=== PATIENT | female | born 1975 | race African-American/Black ===

== ENCOUNTER → 2023-12-18 | Outpatient (CLI) | payer MEDICAID, MEDICARE, SELFPAY ==
--- NOTE | 2023-12-18 13:30 | BI_ITS ---
MAMMOGRAPHY - BILATERAL SCREENING REASON FOR EXAM: Female, 47 years old. Routine annual screening examination. PERTINENT HISTORY: Non-contributory. Remote right excisional breast biopsy. TECHNIQUE: Digital bilateral breast avril (3D mammographic acquisition) in the CC and MLO projections. 2-D mediolateral oblique (MLO) and craniocaudad (CC) views of both breasts were obtained. CAD: Full Field Digital Mammography with Computer Added Detection was performed. COMPARISON: Comparison is made with prior outside examination November 02, 2022. FINDINGS: Breast Composition: The breasts are almost entirely fatty. There are no dominant masses or suspicious calcifications. Stable bilateral fat-containing axillary lymph nodes. No other significant abnormalities are identified. There has been no significant change since the prior study. BI/SCRN MAMM (CAD)W/AVRIL BILAT IMPRESSION: Stable bilateral screening mammogram. Yearly follow-up mammogram recommended. (A) ASSESSMENT CATEGORY: BIRADS Category 2: Benign. A letter regarding these results will be sent to the patient by the facility within 30 days. Approximately 10% of breast cancers are not detected by mammography. A normal mammogram should not delay biopsy of a clinically suspicious abnormality. [id number] Electronically Signed: Shin Odonnell MD at 11:21 EDT ,
== END | disposition home or self-care (01) ==
LOC: OPBI 13:27
PROVIDERS: PCP Nurse Practitioner Family; Referring Provider Nurse Practitioner Family; Visit Provider Nurse Practitioner Family
DX: Z12.31 Encounter for screening mammogram for malignant neoplasm of breast (principal)
CPT/HCPCS: 77063; 77067

== ENCOUNTER → 2024-02-20 | Outpatient (CLI) | payer MEDICARE, MEDICAID, SELFPAY ==
[2024-02-20 17:20] LABS: Absolute Lymphocyte Count 2.16 X10^3/uL (0.83-4.51); Absolute Neutrophil Count 6.8 X10^3/uL (2.0-7.7); Basophil# 0.01 X10^3/uL; Basophil% 0.1 % (0-1); Eosinophil# 0.15 X10^3/uL; Eosinophils% 1.6 % (0-5); Hematocrit 42.9 % (37-47); Lymphocyte # 2.16 X10^3/ul (0.83-4.51); Lymphocyte % 22.3 % (19-41); Mean Corp Hgb Conc 32.6 g/dL (32-36); Mean Corpuscular Hgb 30.9 pg (27.0-32.0); Mean Corpuscular Volume 94.7 fL (81-99); Mean Platelet Vol. 11.2 fl (6.2-12.0); Monocyte# 0.55 X10^3/uL; Monocyte% 5.7 % (0-10); NRBC Flagged by Analyzer 0 % (0-5); Neutrophil # 6.77 X10^3/uL (2.7-7.7); Platelet Count 186 K/mm3 (150-450); RBC Distribution Width CV 14.3 % (11.6-14.6); RBC Distribution Width SD 49.9 fl (35.1-43.9); Red Blood Count 4.53 M/mm3 (4.2-5.4); White Blood Count 9.7 K/mm3 (4.4-11.0)
[2024-02-20 18:09] LABS: AST(SGOT) 13 U/L (15-37); Alanine Aminotransfer ALT/SGPT 17 U/L (13-56); Albumin, Serum 3.7 g/dL (3.2-5.0); Alkaline Phosphatase 88 U/L (45-117); Anion Gap 10 (5-15); BUN 10 mg/dL (7-18); BUN/Creat Ratio 7.8 RATIO (10-20); Calcium,Total 9.3 mg/dL (8.5-10.1); Chloride 105 mmol/L (98-107); Creatinine, Serum 1.28 mg/dL (0.55-1.02); EST Glomerular Filtration Rate 47 mL/min (>60); Est Glom Filt Rate - Afr Amer 57 mL/min (>60); Globulin 3.7 g/dL (2.2-4.2); Glucose 153 mg/dL (74-106); Potassium 4.4 mmol/L (3.5-5.1); Protein, Total 7.4 g/dL (6.4-8.2); Sodium Level 139 mmol/L (136-145); Thyroid Stim Hormone (TSH) 0.79 uIU/mL (0.358-3.74)
[2024-02-20 18:20] LABS: Microalbumin,Random Urine < 5.0 mg/L (NO RANGE EST.)
== END | disposition home or self-care (01) ==
LOC: VSLAB 14:16
PROVIDERS: PCP Nurse Practitioner Family; Visit Provider Nurse Practitioner Family
DX: E11.69 Type 2 diabetes mellitus with other specified complication (principal); I10 Essential (primary) hypertension
CPT/HCPCS: 36415; 80053; 82043; 84443; 85025

== ENCOUNTER → 2024-06-24 | Outpatient (CLI) | payer MEDICARE, MEDICAID, SELFPAY ==
--- NOTE | 2024-06-24 12:44 | BI_ITS ---
MAMMOGRAPHY - BILATERAL DIAGNOSTIC REASON FOR EXAM: Female, 48 years old. Sebaceous cyst overlying the left breast laterally. PERTINENT HISTORY: Remote right excisional breast biopsy. TECHNIQUE: Digital bilateral breast meño (3D mammographic acquisition) in the CC and MLO projections. 2-D mediolateral oblique (MLO) and craniocaudad (CC) views of both breasts were obtained. CAD: Full Field Digital Mammography with Computer Added Detection was performed. COMPARISON: Comparison is made with prior study dated December 18, 2023. FINDINGS: Breast Composition: There are scattered areas of fibroglandular density. There are no dominant masses or suspicious calcifications. Irregular density seen in the deep inferior aspect of the left breast corresponding to the skin lesion. This most likely presents a sebaceous cyst. No other significant abnormalities are identified. BI/DIAG MAMM W/CAD, BILAT IMPRESSION: Findings suggestive of a skin lesion corresponding to the sebaceous cyst in the deep central aspect of the left breast. ASSESSMENT CATEGORY: BIRADS Category 2: Benign. A letter regarding these results will be sent to the patient by the facility within 30 days. Approximately 10% of breast cancers are not detected by mammography. A normal mammogram should not delay biopsy of a clinically suspicious abnormality. Electronically Signed: Shin Odonnell MD at 13:51 EDT ,
--- NOTE | 2024-06-24 12:45 | US_ITS ---
STUDY: ULTRASOUND BREAST - LEFT REASON FOR EXAM: Female, 48 years old. Palpable lump in the right breast. TECHNIQUE: Axial and longitudinal images of the LEFT breast were performed with a high resolution ultrasound transducer. # OF IMAGES: 14 COMPARISON: Comparison is made with prior mammogram done earlier in the day. FINDINGS: LEFT Breast: The palpable lump corresponds to a 1.6 cm x 1.8 cm x 0.6 cm hypoechoic density deep to the skin surface within the subcutaneous tissues at the 5:00 position of the breast at 10 cm from the nipple. Suggestive of a sebaceous cyst. US/Breast Limited Unilateral IMPRESSION: The palpable lump corresponds to a 1.6 cm x 1.8 cm x 0 0.6 centimeters hypoechoic density at the 5:00 position of the breast at 10 cm from nipple. This is deep to the skin within the subcutaneous tissues suggestive of a sebaceous cyst. ASSESSMENT CATEGORY: BIRADS Category 2: Benign. A letter regarding these results will be sent to the patient by the facility within 30 days. Electronically Signed: Shin Odonnell MD at 14:49 EDT ,
--- OUTSIDE RECORDS SUMMARY | 2024-06-24 14:26 | XMS RPT_ITS | CCD ---
Author Organization [facility] Care Team Providers Care Mortar Maker Name Role Phone Yadira Rushing Unavailable No, Physician Unavailable Unavailable NO, PHYSICIAN Unavailable Unavailable MALORIE JUNIOR Unavailable Unavailab le NO, PHYSICIAN Unavailable Unavailable BEN, PERRY Unavailable Unavailable BEN, PERRY Unavailable Unavailable BEN, PERRY Unavailable Unavailable SAHU, SMOOTH DEEP Unavailable Unavailable SPARE, J. LULA Unavailable Unavailable ASGEDOM, GOITOM ANDOM Unavailable Unavailabl e NO, PHYSICIAN Unavailable Unavailable SPARE, J. LULA Unavailable Unavailable MARSTUART MANDEL. Unavailable Unavailable BEN, PERRY Unavailable Unavailable SAHU, SMOOTH DEEP Unavailable Unavailable DOUG HERNÁNDEZ Unavailable Unavaila ble NO, PHYSICIAN Unavailable Unavailable AMBURGEY, ODUL AKTAN Unavailable Unavailable AMBURGEY, ODUL AKTAN Unavailable Unavailable TIFFANIE YADIRA ALANNA Unavailable Unav ailable RAJKOTWALA, KHOZEMA M. Unavailable Unavailab andres Rushing Aydira Alanna Unavailable No, Physician Primary Care Provider UnavailKendra Skinner Unavailable Kiarra Arambula Unavailable Unavailable Poommipanit, Bernardino Unavailable Pete Wadsworth Unavailable Unavailable Manuel Neumann Unavailable Unavailable Kendra Foote Unavailable KENDRA FOOTE Primary Care Unavailable ASAD BRANTLEY Attending Unavailable Hudec, Taylor Unavailable Unavailable Dr. Kendra Foote Primary Care Unavaila Manuel Diehl Attending Unavailable Dr. Kendra Foote Primary Care Unavaila DO KIARRA Kumari Attending Unavailab andres Foote, Dr. Kendra Lion Primary Care Unavaila Taylor Jaquez Attending Unavailable Dary, Dr. Kendra Lion Attending Unavaila rusty Foote, Dr. Kendra Lion Primary Care Unavaila rusty Foote, Dr. Kendra Lion Primary Care Unavaila ble Manuel Neumann Attending Unavailable Unavailable Unavailable NO, PHYSICIAN Primary Care Unavailable ROBE DAMON Attending Unava ilable Generic Provider MD, No Assigned Pcp Primary Car e Provider Unavailable MANUEL NEUMANN Attending Unavailable GENERIC PROVIDER, NO ASSIGNED PCP Primary Care Unavailable DENTON VARGAS Admitting Unavailable EL AMOSDENTON Attending Unavailable GENERIC PROVIDER, NO ASSIGNED PCP Primary Care Unavailable Allergies Allergy Classification Reported Allergen(s) Allergy Type Date of Onset Reaction(s) Facility (8 sources) amoxicillin; Translations: [AMOXICILLIN] Drug Allergy 5 [facility] Work Phone: (11 sources) Angiotensin Converting Enzyme (Kameron) Inhibitors; Translations: [KAMERON INHIBITORS] Propensity to adverse reactions to drug 5 Swelling [facility] Work Phone: (8 sources) ciprofloxacin; Translations: [CIPROFLOXACIN] Drug Allergy 5 Swelling [facility] Work Phone: (10 sources) Penicillins; Translations: [PENICILLINS] Propensity to adverse reactions to drug 5 [facility] Work Phone: (3 sources) Ciprofloxacin Drug Allergy Swelling/Edema , Swelling [facility] (3 sources) Penicillin G; Translations: [PENICILLIN G] Drug Allergy 4 GI Upset [facility] (1 source) Penicillins Propensity to adverse reactions 4 Nausea/vomitin g [facility] Medications Current Medications Medication Drug Class(es) Dates Sig (Normalized) Sig (Original) acetaminophen 325 mg / traMADol hydrochloride 37.5 mg oral tablet (1 source) Opioid Agonist Start: 10-12-2022 take 1 tablet by mouth three times daily Ultracet 37.5 mg-325 mg oral tablet ; 1 tab(s) orally 3 times a day Quantity: 12 Refills: 0 Ordered: 12-Oct-2022 Taylor Ventura Start: 12-Oct-2022 Generic Substitution Allowed Comments: May cause drowsiness. Alcohol may intensify this effect. Use care when operating dangerous machinery.Obtain medical advice before taking any non-prescription drugs as some may affect the action of this medication.This product contains acetaminophen. Do not use with any other product containing acetaminophen to prevent possible liver damage. Comment on above: May cause drowsiness . Alcohol may intensify this effect. Use care when operating dangerous machinery.Obtain medical advice before taking any non-prescription drugs as some may affect the action of this medication.This product contains acetaminophen. Do not use with any other product containing acetaminophen to prevent possible liver damage. 60 actuat albuterol 0.09 mg/actuat metered dose inhaler (2 sources) beta2-Adrenergic Agonist Start: 06-12-2017 End: 07-12-2017 albuterol 90 mcg/actuation inhaler Inhale 2 (two) puffs every 6 (six) hours as needed for wheezing. 18 g 0 06/12/2017 07/12/2017 Active amLODIPine 10 mg oral tablet (14 sources) Dihydropyridine Calcium Channel Chasity Start: 04-09-2017 End: 07-12-2017 take 1 tablet by mouth once daily amLODIPine (NORVASC) 10 MG tablet Take 1 (one) tablet (10 mg total) by mouth daily. 30 tablet 0 05/02/2017 06/01/2017 Active take 1 tablet by mouth once kavita y amLODIPine Besylate 5 MG Oral Tablet TAKE 1 TABLET DAILY DIRECTED. Quantity: 90 Refills: 3 Ordered: 08-Mar-2022 DO Active aspirin 81 mg chewable tablet (8 sources) Platelet Aggregation Inhibitor, Nonsteroidal Anti-inflammatory Drug Start: 01-01-2022 End: 12-26-2022 take 1 tablet by mouth once daily aspirin 81 mg oral tablet, chewable ; 1 tab(s) orally once a day Quantity: 90 Refills: 3 Ordered: 01-Jan-2022 Emma Mclaughlin Start: 01-Jan-2022 End: 26-Dec-2022 Generic Substitution Allowed take 1 tablet by mouth once kavita y aspirin 81 mg EC tablet Take 1 tablet (81 mg) by mouth once daily. Active benzocaine 0.075 mg/mg oral gel (2 sources) Standardized Chemical Allergen Start: 05-02-2017 End: 05-12-2017 benzocaine (BABY ORAJEL) 7.5 % oral gel Apply to the mouth or throat 4 (four) times a day as needed for pain. 9.45 g 0 05/02/2017 05/12/2017 Active Start: 04-24-2017 End: 05-02-2017 benzocaine (BABY ORAJEL) 7.5 % oral gel Mouth/Throat, 4 times daily PRN, pain, Starting Sat04/24/17 at 1314, RESTRICTED to use in patients greater than or equal to 13 years old. Yes, the patient is greater than or equal to 13 years old Given 04/30/2017 21:21 EDT clopidogrel 75 mg oral tablet (8 sources) P2Y12 Platelet Inhibitor Start: 01-01-2022 End: 12-26-2022 take 1 tablet by mouth once daily clopidogrel 75 mg oral tablet ; 1 tab(s) orally once a day Quantity: 90 Refills: 3 Ordered: 01-Jan-2022 Emma Mclaughlin Start: 01-Jan-2022 End: 26-Dec-2022 Generic Substitution Allowed diclofenac sodium 0.01 mg/mg topical gel (1 source) Nonsteroidal Anti-inflammatory Drug Start: 10-12-2022 Voltaren 1% topical gel ; Apply topically to affected area 2 times a day Quantity: 50 Refills: 0 Ordered: 12-Oct-2022 Taylor Ventura Start: 12-Oct-2022 Generic Substitution Allowed Comments: Avoid prolonged or excessive exposure to direct and/or artificial sunlight while taking this medication.Do not take this drug if you are .For external use only. Comment on above: Avoid prolonged or e xcessive exposure to direct and/or artificial sunlight while taking this medication.Do not take this drug if you are .For external use only. escitalopram 1 mg/ml oral solution (1 source) Serotonin Reuptake Inhibitor take 10 mL by mouth once daily escitalopram (Lexapro) 5 mg/5 mL solution Take 10 mL (10 mg) by mouth once daily. Patient states 20mg bid Active glipiZIDE er 10 mg 24 hr extended release oral tablet (2 sources) Sulfonylurea take 1 tablet by mouth once daily glipiZIDE 10 mg oral tablet, extended release ; 1 tab(s) orally once a day Quantity: 0 Refills: 0 Ordered: 4-May-2022 Leydi Angel Status: Discontinued Generic Substitution Allowed hydrOXYzine hydrochloride 50 mg oral tablet (8 sources) Antihistamine Start: 06-12-2017 End: 07-12-2017 take 1 tablet by mouth three times daily hydrOXYzine (ATARAX) 50 MG tablet Take 1 (one) tablet (50 mg total) by mouth 3 (three) times a day. 90 tablet 0 06/12/2017 07/12/2017 Active Start: 05-27-2017 End: 06-13-2017 take 1 tablet by mouth three times daily hydrOXYzine (ATARAX) tablet 50 mg 50 mg, Oral, 3 times daily, First dose on Sat05/27/17 at 0900 Given 06/12/2017 20:03 EDT 50 mg Start: 05-02-2017 End: 06-01-2017 take 1 tablet by mouth three times daily hydrOXYzine (ATARAX) 50 MG tablet Take 1 (one) tablet (50 mg total) by mouth 3 (three) times a day. 90 tablet 0 05/02/2017 05/27/2017 Discontinued Start: 04-22-2017 End: 05-02-2017 take 1 tablet by mouth three times daily hydrOXYzine (ATARAX) tablet 50 mg 50 mg, Oral, 3 times daily, First dose on Sat04/23/17 at 1500 Given 05/01/2017 20:19 EDT 50 mg Start: 04-08-2017 End: 05-02-2017 take 1 tablet by mouth every six hours as needed for anxiety hydrOXYzine (ATARAX) tablet 50 mg 50 mg, Oral, Every 6 hours PRN, anxiety, Starting Sat04/08/17 at 2310 Given 04/21/2017 20:23 EDT 50 mg losartan potassium 100 mg oral tablet (2 sources) Angiotensin 2 Receptor Chasity take 1 tablet by mouth once daily losartan 100 mg oral tablet ; 1 tab(s) orally once a day Quantity: 0 Refills: 0 Ordered: 27-Dec-2021 Arti Becker Status: Discontinued Generic Substitution Allowed meloxicam 15 mg oral tablet (2 sources) Nonsteroidal Anti-inflammatory Drug take 1 tablet by mouth once daily in the morning meloxicam 15 mg oral tablet ; 1 tab(s) orally once a day (in the morning) Quantity: 0 Refills: 0 Ordered: 27-Dec-2021 Arti Becker Status: Discontinued Generic Substitution Allowed metFORMIN hydrochloride 500 mg oral tablet (8 sources) Biguanide Start: 06-12-20 End: 07-13-20 take 1 tablet by mouth twice daily at mealtime metFORMIN (GLUCOPHAGE) 500 MG tablet Take 1 (one) tablet (500 mg total) by mouth 2 (two) times a day with meals. 60 tablet 0 06/13/2017 07/13/2017 Active Start: 05-27-2017 End: 06-13-2017 take 800 tablets by mouth once daily at breakfast metFORMIN (GLUCOPHAGE) tablet 500 mg 500 mg, Oral, Daily with breakfast, First dose on 05/27/17 at 0800, Note: Guidelines for metformin state that drug should be held for 48 hrs after use of iodinated contrast media (IVP dye). Given 06/11/2017 08:00 EDT 500 mg Start: 05-02-2017 End: 06-12-2017 take 1 tablet by mouth once daily at breakfast metFORMIN (GLUCOPHAGE) 500 MG tablet Take 1 (one) tablet (500 mg total) by mouth daily with breakfast. 30 tablet 0 06/12/2017 06/12/2017 Discontinued multivitamin tablet (1 source) take 1 tablet by mouth once daily multivitamin tablet Take 1 tablet by mouth once daily. Active nitroglycerin 0.4 mg sublingual tablet (4 sources) Nitrate Vasodilator nitroglyceri n (Nitrostat) 0.[address] 1 tablet (0.4 mg) under the tongue every 5 minutes if needed for chest pain. Active omeprazole 40 mg delayed release oral capsule (9 sources) Proton Pump Inhibitor omeprazole (PriLOSEC) [address] capsule Take 1 capsule (40 mg) by mouth. Do not crush or chew. Active 24 hr oxybutynin chloride 10 mg extended release oral tablet (9 sources) Cholinergic Muscarinic Antagonist take 1 tablet by mouth once daily oxybutynin XL (Ditropan-XL) 10 mg 24 hr tablet Take 1 tablet (10 mg) by mouth once daily. Do not crush, chew, or split. Active QUEtiapine 100 mg oral tablet (15 sources) Atypical Antipsychotic take 1 tablet by mouth twice daily QUEtiapine (SEROquel) 100 mg tablet Take 1 tablet (100 mg) by mouth 2 times a day. Active take 1 tablet by mouth once kavita y QUEtiapine Fumarate 100 MG Oral Tablet TAKE 1 TABLET DAILY. Quantity: 0 Refills: 0 Ordered: 08-Mar-2022 DO Active take 1 tablet by mouth at bedtim e QUEtiapine Fumarate 50 MG Oral Tablet TAKE 1 TABLET AT BEDTIME. Quantity: 0 Refills: 0 Ordered: 08-Mar-2022 DO Active rosuvastatin calcium 5 mg oral tablet (9 sources) HMG-CoA Reductase Inhibitor Start: 01-01-2022 End: 12-26-2022 take 1 tablet by mouth once daily at bedtime rosuvastatin 5 mg oral tablet ; 1 tab(s) orally once a day (at bedtime) Quantity: 90 Refills: 3 Ordered: 01-Jan-2022 Emma Mclaughlin Start: 01-Jan-2022 End: 26-Dec-2022 Generic Substitution Allowed semaglutide (Ozempic) 1 mg/dose (4 mg/3 mL) pen injector (1 source) semaglutide (Ozempic) 1 mg/dose (4 mg/3 mL) pen injector Inject 1 mg under the skin every 7 days. Active Tab-A-Marilyn + Iron oral tablet (3 sources) take 1 tablet by mouth once daily Tab-A-Marilyn + Iron oral tablet ; 1 tab(s) orally once a day Quantity: 0 Refills: 0 Ordered: 27-Dec-2021 Arti Becker Generic Substitution Allowed traZODone hydrochloride 150 mg oral tablet (8 sources) Serotonin Reuptake Inhibitor Start: 06-12-2017 End: 07-12-2017 take 1 tablet by mouth once traZODone (DESYREL) 150 MG tablet Take 1 (one) tablet (150 mg total) by mouth nightly. 30 tablet 0 06/12/2017 07/12/2017 Active Start: 05-27-2017 End: 06-13-2017 traZODone (DESYREL) tablet 1 50 mg 150 mg, Oral, Nightly, First dose on Sat05/27/17 at 2100, [] May repeat once in 30 minutes if still awake. Given 06/10/2017 20:09 EDT 150 mg Start: 05-02-2017 End: 06-01-2017 take 1 tablet by mouth once traZODone (DESYREL) 150 MG tablet Take 1 (one) tablet (150 mg total) by mouth nightly. 30 tablet 0 05/02/2017 05/27/2017 Discontinued Start: 04-08-2017 End: 05-02-2017 take 1 tablet by mouth once daily traZODone (DESYREL) tablet 150 mg 150 mg, Oral, Nightly, First dose on 04/15/17 at 2100 Given 04/29/2017 20:34 EDT 150 mg vitamin b12 1 mg oral tablet (9 sources) Vitamin B12 take 1 tablet by mouth once daily cyanocobalamin (Vitamin B-12) 1,000 mcg tablet Take 1 tablet (1,000 mcg) by mouth once daily. Active Completed/Discontinued Medications Medication Drug Class(es) Dates Sig (Normalized) Sig (Original) acetaminophen 325 mg oral tablet (5 sources) Start: 04-08-2017 End: 04-13-2017 take 1 tablet by mouth every four hours as needed for pain acetaminophen (TYLENOL) tablet 650 mg 650 mg, Oral, Every 4 hours PRN, mild pain, Starting Sat04/08/17 at 2310 Given 04/10/2017 03:20 EDT 650 mg take 2 tablets by mo uth every eight hours as needed acetaminophen (Tylenol 8 HOUR) 650 mg ER tablet Take 2 tablets (1,300 mg) by mouth every 8 hours if needed for mild pain (1 - 3). Do not crush, chew, or split. Active aluminum hydroxide 40 mg/ml / magnesium hydroxide 40 mg/ml / simethicone 4 mg/ml oral suspension (2 sources) Start: 05-27-2017 End: 06-13-2017 take 30 mL by mouth every four hours as needed aluminum-magnesium hydroxide-simethicone (MAALOX PLUS) 200-200-20 mg/5 mL suspension 30 mL 30 mL, Oral, Every 4 hours PRN, indigestion, Starting Sat05/27/17 at 0549 Given 06/02/2017 00:03 EDT 30 mL Start: 04-08-2017 End: 05-02-2017 take 30 mL by mouth every four hours as needed aluminum-magnesium hydroxide-simethicone (MAALOX PLUS) 200-200-20 mg/5 mL suspension 30 mL 30 mL, Oral, Every 4 hours PRN, indigestion, Starting Sat04/08/17 at 2310 Given 04/25/2017 06:06 EDT 30 mL benztropine mesylate 0.5 mg oral tablet (2 sources) Anticholinergic, Antihistamine Start: 04-09-2017 End: 05-02-2017 take 1 tablet by mouth three times daily benztropine (COGENTIN) tablet 0.5 mg 0.5 mg, Oral, 3 times daily, First dose on Sat04/09/17 at 1500 Given 05/01/2017 20:19 EDT 0.5 mg busPIRone hydrochloride 5 mg oral tablet (7 sources) Start: 05-27-2017 End: 06-13-2017 take 1 tablet by mouth three times daily busPIRone (BUSPAR) tablet 7.5 mg 7.5 mg, Oral, 3 times daily, First dose on Sat05/27/17 at 0900 Given 06/12/2017 20:03 EDT 7.5 mg Start: 05-02-2017 End: 07-12-2017 take 1 tablet by mouth three times daily busPIRone (BUSPAR) 7.5 MG tablet Take 1 (one) tablet (7.5 mg total) by mouth 3 (three) times a day. 90 tablet 0 06/12/2017 07/12/2017 Active Start: 04-09-2017 End: 05-02-2017 take 1 tablet by mouth three times daily busPIRone (BUSPAR) tablet 7.5 mg 7.5 mg, Oral, 3 times daily, First dose on Sat04/15/17 at 1500 Given 05/01/2017 20:19 EDT 7.5 mg cephalexin 500 mg oral capsule (1 source) Cephalosporin Antibacterial Start: 04-18-2017 End: 04-21-2017 take 1 capsule by mouth every six hours cephALEXin (KEFLEX) capsule 500 mg 500 mg, Oral, Every 6 hours scheduled, First dose on Sat04/18/17 at 1945, For 3 days, Indication: UTI Given 04/20/2017 23:38 EDT 500 mg cholecalciferol 0.025 mg oral capsule (8 sources) Vitamin D Vitamin D-3 25 MCG (1000 UT) Oral Capsule TAKE DIRECTED. Quantity: 0 Refills: 0 Ordered: 08-Mar-2022 DO Active take 1 tablet by dg th once daily in the morning Vitamin D3 25 mcg (1000 intl units) oral tablet ; 1 tab(s) orally once a day (in the morning) Quantity: 0 Refills: 0 Ordered: 4-May-2022 Arti Becker Generic Substitution Allowed clindamycin 150 mg oral capsule (1 source) Lincosamide Antibacterial Start: 04-22-2017 End: 04-25-2017 take 1 capsule by mouth every eight hours clindamycin (CLEOCIN) capsule 300 mg 300 mg, Oral, Every 8 hours scheduled, First dose on 04/22/17 at 1430, For 3 days, Indication: Other: (specify) Given 04/24/2017 15:24 EDT 300 mg diphenhydrAMINE hydrochloride 25 mg oral tablet (7 sources) Histamine-1 Receptor Antagonist Start: 04-21-2017 End: 05-02-2017 take 25 mg by mouth every six hours as needed for anxiety diphenhydrAMINE (BENADRYL) oral solid 25 mg 25 mg, Oral, Every 6 hours PRN, itching, allergies, anxiety, Starting 04/21/17 at 0112 Given 04/21/2017 06:53 EDT 25 mg take 1 capsule by mo uth every four to six hours as needed Banophen 50 MG Oral Capsule 1 cap po q 4 -6 hours prn Quantity: 0 Refills: 0 Ordered: 18-Apr-2023 DO Active diphenhydrAMINE HCl - 50 MG Oral Capsule Quantity: 0 Refills: 0 Ordered: 25-Apr-2022 DO Active take 1 capsule by mouth at bedti me Banophen 25 MG Oral Capsule TAKE 1 CAPSULE AT BEDTIME. Quantity: 0 Refills: 0 Ordered: 18-Oct-2022 DO Active take 1 capsule by mo uth once daily in the evening Benadryl 50 mg oral capsule ; 1 cap(s) o rally once a day (in the evening) Quantity: 0 Refills: 0 Ordered: 27-Dec-2021 Arti Becker Generic Substitution Allowed empagliflozin 10 mg oral tablet (8 sources) Sodium-Glucose Cotransporter 2 Inhibitor Start: 01-01-2022 End: 01-30-2022 take 1 tablet by mouth once daily empagliflozin 10 mg oral tablet ; 1 tab(s) orally once a day Quantity: 30 Refills: 0 Ordered: 01-Jan-2022 Kendra Kidd Start: 01-Jan-2022 End: 30-Jan-2022 Generic Substitution Allowed take 1 tablet by dg once daily in the morning empagliflozin (Jardiance) 25 mg Take 1 tablet (25 mg) by mouth once daily in the morning. Active haloperidol 5 mg oral tablet (20 sources) Typical Antipsychotic Start: 05-27-2017 End: 06-13-2017 haloperidol (HALDOL) tablet 10 mg 10 mg, Oral, At bedtime, First dose on Sat05/27/17 at 2100, May cause QT interval prolongation. Given 06/10/2017 20:09 EDT 10 mg Start: 05-27-2017 End: 06-13-2017 haloperidol (HALDOL) tablet 5 mg 5 mg, Oral, 2 times daily, First dose on Sat05/27/17 at 0900, May cause QT interval prolongation. Given 06/12/2017 14:12 EDT 5 mg Start: 05-02-2017 End: 07-12-2017 take 1 tablet by mouth once haloperidol (HALDOL) 10 MG tablet Take 1 (one) tablet (10 mg total) by mouth nightly. 30 tablet 0 06/12/2017 07/12/2017 Active Start: 04-15-2017 End: 05-02-2017 take 1 tablet by mouth once daily haloperidol (HALDOL) tablet 10 mg 10 mg, Oral, Nightly, First dose on Sat04/15/17 at 2100, May cause QT interval prolongation. Given 04/29/2017 20:33 EDT 10 mg Start: 04-15-2017 End: 07-12-2017 take 1 tablet by mouth twice daily in the morning haloperidol (HALDOL) 5 MG tablet Take 1 (one) tablet (5 mg total) by mouth 2 (two) times a day Take in am and 1400. 60 tablet 0 05/02/2017 06/01/2017 Active Start: 04-09-2017 End: 04-15-2017 take 1 tablet by mouth three times daily haloperidol (HALDOL) tablet 5 mg 5 mg, Oral, 3 times daily, First dose on Sat04/09/17 at 1500, May cause QT interval prolongation. Given 04/14/2017 14:10 EDT 5 mg Start: 04-09-2017 End: 04-09-2017 take 1 tablet by mouth at bedtime haloperidol (HALDOL) tablet 5 mg 5 mg, Oral, At bedtime, First dose on Sat04/09/17 at 0000, May cause QT interval prolongation. Given 04/08/2017 23:32 EDT 5 mg ibuprofen 600 mg oral tablet (1 source) Nonsteroidal Anti-inflammatory Drug Start: 04-13-2017 End: 05-02-2017 ibuprofen (ADVIL,MOTRIN) tablet 600 mg 600 mg, Oral, Every 6 hours PRN, fever 100.4 F or greater, headaches, mild pain, Starting 04/13/17 at 1911, Give with Food Do Not Crush or Chew if administering orally due to bitter taste. May be crushed if given via tube. Given 05/01/2017 20:20 EDT 600 mg 3 ml insulin aspart, human 100 unt/ml pen injector (3 sources) Insulin Analog inject 5 [IU] by subcutaneous injection before mealtime NovoLOG FlexPen 100 UNIT/ML Subcutaneous Solution Pen-injector INJECT 5 UNIT Before meals Quantity: 0 Refills: 0 Ordered: 18-Oct-2022 DO Active insulin glargine 100 unt/ml injectable solution (5 sources) Insulin Analog Start: 01-01-2022 End: 01-30-2022 inject 15 [IU] by subcutaneous injection once daily in the evening insulin glargine 100 units/mL subcutaneous solution ; 15 unit(s) subcutaneous once a day (in the evening) Quantity: 10 Refills: 0 Ordered: 01-Jan-2022 Kendra Kidd Start: 01-Jan-2022 End: 30-Jan-2022 Generic Substitution Allowed Basaglar KwikPen 100 UNIT/ML Subcutaneous Solution Pen-injector INJECT 20 UNIT Bedtime Quantity: 0 Refills: 0 Ordered: 18-Oct-2022 DO Active insulin lispro 100 unt/ml injectable solution (8 sources) Insulin Analog Start: 04-18-2023 Insulin Lispro 100 UNIT/ML Injection Solution INJECT 5 UNIT 3 times daily Quantity: 0 Refills: 0 Ordered: 18-Apr-2023 DO Start : 18-Apr-2023 Active Start: 01-01-2022 End: 01-30-2022 insulin lispro 100 units/mL injectable solution ; 5 unit(s) injectable 3 times a day with meals Quantity: 10 Refills: 0 Ordered: 01-Jan-2022 Kendra Kidd Start: 01-Jan-2022 End: 30-Jan-2022 Generic Substitution Allowed Start: 05-28-2017 End: 06-13-2017 take 1-30 [IU] by mouth once daily before lunch, then take 1-30 [IU] by mouth insulin lispro (HumaLOG) injection 1-30 Units 1-30 Units, Subcutaneous, Daily before lunch, First dose on Sat05/28/17 at 1130, Dose should be given 10-15 minutes before a meal. If poor oral intake, nausea or blood glucose value Given 06/08/2017 11:54 EDT 4 Units Start: 05-27-2017 End: 06-13-2017 take 1-30 [IU] by mouth once daily at dinner, then take 1-30 [IU] by mouth insulin lispro (HumaLOG) injection 1-30 Units 1-30 Units, Subcutaneous, Daily with dinner, First dose on Sat05/27/17 at 1630, Dose should be given 10-15 minutes before a meal. If poor oral intake, nausea or blood glucose value Given 06/09/2017 17:23 EDT 6 Units Start: 04-09-2017 End: 05-02-2017 take 1-30 [IU] by mouth three times daily before mealtime, then take 1-30 [IU] by mouth insulin lispro (HumaLOG) injection 1-30 Units 1-30 Units, Subcutaneous, 3 times daily before meals, First dose on Sat04/09/17 at 1645, Dose should be given 10-15 minutes before a meal. If poor oral intake, nausea or blood glucose value Given 04/30/2017 17:49 EDT 2 Units 24 hr isosorbide mononitrate 30 mg extended release oral tablet (6 sources) Nitrate Vasodilator Start: 03-08-2022 take 1 tablet by mouth once daily Isosorbide Mononitrate ER 30 MG Oral Tablet Extended Release 24 Hour TAKE 1 TABLET BY MOUTH EVERY DAY Quantity: 90 Refills: 3 Ordered: 08-Mar-2022 Manuel Neumann MD Start : 08-Mar-2022 Active take 1 tablet by mouth once kavita y isosorbide mononitrate ER (Imdur) 120 mg 24 hr tablet Take 1 tablet (120 mg) by mouth once daily. Do not crush or chew. Active metFORMIN hydrochloride 1000 mg / SITagliptin 50 mg oral tablet (8 sources) Biguanide, Dipeptidyl Peptidase 4 Inhibitor Start: 01-04-2022 take 1 tablet by mouth twice daily at mealtime Janumet 50-1000 MG Oral Tablet TAKE 1 TABLET TWICE DAILY WITH MEALS. Quantity: 180 Refills: 3 Ordered: 18-Apr-2023 DO Start : 04-Jan-2022 Active Start: 01-04-2022 take 1 tablet by dg twice daily at mealtime Janumet 50-500 MG Oral Tablet TAKE 1 TABLET TWICE DAILY WITH MEALS. Quantity: 0 Refills: 0 Ordered: 08-Mar-2022 DO Start : 04-Jan-2022 Active Start: 01-04-2022 take 1 tablet by dg twice daily at mealtime Janumet 50 mg-500 mg oral tablet ; 1 tab(s) orally 2 times a day // AM & PM with meals. Hold for 48 hours post cardiac catheterization procedure, resume 01/04/22. Quantity: 0 Refills: 0 Ordered: 01-Jan-2022 Emma Mclaughlin Start: 04-Jan-2022 Generic Substitution Allowed take 1 tablet by dg twice daily at mealtime Janumet 50 mg-500 mg oral tablet ; 1 tab(s) orally 2 times a day // AM & PM with meals Quantity: 0 Refills: 0 Ordered: 27-Dec-2021 Arti Becker Generic Substitution Allowed metoclopramide 10 mg oral tablet (13 sources) Dopamine-2 Receptor Antagonist take 1 tablet by mouth once daily Metoclopramide HCl - 10 MG Oral Tablet Take 1 tablet daily Quantity: 0 Refills: 0 Ordered: 18-Apr-2023 DO Active take 1 tablet by dg three times daily Metoclopramide HCl - 5 MG Oral Tablet TA KE 1 TABLET 3 TIMES DAILY. Quantity: 0 Refills: 0 Ordered: 08-Mar-2022 DO Active take 1 tablet by dg four times daily at bedtime metoclopramide 5 mg oral tablet ; 1 tab( s) orally 4 times a day (before meals and at bedtime) Quantity: 0 Refills: 0 Ordered: 27-Dec-2021 Arti Becker Generic Substitution Allowed 24 hr metoprolol succinate 25 mg extended release oral tablet (8 sources) beta-Adrenergic Chasity Start: 01-01-2022 End: 01-30-2022 take 1 tablet by mouth once daily metoprolol succinate 25 mg oral tablet, extended release ; 1 tab(s) orally once a day Quantity: 30 Refills: 0 Ordered: 01-Jan-2022 Marti Kendra Start: 01-Jan-2022 End: 30-Jan-2022 Generic Substitution Allowed take 0.5 tablet by mouth once da sammy metoprolol succinate XL (Toprol-XL) 25 mg 24 hr tablet Take 0.5 tablets (12.5 mg) by mouth once daily. Do not crush or chew. Active nicotine 4 mg chewing gum (12 sources) Cholinergic Nicotinic Agonist Start: 05-27-2017 End: 06-13-2017 nicotine polacrilex (NICORETTE) gum 4 mg 4 mg, Mouth/Throat, Every 1 hour prn, smoking cessation, Starting 05/27/17 at 0628, Nicotine Gum: [] May use to supplement nicotine patch therapy. [] Instruct patient to chew 1 piece of gum at a time. [] Chew slowly until it tingles, then place between cheek and gums. [] Instruct patient to repeat process until most of tingle is gone Not to exceed 24 pieces/24 hours Given 06/11/2017 19:49 EDT 4 mg Start: 05-27-2017 End: 06-13-2017 nicotine polacrilex (COMMIT) lozenge 4 mg 4 mg, Mouth/Throat, Every 1 hour prn, smoking cessation, Starting Sat05/27/17 at 0627, Nicotine lozenge: [] May use to supplement nicotine patch therapy. [] Instruct patient to place 1 lozenge under the tongue at a time. [] Should NOT be chewed or swallowed; allow to slowly dissolve (about 20-30 minutes). [] Avoid food or drink 15 minutes before, during, or after using lozenge. DO NOT CRUSH OR CHEW. Given 06/12/2017 17:26 EDT 4 mg Start: 04-09-2017 End: 07-13-2017 apply 1 dose transdermal route once daily nicotine (NICODERM CQ) 21 mg/[address] 1 (one) patch on the skin daily. 28 patch 0 05/02/2017 06/01/2017 Active Start: 04-08-2017 End: 05-02-2017 nicotine (NICOTROL) 10 mg in haler 1 cartrige 1 cartrige, Oral Inhalation, Every 1 hour prn, smoking cessation, Starting 04/08/17 at 2310, Nicotine inhaler: [] May use to supplement nicotine patch therapy. [] Instruct patient to puff on inhaler continuously for 20 minutes. [] May use 1 inhaler every hour not to exceed 16 inhalers in a 24 hour period. Each 10 mg cartridge delivers 4 mg of Nicotine to the patient. Given 04/27/2017 10:12 EDT 1 cartrige Start: 04-08-2017 End: 05-02-2017 nicotine polacrilex (NICORET TE) gum 4 mg 4 mg, Mouth/Throat, Every 1 hour prn, smoking cessation, Starting Sat04/08/17 at 2310, Nicotine Gum: [] May use to supplement nicotine patch therapy. [] Instruct patient to chew 1 piece of gum at a time. [] Chew slowly until it tingles, then place between cheek and gums. [] Instruct patient to repeat process until most of tingle is gone Not to exceed 24 pieces/24 hours Given 05/02/2017 11:06 EDT 4 mg Start: 04-08-2017 End: 05-02-2017 take 4 mg by mouth every hour as needed nicotine polacrilex (COMMIT) lozenge 4 mg 4 mg, Mouth/Throat, Every 1 hour prn, smoking cessation, Starting Sat04/08/17 at 2310, DO NOT CRUSH OR CHEW. Given 04/30/2017 18:56 EDT 4 mg Nicotine Polacri spring 2 MG Mouth/Throat Lozenge SUCK 1 LOZENGE Every 2 hours PRN up to 10 lozenges daily Quantity: 0 Refills: 0 Ordered: 18-Oct-2022 DO Active nitrofurantoin, macrocrystals 25 mg / nitrofurantoin, monohydrate 75 mg oral capsule (1 source) Nitrofuran Antibacterial Start: 05-27-2017 End: 06-06-2017 take 1 capsule by mouth every twelve hours, then take 1 capsule by mouth nitrofurantoin (macrocrystal-monohydrate) (MACROBID) 100 MG capsule 100 mg 100 mg, Oral, Every 12 hours scheduled, First dose on Sat05/27/17 at 0900, Indication: UTI Treatment Given 06/05/2017 08:30 EDT 100 mg OLANZapine 10 mg oral tablet (3 sources) Atypical Antipsychotic Start: 05-27-2017 End: 06-13-2017 take 10 tablets by mouth every four hours OLANZapine (ZYPREXA) tablet 10 mg 10 mg, Oral, Every 4 hours PRN, agitation, racing thoughts, Starting 05/27/17 at 0728, May cause QT interval prolongation. Given 06/08/2017 15:29 EDT 10 mg Start: 05-27-2017 End: 06-13-2017 OLANZapine (ZyPREXA) injecti on 10 mg 10 mg, Intramuscular, Every 4 hours PRN, agitation, Starting 05/27/17 at 0728, May cause QT interval prolongation. Reconstitute 10mg vial with 2.1ml sterile water injection. Use within 1 hour. Given 05/27/2017 09:55 EDT 10 mg Left Deltoid Start: 04-08-2017 End: 05-02-2017 take 5 tablets by mouth every four hours OLANZapine (ZYPREXA) tablet 5 mg 5 mg, Oral, Every 4 hours PRN, psychotic agitation. may repeat in 1 hour if ineffective., Starting 04/08/17 at 2310, May cause QT interval prolongation. Given 04/09/2017 09:18 EDT 5 mg sacubitril 49 mg / valsartan 51 mg oral tablet (10 sources) Angiotensin 2 Receptor Chasity Start: 01-01-2022 End: 01-30-2022 take 1 tablet by mouth twice daily sacubitril-valsartan 49 mg-51 mg oral tablet ; 1 tab(s) orally 2 times a day Quantity: 60 Refills: 0 Ordered: 01-Jan-2022 Kendra Kidd Start: 01-Jan-2022 End: 30-Jan-2022 Generic Substitution Allowed End: 01-30-2022 Entresto 49-51 MG Oral Table t Quantity: 30 Refills: 0 Ordered: 08-Mar-2022 DO End : 30-Jan-2022 Complete spironolactone 25 mg oral tablet (8 sources) Aldosterone Antagonist Start: 01-01-2022 End: 01-30-2022 take 1 tablet by mouth once daily spironolactone 25 mg oral tablet ; 1 tab(s) orally once a day Quantity: 30 Refills: 0 Ordered: 01-Jan-2022 Kendra Kidd Start: 01-Jan-2022 End: 30-Jan-2022 Generic Substitution Allowed sucralfate 1000 mg oral tablet (8 sources) Aluminum Complex take 1 tablet by mouth four times daily Sucralfate 1 GM Oral Tablet TAKE 1 TABLET 4 TIMES DAILY. Quantity: 0 Refills: 0 Ordered: 08-Mar-2022 DO Active Tab-A-Marilyn/Minerals TABS (5 sources) Tab-A-Marilyn/Friedens als TABS TAKE 1 TABLET DAILY. Quantity: 0 Refills: 0 Ordered: 08-Mar-2022 DO Active torsemide 20 mg oral tablet (8 sources) Loop Diuretic Start: 01-01-2022 End: 03-31-2022 take 1 tablet by mouth once daily torsemide 20 mg oral tablet ; 1 tab(s) orally once a day Quantity: 30 Refills: 2 Ordered: 01-Jan-2022 Emma Mclaughlin Start: 01-Jan-2022 End: 31-Mar-2022 Generic Substitution Allowed Problems Active Problems Problem Classification Problem Date Documented Da te Episodic/Chronic Abdominal pain (5 sources) Abdominal pain; Translations: [Generalized abdominal pain] Onset: 08-01-2015 08-01-2015 Episodic Acute myocardial infarction (2 sources) Myocardial infarction; Translations: [Subendocardial infarction, initial episode of care] Onset: 03-22-2022 12-31-2021 Chronic Chronic obstructive pulmonary disease and bronchiectasis (6 sources) Acute exacerbation of chronic obstructive airways disease; Translations: [Obstructive chronic bronchitis with (acute) exacerbation] Onset: 12-27-2021 12-27-2021 Chronic Congestive heart failure; nonhypertensive (14 sources) Congestive heart failure; Translations: [Congestive heart failure, unspecified] Onset: 03-22-2022 12-28-2021 Chronic Coronary atherosclerosis and other heart disease (18 sources) Acute coronary syndrome; Translations: [Intermediate coronary syndrome] Onset: 12-27-2021 12-27-2021 Chronic Comment on above: ACUTE CORONARY SYNDR OME Diabetes mellitus with complications (3 sources) Type 2 diabetes mellitus in obese; Translations: [Diabetes mellitus type 2 in obese (HCC)] Onset: 03-23-2005 06-05-2015 Chronic Diabetes mellitus without complication (3 sources) Diabetes mellitus; Translations: [Diabetes mellitus without mention of complication, type II or unspecified type, not stated as uncontrolled] Onset: 10-13-2022 12-28-2021 Chronic Essential hypertension (10 sources) Hypertensive urgency ; Translations: [Benign hypertension] Onset: 01-20-2014 Resolved: 05-28-2015 08-01-2015 Chronic Nausea and vomiting (3 sources) Nausea and vomiting; Translations: [Nausea with vomiting, unspecified] Onset: 05-21-2024 Resolved: 05-23-2024 05-23-2024 Episodic Nonspecific chest pain (9 sources) Chest pain; Translations: [Chest pain, unspecified] Onset: 12-27-2021 12-27-2021 Episodic Osteoarthritis (1 source) Unspecified osteoarthritis, unspecified site; Translations: [Unspecified osteoarthritis, unspecified site] Onset: 10-13-2022 Chronic Other aftercare (1 source) group home (current) use of oral hypoglycemic drugs; Translations: [group home (current) use of oral hypoglycemic drugs] Onset: 10-13-2022 Episodic Other aftercare (1 source) Other lobsterman (current) drug therapy; Translations: [Other lobsterman (current) drug therapy] Onset: 10-13-2022 Episodic Other lower respiratory disease (1 source) Dyspnea at rest; Translations: [Shortness of breath] 12-27-2021 Episodic Other lower respiratory disease (2 sources) Shortness of breath 12-27-2021 Episodic Comment on above: SHORTNESS OF BREATH Other lower respiratory disease (2 sources) Hypoxia; Translations: [Hypoxemia] 12-27-2021 Episodic Other non-traumatic joint disorders (3 sources) Ankle pain; Translations: [Pain in joint, ankle and foot] 10-12-2022 Episodic Comment on above: ANKLE PAIN Other non-traumatic joint disorders (2 sources) Knee pain 10-12-2022 Episodic Comment on above: KNEE PAIN Other non-traumatic joint disorders (1 source) Pain in joint, lower leg 10-12-2022 Episodic Other non-traumatic joint disorders (1 source) Pain in right knee; Translations: [Pain in right knee] Onset: 10-13-2022 Episodic Other non-traumatic joint disorders (2 sources) Pain in left knee; Translations: [Pain in left knee] Onset: 10-13-2022 Episodic Other non-traumatic joint disorders (1 source) Pain in right ankle and joints of right foot; Translations: [Pain in right ankle] Onset: 10-13-2022 Episodic Other non-traumatic joint disorders (2 sources) Pain in left ankle and joints of left foot; Translations: [Pain in left ankle] Onset: 10-13-2022 Episodic Other non-traumatic joint disorders (2 sources) Pain in right hip; Translations: [Pain in right hip] Onset: 10-13-2022 Episodic Other non-traumatic joint disorders (1 source) Pain in left hip; Translations: [Pain in left hip] Onset: 10-13-2022 Episodic Other nutritional; endocrine; and metabolic disorders (3 sources) Obesity; Translations: [Non morbid obesity] Onset: 01-21-2015 06-05-2015 Chronic Other nutritional; endocrine; and metabolic disorders (1 source) Morbid (severe) obesity due to excess calories; Translations: [Morbid (severe) obesity due to excess calories] Onset: 12-27-2021 Chronic Other screening for suspected conditions (not mental disorders or infectious disease) (6 sources) Raised cardiac enzyme or marker; Translations: [Other abnormal blood chemistry] Onset: 11-02-2022 Resolved: 12-31-2021 12-31-2021 Episodic Rosa Maria-; endo-; and myocarditis; cardiomyopathy (except that caused by tuberculosis or sexually transmitted disease) (1 source) Cardiomyopathy; Translations: [Other primary cardiomyopathies] 12-29-2021 Chronic Residual codes; unclassified (1 source) Tobacco user; Translations: [Tobacco use] Onset: 01-21-2015 06-05-2015 Chronic Schizophrenia and other psychotic disorders (17 sources) Acute exacerbation of chronic paranoid schizophrenia; Translations: [Schizophrenia] Onset: 01-21-2015 Resolved: 05-28-2015 04-13-2017 Chronic Screening and history of mental health and substance abuse codes (2 sources) Tobacco use and exposure - finding; Translations: [Tobacco use] Onset: 01-21-2015 06-05-2015 Chronic Skin and subcutaneous tissue infections (2 sources) Cellulitis of abdominal wall; Translations: [Cellulitis of abdominal wall] Onset: 05-11-2024 Episodic Spondylosis; intervertebral disc disorders; other back problems (5 sources) Degeneration of lumbar intervertebral disc; Translations: [Other intervertebral disc degeneration, lumbar region] Onset: 07-11-2015 07-11-2015 Chronic Substance-related disorders (5 sources) Cocaine abuse; Translations: [Cocaine abuse, uncomplicated] Onset: 05-16-2017 05-16-2017 Chronic Unclassified (2 sources) Patient noncompliance - general; Translations: [Medical non-compliance] Onset: 01-21-2015 01-21-2015 Unclassified (1 source) Drug therapy finding; Translations: [Pain medication agreement] Onset: 07-11-2015 07-11-2015 Unclassified (1 source) Shortness of breath at rest 12-27-2021 Unclassified (2 sources) Body mass index [BMI] 45.0-49.9, adult 12-28-2021 Unclassified (1 source) [facility] F/U- [facility] [place] 01-01-2022 Comment on above: HOSPITAL F/U- [facility] [place] Unclassified (1 source) Other cardiomyopathy 12-29-2021 Unclassified (1 source) CAD in kake artery 12-30-2021 Unclassified (1 source) NSTEMI, initial episode of care 12-31-2021 Unclassified (1 source) SCREENING MAMMO 10-01-2022 Comment on above: SCREENING MAMMO Unclassified (1 source) 6 MONTH FUV 03-08-2022 Comment on above: 6 MONTH FUV Unclassified (1 source) Knee pain, bilateral 10-12-2022 Unclassified (1 source) Contact with and (suspected) exposure to COVID-19; Translations: [Contact with and (suspected) exposure to COVID-19] Onset: 12-27-2021 Unclassified (1 source) Cough, unspecified; Translations: [Cough, unspecified] Onset: 12-27-2021 Past or Other Problems Problem Classification Problem Date Documented Date Episodic/Chronic Allergic reactions (3 sources) Anaphylaxis; Translations: [Anaphylaxis] Onset: 06-03-2015 06-03-2015 Episodic Asthma (6 sources) Unspecified asthma, uncomplicated; Translations: [Exercise-induced asthma] Onset: 04-27-2005 Resolved: 05-28-2015 05-28-2015 Chronic Fluid and electrolyte disorders (3 sources) Hypokalemia; Translations: [Hypokalemia] Onset: 05-28-2015 08-07-2015 Episodic Mood disorders (3 sources) Bipolar disorder; Translations: [Bipolar disorder (HCC)] Onset: 01-21-2015 Resolved: 05-28-2015 05-28-2015 Chronic Other aftercare (2 sources) 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; Translations: [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] Onset: 05-16-2017 Episodic Other complications of (3 sources) High risk ; Translations: [Supervision of high risk , antepartum] Onset: 01-21-2015 Resolved: 05-28-2015 05-28-2015 Episodic Other hematologic conditions (2 sources) Other specified abnormalities of plasma proteins; Translations: [Other specified abnormalities of plasma proteins] Onset: 12-27-2021 12-31-2021 Episodic Other lower respiratory disease (2 sources) Hypoxemia; Translations: [Hypoxemia] Onset: 12-27-2021 Episodic Schizophrenia and other psychotic disorders (2 sources) Brief psychotic disorder; Translations: [Brief psychotic disorder] Onset: 03-20-2017 Episodic Unclassified (1 source) Patient's noncompliance with other medical treatment and regimen; Translations: [Medical non-compliance] Onset: 01-21-2015 01-21-2015 Episodic Unclassified (1 source) [facility] TELE BED 12-27-2021 Comment on above: [facility] TO [facility] TELE BED Unclassified (1 source) Onset: 06-11-2024 06-11-2024 Urinary tract infections (3 sources) Urinary tract infection, site not specified; Translations: [Acute urinary tract infection] Onset: 05-27-2017 Episodic Results Test Name Value Interpretation Reference Range Facility C reactive proteinon 024 CRP [Mass/Vol] 0.10 mg/dL Normal <1.00 [facility] Comment on above: Performed By: #### 3 040-3 #### MALVIN BAXTER ([id number]) [facility] ([facility]) [address] [place] [address] CBC panel Auto (Bld)on 05-23 Erythrocyte distribution width (RBC) [Ratio] 15.3 % High 11.5-14.5 [facility] Comment on above: Performed By: #### 2 4323-8 #### MALVIN BAXTER ([id number]) [facility] ([facility]) [address] [place] [address] Hematocrit (Bld) [Volume fraction] 44.1 % Normal 36.0-46.0 [facility] Comment on above: Performed By: #### 2 4323-8 #### MALVIN BAXTER ([id number]) [facility] ([facility]) [address] [place] [address] 34814 Hemoglobin (Bld) [Mass/Vol] 14.4 g/dL Normal 12.0-16.0 [facility] Comment on above: Performed By: #### 2 432-8 #### MALVIN BAXTER ([id number]) [facility] ([facility]) [address] [place] [address] [phone] MCH (RBC) [Entitic mass] 30.9 pg Normal 26.0-34.0 [facility] Comment on above: Performed By: #### 2 4322-8 #### MALVIN BAXTER ([id number]) [facility] ([facility]) [address] [place] [address] 87315 MCHC (RBC) [Mass/Vol] 32.7 g/dL Normal 32.0-36.0 [facility] Comment on above: Performed By: #### 2 4322-8 #### MALVIN BAXTER ([id number]) [facility] ([facility]) [address] [place] [address] 91592 MCV (RBC) [Entitic vol] 95 fL Normal 80-100 [facility] Comment on above: Performed By: #### 2 4322-8 #### MALVIN BAXTER ([id number]) [facility] ([facility]) [address] [place] [address] 73265 Nucleated RBC/100 WBC (Bld) [Ratio] 0.0 /100 WBCs Normal 0.0-0.0 [facility] Comment on above: Performed By: #### 2 4322-8 #### MALVIN BAXTER ([id number]) [facility] ([facility]) [address] [place] [address] 65718 Platelets (Bld) [#/Vol] 191 x10*3/uL Normal 150-450 [facility] Comment on above: Performed By: #### 2 432-8 #### MALVIN BAXTER ([id number]) [facility] ([facility]) [address] [place] [address] 60430 RBC (Bld) [#/Vol] 4.66 x10*6/uL Normal 4.00-5.20 [facility] Comment on above: Performed By: #### 2 4323-8 #### MALVIN BAXTER ([id number]) [facility] ([facility]) [address] [place] [address] WBC (Bld) [#/Vol] 12.0 x10*3/uL High 4.4-11.3 [facility] Comment on above: Performed By: #### 2 4323-8 #### MALVIN BAXTER ([id number]) [facility] ([facility]) [address] [place] [address] Comprehensive metabolic 2000 panelon 05-23-2024 Albumin BCP dye [Mass/Vol] 3.8 g/dL Normal 3.4-5.0 [facility] Comment on above: Performed By: #### 2 4323-8 #### MALVIN BAXTER ([id number]) [facility] ([facility]) [address] [place] [address] ALP [Catalytic activity/Vol] 64 U/L Normal 33-110 [facility] Comment on above: Performed By: #### 2 4323-8 #### MALVIN BAXTER ([id number]) [facility] ([facility]) [address] [place] [address] ALT With P-5'-P [Catalytic activity/Vol] 12 U/L Normal 7-45 [facility] Comment on above: Result Comment: Elisa ents treated with Sulfasalazine may generate falsely decreased results for ALT. Performed By: #### 2 4323-8 #### MALVIN BAXTER ([id number]) [facility] ([facility]) [address] [place] [address] 15066 Anion gap [Moles/Vol] 10 mmol/L Normal 10-20 [facility] Comment on above: Performed By: #### 2 4323-8 #### MALVIN BAXTER ([id number]) [facility] ([facility]) [address] [place] [address] 68193 AST With P-5'-P [Catalytic activity/Vol] 13 U/L Normal 9-39 [facility] Comment on above: Performed By: #### 2 4323-8 #### MALVIN BAXTER ([id number]) [facility] ([facility]) [address] [place] [address] Bilirubin [Mass/Vol] 0.4 mg/dL Normal 0.0-1.2 [facility] Comment on above: Performed By: #### 2 4323-8 #### MALVIN BAXTER ([id number]) [facility] ([facility]) [address] [place] [address] 16860 Calcium [Mass/Vol] 8.8 mg/dL Normal 8.6-10.3 [facility] Comment on above: Performed By: #### 2 432-8 #### MALVIN BAXTER ([id number]) [facility] ([facility]) [address] [place] [address] 15888 Chloride [Moles/Vol] 107 mmol/L Normal 98-107 [facility] Comment on above: Performed By: #### 2 432-8 #### MALVIN BAXTER ([id number]) [facility] ([facility]) [address] [place] [address] CO2 [Moles/Vol] 24 mmol/L Normal 21-32 [facility] Comment on above: Performed By: #### 2 4323-8 #### MALVIN BAXTER ([id number]) [facility] ([facility]) [address] [place] [address] 03186 Creatinine [Mass/Vol] 0.85 mg/dL Normal 0.50-1.05 [facility] Comment on above: Performed By: #### 2 4323-8 #### MALVIN BAXTER ([id number]) [facility] ([facility]) [address] [place] [address] 75804 Glomerular filtration rate/1.73 sq M.predicted 84 mL/min/1.73m*2 Normal >60 [facility] Comment on above: Result Comment: Calc ulations of estimated GFR are performed using the 2020 CKD-EPI Study Refit equation without the race variable for the IDMS-Traceable creatinine methods. https://jasn.asnjournals.org/content//ASN.4329918 988 Performed By: #### 2 4323-8 #### MALVIN BAXTER ([id number]) [facility] ([facility]) [address] [place] [address] 83380 Glucose [Mass/Vol] 97 mg/dL Normal 74-99 [facility] Comment on above: Performed By: #### 2 4323-8 #### MALVIN BAXTER ([id number]) [facility] ([facility]) [address] [place] [address] 27764 Potassium [Moles/Vol] 4.0 mmol/L Normal 3.5-5.3 [facility] Comment on above: Performed By: #### 2 4322-8 #### MALVIN BAXTER ([id number]) [facility] ([facility]) [address] [place] [address] 91727 Protein [Mass/Vol] 6.5 g/dL Normal 6.4-8.2 [facility] Comment on above: Performed By: #### 2 432-8 #### MALVIN BAXTER ([id number]) [facility] ([facility]) [address] [place] [address] 18834 Sodium [Moles/Vol] 137 mmol/L Normal 136-145 [facility] Comment on above: Performed By: #### 2 4323-8 #### MALVIN BAXTER ([id number]) [facility] ([facility]) [address] [place] [address] 23713 Urea nitrogen [Mass/Vol] 12 mg/dL Normal 6-23 [facility] Comment on above: Performed By: #### 2 4323-8 #### MALVIN BAXTER ([id number]) [facility] ([facility]) [address] [place] [address] 38189 ESR Westergren method (Bld) [Velocity]on 05-23-2024 ESR (Bld) [Velocity] 30 mm/h High 0-20 [facility] Comment on above: Performed By: #### 2 4323-8 #### MALVIN BAXTER ([id number]) [facility] ([facility]) [address] [place] [address] 56189 Glucose Test strip manual (B ld) [Mass/Vol]on 05-23-2024 Glucose [Mass/Vol] 124 mg/dL High 74-99 [facility] Comment on above: Performed By: #### 3 040-3 #### MALVIN BAXTER ([id number]) [facility] ([facility]) [address] [place] [address] 34150 Glucose [Mass/Vol] 115 mg/dL High 74-99 [facility] Comment on above: Performed By: #### 3 040-3 #### MALVIN BAXTER ([id number]) [facility] ([facility]) [address] [place] [address] 11541 Magnesiumon 05-23-2024 Magnesium [Mass/Vol] 2.17 mg/dL Normal 1.60-2.40 [facility] Comment on above: Performed By: #### 2 432-8 #### MALVIN BAXTER ([id number]) [facility] ([facility]) [address] [place] [address] 94273 Basic metabolic 2000 panelon 05-22-2024 Anion gap [Moles/Vol] 16 mmol/L Normal 10-20 [facility] Comment on above: Performed By: #### 2 4323-8 #### MALVIN BAXTER ([id number]) [facility] ([facility]) [address] [place] [address] 78592 Calcium [Mass/Vol] 9.5 mg/dL Normal 8.6-10.3 [facility] Comment on above: Performed By: #### 2 4323-8 #### MALVIN BAXTER ([id number]) [facility] ([facility]) [address] [place] [address] 99957 Chloride [Moles/Vol] 104 mmol/L Normal 98-107 [facility] Comment on above: Performed By: #### 2 4323-8 #### MALVIN BAXTER ([id number]) [facility] ([facility]) [address] [place] [address] CO2 [Moles/Vol] 20 mmol/L Low 21-32 [facility] Comment on above: Performed By: #### 2 4323-8 #### MALVIN BAXTER ([id number]) [facility] ([facility]) [address] [place] [address] 19874 Creatinine [Mass/Vol] 0.75 mg/dL Normal 0.50-1.05 [facility] Comment on above: Performed By: #### 2 4323-8 #### MALVIN BAXTER ([id number]) [facility] ([facility]) [address] [place] [address] 14706 GFR/1.73 sq M.predicted MDRD (S/P/Bld) [Vol rate/Area] mL/min/{1.73_m2} Normal >60 [facility] Comment on above: Result Comment: Calc ulations of estimated GFR are performed using the 2020 CKD-EPI Study Refit equation without the race variable for the IDMS-Traceable creatinine methods. https://jasn.asnjournals.org/content/early//ASN.0521050 988 Performed By: #### 2 4323-8 #### MALVIN BAXTER ([id number]) [facility] ([facility]) [address] [place] [address] 21341 Glucose [Mass/Vol] 98 mg/dL Normal 74-99 [facility] Comment on above: Performed By: #### 2 4323-8 #### MALVIN BAXTER ([id number]) [facility] ([facility]) [address] [place] [address] 82817 Potassium [Moles/Vol] 4.1 mmol/L Normal 3.5-5.3 [facility] Comment on above: Performed By: #### 2 4323-8 #### MALVIN BAXTER ([id number]) [facility] ([facility]) [facility] [place] [address] Sodium [Moles/Vol] 136 mmol/L Normal 136-145 [facility] Comment on above: Performed By: #### 2 4323-8 #### MALVIN BAXTER ([id number]) [facility] ([facility]) [address] [place] [address] 65100 Urea nitrogen [Mass/Vol] 8 mg/dL Normal 6-23 [facility] Comment on above: Performed By: #### 2 432-8 #### MALVIN BAXTER ([id number]) [facility] ([facility]) [address] [place] [address] 09943 CBC panel Auto (Bld)on 05-22 Erythrocyte distribution width (RBC) [Ratio] 15.0 % High 11.5-14.5 [facility] Comment on above: Performed By: #### 2 4322-8 #### MALVIN BAXTER ([id number]) [facility] ([facility]) [address] [place] [address] 22974 Hematocrit (Bld) [Volume fraction] 47.1 % High 36.0-46.0 [facility] Comment on above: Performed By: #### 2 4322-8 #### MALVIN BAXTER ([id number]) [facility] ([facility]) [address] [place] [address] 35948 Hemoglobin (Bld) [Mass/Vol] 15.3 g/dL Normal 12.0-16.0 [facility] Comment on above: Performed By: #### 2 4322-8 #### MALVIN BAXTER ([id number]) [facility] ([facility]) [address] [place] [address] 40185 MCH (RBC) [Entitic mass] 30.7 pg Normal 26.0-34.0 [facility] Comment on above: Performed By: #### 2 4322-8 #### MALVIN BAXTER ([id number]) [facility] ([facility]) [address] [place] [address] 62058 MCHC (RBC) [Mass/Vol] 32.5 g/dL Normal 32.0-36.0 [facility] Comment on above: Performed By: #### 2 3-8 #### MALVIN BAXTER ([id number]) [facility] ([facility]) [address] [place] [address] 07310 MCV (RBC) [Entitic vol] 95 fL Normal 80-100 [facility] Comment on above: Performed By: #### 2 4323-8 #### MALVIN BAXTER ([id number]) [facility] ([facility]) [address] [place] [address] 31015 Nucleated RBC/100 WBC (Bld) [Ratio] 0.0 /100 WBCs Normal 0.0-0.0 [facility] Comment on above: Performed By: #### 2 4323-8 #### MALVIN BAXTER ([id number]) [facility] ([facility]) [address] [place] [address] 10530 Platelets (Bld) [#/Vol] 222 x10*3/uL Normal 150-450 [facility] Comment on above: Performed By: #### 2 4323-8 #### MALVIN BAXTER ([id number]) [facility] ([facility]) [address] [place] [address] 24825 RBC (Bld) [#/Vol] 4.98 x10*6/uL Normal 4.00-5.20 [facility] Comment on above: Performed By: #### 2 4323-8 #### MALVIN BAXTER ([id number]) [facility] ([facility]) [address] [place] [address] 92525 WBC (Bld) [#/Vol] 13.0 x10*3/uL High 4.4-11.3 [facility] Comment on above: Performed By: #### 2 4323-8 #### MALVIN BAXTER ([id number]) [facility] ([facility]) [address] [place] [address] 39146 Glucose Test strip manual (B ld) [Mass/Vol]on 05-22-2024 Glucose [Mass/Vol] 101 mg/dL High 74-99 [facility] Comment on above: Performed By: #### 2 4323-8 #### MALVIN BAXTER ([id number]) [facility] ([facility]) [address] [place] [address] 35937 Glucose [Mass/Vol] 170 mg/dL High 74-99 [facility] Comment on above: Performed By: #### 2 4323-8 #### MALVIN BAXTER ([id number]) [facility] ([facility]) [address] [place] [address] Glucose [Mass/Vol] 98 mg/dL Normal 74-99 [facility] Comment on above: Performed By: #### 2 4323-8 #### MALVIN BAXTER ([id number]) [facility] ([facility]) [address] [place] [address] 69953 Glucose [Mass/Vol] 116 mg/dL High 74-99 [facility] Comment on above: Performed By: #### 2 4323-8 #### MALVIN BAXTER ([id number]) [facility] ([facility]) [address] [place] [address] 19001 CBC W Auto Differential pane l (Bld)on 05-21-2024 Basophils (Bld) [#/Vol] 0.02 x10*3/uL Normal 0.00-0.10 [facility] Comment on above: Performed By: #### 5 7021-8 #### MALVIN BAXTER ([id number]) [facility] ([facility]) [address] [place] [address] 75322 Basophils/100 WBC (Bld) 0.1 % Normal 0.0-2.0 [facility] Comment on above: Performed By: #### 5 7021-8 #### MALVIN BAXTER ([id number]) [facility] ([facility]) [address] [place] [address] 08790 Eosinophils (Bld) [#/Vol] 0.03 x10*3/uL Normal 0.00-0.70 [facility] Comment on above: Performed By: #### 5 7021-8 #### MALVIN BAXTER ([id number]) [facility] ([facility]) [address] [place] [address] 93658 Eosinophils/100 WBC (Bld) 0.2 % Normal 0.0-6.0 [facility] Comment on above: Performed By: #### 5 7021-8 #### MALVIN BAXTER ([id number]) [facility] ([facility]) [address] [place] [address] Erythrocyte distribution width (RBC) [Ratio] 14.9 % High 11.5-14.5 [facility] Comment on above: Performed By: #### 5 7021-8 #### MALVIN BAXTER ([id number]) [facility] ([facility]) [address] [place] [address] Hematocrit (Bld) [Volume fraction] 46.4 % High 36.0-46.0 [facility] Comment on above: Performed By: #### 5 7021-8 #### MALVIN BAXTER ([id number]) [facility] ([facility]) [address] [place] [address] Hemoglobin (Bld) [Mass/Vol] 15.5 g/dL Normal 12.0-16.0 [facility] Comment on above: Performed By: #### 5 7021-8 #### MALVIN BAXTER ([id number]) [facility] ([facility]) [address] [place] [address] Immature granulocytes (Bld) [#/Vol] 0.05 x10*3/uL Normal 0.00-0.70 [facility] Comment on above: Performed By: #### 5 7021-8 #### MALVIN BAXTER ([id number]) [facility] ([facility]) [address] [place] [address] Immature granulocytes/100 WBC (Bld) 0.3 % Normal 0.0-0.9 [facility] Comment on above: Result Comment: Amarilys ture Granulocyte Count (IG) includes promyelocytes, myelocytes and metamyelocytes but does not include bands. Percent differential counts (%) should be interpreted in the context of the absolute cell counts (cells/UL). Performed By: #### 5 7021-8 #### MALVIN BAXTER ([id number]) [facility] ([facility]) [address] [place] [address] Lymphocytes (Bld) [#/Vol] 2.85 x10*3/uL Normal 1.20-4.80 [facility] Comment on above: Performed By: #### 5 7021-8 #### MALVIN BAXTER ([id number]) [facility] ([facility]) [address] [place] [address] 81785 Lymphocytes/100 WBC (Bld) 19.2 % Normal 13.0-44.0 [facility] Comment on above: Performed By: #### 5 7021-8 #### MALVIN BAXTER ([id number]) [facility] ([facility]) [address] [place] [address] 37804 MCH (RBC) [Entitic mass] 31.3 pg Normal 26.0-34.0 [facility] Comment on above: Performed By: #### 5 7021-8 #### MALVIN BAXTER ([id number]) [facility] ([facility]) [address] [place] [address] 09284 MCHC (RBC) [Mass/Vol] 33.4 g/dL Normal 32.0-36.0 [facility] Comment on above: Performed By: #### 5 7021-8 #### MALVIN BAXTER ([id number]) [facility] ([facility]) [address] [place] [address] 87051 MCV (RBC) [Entitic vol] 94 fL Normal 80-100 [facility] Comment on above: Performed By: #### 5 7021-8 #### MALVIN BAXTER ([id number]) [facility] ([facility]) [address] [place] [address] 71032 Monocytes (Bld) [#/Vol] 0.67 x10*3/uL Normal 0.10-1.00 [facility] Comment on above: Performed By: #### 5 7021-8 #### MALVIN BAXTER ([id number]) [facility] ([facility]) [address] [place] [address] 90395 Monocytes/100 WBC (Bld) 4.5 % Normal 2.0-10.0 [facility] Comment on above: Performed By: #### 5 7021-8 #### MALVIN BAXTER ([id number]) [facility] ([facility]) [address] [place] [address] 15184 Neutrophils (Bld) [#/Vol] 11.25 x10*3/uL High 1.20-7.70 [facility] Comment on above: Result Comment: Perc ent differential counts (%) should be interpreted in the context of the absolute cell counts (cells/uL). Performed By: #### 5 7021-8 #### MALVIN BAXTER ([id number]) [facility] ([facility]) [address] [place] [address] 88210 Neutrophils/100 WBC (Bld) 75.7 % Normal 40.0-80.0 [facility] Comment on above: Performed By: #### 5 7021-8 #### MALVIN BAXTER ([id number]) [facility] ([facility]) [address] [place] [address] 05698 Nucleated RBC/100 WBC (Bld) [Ratio] 0.0 /100 WBCs Normal 0.0-0.0 [facility] Comment on above: Performed By: #### 5 7021-8 #### MALVIN BAXTER ([id number]) [facility] ([facility]) [address] [place] [address] 52442 Platelets (Bld) [#/Vol] 200 x10*3/uL Normal 150-450 [facility] Comment on above: Performed By: #### 5 7021-8 #### MALVIN BAXTER ([id number]) [facility] ([facility]) [address] [place] [address] 64380 RBC (Bld) [#/Vol] 4.95 x10*6/uL Normal 4.00-5.20 [facility] Comment on above: Performed By: #### 5 7021-8 #### MALVIN BAXTER ([id number]) [facility] ([facility]) [address] [place] [address] 43557 WBC (Bld) [#/Vol] 14.9 x10*3/uL High 4.4-11.3 [facility] Comment on above: Performed By: #### 5 7021-8 #### COOMBS ÓSCARGEENA ([id number]) [facility] ([facility]) [address] [place] [address] CT ABDOMEN PELVIS W IV CONTR Bhavana 05-21-2024 CT ABDOMEN PELVIS W IV CONTRAST Interpreted By: Alyssa Day, STUDY: 08/25/2017 CT ABDOMEN PELVIS W IV CONTRAST; 05/21/2024 7:00 pm INDICATION: Signs/Symptoms:Abdominal pain. COMPARISON: CT of the chest, abdomen and pelvis 08/25/2017. ACCESSION NUMBER(S): [id number] ORDERING CLINICIAN: RUTH ANN KIM TECHNIQUE: Axial CT images of the abdomen and pelvis with coronal and sagittal reconstructed images obtained after intravenous administration of 69 mL of Omnipaque 350. FINDINGS: LOWER CHEST: Small hiatal hernia. ABDOMEN: LIVER: Within normal limits. BILE DUCTS: Normal caliber. GALLBLADDER: No calcified gallstones. No wall thickening. PANCREAS: Within normal limits. SPLEEN: Within normal limits. ADRENALS: Nodular thickening of the adrenal glands may relate to hyperplasia or adenomatous change. KIDNEYS and URETERS: Symmetric renal enhancement. No hydronephrosis or perinephric fluid collection. Areas of cortical scarring in the upper pole of the right and lower pole of the left kidneys may relate to sequela of prior infection or infarction. Small parenchymal calcification noted in the left lower pole. VESSELS: Calcific atherosclerosis of the aortoiliac vessels. No aortic aneurysm. RETROPERITONEUM: No pathologically enlarged retroperitoneal lymph nodes. PELVIS: REPRODUCTIVE ORGANS: Uterus is present. No adnexal mass. Bilateral tubal ligation clips noted. BLADDER: Within normal limits. BOWEL: No dilated bowel. Scattered colonic diverticula without evidence for acute diverticulitis. No pneumatosis or portal venous gas. Normal appendix. PERITONEUM: No significant ascites or free air. ABDOMINAL WALL: Patulous inguinal canals containing fat.Diastasis of the rectus sheath with protrusion of fat and bowel. BONES: Multilevel degenerative changes of the spine. IMPRESSION: No acute abdominal or pelvic process. Diverticulosis without evidence for acute diverticulitis. Additional findings as described above. MACRO: None Signed by: Alyssa Day 05/21/2024 7:26 PM Dictation workstation: [id number] [facility] Comprehensive metabolic 2000 panelon 09-26-2024 Albumin BCP dye [Mass/Vol] 4.7 g/dL Normal 3.4-5.0 [facility] Comment on above: Performed By: #### 2 432-8 #### MALVIN BAXTER ([id number]) [facility] ([facility]) [facility] [place] [address] ALP [Catalytic activity/Vol] 87 U/L Normal 33-110 [facility] Comment on above: Performed By: #### 2 4322-8 #### MALVIN BAXTER ([id number]) [facility] ([facility]) [address] [place] [address] 55571 ALT With P-5'-P [Catalytic activity/Vol] 17 U/L Normal 7-45 [facility] Comment on above: Result Comment: Elisa ents treated with Sulfasalazine may generate falsely decreased results for ALT. Performed By: #### 2 432-8 #### MALVIN BAXTER ([id number]) [facility] ([facility]) [address] [place] [address] Anion gap [Moles/Vol] 15 mmol/L Normal 10-20 [facility] Comment on above: Performed By: #### 2 4322-8 #### MALVIN BAXTER ([id number]) [facility] ([facility]) [address] [place] [address] 04291 AST With P-5'-P [Catalytic activity/Vol] 18 U/L Normal 9-39 [facility] Comment on above: Performed By: #### 2 432-8 #### MALVIN BAXTER ([id number]) [facility] ([facility]) [address] [place] [address] 06929 Bilirubin [Mass/Vol] 0.5 mg/dL Normal 0.0-1.2 [facility] Comment on above: Performed By: #### 2 432-8 #### MALVIN BAXTER ([id number]) [facility] ([facility]) [address] [place] [address] 08646 Calcium [Mass/Vol] 10.0 mg/dL Normal 8.6-10.3 [facility] Comment on above: Performed By: #### 2 4323-8 #### MALVIN BAXTER ([id number]) [facility] ([facility]) [address] [place] [address] Chloride [Moles/Vol] 103 mmol/L Normal 98-107 [facility] Comment on above: Performed By: #### 2 4323-8 #### MALVIN BAXTER ([id number]) [facility] ([facility]) [facility] [place] [address] CO2 [Moles/Vol] 23 mmol/L Normal 21-32 [facility] Comment on above: Performed By: #### 2 4323-8 #### MALVIN BAXTER ([id number]) [facility] ([facility]) [address] [place] [address] 72054 Creatinine [Mass/Vol] 0.93 mg/dL Normal 0.50-1.05 [facility] Comment on above: Performed By: #### 2 4323-8 #### MALVIN BAXTER ([id number]) [facility] ([facility]) [address] [place] [address] 92250 Glomerular filtration rate/1.73 sq M.predicted 75 mL/min/1.73m*2 Normal >60 [facility] Comment on above: Result Comment: Calc ulations of estimated GFR are performed using the 2020 CKD-EPI Study Refit equation without the race variable for the IDMS-Traceable creatinine methods. https://jasn.asnjournals.org/content//ASN.3864178 988 Performed By: #### 2 4323-8 #### MALVIN BAXTER ([id number]) [facility] ([facility]) [address] [place] [address] 48092 Glucose [Mass/Vol] 109 mg/dL High 74-99 [facility] Comment on above: Performed By: #### 2 4323-8 #### MALVIN BAXTER ([id number]) [facility] ([facility]) [facility] [place] [address] Potassium [Moles/Vol] 4.0 mmol/L Normal 3.5-5.3 [facility] Comment on above: Performed By: #### 2 4323-8 #### MALVIN BAXTER ([id number]) [facility] ([facility]) [address] [place] [address] 35607 Protein [Mass/Vol] 7.5 g/dL Normal 6.4-8.2 [facility] Comment on above: Performed By: #### 2 4323-8 #### MALVIN BAXTER ([id number]) [facility] ([facility]) [address] [place] [address] 70486 Sodium [Moles/Vol] 137 mmol/L Normal 136-145 [facility] Comment on above: Performed By: #### 2 4323-8 #### MALVIN BAXTER ([id number]) [facility] ([facility]) [address] [place] [address] 61518 Urea nitrogen [Mass/Vol] 7 mg/dL Normal 6-23 [facility] Comment on above: Performed By: #### 2 4323-8 #### MALVIN BAXTER ([id number]) [facility] ([facility]) [address] [place] [address] 61319 ECG 12-LEADon 05-21-2024 ECG 12-LEAD Ventricular Rate 78 Atrial Rate 78 P-R Interval 188 QRS Duration 94 Q-T Interval 388 QTC Calculation(Bazett) 442 P Carlock 61 R Carlock -39 T Carlock 40 QRS Count 12 Q Onset 222 P Onset 128 P Offset 195 T Offset 416 QTC Fredericia 423 Diagnosis Normal sinus rhythm with sinus arrhythmia Left axis deviation Low voltage QRS Septal infarct , age undetermined Possible Lateral infarct , age undetermined Abnormal ECG When compared with ECG of 11-MAY-2024 16:00, (unconfirmed) Sinus rhythm has replaced Atrial fibrillation Left bundle branch block is no longer Present Septal infarct is now Present Borderline criteria for Lateral infarct are now Present See ED provider note for full interpretation and clinical correlation Confirmed by Selina Adam ([id number]) on 05/25/2024 10:38:09 AM Normal [facility] Lactateon 05-21-2024 Lactate [Moles/Vol] 1.8 mmol/L Normal 0.4-2.[address] [facility] Comment on above: Order Comment: Venip uncture immediately after or during the administration of Metamizole may lead to falsely low results. Testing should be performed immediately prior to Metamizole dosing. Performed By: #### 2 524-7 #### MALVIN BAXTER (19856) [facility] ([facility]) [facility] [place] [address] Natriuretic peptide B [Mass/ Vol]on 05-21-2024 Natriuretic peptide B (Bld) [Mass/Vol] 64 pg/mL Normal 0-99 [facility] Comment on above: Order Comment: <100 pg/mL - Heart failure unlikely 100-299 pg/mL - Intermediate probability of acute heart failure exacerbation. Correlate with clinical context and patient history. >=300 pg/mL - Heart Failure likely. Correlate with clinical context and patient history. BNP testing is performed using different testing methodology at [facility] than at [facility]. Direct result comparisons should only be made within the same method. Performed By: #### 3 0934-4 #### MALVIN BAXTER ([id number]) [facility] ([facility]) [address] [place] [address] 10198 SARS coronavirus 2 RNAon SARS-CoV-2 (COVID-19) RNA JASON+probe Ql (Resp) Not detected Normal Not Detected [facility] Comment on above: Order Comment: This assay has received FDA Emergency Use Authorization (EUA) and is only authorized for the duration of time that circumstances exist to justify the authorization of the emergency use of in vitro diagnostic tests for the detection of SARS-CoV-2 virus and/or diagnosis of COVID-19 infection under section 564(b)(1) of the Act, 21 U.S.C. 360bbb-3(b)(1). This assay is an in vitro diagnostic nucleic acid amplification test for the qualitative detection of SARS-CoV-2 from nasopharyngeal specimens and has been validated for use at [facility]. Negative results do not preclude COVID-19 infections and should not be used as the sole basis for diagnosis, treatment, or other management decisions. Performed By: #### 9 4500-6 #### MALVIN BAXTER ([id number]) [facility] ([facility]) [address] [place] [address] Triacylglycerol lipaseon Lipase [Catalytic activity/Vol] 31 U/L Normal 9-82 [facility] Comment on above: Order Comment: Venip uncture immediately after or during the administration of Metamizole may lead to falsely low results. Testing should be performed immediately prior to Metamizole dosing. Performed By: #### 3 040-3 #### MALVIN BAXTER ([id number]) [facility] ([facility]) [address] [place] [address] Troponin I.cardiac panelon 0 05-21-2024 Tropinin I.cardiac panel High sensitivity method 3 ng/L Normal 0-13 [facility] Comment on above: Order Comment: Less than 99th percentile of normal range cutoff- Female and children under 18 years old <14 ng/L; Male <21 ng/L: Negative Repeat testing should be performed if clinically indicated. Female and children under 18 years old 14-50 ng/L; Male 21-50 ng/L: Consistent with possible cardiac damage and possible increased clinical risk. Serial measurements may help to assess extent of myocardial damage. >50 ng/L: Consistent with cardiac damage, increased clinical risk and myocardial infarction. Serial measurements may help assess extent of myocardial damage. NOTE: Children less than 1 year old may have higher baseline troponin levels and results should be interpreted in conjunction with the overall clinical context. NOTE: Troponin I testing is performed using a different testing methodology at [facility] than at other [facility]. Direct result comparisons should only be made within the same method. Performed By: #### 8 9577-1 #### MALVIN BAXTER ([id number]) [facility] ([facility]) [address] [place] [address] Tropinin I.cardiac panel High sensitivity method <3 Normal 0-13 [facility] Comment on above: Order Comment: Less than 99th percentile of normal range cutoff- Female and children under 18 years old <14 ng/L; Male <21 ng/L: Negative Repeat testing should be performed if clinically indicated. Female and children under 18 years old 14-50 ng/L; Male 21-50 ng/L: Consistent with possible cardiac damage and possible increased clinical risk. Serial measurements may help to assess extent of myocardial damage. >50 ng/L: Consistent with cardiac damage, increased clinical risk and myocardial infarction. Serial measurements may help assess extent of myocardial damage. NOTE: Children less than 1 year old may have higher baseline troponin levels and results should be interpreted in conjunction with the overall clinical context. NOTE: Troponin I testing is performed using a different testing methodology at [facility] than at other [facility]. Direct result comparisons should only be made within the same method. Performed By: #### 8 9577-1 #### COOMBS VEE ([id number]) [facility] ([facility]) [address] [place] [address] XR CHEST 1 VIEWon 05-21-2024 XR CHEST 1 VIEW Interpreted By: Lula Hunter, STUDY: XR CHEST 1 VIEW; 05/21/2024 6:10 pm INDICATION: Signs/Symptoms:SOB. COMPARISON: 12/27/2021. ACCESSION NUMBER(S): [id number] ORDERING CLINICIAN: RUTH ANN KIM FINDINGS: AP radiograph of the chest was provided. Leads overlie the chest, partially obscuring the [id number]. CARDIOMEDIASTINAL SILHOUETTE: Cardiomediastinal silhouette is normal in size and configuration. LUNGS: No focal consolidation, pleural effusion, or pneumothorax. ABDOMEN: No remarkable upper abdominal findings. BONES: No acute osseous changes. IMPRESSION: 1. No evidence of acute cardiopulmonary process. MACRO: None Signed by: Lula Cunningham 05/21/2024 6:44 PM Dictation workstation: [id number] [facility] ED Prov Noteon 05-11-2024 ED Prov Note ED PROVIDER NOTE [facility] EMERGENCY DEPARTMENT NAME: Pablo Tabares AGE: 48 y.o. : 1975 VISIT DATE: 05/11/2024 CSN: [id number] PCP: Kendra Foote MD Chief Complaint Patient presents with Wound Check Patient is a 48-year-old female with a past medical history of bipolar disorder, diabetes, hypertension, schizoaffective disorder, asthma who presents today for concern of abscess. Patient states last 2 days she has had a left-sided abdominal wall abscess which has been draining and is concerned about infection. Patient denies any fevers, history of MRSA or additional constitutional symptoms. Past Medical History: Diagnosis Date Asthma Bipolar disorder (HCC) Cocaine abuse (HCC) Diabetes mellitus (HCC) Gestational hypertension History of depression Hypertension Obesity Obesity Schizo affective schizophrenia (HCC) Schizophrenia (HCC) Past Surgical History: Procedure Laterality Date BREAST BIOPSY 2000 EGD N/A 08/09/2015 Procedure: EGD; Surgeon: Sohn Sheehan MD; Location: [facility]; Service: Family History Problem Relation Age of Onset Hypertension Father Diabetes Other Grandfather Stomach cancer Other Grandfather Glaucoma Other Grandmother Mental illness Mother Social History Socioeconomic History Marital status: Single Tobacco Use Smoking status: Every Day Current packs/day: 0.50 Types: Cigarettes Smokeless tobacco: Never Vaping Use Vaping status: Never Used Substance and Sexual Activity Alcohol use: No Comment: pt denies Drug use: Yes Types: Cocaine Comment: denies but tests positive for cocaine Sexual activity: Yes Partners: Male Previous Medications Medication Sig metoclopramide (REGLAN) 5 MG tablet Take 1 (one) tablet (5 mg total) by mouth 4 (four) times a day with meals and nightly for 5 days . Allergies Allergen Reactions Kameron Inhibitors Swelling Amoxicillin Ciprofloxacin Swelling Penicillins Review of Systems Constitutional: Negative for chills and fever. Eyes: Negative for pain. Respiratory: Negative for cough, chest tightness and shortness of breath. Cardiovascular: Negative for chest pain and palpitations. Gastrointestinal: Negative for abdominal pain, nausea and vomiting. Genitourinary: Negative for flank pain. Musculoskeletal: Negative for arthralgias and myalgias. Skin: Positive for wound. Negative for rash. Neurological: Negative for dizziness, syncope, light-headedness and headaches. Psychiatric/Behavioral: Negative for agitation. All other systems reviewed and are negative. Patient Vitals for the past 24 hrs: BP Temp Temp src Pulse Resp SpO2 Height Weight 05/11/24 1103 108/78 97.8 degrees F (36.6 degrees C) Temporal 77 18 95 % 5' 3 102.5 kg (226 lb) Physical Exam Vitals and nursing note reviewed. Constitutional: Appearance: Normal appearance. HENT: Head: Normocephalic. Eyes: Pupils: Pupils are equal, round, and reactive to light. Cardiovascular: Rate and Rhythm: Normal rate and regular rhythm. Pulses: Normal pulses. Heart sounds: Normal heart sounds. Musculoskeletal: Cervical back: Normal range of motion. Pulmonary: Effort: Pulmonary effort is normal. Breath sounds: Normal breath sounds. Skin: General: Skin is warm. Capillary Refill: Capillary refill takes less than 2 seconds. Comments: Patient has an area of erythema tenderness and warmth consistent with appearance of superficial cellulitis approximately 2 cm x 4 cm located on the left abdominal wall. No crepitus noted. No induration or abscess formation noted. Neurological: General: No focal deficit present. Mental Status: She is alert. Psychiatric: Mood and Affect: Mood normal. Laboratory & Radiographic Imaging (if done): No results found for this visit on 05/11/24. No orders to display Procedures Medical Decision Making Patient seen and evaluated for concern of abdominal wall abscess and infection. Patient has suspected abdominal wall cellulitis with a spontaneously draining abscess at this time and was given a prescription for clindamycin. Patient given Diflucan per her request. Patient's vital signs within normal limits the patient nontoxic in appearance at this time is little clinical concern for sepsis and for additional workup was not done. Patient agrees assessment plan was discharged in stable condition. . . Clinical Impression: 1. Abdominal wall cellulitis ED Disposition ED Disposition Discharge Condition Stable Comment Pablo Tabares discharged to home/self care in stable condition. Follow-up Information 1. Kendra Foote MD. Specialty: Family Medicine Why: As needed, If symptoms worsen [address] [facility] [address] Contact information for after-discharge care Follow-up information has not been specified. New Prescriptions clindamycin (CLEOCIN) 300 MG capsul (more content not included)... Normal [facility] PAP TESTon 12-10-2023 ADEQUACY Satisfactory for interpretation. Normal [facility] Comment on above: Order Comment: Erwin garcia Type: FLUID SPECIMEN Ordering Facility: [facility] Address: [address] [place] [id number] Performed By: #### L [id number] #### [facility] CLIA [id number] [address] [place] [address] [place] CASE REPORT Normal [facility] Comment on above: Order Comment: Erwin garcia Type: FLUID SPECIMEN Ordering Facility: [facility] Address: [address] [place] [address] Result Comment: Gyne cologic Cytology Report Case: [id number] Authorizing Provider: Arti Snow NP Collected: 12/10/2023 08:50 AM Ordering Location: [facility] Received: 12/11/2023 04:14 PM [facility] First Screen: Garcia, Florentino, CT, ASCP Specimen: Pap Test, ThinPrep, Cervix Performed By: #### L [id number] #### [facility] CLIA [id number] [address] [place] [address] [place] CLINICAL HISTORY, CYTOLOGY, STAY CUTTER Routine Exam Normal [facility] Comment on above: Order Comment: Speci men Type: FLUID SPECIMEN Ordering Facility: [facility] Address: [address] [place] [address] Performed By: #### L [id number] #### [facility] CLIA [id number] [address] [place] [address] [place] CYTOLOGY PAP OTHER INT Predominance of coccobacilli consistent with shift in vaginal angela Normal [facility] Comment on above: Order Comment: Speci men Type: FLUID SPECIMEN Ordering Facility: [facility] Address: [address] [place] [address] Performed By: #### L [id number] #### [facility] CLIA [id number] [address] [place] [address] [place] FINAL PERFORMING LAB Normal [facility] Comment on above: Order Comment: Speci men Type: FLUID SPECIMEN Ordering Facility: [facility] Address: [address] [place] [address] Result Comment: Tech nical component, credentialing assistant screening performed at [facility], [address] [place] [address] CLIA# [id number] Diagnostic interpretation performed at [facility], [address] [place], [place] [id number] CLIA# [id number] Obgyn Specialist: Daniel Currie M.D. Performed By: #### L [id number] #### [facility] CLIA [id number] [address] [place] [id number] [place] HPV REFLEX HPV if Atypical Normal [facility] Comment on above: Order Comment: Speci men Type: FLUID SPECIMEN Ordering Facility: [facility] Address: [address] [place] [address], [place] [address] Performed By: #### L [id number] #### [facility] CLIA [id number] [address] [place] [id number] [place] INTERPRETATION, CYTOLOGY, STAY CUTTER Normal [facility] Comment on above: Order Comment: Speci men Type: FLUID SPECIMEN Ordering Facility: [facility] Address: [address] [place] [address] Result Comment: Nega tive for intraepithelial lesion or malignancy. Performed By: #### L [id number] #### [facility] CLIA [id number] [address] [place] [address] [place] LMP 2014 Normal [facility] Comment on above: Order Comment: Speci men Type: FLUID SPECIMEN Ordering Facility: [facility] Address: [address] [place] [address] Performed By: #### L [id number] #### [facility] CLIA [id number] [facility] [place] [id number] [place] PAP DISCLAIMER COMMENT The Pap Smear is a screening test for cervical cancer. False negative results occur with all screening tests, emphasizing the need for rescreening at recommended intervals, and clinical correlation. Normal [facility] Comment on above: Order Comment: Speci men Type: FLUID SPECIMEN Ordering Facility: [facility] Address: [address] [place] [address], [place] [address] Performed By: #### L [id number] #### [facility] CLIA [id number] [id number] [place] [address] PAP POLY PACKER AND HEAT SEALER COMMENT This specimen has be en analyzed by the ThinPrep Imaging System, an automated imaging and review system, which assists the laboratory in evaluating cells on ThinPrep Pap tests. Following automated imaging, selected plunkett from every slide are reviewed by a credentialing assistant. Normal [facility] Comment on above: Order Comment: Speci men Type: FLUID SPECIMEN Ordering Facility: [facility] Address: [address] [place] [address] Performed By: #### L [id number] #### [facility] CLIA [id number] [facility] [address] [place] CBC W Auto Differential pane l (Bld)on 08-06-2023 Basophils (Bld) [#/Vol] 0.03 10*3/uL Normal <0.11 [facility] Comment on above: Order Comment: Speci men Type: BLOOD SPECIMEN Ordering Facility: [facility] Address: [address] [place] [address] Performed By: #### 5 7021-8 #### [facility] CLIA [id number] [address] [place] [address] [place] Basophils/100 WBC (Bld) 0.3 % Normal [facility] Comment on above: Order Comment: Speci men Type: BLOOD SPECIMEN Ordering Facility: [facility] Address: [address] [place] [address] Performed By: #### 5 7021-8 #### [facility] CLIA [id number] [address] [place] [address] [place] Differential cell count method Nom (Bld) Auto Normal [facility] Comment on above: Order Comment: Speci men Type: BLOOD SPECIMEN Ordering Facility: [facility] Address: [address] [place] [address] Performed By: #### 5 7021-8 #### [facility] CLIA [id number] [address] [id number] [address] [place] Eosinophils (Bld) [#/Vol] 0.23 10*3/uL Normal <0.46 [facility] Comment on above: Order Comment: Speci men Type: BLOOD SPECIMEN Ordering Facility: [facility] Address: [address] [place] [address] Performed By: #### 5 7021-8 #### [facility] CLIA [id number] [facility] [place] [address] [place] Eosinophils/100 WBC (Bld) 2.2 % Normal [facility] Comment on above: Order Comment: Speci men Type: BLOOD SPECIMEN Ordering Facility: [facility] Address: [address] [place] [address] Performed By: #### 5 7021-8 #### [facility] CLIA [id number] [address] [place] [address] [place] Erythrocyte distribution width (RBC) [Ratio] 14.8 % Normal 11.5-15.0 [facility] Comment on above: Order Comment: Speci men Type: BLOOD SPECIMEN Ordering Facility: [facility] Address: [address] [place] [address] Performed By: #### 5 7021-8 #### [facility] CLIA [id number] [address] [place] [address] [place] Hematocrit (Bld) [Volume fraction] 44.4 % Normal 36.0-46.0 [facility] Comment on above: Order Comment: Speci men Type: BLOOD SPECIMEN Ordering Facility: [facility] Address: [address] [place] [address] Performed By: #### 5 7021-8 #### [facility] CLIA [id number] [address] [place] [address] [place] Hemoglobin (Bld) [Mass/Vol] 14.5 g/dL Normal 11.5-15.5 [facility] Comment on above: Order Comment: Speci men Type: BLOOD SPECIMEN Ordering Facility: [facility] Address: [address] [place] [address] Performed By: #### 5 7021-8 #### [facility] CLIA [id number] [address] [place] [address] [place] Immature granulocytes (Bld) [#/Vol] 0.04 10*3/uL Normal <0.10 [facility] Comment on above: Order Comment: Speci men Type: BLOOD SPECIMEN Ordering Facility: [facility] Address: [address] [place] [address] Performed By: #### 5 7021-8 #### [facility] CLIA [id number] [address] [place] [address] [place] Immature granulocytes/100 WBC (Bld) 0.4 % Normal [facility] Comment on above: Order Comment: Speci men Type: BLOOD SPECIMEN Ordering Facility: [facility] Address: [address] [place] [address] Performed By: #### 5 7021-8 #### [facility] CLIA [id number] [address] [place] [address] [place] Lymphocytes (Bld) [#/Vol] 2.21 10*3/uL Normal 1.00-4.00 [facility] Comment on above: Order Comment: Speci men Type: BLOOD SPECIMEN Ordering Facility: [facility] Address: [address] [place] [address] Performed By: #### 5 7021-8 #### [facility] CLIA [id number] [address] [place] [address] [place] Lymphocytes/100 WBC (Bld) 21.5 % Normal [facility] Comment on above: Order Comment: Speci men Type: BLOOD SPECIMEN Ordering Facility: [facility] Address: [address] [place] [address] Performed By: #### 5 7021-8 #### [facility] CLIA [id number] [address] [place] [address] [place] MCH (RBC) [Entitic mass] 31.2 pg Normal 26.0-34.0 [facility] Comment on above: Order Comment: Speci men Type: BLOOD SPECIMEN Ordering Facility: [facility] Address: [address] [place] [address] Performed By: #### 5 7021-8 #### [facility] CLIA [id number] [address] [place] [address] [place] MCHC (RBC) [Mass/Vol] 32.7 g/dL Normal 30.5-36.0 [facility] Comment on above: Order Comment: Speci men Type: BLOOD SPECIMEN Ordering Facility: [facility] Address: [address] [place] [address] Performed By: #### 5 7021-8 #### [facility] CLIA [id number] [address] [place] [address] [place] MCV (RBC) [Entitic vol] 95.5 fL Normal 80.0-100.0 [facility] Comment on above: Order Comment: Speci men Type: BLOOD SPECIMEN Ordering Facility: [facility] Address: [address] [place] [address] Performed By: #### 5 7021-8 #### [facility] CLIA [id number] [address] [place] [address] [place] Monocytes (Bld) [#/Vol] 0.70 10*3/uL Normal <0.87 [facility] Comment on above: Order Comment: Speci men Type: BLOOD SPECIMEN Ordering Facility: [facility] Address: [address] [place] [address] Performed By: #### 5 7021-8 #### [facility] CLIA [id number] [address] [place] [address] [place] Monocytes/100 WBC (Bld) 6.8 % Normal [facility] Comment on above: Order Comment: Speci men Type: BLOOD SPECIMEN Ordering Facility: [facility] Address: [address] [place] [address] Performed By: #### 5 7021-8 #### [facility] CLIA [id number] [address] [place] [address] [place] Neutrophils (Bld) [#/Vol] 7.06 10*3/uL Normal 1.45-7.50 [facility] Comment on above: Order Comment: Speci men Type: BLOOD SPECIMEN Ordering Facility: [facility] Address: [address] [place] [address] Performed By: #### 5 7021-8 #### [facility] CLIA [id number] [address] [place] [address] [place] Neutrophils/100 WBC (Bld) 68.8 % Normal [facility] Comment on above: Order Comment: Speci men Type: BLOOD SPECIMEN Ordering Facility: [facility] Address: [address] [place] [address] Performed By: #### 5 7021-8 #### [facility] CLIA [id number] [address] [place] [address] [place] Nucleated RBC (Bld) [#/Vol] 10*3/uL Normal <0.01 [facility] Comment on above: Order Comment: Speci men Type: BLOOD SPECIMEN Ordering Facility: [facility] Address: [address] [place] [address] Performed By: #### 5 7021-8 #### [facility] CLIA [id number] [address] [place] [address] [place] Nucleated RBC/100 WBC (Bld) [Ratio] 0.0 /100 WBC Normal [facility] Comment on above: Order Comment: Speci men Type: BLOOD SPECIMEN Ordering Facility: [facility] Address: [address] [place], [place] [id number] Performed By: #### 5 7021-8 #### [facility] CLIA [id number] [address] [place] [address] [place] Platelet mean volume (Bld) [Entitic vol] 11.9 fL Normal 9.0-12.7 [facility] Comment on above: Order Comment: Speci men Type: BLOOD SPECIMEN Ordering Facility: [facility] Address: [address] [place] [address] Performed By: #### 5 7021-8 #### [facility] CLIA [id number] [address] [place] [address] [place] Platelets (Bld) [#/Vol] 181 10*3/uL Normal 150-400 [facility] Comment on above: Order Comment: Speci men Type: BLOOD SPECIMEN Ordering Facility: [facility] Address: [address] [place] [address] Performed By: #### 5 7021-8 #### [facility] CLIA [id number] [address] [place] [address] [place] RBC (Bld) [#/Vol] 4.65 10*6/uL Normal 3.90-5.20 [facility] Comment on above: Order Comment: Speci men Type: BLOOD SPECIMEN Ordering Facility: [facility] Address: [address] [place], [place] [id number] Performed By: #### 5 7021-8 #### [facility] CLIA [id number] [address] [place] [address] [place] WBC (Bld) [#/Vol] 10.27 10*3/uL Normal 3.70-11.00 [facility] Comment on above: Order Comment: Speci men Type: BLOOD SPECIMEN Ordering Facility: [facility] Address: [address] [place] [address] Performed By: #### 5 7021-8 #### [facility] CLIA [id number] [address] [address] [place] Comprehensive metabolic 2000 panelon 08-06-2023 Albumin [Mass/Vol] 4.2 g/dL Normal 3.9-4.9 [facility] Comment on above: Order Comment: Speci men Type: BLOOD SPECIMEN Ordering Facility: [facility] Address: [address] [place] [address], [place] [address] Performed By: #### 2 4331-1, 40919-7, 6-3 #### [facility] CLIA [id number] [address] [place], [place] [id number] [place] ALP [Catalytic activity/Vol] 102 U/L Normal 34-123 [facility] Comment on above: Order Comment: Speci men Type: BLOOD SPECIMEN Ordering Facility: [facility] Address: [address] [place] [address], [place] [address] Performed By: #### 2 4331-1, 52354-2, 3015-3 #### [facility] CLIA [id number] [address] [place], [place] [address] [place] ALT [Catalytic activity/Vol] 13 U/L Normal 7-38 [facility] Comment on above: Order Comment: Speci men Type: BLOOD SPECIMEN Ordering Facility: [facility] Address: [address] [place] [address], [place] [address] Performed By: #### 2 4331-1, 98653-7, 3015-3 #### [facility] CLIA [id number] [address] [address] [place] Anion gap [Moles/Vol] 13 mmol/L Normal 9-18 [facility] Comment on above: Order Comment: Speci men Type: BLOOD SPECIMEN Ordering Facility: [facility] Address: [address] [place] [address], [place] [address] Performed By: #### 2 4331-1, 37412-1, 6-3 #### [facility] CLIA [id number] [address] [place] [id number] [place] AST [Catalytic activity/Vol] 17 U/L Normal 13-35 [facility] Comment on above: Order Comment: Speci men Type: BLOOD SPECIMEN Ordering Facility: [facility] Address: [address] [place] [address], [place] [address] Performed By: #### 2 4331-1, 38119-7, 3015-3 #### [facility] CLIA [id number] [address] [place] [id number] [place] Bilirubin [Mass/Vol] mg/dL Low 0.2-1.3 [facility] Comment on above: Order Comment: Speci men Type: BLOOD SPECIMEN Ordering Facility: [facility] Address: [address] [place] [address], [place] [address] Performed By: #### 2 4331-1, 18574-9, 3015-3 #### [facility] CLIA [id number] [address] [place] [address] [place] Calcium [Mass/Vol] 10.0 mg/dL Normal 8.5-10.2 [facility] Comment on above: Order Comment: Speci men Type: BLOOD SPECIMEN Ordering Facility: [facility] Address: [address] [place] [address], [place] [address] Performed By: #### 2 4331-1, 85961-3, 3015-3 #### [facility] CLIA [id number] [address] [place], [place] [address] [place] Chloride [Moles/Vol] 106 mmol/L High 97-105 [facility] Comment on above: Order Comment: Speci men Type: BLOOD SPECIMEN Ordering Facility: [facility] Address: [address] [place] [address], [place] [id number] Performed By: #### 2 4331-1, 37263-0, 3015-3 #### [facility] CLIA [id number] [address] [place] [address] [place] CO2 [Moles/Vol] 23 mmol/L Normal 22-30 [facility] Comment on above: Order Comment: Erwin garcia Type: BLOOD SPECIMEN Ordering Facility: [facility] Address: [address] [place] [address] Performed By: #### 2 4331-1, 08444-8, 3015-3 #### [facility] CLIA [id number] [address] [place] [address] [place] Creatinine [Mass/Vol] 1.11 mg/dL High 0.58-0.96 [facility] Comment on above: Order Comment: Erwin garcia Type: BLOOD SPECIMEN Ordering Facility: [facility] Address: [address] [place] [address] Performed By: #### 2 4331-1, 10393-1, 3 #### [facility] CLIA [id number] [address] [place] [address] [place] Creatinine and Glomerular filtration rate.predicted panel (S/P/Bld) 61 mL/min/1.73m??? Normal >=60 [facility] Comment on above: Order Comment: Erwin garcia Type: BLOOD SPECIMEN Ordering Facility: [facility] Address: [address] [place] [address] Result Comment: Booker mated Glomerular Filtration Rate (eGFR) is calculated using the 2020 CKD-EPI creatinine equation. This equation utilizes serum creatinine, sex, and age as parameters. The creatinine assay has traceable calibration to isotope dilution-mass spectrometry. Refer to KDIGO guidelines for clinical interpretation. In patients with unstable renal function, e.g. those with acute kidney injury, the eGFR may not accurately reflect actual GFR. Performed By: #### 2 4331-1, 04783-2, 3015-3 #### [facility] CLIA [id number] [address] [place] [id number] [place] Glucose [Mass/Vol] 144 mg/dL High 74-99 [facility] Comment on above: Order Comment: Erwin garcia Type: BLOOD SPECIMEN Ordering Facility: [facility] Address: [address] [place] [address], [place] [address] Result Comment: The [place] Diabetes Association (ADA) provides guidance for cutoff values for fasting glucose and random glucose. The ADA defines fasting as no caloric intake for at least 8 hours. Fasting plasma glucose results between 100 to 125 mg/dL indicate increased risk for diabetes (prediabetes). Fasting plasma glucose results greater than or equal to 126 mg/dL meet the criteria for diagnosis of diabetes. In the absence of unequivocal hyperglycemia, results should be confirmed by repeat testing. In a patient with classic symptoms of hyperglycemia or hyperglycemic crisis, random plasma glucose results greater than or equal to 200 mg/dL meet the criteria for diagnosis of diabetes. Reference: Standards of Medical Care in Diabetes 2016, [place] Diabetes Association. Diabetes Care. 2016.39(Suppl 1). Performed By: #### 2 4331-1, 75524-4, 3016-3 #### [facility] CLIA [id number] [facility] [place] [id number] [place] Potassium [Moles/Vol] 4.5 mmol/L Normal 3.7-5.1 [facility] Comment on above: Order Comment: Erwin garcia Type: BLOOD SPECIMEN Ordering Facility: [facility] Address: [address] [place], [place] [id number] Performed By: #### 2 4331-1, 79946-8, 3016-3 #### [facility] CLIA [id number] [address] [address] [place] Protein [Mass/Vol] 7.5 g/dL Normal 6.3-8.0 [facility] Comment on above: Order Comment: Erwin garcia Type: BLOOD SPECIMEN Ordering Facility: [facility] Address: [address] [place], [place] [id number] Performed By: #### 2 4331-1, 99972-2, 3016-3 #### [facility] CLIA [id number] [address] [address] [place] Sodium [Moles/Vol] 142 mmol/L Normal 136-144 [facility] Comment on above: Order Comment: Erwin garcia Type: BLOOD SPECIMEN Ordering Facility: [facility] Address: [address] [place] [address] Performed By: #### 2 4331-1, 22236-1, 3016-3 #### [facility] CLIA [id number] [facility] [place] [address] [place] Urea nitrogen [Mass/Vol] 10 mg/dL Normal 7-21 [facility] Comment on above: Order Comment: Erwin garcia Type: BLOOD SPECIMEN Ordering Facility: [facility] Address: [address] [place] [address] Performed By: #### 2 4331-1, 31400-2, 3016-3 #### [facility] CLIA [id number] [address] [place] [address] [place] HbA1c (Bld)on 08-06-2023 Average glucose Estimated from glycated hemoglobin (Bld) [Mass/Vol] 154 mg/dL Normal [facility] Comment on above: Order Comment: Erwin garcia Type: BLOOD SPECIMEN Ordering Facility: [facility] Address: [address] [place] [address] Result Comment: eAG: (Estimated average glucose) is a calculated value from HgbA1c and is surgical sales representative of the average blood glucose level in the last 2-3 month period. Performed By: #### 5 5454-3 #### [facility] CLIA [id number] [address] [place] [id number] [place] HbA1c (Bld) [Mass fraction] 7.0 % High 4.3-5.6 [facility] Comment on above: Order Comment: Erwin garcia Type: BLOOD SPECIMEN Ordering Facility: [facility] Address: [address] [place] [address] Result Comment: [place] Diabetes Association guidelines indicate that patients with HgbA1c in the range 5.7-6.4% are at increased risk for development of diabetes, and intervention by lifestyle modification may be beneficial. HgbA1c greater or equal to 6.5% is considered diagnostic of diabetes. Performed By: #### 5 5454-3 #### [facility] CLIA [id number] [address] [place] [id number] [place] Lipid 1996 panelon 3 Cholesterol [Mass/Vol] 101 mg/dL Normal <200 [facility] Comment on above: Order Comment: Erwin men Type: BLOOD SPECIMEN Ordering Facility: [facility] Address: [address] [place] [address], [place] [address] Result Comment: <200 mg/dL, Desirable 200-239 mg/dL, Borderline high >239 mg/dL, High Performed By: #### 2 4331-1, 10438-2, 3016-3 #### [facility] CLIA [id number] [address] [place] [address] [place] Cholesterol in HDL [Mass/Vol] 37 mg/dL Low >39 [facility] Comment on above: Order Comment: Erwin garcia Type: BLOOD SPECIMEN Ordering Facility: [facility] Address: [address] [place] [address], [place] [address] Result Comment: 40-5 9 mg/dL, Acceptable >59 mg/dL, High: Negative risk factor for coronary heart disease <40 mg/dL, Low: Positive risk factor for coronary heart disease Performed By: #### 2 4331-1, 50921-3, 3016-3 #### [facility] CLIA [id number] [address] [place] [address] [place] Cholesterol in LDL [Mass/Vol] 30 mg/dL Normal <100 [facility] Comment on above: Order Comment: Erwin garcia Type: BLOOD SPECIMEN Ordering Facility: [facility] Address: [address] [place] [address], [place] [address] Result Comment: <100 mg/dL, Optimal 100-129 mg/dL, Near optimal/above optimal 130-159 mg/dL, Borderline high 160-189 mg/dL, High >189 mg/dL, Very high Secondary prevention optimal LDL Cholesterol levels are recommended to be < 70 mg/dL Performed By: #### 2 4331-1, 65101-7, 6-3 #### [facility] CLIA [id number] [address] [place] [address] [place] Cholesterol in LDL/Cholesterol in HDL [Mass ratio] 0.81 {ratio} Normal <2.54 [facility] Comment on above: Order Comment: Speci men Type: BLOOD SPECIMEN Ordering Facility: [facility] Address: [address] [place] [address], [place] [address] Result Comment: Refe jhon: 1. National Cholesterol Education Program ATP III Guideline At-A-Glance Quick Desk Reference: National Heart, Lung, and Blood Hazel. National Institutes of Health. 2001: NIH Publication No. 01-3305. 2. An International Atherosclerosis Society position paper: global recommendations for the management of dyslipidemia: executive summary, Atherosclerosis. 2014: 232(2):410-413. Performed By: #### 2 4331-1, 08125-5, 3015-3 #### [facility] CLIA [id number] [address] [place] [address] [place] Cholesterol in VLDL [Mass/Vol] 34 mg/dL High <30 [facility] Comment on above: Order Comment: Erwin garcia Type: BLOOD SPECIMEN Ordering Facility: [facility] Address: [address] [place] [address], [place] [address] Performed By: #### 2 4331-1, 77923-3, 3015-3 #### [facility] CLIA [id number] [address] [address] [place] Cholesterol non HDL [Mass/Vol] 64 mg/dL Normal <130 [facility] Comment on above: Order Comment: Hiroi men Type: BLOOD SPECIMEN Ordering Facility: [facility] Address: [address] [place] [address], [place] [address] Result Comment: <130 mg/dL, Optimal 130-159 mg/dL, Near optimal/above optimal 160-189 mg/dL, Borderline high 190-219 mg/dL, High >219 mg/dL, Very high Secondary prevention optimal non HDL Cholesterol levels are recommended to be <100 mg/dL Performed By: #### 2 4331-1, 05691-2, 3 #### [facility] CLIA [id number] [address] [place] [address] [place] Cholesterol.total/Ch olesterol in HDL [Mass ratio] 2.73 {ratio} Normal <5.10 [facility] Comment on above: Order Comment: Speci men Type: BLOOD SPECIMEN Ordering Facility: [facility] Address: [address] [place] [address], [place] [address] Performed By: #### 2 4331-1, , 3015-10 #### [facility] CLIA [id number] [address] [place] [address] [place] FASTING TIME unknown Normal [facility] Comment on above: Order Comment: Speci men Type: BLOOD SPECIMEN Ordering Facility: [facility] Address: [address] [place] [address], [place] [address] Performed By: #### 2 4331-1, , 3015-10 #### [facility] CLIA [id number] [address] [place] [address] [place] Triglyceride [Mass/Vol] 171 mg/dL High <150 [facility] Comment on above: Order Comment: Speci men Type: BLOOD SPECIMEN Ordering Facility: [facility] Address: [address] [place] [address], [place] [address] Result Comment: <150 mg/dL, Normal 150-199 mg/dL, Borderline high 200-499 mg/dL, High >499 mg/dL, Very high Performed By: #### 2 4331-1, 62603-2, 3015-10 #### [facility] CLIA [id number] [facility] [place] [id number] [place] TSH SerPl-aCncon 08-06-2023 TSH Qn 1.540 m[IU]/L Normal 0.270-4.200 [facility] Comment on above: Order Comment: Speci men Type: BLOOD SPECIMEN Ordering Facility: Elida Goncalves [facility] Address: [address] [facility], [place] [address] Result Comment: If t he patient is , TSH reference range varies by gestational period: First Trimester (weeks 9-12): 0.180-2.990 mIU/L Second Trimester: 0.110-3.980 mIU/L Third Trimester: 0.480-4.710 mIU/L Mode Ellsworth et al. A Practical Approach for the Verifications and Determination of Site- and Trimester-Specific Reference Intervals for Thyroid Function tests in . Thyroid, 2019:29:3:412-420. Galindo Dennis, et al. 2017 Guidelines of the [place] Thyroid Association for the Diagnosis and Management of Thyroid Disease during and the . Thyroid, 2017:27:3:315-389. Performed By: #### 2 4331-1, 73698-8, 3016-3 #### [facility] CLIA [id number] [address] [place] [address] [place] Office Visit (Cardiology)on 04-18-2023 Follow-up visit Diagnoses/Problems Assessed CAD (coronary artery disease) (414.00) (I25.10) HFrEF (heart failure with reduced ejection fraction) (428.20) (I50.20) Chief Complaint Heart failure with reduced ejection fraction History of Present Emntzkk04-igxh-evo female with a history of multiple psychiatric diagnoses, type 2 diabetes mellitus, COPD who was initially admitted to [facility] 01/01/2022 in the setting of CHF exacerbation and COPD. Was treated with IV steroids/diuretics/oxygen. Noted to have a an NSTEMI and underwent a cardiac authorization 01/01/2022 with SAMEER to LAD. Here for follow-up. Problem #1 ACC/AHA stage C HFrEF; heart failure with improved ejection fraction With revascularization and GDMT echocardiogram subsequently improved March 14 to 55%. -Current GDMT includes Entresto 49-51 mg twice daily, Toprol 25 mg daily, Aldactone 25 mg daily, Jardiance 10 mg daily Problem #2 coronary artery disease as described above Currently on aspirin 81 mg, Plavix 75 mg, rosuvastatin 5 mg. LDL at goal Denies any exertional chest pain or shortness of breath. Denies any orthopnea/PND. Does not appear to have any lower extremity edema Active Problems Problems CAD (coronary artery disease) (414.00) (I25.10) HFrEF (heart failure with reduced ejection fraction) (428.20) (I50.20) Surgical History Problems History of Coronary artery stent placement History of Lumpectomy Current Meds Medication NameInstruction amLODIPine Besylate 5 MG Oral TabletTAKE 1 TABLET DAILY DIRECTED. Aspirin 81 MG Oral Tablet ChewableCHEW AND SWALLOW 1 TABLET BY MOUTH EVERY DAY Banophen 50 MG Oral Capsule1 cap po q 4-6 hours prn Basaglar KwikPen 100 UNIT/ML Subcutaneous Solution Pen-injectorINJECT 20 UNIT Bedtime Clopidogrel Bisulfate 75 MG Oral Tablettake 1 tablet by mouth once daily Entresto 49-51 MG Oral TabletTAKE 1 TABLET BY MOUTH TWICE A DAY Haloperidol 10 MG Oral TabletTAKE 1 TABLET AT BEDTIME. Haloperidol 5 MG Oral TabletTAKE 1 TABLET TWICE DAILY. Insulin Lispro 100 UNIT/ML Injection SolutionINJECT 5 UNIT 3 times daily Isosorbide Mononitrate ER 30 MG Oral Tablet Extended Release 24 HourTAKE 1 TABLET BY MOUTH EVERY DAY Janumet 50-1000 MG Oral TabletTAKE 1 TABLET TWICE DAILY WITH MEALS. Jardiance 10 MG Oral TabletTAKE 1 TABLET BY MOUTH ONCE DAILY Metoclopramide HCl - 10 MG Oral TabletTake 1 tablet daily Metoclopramide HCl - 5 MG Oral TabletTAKE 1 TABLET 3 TIMES DAILY. Metoprolol Succinate ER 25 MG Oral Tablet Extended Release 24 HourTAKE 1 TABLET DAILY. Nitroglycerin 0.4 MG Sublingual Tablet SublingualPLACE 1 TABLET UNDER THE TONGUE EVERY 5 MINUTES FOR UP TO 3 DOSES NEEDED FOR CHEST PAIN.CALL 911 IF PAIN PERSISTS. NovoLOG FlexPen 100 UNIT/ML Subcutaneous Solution Pen-injectorINJECT 5 UNIT Before meals Omeprazole 40 MG Oral Capsule Delayed ReleaseTAKE 1 CAPSULE Daily Oxybutynin Chloride ER 10 MG Oral Tablet Extended Release 24 HourTake 1 tablet daily QUEtiapine Fumarate 100 MG Oral TabletTAKE 1 TABLET TWICE DAILY. Rosuvastatin Calcium 5 MG Oral Tablettake 1 tablet by mouth once daily Spironolactone 25 MG Oral TabletTAKE 1 TABLET DAILY. Sucralfate 1 GM Oral TabletTAKE 1 TABLET 4 TIMES DAILY. Tab-A-Marilyn/Minerals TABSTAKE 1 TABLET DAILY. Torsemide 20 MG Oral TabletTake 1 tablet daily Tylenol 8 Hour Arthritis Pain 650 MG Oral Tablet Extended ReleaseTAKE 2 TABLET Every 8 hours PRN Vitamin B-12 1000 MCG Oral TabletTAKE 1 TABLET DAILY DIRECTED. Vitamin D-3 25 MCG (1000 UT) Oral CapsuleTAKE DIRECTED. Allergies Medication No Known Drug Allergies Recorded By: Mati Huerta; 03/08/2022 9:57:22 AM Social History Problems Daily caffeine consumption Does not have living will No alcohol use No illicit drug use Smokes cigarettes (305.1) (F17.210) Review of Systems Constitutional: Denies any fever or chills Eyes: Denies any eye pain or blurry vision ENT: Denies any ear pain or hearing loss Cardiovascular: The heart rate is not slow, the heart rate is not fast Respiratory: Denies any asthma/wheezing Gastrointestinal: Denies any era colored stools or fatty food intolerance Genitourinary: Denies any blood in the urine or pelvic pain Musculoskeletal: Denies any swelling in the joints or difficulty walking Skin: Denies any skin lumps or skin lesions Neurological: Denies any dizziness/tingling Vitals Vital Signs Recorded: [id number] 11:25AM Heart Rate75 Ychvjnpg387 Gxdvcybbj79 Height5 ft 3 in Rvbvdm991 lb BMI Diaqllpvvd27.64 kg/m2 BSA Calculated2.13 Tobacco Usea) Yes Patient encouraged to stop using tobacco productsYes Falls Screening (Age 18+)a) No falls within the last year Physical Exam General: AANDOx3 HEENT: NC/AT; EOMI; PERRLA, external ear is normal Neck: supple; no JVD Chest: CTAB; no wheezing CVS: S1S2 normal, no murmurs Abdomen: Soft, NT/ND, no organomegaly Extremities: no clubbing/cyanosis/edema Neuro: Grossly intact Results/Data Comprehensive Me (more content not included)... Normal TimePad Tobacco Screening.on 023 Fall risk assessment a) No falls within the last year [facility] [place] [employer] Work Phone: Tobacco use status [facility] a) Yes [facility] [employer] Work Phone: Tobacco Screening. Yes [facility] Work Phone: DIGITAL MAMM SCREENING W/ TO Cardenas 11-02-2022 DIGITAL MAMM SCREENING W/ AVRIL Patient Name: PABLO TABARES STUDY: Digital mammography screening with avril; 11/02/2022 1:45 pm ACCESSION NUMBER(S): [id number] ORDERING CLINICIAN: KENDRA FOOTE INDICATION: Screening. COMPARISON: Comparison is made to prior digital mammograms dated 10/23/2021 FINDINGS: CC and MLO 2D digital mammograms and digital breast tomosynthesis images were obtained of the bilateral breasts. 3-D volume images were reconstructed in 4 views at an independent workstation as 1 mm slices through the breasts in both the CC and MLO projections. The breast tissue is almost entirely fatty. Mild architectural distortion is seen in the anterior subareolar aspect of the right breast, similar to prior studies. No new or enlarging mass or focal asymmetry is identified. No suspicious microcalcifications or new foci of architectural distortion are seen. There has been no significant change. This study was interpreted with CAD. IMPRESSION: No mammographic evidence of malignancy. BI-RADS CATEGORY: Category: 2 - Benign. Recommendation: 1 Year Screening. Electronically signed by: RAFAEL ARREGUIN MD [facility] Office Visit (Cardiology)on 10-18-2022 Follow-up visit Diagnoses/Problems Assessed CAD (coronary artery disease) (414.00) (I25.10) HFrEF (heart failure with reduced ejection fraction) (428.20) (I50.20) Orders SocHx: Smokes cigarettes Tobacco Use Screening; Status:Complete; Done: [id number] Chief Complaint Heart failure with improved ejection fraction History of Present Zajpdnq70-spha-vlo female with a history of multiple psychiatric diagnoses, type 2 diabetes mellitus, COPD who was initially admitted to [facility] 01/01/2022 in the setting of CHF exacerbation and COPD. Was treated with IV steroids/diuretics/oxygen. Noted to have a an NSTEMI and underwent a cardiac authorization 01/01/2022 with SAMEER to LAD. Here for follow-up. Problem #1 ACC/AHA stage C HFrEF; heart failure with improved ejection fraction With revascularization and GDMT echocardiogram subsequently improved March 14 to 55%. -Current GDMT includes Entresto 49-51 mg twice daily, Toprol 25 mg daily, Aldactone 25 mg daily, Jardiance 10 mg daily Problem #2 coronary artery disease as described above Currently on aspirin 81 mg, Plavix 75 mg, rosuvastatin 5 mg. LDL at goal Continues to notice random episodes of chest discomfort; that change with respiration. These are not related to exertion. She denies any exertional angina or shortness of breath. Denies any orthopnea/PND. Has minimal lower extremity edema. Active Problems Problems CAD (coronary artery disease) (414.00) (I25.10) HFrEF (heart failure with reduced ejection fraction) (428.20) (I50.20) Surgical History Problems History of Coronary artery stent placement History of Lumpectomy Current Meds Medication NameInstruction amLODIPine Besylate 5 MG Oral TabletTAKE 1 TABLET DAILY DIRECTED. Aspirin 81 MG Oral Tablet ChewableCHEW AND SWALLOW 1 TABLET BY MOUTH EVERY DAY Banophen 25 MG Oral Capsule Clopidogrel Bisulfate 75 MG Oral Tablettake 1 tablet by mouth once daily diphenhydrAMINE HCl - 50 MG Oral Capsule Entresto 49-51 MG Oral TabletTAKE 1 TABLET BY MOUTH TWICE A DAY Haloperidol 10 MG Oral TabletTAKE 1 TABLET AT BEDTIME. Haloperidol 5 MG Oral TabletTAKE 1 TABLET TWICE DAILY. Isosorbide Mononitrate ER 30 MG Oral Tablet Extended Release 24 HourTAKE 1 TABLET BY MOUTH EVERY DAY Janumet 50-500 MG Oral TabletTAKE 1 TABLET TWICE DAILY WITH MEALS. Jardiance 10 MG Oral TabletTAKE 1 TABLET BY MOUTH ONCE DAILY Metoclopramide HCl - 10 MG Oral TabletTAKE 1 TABLET AT BEDTIME. Metoclopramide HCl - 5 MG Oral TabletTAKE 1 TABLET 3 TIMES DAILY. Metoprolol Succinate ER 25 MG Oral Tablet Extended Release 24 HourTAKE 1 TABLET DAILY. Omeprazole 40 MG Oral Capsule Delayed ReleaseTAKE 1 CAPSULE Daily Oxybutynin Chloride ER 10 MG Oral Tablet Extended Release 24 HourTake 1 tablet daily QUEtiapine Fumarate 100 MG Oral TabletTAKE 1 TABLET DAILY. QUEtiapine Fumarate 50 MG Oral TabletTAKE 1 TABLET AT BEDTIME. Rosuvastatin Calcium 5 MG Oral Tablettake 1 tablet by mouth once daily Spironolactone 25 MG Oral TabletTAKE 1 TABLET DAILY. Sucralfate 1 GM Oral TabletTAKE 1 TABLET 4 TIMES DAILY. Tab-A-Marilyn/Minerals TABSTAKE 1 TABLET DAILY. Torsemide 20 MG Oral TabletTake 1 tablet daily Vitamin B-12 1000 MCG Oral TabletTAKE 1 TABLET DAILY DIRECTED. Vitamin D-3 25 MCG (1000 UT) Oral CapsuleTAKE DIRECTED. Allergies Medication No Known Drug Allergies Recorded By: Mati Huerta; 03/08/2022 9:57:22 AM Social History Problems Daily caffeine consumption Does not have living will No alcohol use No illicit drug use Smokes cigarettes (305.1) (F17.210) Review of Systems Constitutional: Denies any fever or chills Eyes: Denies any eye pain or blurry vision ENT: Denies any ear pain or hearing loss Cardiovascular: The heart rate is not slow, the heart rate is not fast Respiratory: Denies any asthma/wheezing Gastrointestinal: Denies any era colored stools or fatty food intolerance Genitourinary: Denies any blood in the urine or pelvic pain Musculoskeletal: Denies any swelling in the joints or difficulty walking Skin: Denies any skin lumps or skin lesions Neurological: Denies any dizziness/tingling Vitals Vital Signs Recorded: [id number] 03:15PM Heart Rate72 Bjxgsjvn866 Yyaxuvdrd20 Height5 ft 3 in Dlsxwj543 lb 6 oz BMI Qybfekklbi10.42 kg/m2 BSA Calculated2.15 Tobacco Usea) Yes Patient encouraged to stop using tobacco productsYes Falls Screening (Age 18+)b) One or more falls in the last year O2 Yagbbvoxce68 Physical Exam General: AANDOx3 HEENT: NC/AT; EOMI; PERRLA, external ear is normal Neck: supple; no JVD Chest: CTAB; no wheezing CVS: S1S2 normal, no murmurs Abdomen: Soft, NT/ND, no organomegaly Extremities: no clubbing/cyanosis/edema Neuro: Grossly intact Results/Data Comprehensive Metabolic [id number] 08:31AMNon Ambulatory, Provider Ordering Provider: KENDRA FOOTE [id number] Test NameResultFlagReference Glucose, Yjnjt862 mg/dLH74 - 99 Sodium, Pluvf155 mmol/L136 - 145 POTASSIUM4. (more content not included)... Normal [employer]Pad Tobacco Screening.on 023 Fall risk assessment b) One or more fall s in the last year [facility] [employer] Work Phone: Tobacco use status [facility] a) Yes [facility] [address] [place] Work Phone: Tobacco Screening. Yes [facility] [address] [employer] Work Phone: BILATERAL ANKLE, COMPLETE, M IN 3 VIEWSon 10-12-2022 BILATERAL ANKLE, COMPLETE, MIN 3 VIEWS Patient Name: PABLO TABARES STUDY: BILATERAL KNEE; COMPLT, 4 OR MORE VIEWS; BILATERAL ANKLE, COMPLETE, MIN 3 VIEWS; HIPS, BIALT, MIN 2 VIEWS EACH, AP PELVIS; 10/12/2022 8:30 pm; 10/12/2022 8:42 pm two views left hip. Two views right hip. AP view of the pelvis. Three views left ankle. Three views right ankle. Four views right knee. Four views left knee. INDICATION: pain s/p fall . COMPARISON: None. ACCESSION NUMBER(S): [id number]; [id number]; [id number] ORDERING CLINICIAN: TAYLOR VENTURA FINDINGS: Hips/pelvis: Surgical clips overlie the pelvis. No acute displaced fracture or dislocation of the hip/pelvis. Mild femoroacetabular joint space narrowing bilaterally. No widening of the pubic symphysis. No asymmetric widening of the SI joints. Moderate amount of stool throughout the colon. Knees: Age-indeterminate fracture involving an enthesophyte along the inferior pole of the right patella. No additional evidence for fracture throughout the knees bilaterally. Mild tricompartmental osteophytic spurring bilaterally. There are vascular calcifications. No sizable suprapatellar joint effusions. Ankles: No acute displaced fracture or dislocation. Small bilateral retrocalcaneal enthesophytes. Mild bone demineralization. Joint spaces are preserved. IMPRESSION: No acute osseous abnormality of the hips/pelvis. Age-indeterminate fracture involving an enthesophyte along the inferior pole of the right patella. Correlate with point tenderness. No additional evidence for fracture throughout the bilateral knees. Mild tricompartmental osteoarthrosis bilaterally. No acute osseous abnormality of the ankles bilaterally. Electronically signed by: MICHAEL BRIDGES MD [facility] BILATERAL KNEE COMPLT, 4 OR MORE VIEWSon 10-12-2022 BILATERAL KNEE COMPLT, 4 OR MORE VIEWS Patient Name: PABLO TABARES STUDY: BILATERAL KNEE; COMPLT, 4 OR MORE VIEWS; BILATERAL ANKLE, COMPLETE, MIN 3 VIEWS; HIPS, BIALT, MIN 2 VIEWS EACH, AP PELVIS; 10/12/2022 8:30 pm; 10/12/2022 8:42 pm two views left hip. Two views right hip. AP view of the pelvis. Three views left ankle. Three views right ankle. Four views right knee. Four views left knee. INDICATION: pain s/p fall . COMPARISON: None. ACCESSION NUMBER(S): [id number]; [id number]; [id number] ORDERING CLINICIAN: TAYLOR VENTURA FINDINGS: Hips/pelvis: Surgical clips overlie the pelvis. No acute displaced fracture or dislocation of the hip/pelvis. Mild femoroacetabular joint space narrowing bilaterally. No widening of the pubic symphysis. No asymmetric widening of the SI joints. Moderate amount of stool throughout the colon. Knees: Age-indeterminate fracture involving an enthesophyte along the inferior pole of the right patella. No additional evidence for fracture throughout the knees bilaterally. Mild tricompartmental osteophytic spurring bilaterally. There are vascular calcifications. No sizable suprapatellar joint effusions. Ankles: No acute displaced fracture or dislocation. Small bilateral retrocalcaneal enthesophytes. Mild bone demineralization. Joint spaces are preserved. IMPRESSION: No acute osseous abnormality of the hips/pelvis. Age-indeterminate fracture involving an enthesophyte along the inferior pole of the right patella. Correlate with point tenderness. No additional evidence for fracture throughout the bilateral knees. Mild tricompartmental osteoarthrosis bilaterally. No acute osseous abnormality of the ankles bilaterally. Electronically signed by: MICHAEL BRIDGES MD [facility] HIPS, BILAT, MIN 2 VIEWS EAC H, AP PELVISon 10-12-2022 HIPS, BILAT, MIN 2 VIEWS EACH, AP PELVIS Patient Name: PABLO TABARES STUDY: BILATERAL KNEE; COMPLT, 4 OR MORE VIEWS; BILATERAL ANKLE, COMPLETE, MIN 3 VIEWS; HIPS, BIALT, MIN 2 VIEWS EACH, AP PELVIS; 10/12/2022 8:30 pm; 10/12/2022 8:42 pm two views left hip. Two views right hip. AP view of the pelvis. Three views left ankle. Three views right ankle. Four views right knee. Four views left knee. INDICATION: pain s/p fall . COMPARISON: None. ACCESSION NUMBER(S): [id number]; [id number]; [id number] ORDERING CLINICIAN: TAYLOR VENTURA FINDINGS: Hips/pelvis: Surgical clips overlie the pelvis. No acute displaced fracture or dislocation of the hip/pelvis. Mild femoroacetabular joint space narrowing bilaterally. No widening of the pubic symphysis. No asymmetric widening of the SI joints. Moderate amount of stool throughout the colon. Knees: Age-indeterminate fracture involving an enthesophyte along the inferior pole of the right patella. No additional evidence for fracture throughout the knees bilaterally. Mild tricompartmental osteophytic spurring bilaterally. There are vascular calcifications. No sizable suprapatellar joint effusions. Ankles: No acute displaced fracture or dislocation. Small bilateral retrocalcaneal enthesophytes. Mild bone demineralization. Joint spaces are preserved. IMPRESSION: No acute osseous abnormality of the hips/pelvis. Age-indeterminate fracture involving an enthesophyte along the inferior pole of the right patella. Correlate with point tenderness. No additional evidence for fracture throughout the bilateral knees. Mild tricompartmental osteoarthrosis bilaterally. No acute osseous abnormality of the ankles bilaterally. Electronically signed by: MICHAEL BRIDGES MD [facility] Provider Note - ED v3on 09-26 Provider Note - ED v3 Provider Note: Chart Review: ED NOTES ED NOTES: HPI: Patient is a 46-year-old female presenting to the emergency department with bilateral knee pain, bilateral ankle pain, bilateral hip pain. She states that she has had pain in her lower extremities, mostly in the left, for the past few days. She states today the pain was so bad that when she tried to stand she fell to her knees. She denies hitting her head or loss of conscious. Patient states that she does have history of arthritis. She states she does not follow with an orthopedic surgeon, but she has been referred to 1 by her primary care doctor. Patient is not on a blood thinner. Patient denies any other complaints at this time. Limitations to history: none identified Independent Historians: patient External Records Reviewed: EMR -- ------ ROS: a ten point review of systems was performed and was negative except as per HPI. -- ------ PMH / PSH: as per HPI, otherwise reviewed in EMR and significant for: COPD, DM, HTN MEDS: as per HPI, otherwise reviewed in EMR and significant for: quetiapine, haldol, amlodipine, B12 ALLERGIES: as per HPI, otherwise reviewed in EMR and significant for: Cipro, kameron inhibitor SocH: as per HPI, otherwise reviewed in EMR and significant for: lives in snf, denies EtOH or drug use FH: as per HPI, otherwise reviewed in EMR and significant for: non contributory -- ------ Physical Exam: VS: As documented in the triage note and EMR flowsheet from this visit was reviewed General: Well appearing. No acute distress. Eyes: Extraocular movements grossly intact. No scleral icterus. HEENT: Atraumatic. Normocephalic. Neck: No meningismus. No gross masses CV: Regular rhythm. No murmurs, rubs, gallops appreciated. Resp: Clear to auscultation bilaterally. No respiratory distress. GI: Soft, no masses. MSK: Symmetric muscle bulk. No gross step offs or deformities. No calf asymmetry or erythema, no deformity. Pedal pulses 2+ B/L. No pain with palpation of the pelvis Skin: Warm, dry, intact. Neuro: Speech fluent. Alert. Psych: Appropriate mood and affect for situation -- ------ HISTORY OF PRESENTING ILLNESS PABLO is a 46 year old Female and was seen by me at 12-Oct-2022 19:27 for a chief complaint of knee pain (pt was walking down steps felt pain in L hip fell to knees. Since had worsening L ankle and L knee pain. Pt ambulatory after initial fall. Pain 06/04.)(1). Triage Information: Most recent Vital Sign Value Date Temp (F): 98.6 10-12-2022 19:21 Temp (C): 37 10-12-2022 19:21 Heart Rate (beats/min): 78 10-12-2022 19:21 Respirations (breaths/min): 16 10-12-2022 19:21 SpO2 (%): 98 10-12-2022 19:21 BP Systolic (mm Hg): 150 10-12-2022 19:21 BP Diastolic (mm Hg): 82 10-12-2022 19:21 PAST MEDICAL HISTORY ALLERGIES/INTOLERANCES: Allergy Allergen: Cipro Type: Drug Reaction: Swelling/Edema Allergen: KAMERON inhibitors Type: Drug Category Reaction: Swelling/Edema HEALTH HISTORY: No documented data. OUTPATIENT MEDICATIONS: Home Medications Review Status for Reconciliation: Not Done Med Status: Patient Currently Takes Medications Drug Name: Vitamin D3 25 mcg (1000 intl units) oral tablet Instructions: 1 tab(s) orally once a day (in the morning) Drug Name: amLODIPine 5 mg oral tablet Instructions: 1 tab(s) orally once a day Drug Name: Vitamin B12 1000 mcg oral tablet Instructions: 1 tab(s) orally once a day Drug Name: Tab-A-Marilyn + Iron oral tablet Instructions: 1 tab(s) orally once a day Drug Name: sucralfate 1 g oral tablet Instructions: 1 tab(s) orally 4 times a day (before meals and at bedtime) Drug Name: metoclopramide 5 mg oral tablet Instructions: 1 tab(s) orally 4 times a day (before meals and at bedtime) Drug Name: haloperidol 10 mg oral tablet Instructions: 1 tab(s) orally once a day (at bedtime) Drug Name: omeprazole 40 mg oral delayed release capsule Instructions: 1 cap(s) orally once a day Drug Name: QUEtiapine 50 mg oral tablet Instructions: 1 tab(s) orally 2 times a day Drug Name: haloperidol 5 mg oral tablet Instructions: 1 tab(s) orally 2 times a day // AM & PM Drug Name: oxybutynin 10 mg/24 hr oral tablet, extended release Instructions: 1 tab(s) orally once a day (in the morning) Drug Name: QUEtiapine 100 mg oral tablet Instructions: 1 tab(s) orally 2 times a day // AM & PM (more content not included)... Normal [facility] Radiologyon 10-12-2022 XR Ankle 3 Views Normal [facility] [address] [employer] Work Phone: XR Knee 4 Views Normal [facility]-Cardio log y[facility] [address] [employer] Work Phone: XR Pelvis AP and Hip - bilateral GE 2 Views Normal [facility]iolog [facility] [address] [employer] Work Phone: Risk Screen - Adult Emergenc yon 10-12-2022 Risk Screen - Adult Emergency Preferred Language: Preferred Language: Preferred Language for Discussing Health Care (patient/designee)Surinamese Patient Preferred Pharmacy: Patient Preferred Pharmacy Statement: I have reviewed and updated the patient's preferred pharmacy selection for today's visit. Advanced Directives: Advance Directive/DNRno Advance Directive Information Givenpatient/family declined Family Violence Adult: Abuse Screen: Are you or have you been threatened or abused physically, emotionally, or sexually by anyoneno Learning Assessment (Patient): Learning Assessment (Patient): Patient is Able to be Assessed for Learningyes Factors Influencing Readiness to Learnacuteness of illness Factors that Impact Ability to Learnnone Devices/Methods Used to Communicatenone Learning Preferenceswritten material; verbal instruction Cultural Considerationsnone Developmental Considerationsnone Rastafari Considerationsnone Learning Assessment (Other Learner): Learning Assessment (Other Learner): Other learner availableno Pressure Injury/TB/Substance: Pressure Injury: Pressure Injury Present on Admissionno Do you have a coughno Smoking Statuslight user (uses <10 cig/day, OR <0.5 ppd, OR 1 can/pouch loose leaf tobacco per week, OR <0.5 vape pods per day) Tobacco Cessation Education (provide if tobacco use within the last 12 mos) patient declined pt states trying to quit Alcohol Usedenies Drug Usedenies Drug 2 Usedenies Admission Risk Screen: Significant IndicatorsComplete CAGE: CAGE: Is this an injured patient at a Trauma Center ([facility]/Laura/Ramon/Kong/Jessica Lion/Michelle): no Electronic Signatures: Rosa M Curtis (LEROY) (Signed 12-Oct-2022 19:36) Authored: Preferred Language, Patient Preferred Pharmacy, Advanced Directives, Family Violence Adult, Learning Assessment (Patient), Learning Assessment (Other Learner), Pressure Injury/TB/Substance, Pressure Injury, CAGE Last Updated: 12-Oct-2022 19:36 by Rosa M Curtis (LEROY) [facility] Triage - EDon 10-12-2022 Triage - ED Quick Triage: Are You no Have You Given In The Last 6 Weeksno Are You Currently Breastfeedingno Chart Review: ARRIVAL INFORMATION Mode of Arrival: ambulance Agency: City Agency Name: [place] CHIEF COMPLAINT PABLO TABARES is a Female patient with a chief complaint of knee pain (pt was walking down steps felt pain in L hip fell to knees. Since had worsening L ankle and L knee pain. Pt ambulatory after initial fall. Pain /.). Triage Date/Time: 12-Oct-2022 19:21 BEBA: 4 Pain Rating (0-10): 10 = Severe Vital Signs: Temperature: 98.6F ( 37.0C) taken temporal Blood Pressure: 150/82 Mean: 100 Heart Rate: 78 Respiratory Rate: 16 Pulse Oximetry: 98% on room air, no respiratory support. Height: 5 feet 3.00 inches. 160.0 CM Weight: 254.4 pounds. Calculated 115.4 kg. 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 Patient has homicidal thoughts: no Risk Screens Suicide Risk Screen In the Past Month: Have you wished you were or wished you could go to sleep and not wake up no In the Past Month: Have you had any actual thoughts of killing yourself no In Your Lifetime: Have you ever done anything, started to do anything, or prepared to do anything to end your life no Interventions: Nath Fall Interventions: HIGH INTERVENTIONS *Low and Moderate Interventions Plus: * supervised toileting at all timesoptional: hip protectors (with history of osteoporosis)optional: floor mats and strongly recommended: gait belts with ambulation TRAVEL HISTORY Travel History Coronavirus Screening: no exposure or symptoms Travel Exposure History: NO travel to International locations in the past 30 days PAIN Pain Scale Used: AMBER Pain Rating (0-10): 10 = Severe Past Medical History: Past Medical History Reviewedyes Electronic Signatures: Rosa M Curtis (LEROY) (Signed 12-Oct-2022 19:35) Authored: Quick Triage, Risk Screens, Pain, Travel History, Chart Review, Scores, Past Medical History Last Updated: 12-Oct-2022 19:35 by Rosa M Curtis (LEROY) [facility] Hemoglobin A1Con 09-21-2022 Glucose [Mass/Vol] 154 mg/dL -Car diolog [address] Work Phone: HbA1c (Bld) [Mass fraction] 7.0 % Abnormal -Cardiolog [address] Work Phone: Comment on above: Diagnosis of Diabete s-Adults Non-Diabetic: < or = 5.6% Increased risk for developing diabetes: 5.7-6.4% Diagnostic of diabetes: > or = 6.5%. Monitoring of Diabetes Age (y) Therapeutic Goal (%) Adults: >18 <7.0 Pediatrics: 13-18 <7.5 7-12 <8.0 0- 6 7.5-8.5 [place]. Diabetes Care 33(S1), Aug 2009. Laboratory - Chemistry and C hemistry - challengeon 09-21-2022 Albumin BCP dye [Mass/Vol] 3.8 g/dL 3.4 - 5.0 -Cardiolog [address] Work Phone: [phone] ALP [Catalytic activity/Vol] 85 U/L 33 - 110 -Cardiolog [address] Work Phone: ALT With P-5'-P [Catalytic activity/Vol] 9 U/L 7 - 45 [facility] [address] Work Phone: Comment on above: Patients treated wit h Sulfasalazine may generate falsely decreased results for ALT. Anion gap [Moles/Vol] 7 mmol/L below low threshold 10 - 20 -[facility] [address] Work Phone: AST With P-5'-P [Catalytic activity/Vol] 12 U/L 9 - 39 -Cardiolog [address] Work Phone: [phone] Bilirubin [Mass/Vol] 0.3 mg/dL 0.0 - 1.2 MP-C ardiolog [place] [address] [employer] Work Phone: [phone] Calcium [Mass/Vol] 9.2 mg/dL 8.6 - 10.3 MP-Car diolog [place] [address] [employer] Work Phone: Chloride [Moles/Vol] 107 mmol/L 98 - 107 [place] [address] [employer] Work Phone: CO2 [Moles/Vol] 31 mmol/L 21 - 32 MP-Cardio log [place] [address] [place] Work Phone: Creatinine [Mass/Vol] 0.95 mg/dL See Below [facility] [address] Work Phone: Comment on above: Reference Range: 0.5 0 - 1.05 Glucose [Mass/Vol] 107 mg/dL above high threshold 74 - 99 [facility] [place] [address] [place] Work Phone: Potassium [Moles/Vol] 4.2 mmol/L 3.5 - 5.3 [facility] [place] [address] [place] Work Phone: Protein [Mass/Vol] 7.1 g/dL 6.4 - 8.2 MP-Car diolog [place] [address] [employer] Work Phone: Sodium [Moles/Vol] 141 mmol/L 136 - 145 MP-Car diolog [place] [address] [place] Work Phone: Urea nitrogen [Mass/Vol] 8 mg/dL 6 - 23 [facility] [place] [address] [place] Work Phone: Lipid Panelon 09-21-2022 Cholesterol [Mass/Vol] 97 mg/dL 0 - 199 [facility] [address] Work Phone: Comment on above: . AGE DESIRABLE BORD FERNANDO HIGH HIGH 0-19 Y 0 - 169 170 - 199 >/= 200 20-24 Y 0 - 189 190 - 224 >/= 225 >24 Y 0 - 199 200 - 239 >/= 240 All ranges are based on fasting samples. Specific therapeutic targets will vary based on patient-specific cardiac risk.. Pediatric guidelines reference:Pediatrics 2011, 128(S5). Adult guidelines reference: NCEP ATPIII Guidelines, ADRI 2001, 258:2486-97. Venipuncture immediately after or during the administration of Metamizole may lead to falsely low results. Testing should be performed immediately prior to Metamizole dosing. Cholesterol in HDL [Mass/Vol] 35.0 mg/dL Abnormal [facility] [employer] Work Phone: Comment on above: . AGE VERY LOW LOW N ORMAL HIGH 0-19 Y < 35 < 40 40-45 ---- 20- 24 Y ---- < 40 >45 ---- >24 Y ---- < 40 40-60 >60. Cholesterol in LDL [Mass/Vol] 42 mg/dL 0 - 99 [facility] [employer] Work Phone: Comment on above: . NEAR BORD AGE ISABELLE RABLE OPTIMAL HIGH HIGH VERY HIGH 0-19 Y 0 - 109 --- 110-129 >/= 130 ---- 20-24 Y 0 - 119 --- 120-159 >/= 160 ---- >24 Y 0 - 99 100-129 130-159 160-189 >/=190. Cholesterol.total/Ch olesterol in HDL [Mass ratio] 2.8 {ratio} [facility] [employer] Work Phone: Comment on above: REF VALUESDESIRABLE < 3.4HIGH RISK > 5.0 Triglyceride [Mass/Vol] 102 mg/dL 0 - 149 [place] [address] [employer] Work Phone: Comment on above: . AGE DESIRABLE BORD FERNANDO HIGH HIGH VERY HIGH 0 D-90 D 19 - 174 ---- ---- ----91 D- 9 Y 0 - 74 75 - 99 >/= 100 ---- 10-19 Y 0 - 89 90 - 129 >/= 130 ---- 20-24 Y 0 - 114 115 - 149 >/= 150 ---- >24 Y 0 - 149 150 - 199 200- 499 >/= 500. Venipuncture immediately after or during the administration of Metamizole may lead to falsely low results. Testing should be performed immediately prior to Metamizole dosing. Lipid Panel 20 mg/dL 0 - 40 [facility] [address] Work Phone: Magnesium, Serumon 3 Magnesium [Mass/Vol] 2.05 mg/dL See Below MP-C ardiolog [address] Work Phone: Comment on above: Reference Range: 1.6 0 - 2.40 No Panel Informationon 09-21 74 {mL/min/1.73m2} >90 -Car diolog [place] [address] [place] Work Phone: Comment on above: CALCULATIONS OF BOOKER MATED GFR ARE PERFORMED USING THE 2020 CKD-EPI STUDY REFIT EQUATION WITHOUT THE RACE VARIABLE FOR THE IDMS-TRACEABLE CREATININE METHODS.https://jasn.asnjournals.org/content/early//ASN .4001341885 TSH - Thyroid Stimulating Ho rmone, Serumon 09-21-2022 TSH Qn 1.34 m[IU]/L See Below -Cardiolog [address] Work Phone: Comment on above: Reference Range: 0.4 4 - 3.98 TSH testing is performed using different testing methodology at [facility] than at other [facility]. Direct result comparisons should only be made within the same method. Vitamin B12, Serumon 023 Cobalamin (Vitamin B12) [Mass/Vol] 2208 pg/mL above high threshold 211 - 911 [facility] [place] [address] [place] Work Phone: Vitamin D 25-Hydroxyon 09-21 25-hydroxyvitamin D3 [Mass/Vol] 35 ng/mL [facility] [address] Work Phone: Comment on above: .DEFICIENCY: < 20 NG /MLINSUFFICIENCY: 20-29 NG/MLSUFFICIENCY: 30-100 NG/MLTHIS ASSAY ACCURATELY QUANTIFIES THE SUM OFVITAMIN D3, 25-HYDROXY AND VIT D2,25-HYDROXY. XR CHEST PA/APon 05-03-2022 XR CHEST PA/AP EXAMINATION: XR CHEST PA/AP CLINICAL STATEMENT: ORDERING SYSTEM PROVIDED HISTORY: pain, TECHNOLOGIST PROVIDED HISTORY: Illness/Other Reason for exam: chest pain and intermittent sob, hx of stents, hx of copd Cancer History: Surgery, RadiationHistory: Encounter Type: Initial Additional signs and symptoms: ORDERING SYSTEM PROVIDED DIAGNOSIS CODES: COMPARISON: 08/03/2015 TECHNIQUE: A frontal view of the chest is submitted. FINDINGS: The cardiomediastinal silhouette is not enlarged. There is no pulmonary vascular congestion. No acute infiltrates are present.There is no costophrenic angle blunting. IMPRESSION: Unremarkable plain film examination of the chest. Workstation ID: [id number] Dictated by: LILLIAN WOODRUFF on SatMay 03, 2022 1:34:25 AM EDT Transcribed by: LILLIAN WOODRUFF on SatMay 03, 2022 1:34:25 AM EDT Finalized by: LILLIAN WOODRUFF on SatMay 03, 2022 1:34:25 AM EDT [facility] Comment on above: Order Comment: Injur y/Trauma or Illness?:Illness/Other How long have you had these symptoms (acute/chronic)?:Acute Reason for exam?:chest pain and intermittent sob, hx of stents, hx of copd History of cancer?: Surgeries, chemotherapy, or radiation?: Type of Exam?:Initial Additional signs and symptoms?: BASIC METABOLIC PANELon 07-2 Anion gap [Moles/Vol] 10 mmol/L Normal 10 - 20 [facility] Comment on above: Performed By: #### B MP #### [address] [address] Calcium [Mass/Vol] 9.6 mg/dL Normal 8.6 - 10.3 [facility] Comment on above: Performed By: #### B MP #### [address] [address] Chloride [Moles/Vol] 105 mmol/L Normal 98 - 107 [facility] Comment on above: Performed By: #### B MP #### [address] [address] Creatinine [Mass/Vol] 1.01 mg/dL Normal 0.50 - 1.05 [facility] Comment on above: Performed By: #### B MP #### [address] [address] GFR/1.73 sq M.predicted among non-blacks MDRD (S/P/Bld) [Vol rate/Area] 69 mL/min/{1.73_m2} Normal >90 [facility] Comment on above: Result Comment: CALC ULATIONS OF ESTIMATED GFR ARE PERFORMED USING THE 2020 CKD-EPI STUDY REFIT EQUATION WITHOUT THE RACE VARIABLE FOR THE IDMS-TRACEABLE CREATININE METHODS. https://jasn.asnjournals.org/content/early/ASN.6984610 988 Performed By: #### B MP #### [address] [address] Glucose [Mass/Vol] 82 mg/dL Normal 74 - 99 [facility] Comment on above: Performed By: #### B MP #### [address] [address] HCO3 (Bld) [Moles/Vol] 29 mmol/L Normal 21 - 32 [facility] Comment on above: Performed By: #### B MP #### [address] [address] Potassium [Moles/Vol] 4.3 mmol/L Normal 3.5 - 5.3 [facility] Comment on above: Performed By: #### B MP #### [address] [address] Sodium [Moles/Vol] 140 mmol/L Normal 136 - 145 [facility] Comment on above: Performed By: #### B MP #### [address] [address] Urea nitrogen [Mass/Vol] 10 mg/dL Normal 6 - 23 [facility] Comment on above: Performed By: #### B MP #### [address] [address] BNPon 03-22-2022 Natriuretic peptide B (Bld) [Mass/Vol] 43 pg/mL Normal 0 - 99 [facility] Comment on above: Result Comment: . <1 00 pg/mL - Heart failure unlikely 100-299 pg/mL - Intermediate probability of acute heart . failure exacerbation. Correlate with clinical . context and patient history. >=300 pg/mL - Heart Failure likely. Correlate with clinical . context and patient history. BNP testing is performed using different testing methodology at [facility] than at other [facility]. Direct result comparisons should only be made within the same method. Performed By: #### B NP2 #### [place] [address] Echocardiogramon 03-22-2022 Echocardiography [facility] nter [address] [place] [address] [phone], TRANSTHORACIC ECHOCARDIOGRAM REPORT Patient Name: PABLO TABARES Reading Physician: [id number] Neumann MD Study Date: 03/22/2022 Referring Physician: Isabelle Neumann MD MRN/PID: [id number] PCP: Accession/Order#: [id number] Department Location: [facility] Echo Lab Date of : 1975 Fellow: Gender: F Nurse: Admit Date: Manager Of Drilling: XIOMY Ramirez RVT Admission Status: Outpatient Additional Staff: Height: 160.02 cm CC Report to: Weight: 119.75 kg Study Type: Echocardiogram BSA: 2.18 m2 Blood Pressure: 134 /88 mmHg Diagnosis/ICD: I50.20-Unspecified systolic (congestive) heart failure (CHF) Indication: CHF,CAD Procedure/CPT: Echo Complete w Full [id number] Patient History: Pertinent History: CAD and CHF. Previous echo. Study Detail: The following Echo studies were performed: 2D, M-Mode, Doppler and color flow. Technically challenging study due to poor acoustic windows and body habitus. Definity used as a contrast agent for endocardial border definition. Total contrast used for this procedure was 1 mL via IV push. A bubble study was not performed. The patient was awake. PHYSICIAN INTERPRETATION: Left Ventricle: The left ventricular systolic function is normal, with an estimated ejection fraction of 55%. There are no regional wall motion abnormalities. The left ventricular cavity size is normal. Spectral Doppler shows a pseudonormal pattern of left ventricular diastolic filling. Left Atrium: The left atrium is normal in size. Right Ventricle: The right ventricle was not well visualized. Unable to determine right ventricular systolic function. Right Atrium: The right atrium was not well visualized. Aortic Valve: The aortic valve was not well visualized. There is no evidence of aortic valve regurgitation. The peak instantaneous gradient of the aortic valve is 8.2 mmHg. The mean gradient of the aortic valve is 3.0 mmHg. Mitral Valve: The mitral valve is normal in structure. There is no evidence of mitral valve regurgitation. Tricuspid Valve: The tricuspid valve is structurally normal. No evidence of tricuspid regurgitation. Pulmonic Valve: The pulmonic valve is not well visualized. The pulmonic valve regurgitation was not well visualized. Pericardium: There is no pericardial effusion noted. Aorta: The aortic root is normal. CONCLUSIONS: 1. The left ventricular systolic function is normal with a 55% estimated ejection fraction. 2. Spectral Doppler shows a pseudonormal pattern of left ventricular diastolic filling. 3. Poorly visualized anatomical structures due to suboptimal image quality. QUANTITATIVE DATA SUMMARY: 2D MEASUREMENTS: Normal Ranges: Ao Root d: 2.50 cm (2.0-3.7cm) LAs: 3.10 cm (2.7-4.0cm) IVSd: 1.47 cm (0.6-1.1cm) LVPWd: 1.44 cm (0.6-1.1cm) LVIDd: 3.46 cm (3.9-5.9cm) LVIDs: 2.57 cm LV Mass Index: 83.7 g/m2 LV % FS 25.7 % LA VOLUME: Normal Ranges: LA Vol A4C: 26.8 ml (22+/-6mL/m2) LA Vol A2C: 25.6 ml LA Vol BP: 26.8 ml LA Vol Index A4C: 12.3ml/m2 LA Vol Index A2C: 11.7 ml/m2 LA Vol Index BP: 12.3 ml/m2 LA Area A4C: 12.1 cm2 LA Area A2C: 12.1 cm2 LA Major Carlock A4C: 4.6 cm LA Major Carlock A2C: 4.9 cm LA Volume Index: 11.4 ml/m2 LA Vol A4C: 26.0 ml LA Vol A2C: 24.8 ml M-MODE MEASUREMENTS: Normal Ranges: AoV Exc: 2.20 cm (1.5-2.5cm) AORTA MEASUREMENTS: Normal Ranges: AoV Exc: 2.20 cm (1.5-2.5cm) LV SYSTOLIC FUNCTION BY 2D PLANIMETRY (MOD): Normal Ranges: EF-A4C View: 47.1 % (>55%) EF-A2C View: 46.8 % EF-Biplane: 45.3 % LV DIASTOLIC FUNCTION: Normal Ranges: MV Peak E: 0.72 m/s (0.7-1.2 m/s) MV Peak A: 0.71 m/s (0.42-0.7 m/s) E/A Ratio: 1.01 (1.0-2.2) MV e' 0.07 m/s (>8.0) MV lateral e' 0.12 m/s MV medial e' 0.08 m/s E/e' Ratio: 10.33 (<8.0) MITRAL VALVE: Normal Ranges: MV DT: 289 msec (150-240msec) AORTIC VALVE: Normal Ranges: AoV Vmax: 1.43 m/s (<1.7m/s) AoV Peak P.2 mmHg (<20mmHg) AoV Mean P.0 mmHg (1.7-11.5mmHg) LVOT Max Mani: 1.00 m/s (<1.1m/s) AoV VTI: 26.00 cm (18-25cm) LVOT VTI: 16.40 cm LVOT Diameter: 2.30 cm (1.8-2.4cm) AoV Area, VTI: 2.62 cm2 (2.5-5.5cm2) AoV Area,Vmax: 2.91 cm2 (2.5-4.5cm2) AoV Dimensionless Index: 0.63 RIGHT VENTRICLE: RV 1 3.43 cm RV 2 2.60 cm RV 3 7.90 cm TAPSE: 20.7 mm TRICUSPID VALVE/RVSP: Normal Ranges: Peak TR Velocity: 2.62 m/s RV Syst Pressure: 29 mmHg (< 30mmHg) PULMONIC VALVE: Normal Ranges: PV Accel Time: 85 msec (>120ms) PV Max Mani: 1.0 m/s (0.6-0.9m/s) PV Max P.8 mmHg PIEDV: 1.38 m/s PADP: 10.6 mmHg [id number] Manuel Neumann MD Electronically signed on 03/22/2022 at 1:28:04 PM Final Normal [facility] Narrative Note - Outpatient- CPS for definityon 03-22-2022 Narrative Note - Outpatient-CPS for definity Narrative Note: Discipline/ClinicCPS for definity Description Was called to CPS department to give definity. Started a 22g IV in the LAC with US. Flushed the IV with normal saline. Then the network control technician instructed to give 1ml of definity. Exam completed and IV flushed with normal saline and d/c. Band aide applied to IV location. Patient tolerated all without complaint. Electronic Signatures: Jennifer Petit (RN) (Signed 22-Mar-2022 12:26) Authored: Narrative Note - OP Last Updated: 22-Mar-2022 12:26 by Jennifer Petit (LEROY) [facility] Narrative Note - Outpatient- Heart Failureon 03-22-2022 Narrative Note - Outpatient-Heart Failure Narrative Note: Discipline/ClinicHeart Failure Description Pablo Cid arrived ambulatory to the Heart Failure Clinic for her first Heart Failure Clinic visit from the [facility]. States she is feeling pretty good . Denies increased shortness of breath, PND, or Orthopnea. Medications reviewed, and the EMR updated. At her appointmetn with Dr Neumann Isosorbide 30mg daily was added for angina. Jose Roberto reports that the chest pain is improving, she only had one 7 min episode in the past 4 days. A BMP and BNP was drawn and results called to Dr. Neumann. Jose Roberto had an Echo today which showed an improved EF of 55%. Dr Neumann makes no changes at this time. Eating and sleeping without distress. Reviewed signs and symptoms of increased heart failure and when to call for help. A call to [facility] was made to schedule Bisi followup appointment in 6 weeks. New patient teaching preformed includingram daily sodium restriction, 64 oz daily fluid restriction, encouragement to increase activity, daily weights, and the importance of adherence to all medication prescriptions. Also discussed was the [facility] hours of operation and the Green, Yellow, Red Heart failure Zones. Vitals: In Flowsheets Weight: 260.5 lbs Lung Sounds: Clear Edema: Clear JVD: Absent Labs:BMP and BNP Medications Administered: none Medication Titration: none Next Appointment Date: Note in EMR for Treating Physician: Dr. Neumann In-House Supervising Physician: Dr. Kasper Electronic Signatures: Yadira Irene (RN) (Signed 22-Mar-2022 13:52) Authored: Narrative Note - OP Last Updated: 22-Mar-2022 13:52 by Yadira Irene (RN) Normal [facility] Tobacco Screening.on 022 Fall risk assessment a) No falls within the last year [facility] [address] Work Phone: Tobacco use status CP b) No [facility] [address] Work Phone: BASIC METABOLIC PANELon 12-24 ANION GAP Canceled Normal [facility] Comment on above: Order Comment: TEST BASIC METABOLIC PANEL WAS CANCELLED, 01/02/2022 08:13 patient discharged. Performed By: #### G JEAN PAUL #### [facility] [address] [place] [address] BICARBONATE Canceled Normal [facility] Comment on above: Order Comment: TEST BASIC METABOLIC PANEL WAS CANCELLED, 01/02/2022 08:13 patient discharged. Performed By: #### G JEAN PAUL #### [facility] [address] [place] [address] CALCIUM Canceled Normal [facility] Comment on above: Order Comment: TEST BASIC METABOLIC PANEL WAS CANCELLED, 01/02/2022 08:13 patient discharged. Performed By: #### G JEAN PAUL #### [facility] [address] [place] [address] CHLORIDE Canceled Normal [facility] Comment on above: Order Comment: TEST BASIC METABOLIC PANEL WAS CANCELLED, 01/02/2022 08:13 patient discharged. Performed By: #### G JEAN PAUL #### [facility] [address] [place] [address] CREATININE Canceled Normal [facility] Comment on above: Order Comment: TEST BASIC METABOLIC PANEL WAS CANCELLED, 01/02/2022 08:13 patient discharged. Performed By: #### G JEAN PAUL #### [facility] [address] [place] [address] eGFR FEMALE Canceled Normal [facility] Comment on above: Order Comment: TEST BASIC METABOLIC PANEL WAS CANCELLED, 01/02/2022 08:13 patient discharged. Result Comment: CALC ULATIONS OF ESTIMATED GFR ARE PERFORMED USING THE 2020 CKD-EPI STUDY REFIT EQUATION WITHOUT THE RACE VARIABLE FOR THE IDMS-TRACEABLE CREATININE METHODS. https://jasn.asnjournals.org/content/early/ASN.6479948 988 Performed By: #### G JEAN PAUL #### [facility] [address] [place] [address] eGFR MALE Canceled Normal [facility] Comment on above: Order Comment: TEST BASIC METABOLIC PANEL WAS CANCELLED, 01/02/2022 08:13 patient discharged. Result Comment: CALC ULATIONS OF ESTIMATED GFR ARE PERFORMED USING THE 2020 CKD-EPI STUDY REFIT EQUATION WITHOUT THE RACE VARIABLE FOR THE IDMS-TRACEABLE CREATININE METHODS. https://jasn.asnjournals.org/content/earlyASN.1037493 988 Performed By: #### G JEAN PAUL #### [facility] [address] [place] [address] GLUCOSE Canceled Normal [facility] Comment on above: Order Comment: TEST BASIC METABOLIC PANEL WAS CANCELLED, 01/02/2022 08:13 patient discharged. Performed By: #### G JEAN PAUL #### [facility] [address] [place] [address] POTASSIUM Canceled Normal [facility] Comment on above: Order Comment: TEST BASIC METABOLIC PANEL WAS CANCELLED, 01/02/2022 08:13 patient discharged. Performed By: #### G JEAN PAUL #### [facility] [address] [place] [address] SODIUM Canceled Normal [facility] Comment on above: Order Comment: TEST BASIC METABOLIC PANEL WAS CANCELLED, 01/02/2022 08:13 patient discharged. Performed By: #### G JEAN PAUL #### [facility] [address] [place] [address] UREA NITROGEN Canceled Normal [facility] Comment on above: Order Comment: TEST BASIC METABOLIC PANEL WAS CANCELLED, 01/02/2022 08:13 patient discharged. Performed By: #### G JEAN PAUL #### [facility] [address] [place] [address] CBCon 01-02-2022 HCT Canceled Normal [facility] Comment on above: Order Comment: TEST CBC WAS CANCELLED, 01/02/2022 08:13 patient discharged. Performed By: #### G JEAN PAUL #### [facility] [address] [place] [address] HGB Canceled Normal [facility] Comment on above: Order Comment: TEST CBC WAS CANCELLED, 01/02/2022 08:13 patient discharged. Performed By: #### G JEAN PAUL #### [facility] [address] [place] [address] MCHC Canceled Normal [facility] Comment on above: Order Comment: TEST CBC WAS CANCELLED, 01/02/2022 08:13 patient discharged. Performed By: #### G JEAN PAUL #### [facility] [address] [place] [address] MCV Canceled Normal [facility] Comment on above: Order Comment: TEST CBC WAS CANCELLED, 01/02/2022 08:13 patient discharged. Performed By: #### G JEAN PAUL #### [facility] [address] [place] [address] NUCLEATED RBC Canceled Normal [facility] Comment on above: Order Comment: TEST CBC WAS CANCELLED, 01/02/2022 08:13 patient discharged. Performed By: #### G JEAN PAUL #### [facility] [address] [place] [address] PLT Canceled Normal [facility] Comment on above: Order Comment: TEST CBC WAS CANCELLED, 01/02/2022 08:13 patient discharged. Performed By: #### G JEAN PAUL #### [facility] [address] [place] [address] RBC Canceled Normal [facility] Comment on above: Order Comment: TEST CBC WAS CANCELLED, 01/02/2022 08:13 patient discharged. Performed By: #### G JEAN PAUL #### [facility] [address] [place] [address] RDW-CV Canceled Normal [facility] Comment on above: Order Comment: TEST CBC WAS CANCELLED, 01/02/2022 08:13 patient discharged. Performed By: #### G JEAN PAUL #### [address] [address] WBC Canceled Normal [facility] Comment on above: Order Comment: TEST CBC WAS CANCELLED, 01/02/2022 08:13 patient discharged. Performed By: #### G JEAN PAUL #### [address] [address] BASIC METABOLIC PANELon 05-0 Anion gap [Moles/Vol] 17 mmol/L Normal 10 - [address] [facility] Comment on above: Performed By: #### G JEAN PAUL #### [address] [address] Calcium [Mass/Vol] 9.6 mg/dL Normal 8.6 - 10.3 [facility] Comment on above: Performed By: #### G JEAN PAUL #### [address] [address] Chloride [Moles/Vol] 100 mmol/L Normal 98 - 107 [facility] Comment on above: Performed By: #### G JEAN PAUL #### [address] [address] Creatinine [Mass/Vol] 0.93 mg/dL Normal 0.50 - 1.[address] [facility] Comment on above: Performed By: #### G JEAN PAUL #### [address] [address] GFR/1.73 sq M.predicted among non-blacks MDRD (S/P/Bld) [Vol rate/Area] 76 mL/min/{1.73_m2} Normal >[address] [facility] Comment on above: Result Comment: CALC ULATIONS OF ESTIMATED GFR ARE PERFORMED USING THE 2020 CKD-EPI STUDY REFIT EQUATION WITHOUT THE RACE VARIABLE FOR THE IDMS-TRACEABLE CREATININE METHODS. https://jasn.asnjournals.org/content/early/ASN.1202575 988 Performed By: #### G JEAN PAUL #### [address] [address] Glucose [Mass/Vol] 148 mg/dL High 74 - 99 [facility] Comment on above: Performed By: #### G JEAN PAUL #### [facility] [address] [place] [address] HCO3 (Bld) [Moles/Vol] 27 mmol/L Normal 21 - [address] [facility] Comment on above: Performed By: #### G JEAN PAUL #### [facility] [address] [place], [place] [address] [address] Potassium [Moles/Vol] 3.9 mmol/L Normal 3.5 - 5.[address] [facility] Comment on above: Performed By: #### G JEAN PAUL #### [address] [place] [address] Sodium [Moles/Vol] 140 mmol/L Normal 136 - 145 [facility] Comment on above: Performed By: #### G JEAN PAUL #### [address] [place] [address] Urea nitrogen [Mass/Vol] 19 mg/dL Normal 6 - [address] [facility] Comment on above: Performed By: #### G JEAN PAUL #### [address] [place] [address] CBCon 01-01-2022 Erythrocyte distribution width (RBC) [Ratio] 16.3 % High 11.5 - 14.[address] [facility] Comment on above: Performed By: #### G JEAN PAUL #### [address] [place] [address] Hematocrit (Bld) [Volume fraction] 49.5 % High 36.0 - 46.[address] [facility] Comment on above: Performed By: #### G JEAN PAUL #### [address] [place] [address] Hemoglobin (Bld) [Mass/Vol] 15.8 g/dL Normal 12.0 - 16.[address] [facility] Comment on above: Performed By: #### G JEAN PAUL #### [address] [place] [address] MCHC (RBC) [Mass/Vol] 31.9 g/dL Low 32.0 - 36.[address] [facility] Comment on above: Performed By: #### G JEAN PAUL #### [facility] [address] [place] [address] MCV (RBC) [Entitic vol] 90 fL Normal 80 - [address] [facility] Comment on above: Performed By: #### Kiara JEAN PAUL #### [facility] [address] [place] [address] NUCLEATED RBC 0.0 /100 WBC Normal 0.0 - 0.[address] [facility] Comment on above: Performed By: #### Kiara ARREAGAO #### [facility] [address] [place] [address] Platelets (Bld) [#/Vol] 246 10*3/uL Normal 150 - [address] [facility] Comment on above: Performed By: #### Kiara ARREAGAO #### [address] [place] [address] RBC 5.51 x10E12/L High 4.00 - 5.[address] [facility] Comment on above: Performed By: #### Kiara REAVES #### [facility] [address] [place] [address] WBC (Bld) [#/Vol] 15.8 10*3/uL High 4.4 - 11.3 [facility] Comment on above: Performed By: ###Eloy ARREAGAO #### [address] [address] Daily Progress Note-Cardiolo concepcion 01-01-2022 Daily Progress Note-Cardiology Service: Cardiology Subjective Data: PABLO TABARES is a 46 year old Female who is Hospital Day # 6. Additional Information: Patient denies any chest discomfort or shortness of breath Objective Data: Objective Information: T PRBPMAPSpO2 [id number]% Date/Time01/01 4: 4: 4: 4: 19: 4:00 Range(35.9C - 37C ) (64 - 89 ) (17 - 20 ) (113 - 176 )/ (65 - 92 ) (86 - 107 ) (90% - 95% ) Highest temp of 37 C was recorded at 01/01 4:00 Pain reported at 12/31 22:17: 0 = None Physical Exam by System: Constitutional: Well developed, awake/alert/oriented x3, no acute distress Eyes: EOMI, clear sclera ENMT: mucous membranes moist, no apparent injury, no lesions seen Head/Neck: Neck supple, no bruits Respiratory/Thorax: CTAB, normal breath sounds with good chest expansion, thorax symmetric Cardiovascular: Regular, rate and rhythm, no murmurs, 2+ equal pulses of the extremities, normal S 1and S 2 Gastrointestinal: Nondistended, soft, + BS Musculoskeletal: ROM intact, no joint swelling, normal strength Extremities: normal extremities, no cyanosis, trace edema Neurological: alert and oriented x3, intact senses Psychological: Appropriate mood and behavior Skin: Warm and dry, no lesions, no rashes Medication: Medications: Continuous Medications ------ 1. Sodium Chloride 0.9% Infusion: 1000 mL IntraVenous Scheduled Medications ------ 1. amLODIPine (NORVASC): 5 mg Oral Daily 2. Aspirin Chewable: 81 mg Oral Daily 3. Atorvastatin: 10 mg Oral Daily 4. Clopidogrel: 75 mg Oral Daily 5. Empagliflozin: 10 mg Oral Daily 6. Enoxaparin SubCutaneous: 40 mg SubCutaneous Every 12 Hours 7. Haloperidol Lactate: 5 mg Oral Every 24 Hours 8. Haloperidol Lactate: 15 mg Oral At Bedtime 9. Insulin Glargine (Lantus) Injectable: 15 unit(s) SubCutaneous Schedule> 10. Insulin Lispro (HumaLOG) Injectable: 8 unit(s) SubCutaneous 4 Times a Day 11. Insulin Lispro Moderate Corrective Scale: unit(s) SubCutaneous 4 Times a Day Insulin Timing 12. Metoclopramide: 5 mg Oral 4 Times a Day Before Meals 13. Metoprolol Succinate Extended Release: 25 mg Oral Daily 14. Oxybutynin: 5 mg Oral 2 Times a Day 15. Pantoprazole: 40 mg Oral Daily 16. QUEtiapine: 100 mg Oral 2 Times a Day 17. Sacubitril 49 mg - Valsartan 51 m tablet(s) Oral 2 Times a Day 18. Spironolactone: 25 mg Oral Daily 19. Torsemide: 20 mg Oral Daily PRN Medications ------ 1. Albuterol 2.5 mg - Ipratropium 0.5 mg/ 3 mL Neb Soln: 3 mL Inhalation Every 2 Hours 2. Dextrose 50% in Water Injectable: 25 gram(s) IntraVenous Push Every 15 Minutes 3. Glucagon Injectable: 1 mg IntraMuscular Every 15 Minutes 4. Nitroglycerin SubLingual: 0.4 mg SubLingual Every 5 Minutes 5. Sodium Chloride 0.9% Injectable Flush: 10 mL IntraVenous Flush Every 8 Hours and as Needed 6. Sore Throat Lozenge: 1 lozenge(s) Oral Every 2 Hours Recent Lab Results: Results: CBC: 01/01/2022 06:51 \ Hgb / \ 15.8 / WBC Plt 15.8 H 246 / Hct \ / 49.5 H \ RBC: 5.51 H MCV: 90 BMP: 01/01/2022 06:51 NA+ Cl- BUN / 140 100 19 / ------ Glucose - 148 H K+ HCO3- Creat \ 3.9 27 0.93 \ Calcium : 9.6 Anion Gap : 17 Coagulation: 01/01/2022 06:51 PT / 12.2 / -------< INR < 1.1 PTT\ \ Radiology Results: Results: Conclusion: CONCLUSIONS: 1. Severe 1-vessel coronary artery disease involving proximal LAD. 2. Mild LCx and RCA disease. 3. Preserved CO/CI by assumed Hilario. 4. Elevated filling/pulmonary pressures. __ ____ CPT Codes: Right & Left Heart Cath w/ventriculography/Coronar y angio (RHC)([facility])-[address]; Moderate Sedation Services initial 15 minutes patient >5 years-[address]; Moderate Sedation Services 1st additional 15 minutes patient >5 years-[address] ICD 10 Codes: I50.21-Acute systolic (congestive) heart failure; I20.0-Unstable angina [address] Bernardino Gaitan MD Performing Physician cc Report to: [id number] BERNARD[address] GAITAN cc Report to: Pete Wadsworth cc Report to: x Final Cardiac Catheterization Lab Procedures [Dec 29 2021 4:57PM] Conclusion: CONCLUSIONS: 1. The left ventricular systolic function is mildly to moderately decreased with a 35-40% estimated ejection fraction. 2. Entire anterior septum, apical inferior segment, and apex are abnormal. 3. Spectral Doppler shows a pseudonormal pattern of left ventricular diastolic filling. 4. There is an elevated mean left atrial pressure. 5. Mild to moderate mitral valve regurgitation. 6. Moderately elevated right ventricular systolic pressu (more content not included)... Normal [facility] Discharge [id number] Discharge Profile2 Discharge Orders: Anticipated Discharge Date: Anticipated Discharge [id number] DNAR: Code Status at Discharge: Full Code [facility] Interventional: Patient Instructions, Next 24 hours: DO NOT drive a car, operate machinery or power tools. It is recommended that a responsible adult be with you for the first 24 hours. DO NOT drink any alcoholic drinks or take any non-prescriptive medications that contain alcohol for the first 24 hours. DO NOT make any important decisions for the first 24 hours. Activity: You are advised to go directly home from the hospital. No excessive exercise or treadmill use for one week. You may walk and do stairs, slowly. No sexual activities for 24 hours after you arrive home. Wound Care: You may experience some tenderness, bruising or minimal inflammation. If you have any concerns, you may contact the [facility] or if any of these symptoms become excessive, contact your arabic teacher or go to the emergency room. No tub baths, soaking, or swimming for one week. May shower the next day after your procedure. Radial Site Care: DO NOT lift anything with your affected arm for the next 24 hours, then no lifting greater than 5 pounds with your affected arm for 5 more days. No bending or flexing the affected wrist. Avoid immersion in water of the affected site for the next 3 days. Apply manual pressure and call physician immediately if bleeding or hematoma occurs at the site. Remove dressing the next day and keep site clean, dry, and covered with a new band aid daily until healed. Report any symptoms other than slight tenderness at the site or tingling of the fingers and hand for up to 3 days. Other Instructions: If you develop diffficulty breathing, rash, hives, severe nausea, vomiting, light-headedness or any signs of infection, immediately contact your doctor and go to the nearest emergency room. If you have any questions about the effects of the sedative drugs or groin care, call the physician who performed your procedure. If your doctor has prescribed aspirin and/or clopidogrel (Plavix) or prasugrel (Effient) or ticagrelor (Brilinta) and you have a stent in your heart arteries, DO NOT STOP THESE MEDICATIONS for any reason without talking first to your arabic teacher. You must take your aspirin, clopidogrel (Plavix), prasugrel (Effient), or ticagrelor (Brilinta) every day without missing a single dose. If you are getting low on these medications, contact your physician immediately for a refill. Follow Up Appointment 1: Physician/ Dept/ ServiceDr. Neumann (cardiology) Call to Schedule in2 weeks Scheduled Date/[id number] 02:30 [facility] 2nd Floor Cardio, [address] [place] [address], [address] Phone [phone] Instructions/CommentsPleas e follow up with Dr. Neumann 01/18/22 at 2:30PM as scheduled. Hospital Course (Home Care/Gold Form): Hospital Course: Hospital Course: include significant abnormal lab values PABLO TABARES is a 46 year old Female with history of multiple psychiatric diagnosis, DM II, COPD admitted to [facility] for CHF exacerbation and COPD. She was treated with IV steroids, diuretics, and supplementation oxygen. She was found to have an NSTEMI with rising troponin levels and symptoms consistent with ACS, and was seen by cardiology. Echocardiogram revealed EF 35-40% with focal wall motion abnormalities. Patient was started on Entresto and SGLT2 inhibitor in setting of uncontrolled diabetes. After undergoing diuresis for decompensated heart failure, the patient had SAMEER to the LED with Dr. Gaitan on 01/01/2022. The patient is stable and ready for discharge home with follow-up with PCP, cardiology, and endocrinology. All imaging and results were discussed. All questions and concerns were addressed. Provider FINAL REVIEW of Orders: Final Review: Final Review of Medication Reconciliation and Orders Completedby Physician Reviewing ProviderKendra Kidd DO (Resident) at 01-Jan-2022 11:41:01 Appointments: Follow-Up Appointment 01: Physician/Dept/ServiceDr. Foote Reason for Referralhospital follow-up & diabetic medication follow up Call to Schedule in1 week Phone [phone] Follow-Up Appointment 02: Physician/Dept/Brayan iology (Dr. Neumann) Reason for Referralfollow-up for CHF, NSTEMI/PCI Call to Schedule in3 weeks Follow-Up Appointment 03: Physician/Dept/Leila crinology (Dr. River) Reason for ReferralType 2 diabetes Call to Schedule in4 [address] [address] Other Clinician Instructions: Other Instructions: Other Clinician InstructionsThank you for choosing [facility] - it has been a pleasure taking part in your medical care. Please follow up with your Primary Medical Physician within 1 week of disch (more content not included)... Normal [facility] GLUCOSE-POCTon 01-01-2022 Glucose [Mass/Vol] 224 mg/dL High 74 - 99 [facility] Comment on above: Performed By: #### G JEAN PAUL #### [facility] [address] [place] [id number] Glucose [Mass/Vol] 166 mg/dL High 74 - 99 [facility] Comment on above: Performed By: #### G JEAN PAUL #### [facility] [address] [place] [address] Glucose [Mass/Vol] 252 mg/dL High 74 - 99 [facility] Comment on above: Performed By: #### G JEAN PAUL #### [facility] [address] [place] [address] Glucose [Mass/Vol] 154 mg/dL High 74 - 99 [facility] Comment on above: Performed By: #### G JEAN PAUL #### [facility] [address] [place] [address] MAGNESIUMon 01-01-2022 Magnesium [Mass/Vol] 2.07 mg/dL Normal 1.60 - 2.[address] [facility] Comment on above: Performed By: #### G JEAN PAUL #### [facility] [address] [place] [address] Order Reconciliationon 01-01 Order Reconciliation Page 1 Discharge Reconciliation Document Reconciliation Type: Discharge requested on behalf of Kendra Kidd (Resident) done by Kendra Kidd (DO (Resident)) Discharge - Partial Reconciliation: 01-Jan-2022 09:03 by: Emma Mclaughlin (MANAGER PHOTOGRAPHY-[facility]) Discharge - Partial Reconciliation: 01-Jan-2022 09:06 by: Emma Mclaughlin (MANAGER PHOTOGRAPHY-[facility]) Discharge - Reconciliation: 01-Jan-2022 11:49 by: Kendra Kidd (DO (Resident)) Home Medications EnteredHOME MEDICATIONS AT DISCHARGE DateReconciliation Comment/ Additional Information amLODIPine 5 mg oral tablet 1 tab(s) orally once a day 27-Dec-2021 11:31 amLODIPine 5 mg oral tablet 1 tab(s) orally once a day 27-Dec-2021 11:31 amLODIPine 5 mg oral tablet is continued as amLODIPine 5 mg oral tablet Benadryl 50 mg oral capsule 1 cap(s) orally once a day (in the evening) 27-Dec-2021 11:06 Benadryl 50 mg oral capsule 1 cap(s) orally once a day (in the evening) 27-Dec-2021 11:06 Benadryl 50 mg oral capsule is continued as Benadryl 50 mg oral capsule glipiZIDE 10 mg oral tablet, extended release 1 tab(s) orally once a day 27-Dec-2021 13:05 Discontinued; Discontinue from ORM glipiZIDE 10 mg oral tablet, extended release is not required haloperidol 10 mg oral tablet 1 tab(s) orally once a day (at bedtime) 27-Dec-2021 11:35 haloperidol 10 mg oral tablet 1 tab(s) orally once a day (at bedtime) 27-Dec-2021 11:35 haloperidol 10 mg oral tablet is continued as haloperidol 10 mg oral tablet haloperidol 5 mg oral tablet 1 tab(s) orally 2 times a day // AM & PM 27-Dec-2021 11:37 haloperidol 5 mg oral tablet 1 tab(s) orally 2 times a day // AM & PM 27-Dec-2021 11:37 haloperidol 5 mg oral tablet is continued as haloperidol 5 mg oral tablet Janumet 50 mg-500 mg oral tablet 1 tab(s) orally 2 times a day // AM & PM with meals 27-Dec-2021 11:08 Janumet 50 mg-500 mg oral tablet 1 tab(s) orally 2 times a day // AM & PM with meals. Hold for 48 hours post cardiac catheterization procedure, resume 01/04/22. 04-Jan-2022 09:03 Discontinued; Copy/Discontinue Janumet 50 mg-500 mg oral tablet is continued and modified losartan 100 mg oral tablet 1 tab(s) orally once a day 27-Dec-2021 11:30 Discontinued; Discontinue from ORM losartan 100 mg oral tablet is not required meloxicam 15 mg oral tablet 1 tab(s) orally once a day (in the morning) 27-Dec-2021 11:35 Discontinued; Discontinue from ORM meloxicam 15 mg oral tablet is not required metoclopramide 5 mg oral tablet 1 tab(s) orally 4 times a day (before meals and at bedtime) 27-Dec-2021 11:34 metoclopramide 5 mg oral tablet 1 tab(s) orally 4 times a day (before meals and at bedtime) 27-Dec-2021 11:34 metoclopramide 5 mg oral tablet is continued as metoclopramide 5 mg oral tablet omeprazole 40 mg oral delayed release capsule 1 cap(s) orally once a day 27-Dec-2021 11:36 omeprazole 40 mg oral delayed release capsule 1 cap(s) orally once a day 27-Dec-2021 11:36 omeprazole 40 mg oral delayed release capsule is continued as omeprazole 40 mg oral delayed release capsule oxybutynin 10 mg/24 hr oral tablet, extended release 1 tab(s) orally once a day (in the morning) 27-Dec-2021 11:37 oxybutynin 10 mg/24 hr oral tablet, extended release 1 tab(s) orally once a day (in the morning) 27-Dec-2021 11:37 oxybutynin 10 mg/24 hr oral tablet, extended release is continued as oxybutynin 10 mg/24 hr oral tablet, extended release QUEtiapine 100 mg oral tablet 1 tab(s) orally 2 times a day // AM & PM 27-Dec-2021 11:38 QUEtiapine 100 mg oral tablet 1 tab(s) orally 2 times a day // AM & PM 27-Dec-2021 11:38 QUEtiapine 100 mg oral tablet is continued as QUEtiapine 100 mg oral tablet QUEtiapine 50 mg oral tablet 1 tab(s) orally 2 times a day 27-Dec-2021 11:36 QUEtiapine 50 mg oral tablet 1 tab(s) orally 2 times a day 27-Dec-2021 11:36 QUEtiapine 50 mg oral tablet is continued as QUEtiapine 50 mg oral tablet rosuvastatin 5 mg oral tablet 1 tab(s) orally once a day (at bedtime) 27-Dec-2021 11:32 rosuvastatin 5 mg oral tablet 1 tab(s) orally once a day (at bedtime) 01-Jan-2022 09:00 Discontinued; Copy/Discontinue Prescription is created for rosuvastatin 5 mg oral tablet sucralfate 1 g oral tablet 1 tab(s) orally 4 times a day (before meals and at bedtime) 27-Dec-2021 11:33 sucralfate 1 g oral tablet 1 tab(s) orally 4 times a day (before meals and at bedtime) 27-Dec-2021 11:33 sucralfate 1 g oral tablet is continued as sucralfate 1 g oral tablet Tab-A-Marilyn + Iron oral tablet 1 tab(s) orally once a day 27-Dec-2021 11:32 Tab-A-Marilyn + Iron oral tablet 1 tab(s) orally once a day 27-Dec-2021 11:32 Tab-A-Marilyn + Iron oral tablet is continued as Tab-A-Marilyn + Iron oral tablet Vitamin B12 1000 mcg oral tablet 1 tab(s) orally once a day 27-Dec-2021 11:31 Vitamin B12 1000 mcg oral tablet 1 tab(s) orally once a day 27-Dec-2021 11:31 Vitamin B12 1000 mcg oral tablet is continued as Vitamin B12 1000 mcg oral tablet Vitamin D3 25 mcg (more content not included)... Normal [facility] PCI (Percutaneous Cardiac In tervention)on 01-01-2022 PCI (Percutaneous Cardiac Intervention) [facility], Edger Liner, [address] [place], [place] [id number] Cardiovascular Catheterization Report Patient Name: PABLO Performing Physician: [id number] Bernardino TABAERS MD Study Date: 01/01/2022 Verifying Physician: Kortney Gaitan MD MRN/PID: [id number] Luncheonette Manager/Co-scrub: Accession/Order#: [id number] Fellow: [id number] Katie Nguyen MD Date of : 1975 Fellow: [id number] Dwayne Chin MD Gender: F Referring Physician: BERNARDINO GAITAN Admit Date: Referring Physician: [id number] Gaitan MD Surgeon: Referring Physician: xxx Study: PCI (Percutaneous Cardiac Intervention) Additional Study: PCI - Percutaneous Coronary Intervention Additional Study: IVUS - Intravascular Ultrasound Indications: PABLO TABARES is a 46 year old female who presents with dyslipidemia, hypertension and obesity. Cardiomyopathy, NSTE-ACS and other PCI indication, with a chest pain assessment of atypical angina. Study performed as an urgent cath procedure. Appropriate Use Criteria: Non ST elevation myocardial infarction with intermediate risk score; AUC score = 8. Known or suspected cardiomyopathy with or without heart failure; AUC score = 7. Medical History: Stress test performed: No. CTA performed: No. Agatston accessed: No. LVEF Assessed: Yes. LVEF = 35%. Procedure Description: After infiltration with 2% Lidocaine, the right radial artery was cannulated with a modified Seldinger technique. Subsequently a 6 Urdu sheath was placed retrograde in the right radial artery. Selective coronary catheterization was performed using a 6 Fr catheter(s) exchanged over a guide wire to cannulate the coronary arteries. A 3.5 tip catheter was used for left coronary injections. Additional catheter(s) used to visualize the coronary arteries were: EBU 3.5. Multiple injections of contrast were made into the left coronary arteries with angiograms recorded in multiple projections. After completion of the procedure, the arterial sheath was pulled and a TR Band Radial Compression Device was utilized to obtain patent hemostasis. Coronary Angiography: The coronary circulation is right dominant. Left Main Coronary Artery: The left main coronary artery is a normal caliber vessel. The left main arises normally from the left coronary sinus of Valsalva and bifurcates into the LAD and circumflex coronary arteries. The left main coronary artery showed no significant disease or stenosis greater than 30%. Left Anterior Descending Coronary Artery Distribution: The left anterior descending coronary artery is a normal caliber vessel. The LAD arises normally from the left main coronary artery. The proximal left anterior descending coronary artery showed 80% stenosis. This lesion was tubular. An additional lesion, located at the mid left anterior descending coronary artery, revealed 60% stenosis. The 1st diagonal branch is a medium-sized caliber vessel. The ostial and proximal 1st diagonal branch revealed 50% stenosis. Circumflex Coronary Artery Distribution: The circumflex coronary artery is a normal caliber vessel. The circumflex arises normally from the left main coronary artery and terminates in the AV groove. The circumflex revealed no significant disease or stenosis greater than 30%. Coronary Interventions: Angiography reveals a 80% stenosis of the proximal to mid left anterior descending. Pre-intervention TAMI flow was 3. Intravascular Ultrasound (IVUS) was performed within the proximal to mid left anterior descending. . eccentric 180 degree calcium. Eccentric 180 degree calcium. Percutaneous coronary intervention was performed within the proximal to mid left anterior descending. The vessel was pre-dilated using a compliant balloon 3.0 mm x 20 mm at 14 MIGUEL ANGEL. Synergy 4.0 mm x 48 mm was advanced to the lesion and implanted at 12 MIGUEL ANGEL. The stent was post dilated using a non-compliant balloon 4.0 mm x 20 mm at 22 MIGUEL ANGEL. Additional dilatation was performed using a non-compliant balloon 4.5 mm x 15 mm at 16 MIGUEL ANGEL. The stenosis was successfully reduced from 80% to 0%. Post intervention Intravascular Ultrasound (IVUS) was performed within the proximal to mid left anterior descending . The stent demonstrated good apposition. No edge dissection is visualized. eccentric 180 degree calcium. Post-intervention TAMI flow was 3. Coronary Lesion Summary: Vessel Stenosis Vessel Segment LAD 80% stenosis proximal LAD 60% stenosis mid 1st Diagonal 50% stenosis ostial and proximal Hemo Personnel: + +---- ---------+ Name Duty + +---- ---------+ Bernardino Gaitan MD PROC 1 + +---- ---------+ Bernardino Teague RN PROC SCRUB 1 + +---- ---------+ Bibiana Cowan RN PROC CIRC 1 + +---- ---------+ Nerissa Muniz RN PROC RECORD 1 + +---- ---------+ Equipment Used: + +----- -+ (more content not included)... Normal [facility] PT/INRon 01-01-2021 PT Coag (PPP) [Time] 12.2 s Normal 9.8 - 13.4 [facility] Comment on above: Performed By: #### G JEAN PAUL #### [facility] [address] [place] [address] PT, INR 1.1 Normal 0.9 - 1.[address] [facility] Comment on above: Performed By: #### G JEAN PAUL #### [facility] [address] [place] [address] BASIC METABOLIC PANELon 05-0 Anion gap [Moles/Vol] 15 mmol/L Normal 10 - [address] [facility] Comment on above: Performed By: #### G JEAN PAUL #### [facility] [address] [place] [address] Calcium [Mass/Vol] 10.1 mg/dL Normal 8.6 - 10.3 [facility] Comment on above: Performed By: #### G JEAN PAUL #### [facility] [address] [facility] [place] [address] Chloride [Moles/Vol] 103 mmol/L Normal 98 - 107 [facility] Comment on above: Performed By: #### G JEAN PAUL #### [facility] [address] [place] [address] Creatinine [Mass/Vol] 0.84 mg/dL Normal 0.50 - 1.[address] [facility] Comment on above: Performed By: #### G JEAN PAUL #### [facility] [address] [place] [address] GFR/1.73 sq M.predicted among non-blacks MDRD (S/P/Bld) [Vol rate/Area] 86 mL/min/{1.73_m2} Normal >[address] [facility] Comment on above: Result Comment: CALC ULATIONS OF ESTIMATED GFR ARE PERFORMED USING THE 2020 CKD-EPI STUDY REFIT EQUATION WITHOUT THE RACE VARIABLE FOR THE IDMS-TRACEABLE CREATININE METHODS. https://jasn.asnjournals.org/content/early/ASN.3606293 988 Performed By: #### G JEAN PAUL #### [facility] [address] [facility] [place] [address] Glucose [Mass/Vol] 104 mg/dL High 74 - 99 [facility] Comment on above: Performed By: #### G JEAN PAUL #### [facility] [address] [facility] [place] [address] HCO3 (Bld) [Moles/Vol] 28 mmol/L Normal 21 - [address] [facility] Comment on above: Performed By: #### G JEAN PAUL #### [facility] [address] [facility] [place] [address] Potassium [Moles/Vol] 3.8 mmol/L Normal 3.5 - 5.[address] [facility] Comment on above: Performed By: #### G JEAN PAUL #### [facility] [address] [address], [place] [address] Sodium [Moles/Vol] 142 mmol/L Normal 136 - 145 [facility] Comment on above: Performed By: #### G JEAN PAUL #### [facility] [address] [place], [place] [address] [place] [address] Urea nitrogen [Mass/Vol] 19 mg/dL Normal 6 - [address] [facility] Comment on above: Performed By: #### Kiara ARREAGAO #### [address] [place] [address] CBCon 12-31-2021 Erythrocyte distribution width (RBC) [Ratio] 16.1 % High 11.5 - 14.[address] [facility] Comment on above: Performed By: #### Kiara ARREAGAO #### [address] [place] [address] Hematocrit (Bld) [Volume fraction] 45.0 % Normal 36.0 - 46.[address] [facility] Comment on above: Performed By: #### Kiara JEAN PAUL #### [address] [place] [address] Hemoglobin (Bld) [Mass/Vol] 14.4 g/dL Normal 12.0 - 16.[address] [facility] Comment on above: Performed By: #### Kiara ARREAGAO #### [address] [place] [address] MCHC (RBC) [Mass/Vol] 32.0 g/dL Normal 32.0 - 36.[address] [facility] Comment on above: Performed By: #### Kiara JEAN PAUL #### [address] [place] [address] MCV (RBC) [Entitic vol] 89 fL Normal 80 - [address] [facility] Comment on above: Performed By: #### G JEAN PAUL #### [facility] [address] [place], [place] [address] [place] [address] NUCLEATED RBC 0.0 /100 WBC Normal 0.0 - 0.[address] [facility] Comment on above: Performed By: #### Kiara ARREAGAO #### [address] [place] [address] Platelets (Bld) [#/Vol] 215 10*3/uL Normal 150 - [address] [facility] Comment on above: Performed By: #### G JEAN PAUL #### [facility] [address] [place] [address] RBC 5.06 x10E12/L Normal 4.00 - 5.[address] [facility] Comment on above: Performed By: #### G JEAN PAUL #### [facility] [address] [place] [address] WBC (Bld) [#/Vol] 15.6 10*3/uL High 4.4 - 11.3 [facility] Comment on above: Performed By: #### G JEAN APUL #### [facility] [address] [place] [address] Daily Progress Note-Cardiolo gyon 12-31-2021 Daily Progress Note-Cardiology Service: Cardiology Subjective Data: PABLO TABARES is a 46 year old Female who is Hospital Day # 5. Additional Information: Patient denies any chest discomfort or shortness of breath. No other events overnight. Objective Data: Objective Information: T PRBPMAPSpO2 [id number]/[id number]% Date/Time12/31 11: 11: 7:3058 11:285 11:2858 11:28 Range(35.8C - 36.6C ) (64 - 93 ) (16 - 20 ) (128 - 176 )/ (68 - 98 ) (97 - 123 ) (90% - 95% ) Pain reported at 12/31 8:15: 0 = None Physical Exam by System: Constitutional: Well developed, awake/alert/oriented x3, no acute distress Eyes: EOMI, clear sclera ENMT: mucous membranes moist, no apparent injury, no lesions seen Head/Neck: Neck supple, no bruits Respiratory/Thorax: CTAB, normal breath sounds with good chest expansion, thorax symmetric Cardiovascular: Regular, rate and rhythm, no murmurs, 2+ equal pulses of the extremities, normal S 1and S 2 Gastrointestinal: Nondistended, soft, + BS Musculoskeletal: ROM intact, no joint swelling, normal strength Extremities: normal extremities, no cyanosis, trace edema Neurological: alert and oriented x3, intact senses Psychological: Appropriate mood and behavior Skin: Warm and dry, no lesions, no rashes Medication: Medications: Continuous Medications ------ No continuous medications are active Scheduled Medications ------ 1. amLODIPine (NORVASC): 5 mg Oral Daily 2. Aspirin Chewable: 81 mg Oral Daily 3. Atorvastatin: 10 mg Oral Daily 4. Clopidogrel: 75 mg Oral Daily 5. Empagliflozin: 10 mg Oral Daily 6. Enoxaparin SubCutaneous: 40 mg SubCutaneous Every 12 Hours 7. Furosemide Injectable: 40 mg IntraVenous Push 2 Times a Day 8. Haloperidol Lactate: 5 mg Oral Every 24 Hours 9. Haloperidol Lactate: 15 mg Oral At Bedtime 10. Insulin Glargine (Lantus) Injectable: 15 unit(s) SubCutaneous Schedule> 11. Insulin Lispro (HumaLOG) Injectable: 8 unit(s) SubCutaneous 4 Times a Day 12. Insulin Lispro Moderate Corrective Scale: unit(s) SubCutaneous 4 Times a Day Insulin Timing 13. Metoclopramide: 5 mg Oral 4 Times a Day Before Meals 14. Metoprolol Succinate Extended Release: 25 mg Oral Daily 15. Oxybutynin: 5 mg Oral 2 Times a Day 16. Pantoprazole: 40 mg Oral Daily 17. QUEtiapine: 100 mg Oral 2 Times a Day 18. Sacubitril 24 mg - Valsartan 26 m tablet(s) Oral 2 Times a Day 19. Spironolactone: 25 mg Oral Daily PRN Medications ------ 1. Albuterol 2.5 mg - Ipratropium 0.5 mg/ 3 mL Neb Soln: 3 mL Inhalation Every 2 Hours 2. Dextrose 50% in Water Injectable: 25 gram(s) IntraVenous Push Every 15 Minutes 3. Glucagon Injectable: 1 mg IntraMuscular Every 15 Minutes 4. Nitroglycerin SubLingual: 0.4 mg SubLingual Every 5 Minutes 5. Sodium Chloride 0.9% Injectable Flush: 10 mL IntraVenous Flush Every 8 Hours and as Needed 6. Sore Throat Lozenge: 1 lozenge(s) Oral Every 2 Hours Recent Lab Results: Results: CBC: 12/31/2021 05:49 \ Hgb / \ 14.4 / WBC Plt 15.6 H 215 / Hct \ / 45.0 \ RBC: 5.06 MCV: 89 BMP: 12/31/2021 05:49 NA+ Cl- BUN / 142 103 19 / ------ Glucose - 104 H K+ HCO3- Creat \ 3.8 28 0.84 \ Calcium : 10.1 Anion Gap : 15 I have reviewed these laboratory results: Complete Blood Count 31-Dec-2021 05:49:00 ResultValue White Blood Cell Count 15.6 H Nucleated Erythrocyte Count 0.0 Red Blood Cell Count 5.06 HGB 14.4 HCT 45.0 MCV 89 MCHC 32.0 PLT 215 RDW-CV 16.1 H Basic Metabolic Panel 31-Dec-2021 05:49:00 ResultValue Glucose, Serum 104 H NA 142 K 3.8 CL 103 Bicarbonate, Serum 28 Anion Gap, Serum 15 BUN 19 CREAT 0.84 GFR Female 86 Calcium, Serum 10.1 Magnesium, Serum 31-Dec-2021 05:49:00 ResultValue Magnesium, Serum 2.05 Radiology Results: Results: Conclusion: CONCLUSIONS: 1. Severe 1-vessel coronary artery disease involving proximal LAD. 2. Mild LCx and RCA disease. 3. Preserved CO/CI by assumed Hilario. 4. Elevated filling/pulmonary pressures. __ ____ CPT Codes: Right & Left Heart Cath w/ventriculography/Coronar y angio (RHC)([facility])-[address]; Moderate Sedation Services initial 15 minutes patient >5 years-[id number]; Moderate Sedation Services 1st additional 15 minutes patient >5 years-77908 ICD 10 Codes: I50.21-Acute systolic (congestive) heart failure; I20.0-Unstable angina 81980 Bernardino Gaitan MD Performing Physician cc Report to: [id number] BERNARDINO GAITAN cc Report to: Pete Wadsworth cc Report to: x Final Cardiac Catheterization Lab Procedures [Dec 29 2021 4:57PM] (more content not included)... Normal [facility] Daily Progress Note-Medicine on 12-31-2021 Daily Progress Note-Medicine Service: Medicine Subjective Data: PABLO TABARES is a 46 year old Female who is Hospital Day # 5. Additional Information: Resting in bed this am. Objective Data: Objective Information: T PRBPMAPSpO2 [id number]/881068% Date/Time12/31 11: 11: 11: 11:285 11:2858 11:28 Range(35.8C - 36.6C ) (64 - 93 ) (16 - 20 ) (128 - 176 )/ (68 - 98 ) (97 - 123 ) (90% - 95% ) Pain reported at 12/31 8:15: 0 = None Physical Exam Narrative: Physical Exam: Constitutional: well developed, awake, alert, no acute distress ENMT: mucous membranes moist, EOMI, conjunctivae clear Head/Neck: normocephalic, atraumatic; supple, trachea midline Respiratory/Thorax: diminished lung sounds; no wheezes, rales, or rhonchi Cardiovascular: RRR, no murmur Gastrointestinal: soft, nondistended, non-tender, bowel sounds appreciated Extremities: peripheral pulses full and symmetric, 1+ edema of bilateral extremities, no cyanosis Neurological: A&O x 3, no gross FND appreciated Psychological: appropriate mood and behavior Skin: warm and dry Recent Lab Results: Results: CBC: 12/31/2021 05:49 \ Hgb / \ 14.4 / WBC Plt 15.6 H 215 / Hct \ / 45.0 \ RBC: 5.06 MCV: 89 BMP: 12/31/2021 05:49 NA+ Cl- BUN / 142 103 19 / ------ Glucose - 104 H K+ HCO3- Creat \ 3.8 28 0.84 \ Calcium : 10.1 Anion Gap : 15 Radiology Results: Results: Conclusion: CONCLUSIONS: 1. The left ventricular systolic function is mildly to moderately decreased with a 35-40% estimated ejection fraction. 2. Entire anterior septum, apical inferior segment, and apex are abnormal. 3. Spectral Doppler shows a pseudonormal pattern of left ventricular diastolic filling. 4. There is an elevated mean left atrial pressure. 5. Mild to moderate mitral valve regurgitation. 6. Moderately elevated right ventricular systolic pressure. QUANTITATIVE DATA SUMMARY: 2D MEASUREMENTS: Normal Ranges: IVSd: 1.23 cm (0.6-1.1cm) LVPWd: 0.98 cm (0.6-1.1cm) LVIDd: 5.49 cm (3.9-5.9cm) LVIDs: 4.62 cm LV Mass Index: 108.7 g/m2 LV % FS 15.9 % LA VOLUME: Normal Ranges: LA Vol A2C: 59.8 ml LA Vol Index A2C: 26.8 ml/m2 LA Vol A2C: 57.1 ml RA VOLUME BY A/L METHOD: Normal Ranges: RA Area A4C: 16.0 cm2 M-MODE MEASUREMENTS: Normal Ranges: LAs: 4.53 cm (2.7-4.0cm) LV SYSTOLIC FUNCTION BY 2D PLANIMETRY (MOD): Normal Ranges: EF-A4C View: 52.6 % (>55%) EF-A2C View: 51.7 % EF-Biplane: 42.7 % LV DIASTOLIC FUNCTION: Normal Ranges: MV Peak E: 0.99 m/s (0.7-1.2 m/s) MV Peak A: 0.66 m/s (0.42-0.7 m/s) E/A Ratio: 1.51 (1.0-2.2) MV e' 0.06 m/s (>8.0) MV lateral e' 0.08 m/s MV medial e' 0.05 m/s E/e' Ratio: 15.29 (<8.0) MITRAL VALVE: Normal Ranges: MV DT: 141 msec (150-240msec) AORTIC VALVE: Normal Ranges: AoV Vmax: 1.26 m/s (<1.7m/s) AoV Peak P.4 mmHg (<20mmHg) LVOT Max Mani: 0.92 m/s (<1.1m/s) LVOT VTI: 13.72 cm LVOT Diameter: 2.26 cm (1.8-2.4cm) AoV Area,Vmax: 2.92 cm2 (2.5-4.5cm2) RIGHT VENTRICLE: TAPSE: 19.0 mm RV s' 0.13 m/s TRICUSPID VALVE/RVSP: Normal Ranges: Peak TR Velocity: 3.72 m/s RV Syst Pressure: 58.3 mmHg (< 30mmHg) PULMONIC VALVE: Normal Ranges: PV Max Mani: 0.9 m/s (0.6-0.9m/s) PV Max P.9 mmHg [id number] Jorge Cochran MD Electronically signed on 12/28/2021 at 2:58:55 PM Wall Scoring Final Echocardiogram [Dec 28 2021 2:59PM] Conclusion: Please see physician note for formal interpretation confirmed by Scribe Confirmed by EFREM RICO () on 12/28/2021 4:24:06 AM Electrocardiogram 12 Lead [Dec 28 2021 4:24AM] Impression: 1. No pulmonary emboli. 2. Ground-glass densities throughout may be seen with diffuse atelectatic change or possible edema. Mild bibasilar atelectasis. Cardiomegaly. 3. Prominent lymph nodes seen within the bilateral yousif and likely subcarinal region. These are nonspecific and may be reactive. TH CT Angio Chest for PE [Dec 27 2021 11:44AM] Impression: NO ACUTE DISEASE IN THE CHEST Xray Chest 1 View [Dec 27 2021 8:03AM] Assessment and Plan: Comorbidities: Comorbidityobesity Obesitymorbid obesity (BMI 40+) Code Status: Code StatusFull Code Assessment: PABLO TABARES is a 46 year old Female with history of multiple psychiatric diagnosis, DM II, COPD admitted to [facility] for CHF exacerbation and COPD. Assessment: 1. Decompensated HFrEF, suspect related to ischemic cardiomyopathy 2. Elevated troponin; suspect type II SD vs possible NSTEMI 3. COPD, acute exacerbation 4. T2DM, uncontrolled 5. Multiple psychiatric conditions 6. Obesity 7. Tobacco use disorder 8. DVT PPX Plan: Multivessel CAD noted on cath. Continue diuresis and then PCI likely Saturday per cardiology. Fluid restrict/ I/Os, trend otto (more content not included)... Normal [facility] GLUCOSE-POCTon 12-31-2021 Glucose [Mass/Vol] 163 mg/dL High 74 - 99 [facility] Comment on above: Performed By: #### G JEAN PAUL #### [address] [address] Glucose [Mass/Vol] 175 mg/dL High 74 - 99 [facility] Comment on above: Performed By: #### G JEAN PAUL #### [address] [address] Glucose [Mass/Vol] 173 mg/dL High - 99 [facility] Comment on above: Performed By: #### G JEAN PAUL #### [address] [address] Glucose [Mass/Vol] 134 mg/dL High 74 - 99 [facility] Comment on above: Performed By: #### G JEAN PAUL #### [address] [address] MAGNESIUMon 12-31-2021 Magnesium [Mass/Vol] 2.05 mg/dL Normal 1.60 - 2.[address] [facility] Comment on above: Performed By: #### G JEAN PAUL #### [address] [address] BASIC METABOLIC PANELon 05-0 Anion gap [Moles/Vol] 16 mmol/L Normal 10 - [address] [facility] Comment on above: Performed By: #### G JEAN PAUL #### [address] [place] [address] Calcium [Mass/Vol] 8.8 mg/dL Normal 8.6 - 10.3 [facility] Comment on above: Performed By: #### Kiara JEAN PAUL #### [facility] [address] [place] [address] [place] [address] Chloride [Moles/Vol] 103 mmol/L Normal 98 - 107 [facility] Comment on above: Performed By: #### G JEAN PAUL #### [address] [place] [address] Creatinine [Mass/Vol] 0.72 mg/dL Normal 0.50 - 1.[address] [facility] Comment on above: Performed By: #### G JEAN PAUL #### [address] [address] eGFR FEMALE >90 Normal >[address] [facility] Comment on above: Result Comment: CALC ULATIONS OF ESTIMATED GFR ARE PERFORMED USING THE 2020 CKD-EPI STUDY REFIT EQUATION WITHOUT THE RACE VARIABLE FOR THE IDMS-TRACEABLE CREATININE METHODS. https://jasn.asnjournals.org/content/early//ASN.9882360 988 Performed By: #### Kiara JEAN PAUL #### [address] [address] Glucose [Mass/Vol] 131 mg/dL High 74 - 99 [facility] Comment on above: Performed By: #### Kiara JEAN PAUL #### [address] [address] HCO3 (Bld) [Moles/Vol] 25 mmol/L Normal 21 - [address] [facility] Comment on above: Performed By: #### Kiara JENA PAUL #### [address] [place] [address] Potassium [Moles/Vol] 3.7 mmol/L Normal 3.5 - 5.[address] [facility] Comment on above: Performed By: #### G JEAN PAUL #### [address] [place] [address] Sodium [Moles/Vol] 140 mmol/L Normal 136 - 145 [facility] Comment on above: Performed By: #### Kiara JEAN PAUL #### [address] [address] Urea nitrogen [Mass/Vol] 11 mg/dL Normal 6 - [address] [facility] Comment on above: Performed By: #### G JEAN PAUL #### [address] [address] CBCon 12-30-2021 Erythrocyte distribution width (RBC) [Ratio] 16.2 % High 11.5 - 14.[address] [facility] Comment on above: Performed By: #### G JEAN PAUL #### [address] [address] Hematocrit (Bld) [Volume fraction] 41.0 % Normal 36.0 - 46.[address] [facility] Comment on above: Performed By: #### G JEAN PAUL #### [address] [address] Hemoglobin (Bld) [Mass/Vol] 13.1 g/dL Normal 12.0 - 16.[address] [facility] Comment on above: Performed By: #### Kiara ARREAGAO #### [address] [address] MCHC (RBC) [Mass/Vol] 32.0 g/dL Normal 32.0 - 36.[address] [facility] Comment on above: Performed By: #### Kiara ARREAGAO #### [address] [address] MCV (RBC) [Entitic vol] 90 fL Normal 80 - [address] [facility] Comment on above: Performed By: #### Kiara ARREAGAO #### [address] [address] NUCLEATED RBC 0.0 /100 WBC Normal 0.0 - 0.[address] [facility] Comment on above: Performed By: #### G JEAN PAUL #### [address] [address] Platelets (Bld) [#/Vol] 214 10*3/uL Normal 150 - [address] [facility] Comment on above: Performed By: #### G JEAN PAUL #### [address] [address] RBC 4.57 x10E12/L Normal 4.00 - 5.[address] [facility] Comment on above: Performed By: #### G JEAN PAUL #### [facility] [address] [place] [address] WBC (Bld) [#/Vol] 16.0 10*3/uL High 4.4 - 11.3 [facility] Comment on above: Performed By: #### G JEAN PAUL #### [facility] [address] [place] [address] Daily Progress Note-Cardiolo gyon 12-30-2021 Daily Progress Note-Cardiology Service: Cardiology Subjective Data: PABLO TABARES is a 46 year old Female who is Hospital Day # 4. Additional Information: Patient denies any chest discomfort or shortness of breath. Remains hypertensive overnight. Objective Data: Objective Information: T PRBPMAPSpO2 [id number]% Date/Time12/30 11:4157 14:1357 4:0857 14:135 14:1357 14:13 Range(35.8C - 36.5C ) (71 - 105 ) (16 - 18 ) (134 - 173 )/ (78 - 99 ) (101 - 129 ) (89% - 95% ) Pain reported at 12/30 8:15: 0 = None Physical Exam by System: Constitutional: Well developed, awake/alert/oriented x3, no acute distress Eyes: EOMI, clear sclera ENMT: mucous membranes moist, no apparent injury, no lesions seen Head/Neck: Neck supple, no bruits Respiratory/Thorax: CTAB, normal breath sounds with good chest expansion, thorax symmetric Cardiovascular: Regular, rate and rhythm, no murmurs, 2+ equal pulses of the extremities, normal S 1and S 2 Gastrointestinal: Nondistended, soft, + BS Musculoskeletal: ROM intact, no joint swelling, normal strength Extremities: normal extremities, no cyanosis, trace edema Neurological: alert and oriented x3, intact senses Psychological: Appropriate mood and behavior Skin: Warm and dry, no lesions, no rashes Medication: Medications: Continuous Medications ------ No continuous medications are active Scheduled Medications ------ 1. amLODIPine (NORVASC): 5 mg Oral Daily 2. Aspirin Chewable: 81 mg Oral Daily 3. Clopidogrel: 75 mg Oral Daily 4. Empagliflozin: 10 mg Oral Daily 5. Enoxaparin SubCutaneous: 40 mg SubCutaneous Every 12 Hours 6. Furosemide Injectable: 40 mg IntraVenous Push 2 Times a Day 7. Haloperidol Lactate: 5 mg Oral Every 24 Hours 8. Haloperidol Lactate: 15 mg Oral At Bedtime 9. Insulin Glargine (Lantus) Injectable: 15 unit(s) SubCutaneous Schedule> 10. Insulin Lispro (HumaLOG) Injectable: 5 unit(s) SubCutaneous 4 Times a Day 11. Insulin Lispro Moderate Corrective Scale: unit(s) SubCutaneous 4 Times a Day Insulin Timing 12. Metoclopramide: 5 mg Oral 4 Times a Day Before Meals 13. Metoprolol Succinate Extended Release: 25 mg Oral Daily 14. Oxybutynin: 5 mg Oral 2 Times a Day 15. Pantoprazole: 40 mg Oral Daily 16. QUEtiapine: 100 mg Oral 2 Times a Day 17. Sacubitril 24 mg - Valsartan 26 m tablet(s) Oral 2 Times a Day 18. Spironolactone: 25 mg Oral Daily PRN Medications ------ 1. Albuterol 2.5 mg - Ipratropium 0.5 mg/ 3 mL Neb Soln: 3 mL Inhalation Every 2 Hours 2. Dextrose 50% in Water Injectable: 25 gram(s) IntraVenous Push Every 15 Minutes 3. Glucagon Injectable: 1 mg IntraMuscular Every 15 Minutes 4. Nitroglycerin SubLingual: 0.4 mg SubLingual Every 5 Minutes 5. Sodium Chloride 0.9% Injectable Flush: 10 mL IntraVenous Flush Every 8 Hours and as Needed 6. Sore Throat Lozenge: 1 lozenge(s) Oral Every 2 Hours Recent Lab Results: Results: CBC: 12/30/2021 06:36 \ Hgb / \ 13.1 / WBC Plt 16.0 H 214 / Hct \ / 41.0 \ RBC: 4.57 MCV: 90 BMP: 12/30/2021 06:36 NA+ Cl- BUN / 140 103 11 / ------ Glucose - 131 H K+ HCO3- Creat \ 3.7 25 0.72 \ Calcium : 8.8 Anion Gap : 16 Recent Arterial Blood Gas Results 12/29/2021 16:13 pO292 pH7.40 [id number] SO298 Base Excess2.0null Radiology Results: Results: Conclusion: CONCLUSIONS: 1. Severe 1-vessel coronary artery disease involving proximal LAD. 2. Mild LCx and RCA disease. 3. Preserved CO/CI by assumed Hilario. 4. Elevated filling/pulmonary pressures. __ ____ CPT Codes: Right & Left Heart Cath w/ventriculography/Coronar y angio (RHC)([facility])-[address]; Moderate Sedation Services initial 15 minutes patient >5 years-[address]; Moderate Sedation Services 1st additional 15 minutes patient >5 years-[address] ICD 10 Codes: I50.21-Acute systolic (congestive) heart failure; I20.0-Unstable angina [id number] Bernardino Gaitan MD Performing Physician cc Report to: [id number] BERNARDINO GAITAN cc Report to: Pete Wadsworth cc Report to: x Final Cardiac Catheterization Lab Procedures [Dec 29 2021 4:57PM] Conclusion: CONCLUSIONS: 1. The left ventricular systolic function is mildly to moderately decreased with a 35-40% estimated ejection fraction. 2. Entire anterior septum, apical inferior segment, and apex are abnormal. 3. Spectral Doppler shows a pseudonormal pattern of left ventricular diastolic filling. 4. There is an elevated mean left atrial pressure. 5. Mild to moderate mitral valve regurgitation. 6. Moderately elevated right ventricular s (more content not included)... Normal [facility] Daily Progress Note-Medicine on 12-30-2021 Daily Progress Note-Medicine Service: Medicine Subjective Data: PABLO TABARES is a 46 year old Female who is Hospital Day # 4. Additional Information: Lying in bed comfortably this am. Objective Data: Objective Information: T PRBPMAPSpO2 [id number]% Date/Time12/30 7: 8: 4: 7: 7: 8:09 Range(35.8C - 36.5C ) (71 - 105 ) (16 - 18 ) (134 - 173 )/ (78 - 99 ) (101 - 129 ) (89% - 95% ) Pain reported at 12/30 4:08: 0 = None Physical Exam Narrative: Physical Exam: Constitutional: well developed, awake, alert, no acute distress ENMT: mucous membranes moist, EOMI, conjunctivae clear Head/Neck: normocephalic, atraumatic; supple, trachea midline Respiratory/Thorax: diminished lung sounds; no wheezes, rales, or rhonchi Cardiovascular: RRR, no murmur Gastrointestinal: soft, nondistended, non-tender, bowel sounds appreciated Extremities: peripheral pulses full and symmetric, 1+ edema of bilateral extremities, no cyanosis Neurological: A&O x 3, no gross FND appreciated Psychological: appropriate mood and behavior Skin: warm and dry Recent Lab Results: Results: CBC: 12/30/2021 06:36 \ Hgb / \ 13.1 / WBC Plt 16.0 H 214 / Hct \ / 41.0 \ RBC: 4.57 MCV: 90 BMP: 12/30/2021 06:36 NA+ Cl- BUN / 140 103 11 / ------ Glucose - 131 H K+ HCO3- Creat \ 3.7 25 0.72 \ Calcium : 8.8 Anion Gap : 16 Recent Arterial Blood Gas Results 12/29/2021 16:13 pO292 pH7.40 [id number] SO298 Base Excess2.0null Radiology Results: Results: Conclusion: CONCLUSIONS: 1. The left ventricular systolic function is mildly to moderately decreased with a 35-40% estimated ejection fraction. 2. Entire anterior septum, apical inferior segment, and apex are abnormal. 3. Spectral Doppler shows a pseudonormal pattern of left ventricular diastolic filling. 4. There is an elevated mean left atrial pressure. 5. Mild to moderate mitral valve regurgitation. 6. Moderately elevated right ventricular systolic pressure. QUANTITATIVE DATA SUMMARY: 2D MEASUREMENTS: Normal Ranges: IVSd: 1.23 cm (0.6-1.1cm) LVPWd: 0.98 cm (0.6-1.1cm) LVIDd: 5.49 cm (3.9-5.9cm) LVIDs: 4.62 cm LV Mass Index: 108.7 g/m2 LV % FS 15.9 % LA VOLUME: Normal Ranges: LA Vol A2C: 59.8 ml LA Vol Index A2C: 26.8 ml/m2 LA Vol A2C: 57.1 ml RA VOLUME BY A/L METHOD: Normal Ranges: RA Area A4C: 16.0 cm2 M-MODE MEASUREMENTS: Normal Ranges: LAs: 4.53 cm (2.7-4.0cm) LV SYSTOLIC FUNCTION BY 2D PLANIMETRY (MOD): Normal Ranges: EF-A4C View: 52.6 % (>55%) EF-A2C View: 51.7 % EF-Biplane: 42.7 % LV DIASTOLIC FUNCTION: Normal Ranges: MV Peak E: 0.99 m/s (0.7-1.2 m/s) MV Peak A: 0.66 m/s (0.42-0.7 m/s) E/A Ratio: 1.51 (1.0-2.2) MV e' 0.06 m/s (>8.0) MV lateral e' 0.08 m/s MV medial e' 0.05 m/s E/e' Ratio: 15.29 (<8.0) MITRAL VALVE: Normal Ranges: MV DT: 141 msec (150-240msec) AORTIC VALVE: Normal Ranges: AoV Vmax: 1.26 m/s (<1.7m/s) AoV Peak P.4 mmHg (<20mmHg) LVOT Max Mani: 0.92 m/s (<1.1m/s) LVOT VTI: 13.72 cm LVOT Diameter: 2.26 cm (1.8-2.4cm) AoV Area,Vmax: 2.92 cm2 (2.5-4.5cm2) RIGHT VENTRICLE: TAPSE: 19.0 mm RV s' 0.13 m/s TRICUSPID VALVE/RVSP: Normal Ranges: Peak TR Velocity: 3.72 m/s RV Syst Pressure: 58.3 mmHg (< 30mmHg) PULMONIC VALVE: Normal Ranges: PV Max Mani: 0.9 m/s (0.6-0.9m/s) PV Max P.9 mmHg [id number] Jorge Cochran MD Electronically signed on 12/28/2021 at 2:58:55 PM Wall Scoring Final Echocardiogram [Dec 28 2021 2:59PM] Conclusion: Please see physician note for formal interpretation confirmed by Scribe Confirmed by EFREM RICO () on 12/28/2021 4:24:06 AM Electrocardiogram 12 Lead [Dec 28 2021 4:24AM] Impression: 1. No pulmonary emboli. 2. Ground-glass densities throughout may be seen with diffuse atelectatic change or possible edema. Mild bibasilar atelectasis. Cardiomegaly. 3. Prominent lymph nodes seen within the bilateral yousif and likely subcarinal region. These are nonspecific and may be reactive. TH CT Angio Chest for PE [Dec 27 2021 11:44AM] Impression: NO ACUTE DISEASE IN THE CHEST Xray Chest 1 View [Dec 27 2021 8:03AM] Assessment and Plan: Comorbidities: Comorbidityobesity Obesitymorbid obesity (BMI 40+) Code Status: Code StatusFull Code Assessment: PABLO TABARES is a 46 year old Female with history of multiple psychiatric diagnosis, DM II, COPD admitted to [facility] for CHF exacerbation and COPD. Assessment: 1. Decompensated HFrEF, suspect related to ischemic cardiomyopathy 2. Elevated troponin; suspect type II SD vs possible NSTEMI 3. COPD, acute exacerbation 4. T2DM, uncontrolled 5. Multiple psychiatric conditions 6. Obesity 7. Tobacco use disorder 8. DVT PPX (more content not included)... Normal [facility] GLUCOSE-POCTon 12-30-2021 Glucose [Mass/Vol] 409 mg/dL High 74 - 99 [facility] Comment on above: Result Comment: RN/M D NOTIFIED Performed By: #### G JEAN PAUL #### [address] [place] [address] Glucose [Mass/Vol] 367 mg/dL [address] Comment on above: Performed By: #### G JEAN PAUL #### [address] [place] [address] Glucose [Mass/Vol] 316 mg/dL [address] Comment on above: Performed By: #### G JEAN PAUL #### [address] [place] [address] Glucose [Mass/Vol] 142 mg/dL [address] Comment on above: Performed By: #### G JEAN PAUL #### [address] [place] [address] MAGNESIUMon 12-30-2021 Magnesium [Mass/Vol] 1.79 mg/dL Normal 1.60 - 2.[address] [facility] Comment on above: Performed By: #### G JEAN PAUL #### [address] [place] [address] ARTERIAL BLOOD GASon 022 APPARATUS Cannula Normal [facility] Comment on above: Performed By: #### G JEAN PAUL #### [facility] [address] [address], [place] [address] BASE EXCESS-BLOOD 2.0 mmol/L Normal -2.0 - 3.0 [facility] Comment on above: Performed By: #### G JEAN PAUL #### [address] [place] [address] BICARB, CALCULATED 27.3 mmol/L High 22.0 - 26.0 [facility] Comment on above: Performed By: #### G JEAN PAUL #### [facility] [address] [place] [address] FIO2 28 % Normal 21 - [address] [facility] Comment on above: Performed By: #### G JEAN PAUL #### [facility] [address] [place] [address] OXY HGB 95.5 % Normal 94.0 - 98.[address] [facility] Comment on above: Performed By: #### G JEAN PAUL #### [facility] [address] [address], [place] [address] Oxygen (Bld) [Partial pressure] 92 mm[Hg] Normal 85 - [address] [facility] Comment on above: Performed By: #### G JEAN PAUL #### [facility] [address] [address], [place] [address] PATIENT TEMPERATURE 37.0 degrees C Normal [facility] Comment on above: Result Comment: NOTE : PATIENT RESULTS ARE NOT CORRECTED FOR TEMPERATURE. Performed By: #### G JEAN PAUL #### [facility] [address] [address], [place] [address] PCO2 44 mmHg High 38 - [address] [facility] Comment on above: Performed By: #### G JEAN PAUL #### [facility] [address] [address], [place] [address] pH (Bld) 7.40 [pH] Normal 7.38 - 7.[address] [facility] Comment on above: Performed By: #### Kiara JEAN PAUL #### [facility] [address] [address], [place] [address] SITE OF ARTERIAL PUNCTURE Art A-Line Normal [facility] Comment on above: Performed By: #### G JEAN PAUL #### [facility] [address] [address], [place] [address] SO2 98 % Normal 94 - [address] [facility] Comment on above: Performed By: #### G JEAN PAUL #### [facility] [address] [place], [place] [address] [address] BASIC METABOLIC PANELon 05-0 Anion gap [Moles/Vol] 13 mmol/L Normal 10 - [address] [facility] Comment on above: Performed By: #### B MP #### [facility] [address] [place] [address] Calcium [Mass/Vol] 9.1 mg/dL Normal 8.6 - 10.3 [facility] Comment on above: Performed By: #### B MP #### [facility] [address] [address], [place] [address] Chloride [Moles/Vol] 104 mmol/L Normal 98 - 107 [facility] Comment on above: Performed By: #### B MP #### [address] [address] Creatinine [Mass/Vol] 0.75 mg/dL Normal 0.50 - 1.[address] [facility] Comment on above: Performed By: #### B MP #### [address] [place] [address] eGFR FEMALE >90 Normal >[address] [facility] Comment on above: Result Comment: CALC ULATIONS OF ESTIMATED GFR ARE PERFORMED USING THE 2020 CKD-EPI STUDY REFIT EQUATION WITHOUT THE RACE VARIABLE FOR THE IDMS-TRACEABLE CREATININE METHODS. https://jasn.asnjournals.org/content/early/ASN.8110128 988 Performed By: #### B MP #### [address] [place] [address] Glucose [Mass/Vol] 199 mg/dL High 74 - 99 [facility] Comment on above: Performed By: #### B MP #### [address] [place] [address] HCO3 (Bld) [Moles/Vol] 25 mmol/L Normal 21 - [address] [facility] Comment on above: Performed By: #### B MP #### [address] [place] [address] Potassium [Moles/Vol] 3.6 mmol/L Normal 3.5 - 5.[address] [facility] Comment on above: Performed By: #### B MP #### [address] [place] [address] Sodium [Moles/Vol] 138 mmol/L Normal 136 - 145 [facility] Comment on above: Performed By: #### B MP #### [facility] [address] [address], [place] [address] Urea nitrogen [Mass/Vol] 11 mg/dL Normal 6 - [address] [facility] Comment on above: Performed By: #### B MP #### [address] [place] [address] CBCon 12-29-2021 Erythrocyte distribution width (RBC) [Ratio] 16.4 % High 11.5 - 14.[address] [facility] Comment on above: Performed By: #### G JEAN PAUL #### [address] [place] [address] Hematocrit (Bld) [Volume fraction] 39.6 % Normal 36.0 - 46.[address] [facility] Comment on above: Performed By: #### G JEAN PAUL #### [address] [place] [address] Hemoglobin (Bld) [Mass/Vol] 12.6 g/dL Normal 12.0 - 16.[address] [facility] Comment on above: Performed By: #### G JEAN PAUL #### [address] [place] [address] MCHC (RBC) [Mass/Vol] 31.8 g/dL Low 32.0 - 36.[address] [facility] Comment on above: Performed By: #### Kiara ARREAGAO #### [address] [address] MCV (RBC) [Entitic vol] 92 fL Normal 80 - [address] [facility] Comment on above: Performed By: #### Kiara ARREAGAO #### [address] [place] [address] NUCLEATED RBC 0.0 /100 WBC Normal 0.0 - 0.[address] [facility] Comment on above: Performed By: #### G JEAN PAUL #### [address] [place] [address] Platelets (Bld) [#/Vol] 202 10*3/uL Normal 150 - [address] [facility] Comment on above: Performed By: #### Kiara ARREAGAO #### [address] [place] [address] RBC 4.30 x10E12/L Normal 4.00 - 5.[address] [facility] Comment on above: Performed By: #### G JEAN PAUL #### [facility] [address] [place] [address] WBC (Bld) [#/Vol] 14.6 10*3/uL High 4.4 - 11.3 [facility] Comment on above: Performed By: #### G JEAN PAUL #### [facility] [address] [place] [address] Consult-Cardiologyon 022 Consult-Cardiology Service: Service: Cardiology Consult Consult requested by (Attending Name): Nasim Arellano Reason: chest pain History of Present Illness: HPI: PABLO TABARES is a 46 year old Female Patient is a 38-year-old female with history of diabetes, COPD who presents with chest discomfort and shortness of breath. She had shortness of breath about 3 days prior to arrival. She had a tightness in her chest as well. She states this happened a year ago and resolved on its own. She had mild troponin elevation in addition to shortness of breath. She was hypoxic with wheezes per report. She was transferred to [facility] for further evaluation. She is medically managed. She denies any chest discomfort or shortness of breath today. She denies any palpitations, lightheadedness, syncope, orthopnea, PND. She does admit to lower extremity edema. Twelve-lead ECG demonstrates sinus rhythm, left axis deviation, poor R wave progression. High-sensitivity troponin 182. BNP 482. Echocardiogram with an ejection fraction of 35% with wall motion abnormalities. Review Family/Social History and ROS: Review Family/Social History and ROS: I have reviewed the family and social history and review of systems from the History and Physical. Social History Smoking Status: heavy user (uses >30 cig/day, OR >1.5 ppd, OR >3 cans/pouches loose leaf tobacco per week, OR >1.5 vape pods per day) (1) Alcohol Use: denies(1) Drug Use: occasionally (1) All Other Systems: All other systems reviewed and are negative Allergies: Cipro: Swelling/Edema KAMERON inhibitors: Swelling/Edema Objective: Objective Information: T PRBPMAPSpO2 [id number]% Date/Time5/6 12: 12: 23:135/6 12: 12: 12:02 Range(36C - 36.5C ) (84 - 105 ) (18 - 20 ) (144 - 178 )/ (82 - 100 ) (108 - 131 ) (88% - 94% ) Physical Exam by System Constitutional: Well developed, awake/alert/oriented x3, no acute distress Eyes: EOMI, clear sclera ENMT: mucous membranes moist, no apparent injury, no lesions seen Head/Neck: Neck supple, no bruits Respiratory/Thorax: CTAB, normal breath sounds with good chest expansion, thorax symmetric Cardiovascular: Regular, rate and rhythm, no murmurs, 2+ equal pulses of the extremities, normal S 1and S 2 Gastrointestinal: Nondistended, soft, + BS Musculoskeletal: ROM intact, no joint swelling, normal strength Extremities: normal extremities, no cyanosis, trace edema Neurological: alert and oriented x3, intact senses Psychological: Appropriate mood and behavior Skin: Warm and dry, no lesions, no rashes Medications Medications: Continuous Medications ------ No continuous medications are active Scheduled Medications ------ 1. amLODIPine (NORVASC): 5 mg Oral Daily 2. Aspirin Chewable: 81 mg Oral Daily 3. Enoxaparin SubCutaneous: 40 mg SubCutaneous Every 12 Hours 4. Furosemide: 20 mg Oral Daily 5. Haloperidol Lactate: 5 mg Oral Every 24 Hours 6. Haloperidol Lactate: 15 mg Oral At Bedtime 7. Insulin Glargine (Lantus) Injectable: 15 unit(s) SubCutaneous Schedule> 8. Insulin Lispro (HumaLOG) Injectable: 5 unit(s) SubCutaneous 4 Times a Day 9. Insulin Lispro Moderate Corrective Scale: unit(s) SubCutaneous 4 Times a Day Insulin Timing 10. Losartan: 100 mg Oral Daily 11. Metoclopramide: 5 mg Oral 4 Times a Day Before Meals 12. Oxybutynin: 5 mg Oral 2 Times a Day 13. Pantoprazole: 40 mg Oral Daily 14. predniSONE: 40 mg Oral Every 24 Hours 15. QUEtiapine: 100 mg Oral 2 Times a Day PRN Medications ------ 1. Albuterol 2.5 mg - Ipratropium 0.5 mg/ 3 mL Neb Soln: 3 mL Inhalation Every 2 Hours 2. Dextrose 50% in Water Injectable: 25 gram(s) IntraVenous Push Every 15 Minutes 3. Glucagon Injectable: 1 mg IntraMuscular Every 15 Minutes 4. Sodium Chloride 0.9% Injectable Flush: 10 mL IntraVenous Flush Every 8 Hours and as Needed 5. Sore Throat Lozenge: 1 lozenge(s) Oral Every 2 Hours Recent Lab Results Results: I have reviewed these laboratory results: Complete Blood Count 29-Dec-2021 05:51:00 ResultValue White Blood Cell Count 14.6 H Nucleated Erythrocyte Count 0.0 Red Blood Cell Count 4.30 HGB 12.6 HCT 39.6 MCV 92 MCHC 31.8 L PLT 202 RDW-CV 16.4 H Basic Metabolic Panel 29-Dec-2021 05:51:00 ResultValue Glucose, Serum 199 H NA 138 K 3.6 CL 104 Bicarbonate, Serum 25 Anion Gap, Serum 13 BUN 11 CREAT 0.75 GFR Female >90 Calcium, Serum 9.1 Lipid Panel 28-Dec-2021 06:09:00 ResultValue Cholesterol, Serum 91 . AGE DESIRABLE BORDERLINE HIGH HIGH 0-19 Y 0 - 169 170 - 199 >/= 200 20-24 Y 0 - 189 190 - 224 >/= 225 >24 Y 0 - 199 200 - 239 >/= 240 All ranges are based on fasting sampl HDL Cholesterol, Serum 33.8 . AGE VERY LOW LOW NORMAL HIGH 0-19 Y < 35 < 40 40-45 ---- 20-24 Y (more content not included)... Normal [facility] Daily Progress Note-General Internal Medicineon 12-29-2021 Daily Progress Note-General Internal Medicine Service: General Internal Medicine Subjective Data: PABLO TABARES is a 46 year old Female who is Hospital Day # 3. Additional Information: Patient seen and examined at bedside. Weaned to room air. Intermittently mildly bradycardic. Feels improved with no further chest pain, minimal dyspnea. No new complaints. Objective Data: Objective Information: T PRBPMAPSpO2 [id number]% Date/Time12/29 12: 12: 23:135/6 12: 12: 12:02 Range(36C - 36.5C ) (84 - 105 ) (18 - 20 ) (144 - 178 )/ (82 - 100 ) (108 - 131 ) (88% - 94% ) Pain reported at 12/29 4:05: 0 = None Physical Exam Narrative: Physical Exam: Constitutional: well developed, awake, alert, no acute distress ENMT: mucous membranes moist, EOMI, conjunctivae clear Head/Neck: normocephalic, atraumatic; supple, trachea midline Respiratory/Thorax: diminished lung sounds; no wheezes, rales, or rhonchi Cardiovascular: RRR, no murmur Gastrointestinal: soft, nondistended, non-tender, bowel sounds appreciated Extremities: peripheral pulses full and symmetric, 1+ edema of bilateral extremities, no cyanosis Neurological: A&O x 3, no gross FND appreciated Psychological: appropriate mood and behavior Skin: warm and dry Medication: Medications: Continuous Medications ------ No continuous medications are active Scheduled Medications ------ 1. amLODIPine (NORVASC): 5 mg Oral Daily 2. Aspirin Chewable: 81 mg Oral Daily 3. Enoxaparin SubCutaneous: 40 mg SubCutaneous Every 12 Hours 4. Furosemide: 20 mg Oral Daily 5. Haloperidol Lactate: 5 mg Oral Every 24 Hours 6. Haloperidol Lactate: 15 mg Oral At Bedtime 7. Insulin Glargine (Lantus) Injectable: 15 unit(s) SubCutaneous Schedule> 8. Insulin Lispro (HumaLOG) Injectable: 5 unit(s) SubCutaneous 4 Times a Day 9. Insulin Lispro Moderate Corrective Scale: unit(s) SubCutaneous 4 Times a Day Insulin Timing 10. Losartan: 100 mg Oral Daily 11. Metoclopramide: 5 mg Oral 4 Times a Day Before Meals 12. Metoprolol Tartrate: 25 mg Oral 2 Times a Day 13. Oxybutynin: 5 mg Oral 2 Times a Day 14. Pantoprazole: 40 mg Oral Daily 15. predniSONE: 40 mg Oral Every 24 Hours 16. QUEtiapine: 100 mg Oral 2 Times a Day PRN Medications ------ 1. Albuterol 2.5 mg - Ipratropium 0.5 mg/ 3 mL Neb Soln: 3 mL Inhalation Every 2 Hours 2. Dextrose 50% in Water Injectable: 25 gram(s) IntraVenous Push Every 15 Minutes 3. Glucagon Injectable: 1 mg IntraMuscular Every 15 Minutes 4. Sodium Chloride 0.9% Injectable Flush: 10 mL IntraVenous Flush Every 8 Hours and as Needed 5. Sore Throat Lozenge: 1 lozenge(s) Oral Every 2 Hours Recent Lab Results: Results: I have reviewed these laboratory results: Glucose_POCT Trending View [id number] 11:59:00 29-Dec-2021 06:28:00 [id number] H 218 H Complete Blood Count 29-Dec-2021 05:51:00 ResultValue White Blood Cell Count 14.6 H Nucleated Erythrocyte Count 0.0 Red Blood Cell Count 4.30 HGB 12.6 HCT 39.6 MCV 92 MCHC 31.8 L PLT 202 RDW-CV 16.4 H Basic Metabolic Panel 29-Dec-2021 05:51:00 ResultValue Glucose, Serum 199 H NA 138 K 3.6 CL 104 Bicarbonate, Serum 25 Anion Gap, Serum 13 BUN 11 CREAT 0.75 GFR Female >90 Calcium, Serum 9.1 Radiology Results: Results: Conclusion: CONCLUSIONS: 1. The left ventricular systolic function is mildly to moderately decreased with a 35-40% estimated ejection fraction. 2. Entire anterior septum, apical inferior segment, and apex are abnormal. 3. Spectral Doppler shows a pseudonormal pattern of left ventricular diastolic filling. 4. There is an elevated mean left atrial pressure. 5. Mild to moderate mitral valve regurgitation. 6. Moderately elevated right ventricular systolic pressure. QUANTITATIVE DATA SUMMARY: 2D MEASUREMENTS: Normal Ranges: IVSd: 1.23 cm (0.6-1.1cm) LVPWd: 0.98 cm (0.6-1.1cm) LVIDd: 5.49 cm (3.9-5.9cm) LVIDs: 4.62 cm LV Mass Index: 108.7 g/m2 LV % FS 15.9 % LA VOLUME: Normal Ranges: LA Vol A2C: 59.8 ml LA Vol Index A2C: 26.8 ml/m2 LA Vol A2C: 57.1 ml RA VOLUME BY A/L METHOD: Normal Ranges: RA Area A4C: 16.0 cm2 M-MODE MEASUREMENTS: Normal Ranges: LAs: 4.53 cm (2.7-4.0cm) LV SYSTOLIC FUNCTION BY 2D PLANIMETRY (MOD): Normal Ranges: EF-A4C View: 52.6 % (>55%) EF-A2C View: 51.7 % EF-Biplane: 42.7 % LV DIASTOLIC FUNCTION: Normal Ranges: MV Peak E: 0.99 m/s (0.7-1.2 m/s) MV Peak A: 0.66 m/s (0.42-0.7 m/s) E/A Ratio: 1.51 (1.0-2.2) MV e' 0.06 m/s (>8.0) MV lateral e' 0.08 m/s MV medial e' 0.05 m/s E/e' Ratio: 15.29 (<8.0) MITRAL VALVE: Normal Ranges: MV DT: 141 msec (150-240msec) AORTIC VALVE: Normal Ranges: AoV Vmax: 1.26 m/s (<1.7m/s) AoV Peak P.4 mmHg (<20mmHg) LVOT Max Mani: 0.92 m/s (<1.1m/s) LVOT VTI: (more content not included)... Normal [facility] GLUCOSE-POCTon 12-29-2021 Glucose [Mass/Vol] 366 mg/dL High 74 - 99 [facility] Comment on above: Performed By: #### G JEAN PAUL #### [facility] [address] [place] [address] Glucose [Mass/Vol] 355 mg/dL High 74 - 99 [facility] Comment on above: Performed By: #### G JEAN PAUL #### [facility] [address] [place] [address] Glucose [Mass/Vol] 205 mg/dL High 74 - 99 [facility] Comment on above: Performed By: #### G JEAN PAUL #### [facility] [address] [place] [address] Glucose [Mass/Vol] 218 mg/dL High 74 - 99 [facility] Comment on above: Performed By: #### G JEAN PAUL #### [facility] [address] [place] [address] Left and Right Heart Cathete rizationon 12-29-2021 Left and Right Heart Catheterization [facility], Edger Liner, [address] [place] [id number] Cardiovascular Catheterization Report Patient Name: PABLO Performing Physician: [id number] Bernardino TABARES MD Study Date: 12/29/2021 Verifying Physician: [id number] Gaitan MD MRN/PID: [id number] Luncheonette Manager/Co-scrub: Accession/Order#: [id number] Fellow: Jeremy Pa MD Date of : 1975 Fellow: Gender: F Referring Physician: BERNARDINO GAITAN Admit Date: Referring Physician: Pete Wadsworth Surgeon: Referring Physician: tab Study: Left and Right Heart Catheterization Additional Study: Coronary Arteriogram Indications: PABLO TABARES is a 46 year old female who presents with hypertension, obesity, chronic pulmonary disease, diabetes and dyslipidemia. Acute coronary syndrome > 24 hrs, cardiomyopathy, left ventricular dysfunction and NSTE-ACS, with a chest pain assessment of atypical angina. Study performed as an urgent cath procedure. Heart failure. Appropriate Use Criteria: Non ST elevation myocardial infarction with intermediate risk score; AUC score = 8. Known or suspected cardiomyopathy with or without heart failure; AUC score = 7. Medical History: Stress test performed: No. CTA performed: No. Agatston accessed: No. LVEF Assessed: Yes. LVEF = 35%. Procedure Description: After infiltration with 2% Lidocaine, the right radial artery was cannulated with a modified Seldinger technique. Subsequently a 6 Urdu sheath was placed retrograde in the right radial artery. After infiltration of local anesthetic, the right antecubital vein was cannulated with a micropuncture technique. A 5 Urdu sheath was placed in the vein. Selective coronary catheterization was performed using a 5 Fr catheter(s) exchanged over a guide wire to cannulate the coronary arteries. A JR 4 tip catheter was used for right coronary injections. Additional catheter(s) used to visualize the coronary arteries were: 5F Kewadin 4.0 diagnostic catheter. Multiple injections of contrast were made into the left and right coronary arteries with angiograms recorded in multiple projections. A balloon tipped catheter was advanced through the right heart to record pressures. Cardiac output was calculated via the Hliario method. After completion of the procedure, the arterial sheath was pulled and a TR Band Radial Compression Device was utilized to obtain patent hemostasis. Post-procedure, the venous sheath was pulled and pressure was applied to the site. Coronary Angiography: The coronary circulation is right dominant. Left Main Coronary Artery: The left main coronary artery is a large caliber vessel. The left main arises normally from the left coronary sinus of Valsalva and bifurcates into the LAD and circumflex coronary arteries. The left main coronary artery showed no significant disease or stenosis greater than 30%. Left Anterior Descending Coronary Artery Distribution: The left anterior descending coronary artery is a large caliber vessel. The LAD arises normally from the left main coronary artery, wraps around the apex of the LV and gives rise to the 1st diagonal branch. The proximal left anterior descending coronary artery showed 80% stenosis. This lesion was concentric, calcified and tubular. An additional lesion, located at the proximal to mid left anterior descending coronary artery, revealed 60% stenosis. This second lesion was tubular, eccentric and involved a bifurcation. The 1st diagonal branch is a medium-sized caliber vessel. The 1st diagonal branch showed no significant disease or stenosis greater than 30%. Circumflex Coronary Artery Distribution: The circumflex coronary artery is a large caliber vessel. The circumflex arises normally from the left main coronary artery, terminates in the AV groove, giving rise to the first obtuse marginal, second obtuse marginal and third obtuse marginal. The circumflex revealed no significant disease or stenosis greater than 30%. The 1st obtuse marginal branch is a normal caliber vessel. The 1st obtuse marginal branch showed no significant disease or stenosis greater than 30%. The 2nd obtuse marginal branch is a normal caliber vessel. The 2nd obtuse marginal branch demonstrated no significant disease or stenosis greater than 30%. The 3rd obtuse marginal branch is a small caliber vessel. The 3rd obtuse marginal branch revealed no significant disease or stenosis greater than 30%. Right Heart Catheterization: A balloon tipped catheter was advanced through the right heart to record pressures. Cardiac output was calculated via the Hilario method. Elevated left sided filling pressures with normal cardiac output. Elevated ventricular filling pressure. Cardiac output is normal. Preserved cardiac output at rest. No pulmonary vascular resistance. Pulmonary venous hypertension. RA 20, RV 59/22, PA 59/26, PCW 35, EDP 30, cardiac output 5.8, cardiac index 2.7. Right Coronary Artery Distribution: The right coronary artery is a normal caliber vessel. The RCA arises normally (more content not included)... Normal [facility] MV BLOOD GASon 12-29-2021 APPARATUS Cannula Normal [facility] Comment on above: Performed By: #### G JEAN PAUL #### [facility] [address] [place] [address] BASE EXCESS-BLOOD 4.2 mmol/L Normal [facility] Comment on above: Performed By: #### G JEAN PAUL #### [facility] [address] [place] [address] BICARB, CALCULATED 30.3 mmol/L Normal [facility] Comment on above: Performed By: #### G JEAN PAUL #### [facility] [address] [place] [address] FIO2 28 % Normal [facility] Comment on above: Performed By: #### G JEAN PAUL #### [facility] [address] [place] [address] OXY HGB 68.0 % Normal 45.0 - 75.[address] [facility] Comment on above: Performed By: #### G JEAN PAUL #### [facility] [address] [place] [address] Oxygen (Bld) [Partial pressure] 44 mm[Hg] Normal [facility] Comment on above: Performed By: #### G JEAN PAUL #### [facility] [address] [place] [address] PATIENT TEMPERATURE 37.0 degrees Normal [facility] Comment on above: Result Comment: NOTE : PATIENT RESULTS ARE NOT CORRECTED FOR TEMPERATURE. Performed By: #### G JEAN PAUL #### [facility] [address] [place] [address] PCO2 50 mmHg Normal [facility] Comment on above: Performed By: #### G JEAN PAUL #### [facility] [address] [place] [address] pH (Bld) 7.39 [pH] Normal [facility] Comment on above: Performed By: #### G JEAN PAUL #### [facility] [address] [place] [address] SO2 70 % Normal [facility] Comment on above: Performed By: #### G JEAN PAUL #### [facility] [address] [place] [address] Admission Risk Screen - Adul ton 12-28-2021 Admission Risk Screen - Adult Allergies: Allergies: Cipro: Swelling/Edema KAMERON inhibitors: Swelling/Edema Patient Verification: New W ID Band Applied in my Departmentyes Patient Identity Verified Bypatient ID Band FULL Name, include Middle, spelling matches patient's ID used for verificationyes ID Band Matches Patient ID used for Verficationyes ID Band MRN Matches EMR MRNyes Visitor Restriction: Coronavirus Visitor Restriction: Reasonable restrictions to in-person visitors will be observed due to current coronavirus pandemic. Travel History: COVID-19 Screening Completedno exposure or symptoms Travel or Exposure Past 30 DaysNO travel to International locations in the past 30 days Ebola AlertFor Ebola-like Symptoms: Isolate Patient and Notify Provider/User Support Specialist For Contact: Notify Provider/User Support Specialist Advance Directive: Advance Directive/DNRno Advance Directive Information Givenpatient/family declined Nath Fall Screen: History of falling (immediate or previous)no (0) Secondary Diagnosisno (0) Intravenous Therapy/ Heparin/Saline Lockyes (20) Gait/Transferringnormal/be drest/wheelchair (0) Ambulatory Aidsnone/bedrest/nurse assist (0) Mental Statusoriented to own ability (0) Score: Low risk (<25). Moderate risk (25-44). High risk (>44).20 Nath InterventionsLOW INTERVENTIONS: *patient oriented to surroundings and call system, * patient/family falls education completed and documented, *patients fall status communicated during bedside handoff, *whiteboard updated, *mode of toileting discussed with patient, *bed in low position with brakes locked, *call light in reach, * non-skid footwear Family Violence Screen: Are you or have you been threatened or abused physically, emotionally, or sexually by anyoneno Do you feel UNSAFE going back to the place where you are livingno Clinical assessment: Are there any apparent signs of injuries/behaviors that could be related to abuse/neglectno Social Service Consult for abuse/neglect needed this visitno Functional Screen: Functional Screen: In the recent/past 2-4 weeks, patient or family have noticedno issues that require a speech/language consult at this time AM-PAC- Basic Mobility/Daily Activity: Patient baseline bedboundno Turning from your back to your side while in a flat bed without using bedrailsnone Moving from lying on your back to sitting on the side of a flat bed without using bedrailsnone Moving to and from bed to chair (including a wheelchair)none Standing up from a chair using your arms (e.g. wheelchair or bedside chair) none To walk in hospital rooma little Climbing 3-5 steps with railinga freya Basic Mobility - Total Score22 Bathing (including washing, rinsing, drying)none Putting on and taking off regular upper body clothingnone Toileting, which includes using toilet, bedpan or urinalnone Taking care of personal grooming such as brushing teethnone Eating Mealsnone Learning Assessment (Patient): Patient is Able to be Assessed for Learningyes Factors Influencing Readiness to Learnacuteness of illness Factors that Impact Ability to Learnacuteness of illness Devices/Methods Used to Communicatenone Learning Preferencesverbal instruction Cultural Considerationsnone Developmental Considerationsnone Rastafari Considerationsnone Learning Assessment (Other Learner): Other learner availableno Depression Screen: During the past month, have you often been bothered by feeling down, depressed or hopelessno During the past month, have you often had little interest or pleasure in doing thingsno Have you had any thoughts of harming anyone elseno Ryde Suicide: Risk Screen Not Applicable/Able to Answerable to be screened In the Past Month: Have you wished you were or could go to sleep and not wake upno In the Past Month: Have you had any actual thoughts of killing yourselfno Lifetime: Have you ever done, started to do, or prepared to do anything to end your lifeno Ryde Suicide Risknegative Adult Nutrition Screen: Have you recently lost weight without tryingyes; 2-13 lb Have you been eating poorly because of a decreased appetiteno Malnutrition Screening Tool Score1 Malnutrition Screening Tool RiskMST = 0 or 1 Not at risk. Eating well with little or no weight loss Nutrition Consult needed this visitno Can Patient Participate in Room Serviceyes Patient requires Paper Dishes/Plastic Utensilsno Pain Screen: Pain Scalenumerical 0-10 Pain Scale Educationteaching provided Current Pain Level5 = Moderate Acceptable Pain Level0 = None Expression of Pain (nonverbal)verbalization, spasms Chronic Painno Spiritual Screen: Are there any cultural, spiritual, gnosticism practices/values/needs that are important for us to knowno CAGE: Is this an injured patient at a Trauma Center ([facility]/[place]/Jessica Lion/Michelle): no (more content not included)... Normal [facility] Daily Progress Note-General Internal Medicineon 12-28-2021 Daily Progress Note-General Internal Medicine Service: General Internal Medicine Subjective Data: PABLO TABARES is a 46 year old Female who is Hospital Day # 2. Additional Information: Patient seen and examined at bedside; reports improvement of her dyspnea and resolution of her chest pain. States she takes her antihyperglycemic medications consistently at home. No new complaints at this time. Objective Data: Objective Information: T PRBPMAPSpO2 [id number]% Date/Time12/28 7:475/5 11:325/5 3:115/5 11:325/5 11:325/5 11:32 Range(36.1C - 36.5C ) (84 - 98 ) (20 - 22 ) (141 - 164 )/ (82 - 100 ) (108 - 125 ) (90% - 97% ) As of 27-Dec-2021 22:09:00, patient is on 2 L/min of oxygen via nasal cannula. Pain reported at 12/27 22:50: 5 = Moderate Weights 12/27 22:58: Weight in kg (Weight (kg)) 127 12/27 22:58: Weight in lbs ((lbs)) 279.9 12/27 22:58: BMI (kg/m2) (BMI (kg/m2)) 49.671 Physical Exam Narrative: Physical Exam: Constitutional: well developed, awake, alert, no acute distress ENMT: mucous membranes moist, EOMI, conjunctivae clear Head/Neck: normocephalic, atraumatic; supple, trachea midline Respiratory/Thorax: diminished lung sounds; no wheezes, rales, or rhonchi Cardiovascular: RRR, no murmur Gastrointestinal: soft, nondistended, non-tender, bowel sounds appreciated Extremities: peripheral pulses full and symmetric, 1+ edema of bilateral extremities, no cyanosis Neurological: A&O x 3, no gross FND appreciated Psychological: appropriate mood and behavior Skin: warm and dry Medication: Medications: Continuous Medications ------ No continuous medications are active Scheduled Medications ------ 1. amLODIPine (NORVASC): 5 mg Oral Daily 2. Aspirin Chewable: 81 mg Oral Daily 3. Enoxaparin SubCutaneous: 40 mg SubCutaneous Every 12 Hours 4. Insulin Glargine (Lantus) Injectable: 10 unit(s) SubCutaneous Schedule> 5. Insulin Regular Mild Corrective Scale: unit(s) SubCutaneous 3 Times a Day Before Meals 6. Losartan: 100 mg Oral Daily 7. Metoclopramide: 5 mg Oral 4 Times a Day Before Meals 8. Oxybutynin: 5 mg Oral 2 Times a Day 9. Pantoprazole: 40 mg Oral Daily 10. predniSONE: 40 mg Oral Every 24 Hours 11. QUEtiapine: 50 mg Oral 2 Times a Day PRN Medications ------ 1. Albuterol 2.5 mg - Ipratropium 0.5 mg/ 3 mL Neb Soln: 3 mL Inhalation Every 2 Hours 2. Dextrose 50% in Water Injectable: 25 gram(s) IntraVenous Push Every 15 Minutes 3. Glucagon Injectable: 1 mg IntraMuscular Every 15 Minutes 4. Sodium Chloride 0.9% Injectable Flush: 10 mL IntraVenous Flush Every 8 Hours and as Needed Conditional Medication Orders ------ 1. Perflutren Lipid Microsphere (Activated) 1.3 mL / NaCL 0.9% T.V. 10 mL Injectable: 0.5 mL IntraVenous Push Once Recent Lab Results: Results: I have reviewed these laboratory results: Glucose_POCT Trending View [id number] 11:30:00 28-Dec-2021 06:15:00 [id number] H 228 H Lipid Panel 28-Dec-2021 06:09:00 ResultValue Cholesterol, Serum 91 . AGE DESIRABLE BORDERLINE HIGH HIGH 0-19 Y 0 - 169 170 - 199 >/= 200 20-24 Y 0 - 189 190 - 224 >/= 225 >24 Y 0 - 199 200 - 239 >/= 240 All ranges are based on fasting sampl HDL Cholesterol, Serum 33.8 . AGE VERY LOW LOW NORMAL HIGH 0-19 Y < 35 < 40 40-45 ---- 20-24 Y ---- < 40 >45 ---- >24 Y ---- < 40 40-60 >60. A Cholesterol/HDL Ratio 2.7 REF VALUESDESIRABLE < 3.4HIGH RISK > 5.0 LDL, Level 30 . NEAR BORD AGE DESIRABLE OPTIMAL HIGH HIGH VERY HIGH 0-19 Y 0 - 109 --- 110-129 >/= 130 ---- 20-24 Y 0 - 119 --- 120-159 >/= 160 ---- >24 Y 0 - VLDL, Serum 27 Triglycerides, Serum 135 . AGE DESIRABLE BORDERLINE HIGH HIGH VERY HIGH 0 D-90 D 19 - 174 ---- ---- ----91 D- 9 Y 0 - 74 75 - 99 >/= 100 ---- 10-19 Y 0 - 89 90 - 129 >/= 130 ---- Troponin I, High Sensitivity Trending View [id number] 06:09:00 27-Dec-2021 11:35:00 27-Dec-2021 08:55:00 27-Dec-2021 08:16:00 Lab Comment:[facility] [place], 12/28/2021 07:41 NAUN Siegel, 12/27/2021 09:36 Troponin I, High [id number] HH 182 H 171 H 181 HH Hemoglobin A1C, Level 28-Dec-2021 06:09:00 ResultValue Estimated Average Glucose 263 Hemoglobin A1C, Level 10.8 Diagnosis of Diabetes-Adults Non-Diabetic: < or = 5.6% Increased risk for developing diabetes: 5.7-6.4% Diagnostic of diabetes: > or = 6.5%. Monitoring of Diabetes Age (y) Therapeutic Goal (%) Adults: > A Coronavirus 2019, Screen Asymptomatic 27-Dec-2021 11:12:00 ResultValue Fluid Source Nasal, Nasopharyngeal Coronavirus 2019,PCR NOT DETECTED Reference Range: Not Detected .This test has received FDA Emergency Use Authorization (EUA) and has been verified by [facility]. This test is only authorized for the duration of time that circum Comprehensive Metab (more content not included)... Normal [facility] Echocardiogramon 12-28-2021 Echocardiography [facility] , [address] [facility] [address]Kgv [phone] and TRANSTHORACIC ECHOCARDIOGRAM REPORT Patient Name: PABLO Mclean Physician: [id number] Jorge Cochran MD Study Date: 12/28/2021 Referring NASIM ARELLANO Physician: MRN/PID: [id number] PCP: Accession/Order#: [id number] Department [facility] Location: Date of : 1975 Fellow: Gender: F Nurse: America Okeefe RN Admit Date: 12/27/2021 Manager Of Drilling: Elias Bond [facility] Admission Status: Inpatient - Additional Staff: Routine Height: 160.02 cm CC Report to: Weight: 127.01 kg Study Type: Echocardiogram BSA: 2.23 m2 Blood Pressure: 164 /89 mmHg Diagnosis/ICD: R07.9-Chest pain, unspecified Indication: Procedure/CPT: Echo Complete w Full [id number] Patient History: Smoker: Current. Diabetes: Yes BMI: Obese >30 Pertinent History: COPD, Dyspnea and Chest Pain. Study Detail: The following Echo studies were performed: 2D, M-Mode, Doppler and color flow. Technically challenging study due to body habitus and patient lying in supine position. Definity used as a contrast agent for endocardial border definition. Total contrast used for this procedure was 3 mL via IV push. PHYSICIAN INTERPRETATION: Left Ventricle: The left ventricular systolic function is mildly to moderately decreased, with an estimated ejection fraction of 35-40%. Wall motion is abnormal. The left ventricular cavity size is normal. Spectral Doppler shows a pseudonormal pattern of left ventricular diastolic filling. There is an elevated mean left atrial pressure. The left ventricle appears hypertrabeculated. LV Wall Scoring: The entire anterior septum, apical inferior segment, and apex are hypokinetic. Left Atrium: The left atrium is normal in size. Right Ventricle: The right ventricle is normal in size. There is normal right ventricular global systolic function. Right Atrium: The right atrium is normal in size. Aortic Valve: The aortic valve is trileaflet. There is no evidence of aortic valve regurgitation. The peak instantaneous gradient of the aortic valve is 6.4 mmHg. Mitral Valve: The mitral valve is normal in structure. There is mild to moderate mitral valve regurgitation. Tricuspid Valve: The tricuspid valve is structurally normal. There is mild tricuspid regurgitation. The Doppler estimated RVSP is moderately elevated at 58.3 mmHg. Pulmonic Valve: The pulmonic valve is structurally normal. There is no indication of pulmonic valve regurgitation. Pericardium: There is a small pericardial effusion. Aorta: The aortic root is normal. CONCLUSIONS: 1. The left ventricular systolic function is mildly to moderately decreased with a 35-40% estimated ejection fraction. 2. Entire anterior septum, apical inferior segment, and apex are abnormal. 3. Spectral Doppler shows a pseudonormal pattern of left ventricular diastolic filling. 4. There is an elevated mean left atrial pressure. 5. Mild to moderate mitral valve regurgitation. 6. Moderately elevated right ventricular systolic pressure. QUANTITATIVE DATA SUMMARY: 2D MEASUREMENTS: Normal Ranges: IVSd: 1.23 cm (0.6-1.1cm) LVPWd: 0.98 cm (0.6-1.1cm) LVIDd: 5.49 cm (3.9-5.9cm) LVIDs: 4.62 cm LV Mass Index: 108.7 g/m2 LV % FS 15.9 % LA VOLUME: Normal Ranges: LA Vol A2C: 59.8 ml LA Vol Index A2C: 26.8 ml/m2 LA Vol A2C: 57.1 ml RA VOLUME BY A/L METHOD: Normal Ranges: RA Area A4C: 16.0 cm2 M-MODE MEASUREMENTS: Normal Ranges: LAs: 4.53 cm (2.7-4.0cm) LV SYSTOLIC FUNCTION BY 2D PLANIMETRY (MOD): Normal Ranges: EF-A4C View: 52.6 % (>55%) EF-A2C View: 51.7 % EF-Biplane: 42.7 % LV DIASTOLIC FUNCTION: Normal Ranges: MV Peak E: 0.99 m/s (0.7-1.2 m/s) MV Peak A: 0.66 m/s (0.42-0.7 m/s) E/A Ratio: 1.51 (1.0-2.2) MV e' 0.06 m/s (>8.0) MV lateral e' 0.08 m/s MV medial e' 0.05 m/s E/e' Ratio: 15.29 (<8.0) MITRAL VALVE: Normal Ranges: MV DT: 141 msec (150-240msec) AORTIC VALVE: Normal Ranges: AoV Vmax: 1.26 m/s (<1.7m/s) AoV Peak P.4 mmHg (<20mmHg) LVOT Max Mani: 0.92 m/s (<1.1m/s) LVOT VTI: 13.72 cm LVOT Diameter: 2.26 cm (1.8-2.4cm) AoV Area,Vmax: 2.92 cm2 (2.5-4.5cm2) RIGHT VENTRICLE: TAPSE: 19.0 mm RV s' 0.13 m/s TRICUSPID VALVE/RVSP: Normal Ranges: Peak TR Velocity: 3.72 m/s RV Syst Pressure: 58.3 mmHg (< 30mmHg) PULMONIC VALVE: Normal Ranges: PV Max Mani: 0.9 m/s (0.6-0.9m/s) PV Max P.9 mmHg [id number] Jorge Cochran MD Electronically signed on 12/28/2021 at 2:58:55 PM Wall Scoring Final Normal [facility] GLUCOSE-POCTon 12-28-2021 Glucose [Mass/Vol] 325 mg/dL High 74 - 99 [facility] Comment on above: Performed By: #### G JEAN PAUL #### [facility] [address] [place] [address] Glucose [Mass/Vol] 371 mg/dL High 74 - 99 [facility] Comment on above: Performed By: #### G JEAN PAUL #### [facility] [address] [place] [address] Glucose [Mass/Vol] 231 mg/dL High 74 - 99 [facility] Comment on above: Performed By: #### G JEAN PAUL #### [facility] [address] [place] [address] Glucose [Mass/Vol] 228 mg/dL High 74 - 99 [facility] Comment on above: Performed By: #### G JEAN PAUL #### [facility] [address] [place] [address] HEMOGLOBIN A1Con 12-28-2021 Glucose [Mass/Vol] 263 mg/dL Normal [facility] Comment on above: Performed By: #### G JEAN PAUL #### [facility] [address] [place] [address] HbA1c (Bld) [Mass fraction] 10.8 % Abnormal [facility] Comment on above: Result Comment: Diag nosis of Diabetes-Adults Non-Diabetic: < or = 5.6% Increased risk for developing diabetes: 5.7-6.4% Diagnostic of diabetes: > or = 6.5% . Monitoring of Diabetes Age (y) Therapeutic Goal (%) Adults: >18 <7.0 Pediatrics: 13-18 <7.5 7-12 <8.0 0- 6 7.5-8.5 [employer]. Diabetes Care 33(S1), Aug 2009. Performed By: #### G JEAN PAUL #### [facility] [address] [place] [id number] LIPID PANEL (CORONARY RISK 2 )on 12-28-2021 Cholesterol [Mass/Vol] 91 mg/dL Normal 0 - [address] [facility] Comment on above: Result Comment: . AGE DESIRABLE BORDERLINE HIGH HIGH 0-19 Y 0 - 169 170 - 199 >/= 200 20-24 Y 0 - 189 190 - 224 >/= 225 >24 Y 0 - 199 200 - 239 >/= 240 All ranges are based on fasting samples. Specific therapeutic targets will vary based on patient-specific cardiac risk. . Pediatric guidelines reference:Pediatrics 2011, 128(S5). Adult guidelines reference: NCEP ATPIII Guidelines, ADRI 2001, 258:2486-97 . Venipuncture immediately after or during the administration of Metamizole may lead to falsely low results. Testing should be performed immediately prior to Metamizole dosing. Performed By: #### L IPID #### [facility] [address] [address] Cholesterol in HDL [Mass/Vol] 33.8 mg/dL Abnormal [facility] Comment on above: Result Comment: . AGE VERY LOW LOW NORMAL HIGH 0-19 Y < 35 < 40 40-45 ---- 20-24 Y ---- < 40 >45 ---- >24 Y ---- < 40 40-60 >60 . Performed By: #### L IPID #### [address] [address] Cholesterol in LDL [Mass/Vol] 30 mg/dL Normal 0 - [address] [facility] Comment on above: Result Comment: . NEAR BORD AGE DESIRABLE OPTIMAL HIGH HIGH VERY HIGH 0-19 Y 0 - 109 --- 110-129 >/= 130 ---- 20-24 Y 0 - 119 --- 120-159 >/= 160 ---- >24 Y 0 - 99 100-129 130-159 160-189 >/=190 . Performed By: #### L IPID #### [address] [address] Cholesterol in VLDL [Mass/Vol] 27 mg/dL Normal 0 - [address] [facility] Comment on above: Performed By: #### L IPID #### [address] [address] Cholesterol.total/Ch olesterol in HDL [Mass ratio] 2.7 {ratio} Normal [facility] Comment on above: Result Comment: REF VALUES DESIRABLE < 3.4 HIGH RISK > 5.0 Performed By: #### L IPID #### [address] [address] Triglyceride [Mass/Vol] 135 mg/dL Normal 0 - [address] [facility] Comment on above: Result Comment: . AGE DESIRABLE BORDERLINE HIGH HIGH VERY HIGH 0 D-90 D 19 - 174 ---- ---- ---- 91 D- 9 Y 0 - 74 75 - 99 >/= 100 ---- 10-19 Y 0 - 89 90 - 129 >/= 130 ---- 20-24 Y 0 - 114 115 - 149 >/= 150 ---- >24 Y 0 - 149 150 - 199 200- 499 >/= 500 . Venipuncture immediately after or during the administration of Metamizole may lead to falsely low results. Testing should be performed immediately prior to Metamizole dosing. Performed By: #### L IPID #### [facility] [address] [place] [address] Order Reconciliationon 12-28 Order Reconciliation Page 1 Admission Reconciliation Document Reconciliation Type: Admission from ED requested on behalf of Kendra Kidd (Resident) done by Kendra Kidd (DO (Resident)) Admission from ED - Partial Reconciliation: 28-Dec-2021 03:05 by: Nasim Arellano (DO) Admission from ED - Partial Reconciliation: 28-Dec-2021 17:33 by: Pete Wadsworth) Admission from ED - Reconciliation: 01-Jan-2022 11:41 by: Kendra Kidd (DO (Resident)) Home MedicationsEnteredLast Dose TakenReconciled with current Order Reconciliation Comment/ Additional Information amLODIPine 5 mg oral tablet 1 tab(s) orally once a [id number] amLODIPine (NORVASC) TabletDOSE = 5 mg Oral DailyamLODIPine 5 mg oral tablet continued as the inpatient order amLODIPine (NORVASC) aspirin 81 mg oral tablet, chewable 1 tab(s) orally once a [id number] Reviewed and Held Benadryl 50 mg oral capsule 1 cap(s) orally once a day (in the evening) 01-Jan-2022 Reviewed and Held clopidogrel 75 mg oral tablet 1 tab(s) orally once a [id number] Reviewed and Held glipiZIDE 10 mg oral tablet, extended release 1 tab(s) orally once a day 01-Jan-2022 Reviewed and Held haloperidol 10 mg oral tablet 1 tab(s) orally once a day (at bedtime) 01-Jan-2022 Reviewed and Held haloperidol 5 mg oral tablet 1 tab(s) orally 2 times a day // AM & PM 01-Jan-2022 Reviewed and Held Janumet 50 mg-500 mg oral tablet 1 tab(s) orally 2 times a day // AM & PM with meals 01-Jan-2022 Discontinued; Copy/Discontinue Reviewed and Held Janumet 50 mg-500 mg oral tablet 1 tab(s) orally 2 times a day // AM & PM with meals. Hold for 48 hours post cardiac catheterization procedure, resume 01/04/22.01-Jan-2022 Reviewed and Held losartan 100 mg oral tablet 1 tab(s) orally once a [id number] Losartan Tablet (COZAAR)DOSE = 100 mg Oral Daily losartan 100 mg oral tablet continued as the inpatient order Losartan meloxicam 15 mg oral tablet 1 tab(s) orally once a day (in the morning) 01-Jan-2022 Reviewed and Held metoclopramide 5 mg oral tablet 1 tab(s) orally 4 times a day (before meals and at bedtime)28-Dec-2021 Metoclopramide Tablet (REGLAN)DOSE = 5 mg Oral 4 Times a Day Before Mealsmetoclopramide 5 mg oral tablet continued as the inpatient order Metoclopramide omeprazole 40 mg oral delayed release capsule 1 cap(s) orally once a day 28-Dec-2021 Pantoprazole Enteric Coated Tablet (PROTONIX)DOSE = 40 mg Oral Dailyomeprazole 40 mg oral delayed release capsule continued as the inpatient order Pantoprazole oxybutynin 10 mg/24 hr oral tablet, extended release 1 tab(s) orally once a day (in the morning)28-Dec-2021 Oxybutynin Tablet (DITROPAN)DOSE = 5 mg Oral 2 Times a DayNotes from Pharmacy: Substitution for Oxybutynin ER (Ditropan XL) 10 mg Oral Dailyoxybutynin 10 mg/24 hr oral tablet, extended release continued as the inpatient order Oxybutynin QUEtiapine 100 mg oral tablet 1 tab(s) orally 2 times a day // AM & PM 01-Jan-2022 Reviewed and Held QUEtiapine 50 mg oral tablet 1 tab(s) orally 2 times a [id number] QUEtiapine Tablet (SEROQUEL)DOSE = 50 mg Oral 2 Times a Day QUEtiapine 50 mg oral tablet continued as the inpatient order QUEtiapine rosuvastatin 5 mg oral tablet 1 tab(s) orally once a day (at bedtime) 01-Jan-2022 Discontinued; Copy/Discontinue Reviewed and Held rosuvastatin 5 mg oral tablet 1 tab(s) orally once a day (at bedtime) 01-Jan-2022 Reviewed and Held sucralfate 1 g oral tablet 1 tab(s) orally 4 times a day (before meals and at bedtime)01-Jan-2022 Reviewed and Held Tab-A-Marilyn + Iron oral tablet 1 tab(s) orally once a [id number] Reviewed and Held torsemide 20 mg oral tablet 1 tab(s) orally once a [id number] Reviewed and Held Vitamin B12 1000 mcg oral tablet 1 tab(s) orally once a [id number] Reviewed and Held Vitamin D3 25 mcg (1000 intl units) oral tablet 1 tab(s) orally once a day (in the morning)01-Jan-2022 Reviewed and Held Documentation of outpatient medication history is incomplete. Additional Current Orders Albuterol 2.5 mg - Ipratropium 0.5 mg/ 3 mL Neb Soln (DUONEB)DOSE = 3 mL Inhalation Every 2 Hours via Nebulizer, PRN Wheezing Aspirin Chewable Tablet, ChewableDOSE = 81 mg Oral Daily Atorvastatin Tablet (LIPITOR)DOSE = 10 mg Oral Daily Clopidogrel Tablet (PLAVIX)DOSE = 75 mg Oral Daily Dextrose 50% in Water Injectable DOSE = 25 gram(s) IntraVenous Push Every 15 Minutes, PRN Blood Glucose 70 mg/dL or LESS & HAS IV access;Clinician Notes: IF patient HAS a secure IV access & is Unconscious, Conscious, NPO or Unable to Eat or Drink. Repeat until BG reaches 100 mg/dL or greater. Push 2-3 mL/minute. Discontinue Once BG reaches 100 mg/dL or greater. Empagliflozin Tablet (JARDIANCE)DOSE = 10 mg Oral Daily Enoxaparin SubCutaneous (LOVENOX)DOSE = 40 mg SubCutaneous Every 12 Hours Furosemide Injectable (LASIX)DOSE = 20 mg IntraVenous Push OnceCa mg/DOSE x 1 = 20 mg/Dose (Daily Total is 20 mg) (more content not included)... Normal [facility] Patient Profile - Adult v2on 12-28-2021 Patient Profile - Adult v2 Profile: Initial Info: How to be AddressedAngel Spoken Language PreferredEnglish Source of Informationpatient Stated Reason for AdmissionShortness of Breath Primary Contact Name and Numberrujulio estrada Wants Family/Rep Notified of Admissionyes, primary contact Notify PCPnotify PCP Informed of Patient Visiting Rightsyes Arrived Fromresidential/[facility] Medications Brought to Hospitalno General Health: Weight in kg127 kilogram(s)(1) Weight in oaw359.9 pound(s) Weight Methodactual (measured) Scale Typestanding Height in cm159.9 centimeter(s) Height in feet5 feet Height in inches2.99 inch(es) Height Methodstated BMI (kg/m2)49.671 square meter RSP Based Care: How would you like to participate in your careDiscussion with doctors What is the number one concern for you during this hospitalizationTo feel better What is the most important thing we can do to support you during this hospitalizationTo be included in the plan of care Is there anything we need to know to best care for Kim/A Substance: Smoking Statusheavy user (uses >30 cig/day, OR >1.5 ppd, OR >3 cans/pouches loose leaf tobacco per week, OR >1.5 vape pods per day) (2) Tobacco Cessation Education (provide if tobacco use within the last 12 mos) patient declined Alcohol Usedenies(2) Drug Useoccasionally (2) Substance CommentMarijuana(2) Health Mgmt: Symptoms/Conditions Managed at Homerespiratory; endocrine Are You no Are You Currently Breastfeedingno Endocrine Symptoms/Conditionsdiabete s Endocrine Managementmanaged Respiratory Symptoms/ConditionsCOPD Respiratory Managementnot managed Relationship/Environ: Resource/Environmental Concernsnone Primary Source of Support/Comfortgrandparent Lives Withalone; snf Living Arrangementsresidential facility/snf Services Anticipated at Transitionmedical specialist; respiratory services [facility]; snf Significant IndicatorsComplete Information Review: Allergies, Home Meds and Significant Events have been Reviewed and Verified with Patient/Familyyes ALLERGY, INTOLERANCE, ADVERSE EVENT: Allergies: Cipro: Drug, Swelling/Edema, Active KAMERON inhibitors: Drug Category, Swelling/Edema, Active Electronic Signatures: Clarisa Vazquez (LEROY) (Signed 27-Dec-2021 23:10) Authored: Initial Info, General Health, RSP Based Care, Substance, Health Mgmt, Relationship/Environ, Additional Information Last Updated: 27-Dec-2021 23:10 by Clarisa Vazquez (LEROY) References: 1. Data Referenced From 1. Vital Signs 27-Dec-2021 22:09 2. Data Referenced From Risk Screen - Adult Emergency 27-Dec-2021 09:[address] [facility] TROPONIN I, HIGH SENSITIVITY on 12-28-2021 TROPONIN I, HIGH SENSITIVITY 171 ng/L Critically high 0 - [address] [facility] Comment on above: Order Comment: Maury zelayaJose Anderosnlon, 12/28/2021 07:41 Result Comment: . Less than 99th percentile of normal range cutoff- Female and children under 18 years old <14 ng/L; Male <21 ng/L: Negative Repeat testing should be performed if clinically indicated. . Female and children under 18 years old 14-50 ng/L; Male 21-50 ng/L: Consistent with possible cardiac damage and possible increased clinical risk. Serial measurements may help to assess extent of myocardial damage. . >50 ng/L: Consistent with cardiac damage, increased clinical risk and myocardial infarction. Serial measurements may help assess extent of myocardial damage. . NOTE: Children less than 1 year old may have higher baseline troponin levels and results should be interpreted in conjunction with the overall clinical context. . NOTE: Troponin I testing is performed using a different testing methodology at [facility] than at other [facility]. Direct result comparisons should only be made within the same method. Homero zelaya Jose Yosvany, 12/28/2021 07:41 Performed By: #### G JEAN PAUL #### [facility] [address] [place] [address] BNPon 12-27-2021 Natriuretic peptide B (Bld) [Mass/Vol] 482 pg/mL High 0 - 99 [facility] Comment on above: Result Comment: . <1 00 pg/mL - Heart failure unlikely 100-299 pg/mL - Intermediate probability of acute heart . failure exacerbation. Correlate with clinical . context and patient history. >=300 pg/mL - Heart Failure likely. Correlate with clinical . context and patient history. BNP testing is performed using different testing methodology at [facility] than at other [facility]. Direct result comparisons should only be made within the same method. Performed By: #### B NP2 #### [id number] [place] [address] CBC AND DIFFERENTIALon 12-27 Basophils (Bld) [#/Vol] 0.00 10*3/uL Normal 0.00 - 0.10 [facility] Comment on above: Performed By: #### C BCDF #### [address] [address] Basophils/100 WBC (Bld) 0.3 % Normal 0.0 - 2.0 [facility] Comment on above: Performed By: #### C BCDF #### [address] [address] Eosinophils (Bld) [#/Vol] 0.00 10*3/uL Normal 0.00 - 0.70 [facility] Comment on above: Performed By: #### C BCDF #### [address] [address] Eosinophils/100 WBC (Bld) 0.2 % Normal 0.0 - 6.0 [facility] Comment on above: Performed By: #### C BCDF #### [address] [address] Erythrocyte distribution width (RBC) [Ratio] 17.1 % High 11.5 - 14.5 [facility] Comment on above: Performed By: #### C BCDF #### [address] [address] Hematocrit (Bld) [Volume fraction] 41.3 % Normal 36.0 - 46.0 [facility] Comment on above: Performed By: #### C BCDF #### [address] [address] Hemoglobin (Bld) [Mass/Vol] 13.4 g/dL Normal 12.0 - 16.0 [facility] Comment on above: Performed By: #### C BCDF #### [address] [address] Lymphocytes (Bld) [#/Vol] 2.10 10*3/uL Normal 1.20 - 4.80 [facility] Comment on above: Performed By: #### C BCDF #### [address] [address] Lymphocytes/100 WBC (Bld) 15.0 % Normal 13.0 - 44.0 [facility] Comment on above: Performed By: #### C BCDF #### [address] [address] MCHC (RBC) [Mass/Vol] 32.4 g/dL Normal 32.0 - 36.0 [facility] Comment on above: Performed By: #### C BCDF #### [address] [address] MCV (RBC) [Entitic vol] 90 fL Normal 80 - 100 [facility] Comment on above: Performed By: #### C BCDF #### [address] [address] Monocytes (Bld) [#/Vol] 0.60 10*3/uL Normal 0.10 - 1.00 [facility] Comment on above: Performed By: #### C BCDF #### [address] [address] Monocytes/100 WBC (Bld) 4.2 % Normal 2.0 - 10.0 [facility] Comment on above: Performed By: #### C BCDF #### [address] [address] Neutrophils (Bld) [#/Vol] 11.50 10*3/uL High 1.20 - 7.70 [facility] Comment on above: Result Comment: Perc ent differential counts (%) should be interpreted in the context of the absolute cell counts (cells/L). Performed By: #### C BCDF #### [address] [address] Neutrophils/100 WBC (Bld) 80.3 % Normal 40.0 - 80.0 [facility] Comment on above: Performed By: #### C BCDF #### [address] [address] NUCLEATED RBC 0.1 /100 WBC Normal [facility] Comment on above: Performed By: #### C BCDF #### [address] [address] Platelets (Bld) [#/Vol] 181 10*3/uL Normal 150 - 450 [facility] Comment on above: Performed By: #### C BCDF #### [address] [address] RBC 4.59 x10E12/L Normal 4.00 - 5.20 [facility] Comment on above: Performed By: #### C BCDF #### [address] [address] WBC (Bld) [#/Vol] 14.3 10*3/uL High 4.4 - 11.3 [facility] Comment on above: Performed By: #### C BCDF #### [address] [address] CHEST 1 VIEWon 12-27-2021 CHEST 1 VIEW Patient Name: PABLO TABARES STUDY: CHEST 1 VIEW; 12/27/2021 7:56 am INDICATION: Dyspnea . COMPARISON: Two views of the chest, 11 September 2017 ACCESSION NUMBER(S): [id number] ORDERING CLINICIAN: KIARRA ARAMBULA TECHNIQUE: Single frontal view of the chest; Portable technique FINDINGS: Exam limited by portable technique and morbid obesity the cardiac silhouette is enlarged but unchanged No consolidative opacity, large effusion or pneumothorax IMPRESSION: NO ACUTE DISEASE IN THE CHEST Electronically signed by: JERI COLEY MD Normal [facility] COMPREHENSIVE PANELon 2021 Albumin [Mass/Vol] 3.9 g/dL Normal 3.4 - 5.0 [facility] Comment on above: Performed By: #### C MP #### [address] [address] ALP [Catalytic activity/Vol] 111 U/L High 33 - 110 [facility] Comment on above: Performed By: #### C MP #### [address] [address] ALT [Catalytic activity/Vol] 91 U/L High 7 - 45 [facility] Comment on above: Result Comment: Elisa ents treated with Sulfasalazine may generate falsely decreased results for ALT. Performed By: #### C MP #### [place] [id number] Anion gap [Moles/Vol] 9 mmol/L Low 10 - 20 [facility] Comment on above: Performed By: #### C MP #### [address] [address] AST [Catalytic activity/Vol] 35 U/L Normal 9 - 39 [facility] Comment on above: Performed By: #### C MP #### [address] [address] Bilirubin [Mass/Vol] 0.4 mg/dL Normal 0.0 - 1.2 [facility] Comment on above: Performed By: #### C MP #### [address] [address] Calcium [Mass/Vol] 8.6 mg/dL Normal 8.6 - 10.3 [facility] Comment on above: Performed By: #### C MP #### [address] [address] Chloride [Moles/Vol] 105 mmol/L Normal 98 - 107 [facility] Comment on above: Performed By: #### C MP #### [address] [address] Creatinine [Mass/Vol] 0.62 mg/dL Normal 0.50 - 1.05 [facility] Comment on above: Performed By: #### C MP #### [address] [address] eGFR FEMALE >90 Normal >90 [facility] Comment on above: Result Comment: CALC ULATIONS OF ESTIMATED GFR ARE PERFORMED USING THE 2020 CKD-EPI STUDY REFIT EQUATION WITHOUT THE RACE VARIABLE FOR THE IDMS-TRACEABLE CREATININE METHODS. https://jasn.asnjournals.org/content//ASN.7795450 988 Performed By: #### C MP #### [address] [address] Glucose [Mass/Vol] 226 mg/dL High 74 - 99 [facility] Comment on above: Performed By: #### C MP #### [address] [address] HCO3 (Bld) [Moles/Vol] 29 mmol/L Normal 21 - 32 [facility] Comment on above: Performed By: #### C MP #### [place] [id number] Potassium [Moles/Vol] 4.1 mmol/L Normal 3.5 - 5.3 [facility] Comment on above: Performed By: #### C MP #### [place] [id number] Protein [Mass/Vol] 6.8 g/dL Normal 6.4 - 8.2 [facility] Comment on above: Performed By: #### C MP #### [place] [address] Sodium [Moles/Vol] 139 mmol/L Normal 136 - 145 [facility] Comment on above: Performed By: #### C MP #### [place] [address] Urea nitrogen [Mass/Vol] 9 mg/dL Normal 6 - 23 [facility] Comment on above: Performed By: #### C MP #### [place] [id number] CORONAVIRUS 2019, SCREEN ASY MPTOMATICon 12-27-2021 SARS-CoV-2 (COVID-19) RNA JASON+probe Ql (Unsp spec) Not detected Normal Not Detected [facility] Comment on above: Result Comment: . This test has received FDA Emergency Use Authorization (EUA) and has been verified by [facility]. This test is only authorized for the duration of time that circumstances exist to justify the authorization of the emergency use of in vitro diagnostic tests for the detection of SARS-CoV-2 virus and/or diagnosis of COVID-19 infection under section 564(b)(1) of the Act, 21 U.S.C. 360bbb-3(b)(1), unless the authorization is terminated or revoked sooner. [facility] is certified under CLIA-88 as qualified to perform high complexity testing. Testing is performed in the [facility] laboratory located at [address] [place] [address]. SARS-CoV-2/Flu/RSV Multiplex Test: Fact sheet for providers: https://www.fda.gov/media/171756/download Fact sheet for patients: https://www.fda.gov/media/988345/download Performed By: #### C OVSC #### [address] [address] Lab Specimen Source Nasal, Nasopharyngeal Normal [facility] Comment on above: Performed By: #### C OVSC #### [address] [address] [address] ANGIO CHEST FOR PEon 05-0 CT ANGIO CHEST FOR PE Patient Name: PABLO TABARES STUDY: CT ANGIO CHEST FOR PE; 12/27/2021 11:30 am INDICATION: Dyspnea . COMPARISON: None. ACCESSION NUMBER(S): [id number] ORDERING CLINICIAN: KIARRA ARAMBULA TECHNIQUE: Helical data acquisition of the chest was obtained with 90 mL Omnipaque 350. Images were reformatted in coronal and sagittal planes. Axial and coronal MIP images were created and reviewed. FINDINGS: POTENTIAL LIMITATIONS OF THE STUDY: Patient's obesity results in loss of fine detail. HEART AND VESSELS: No discrete filling defects within the main pulmonary artery or its branches. Main pulmonary artery and its branches are normal in caliber. The thoracic aorta is of normal course and caliber without vascular calcifications. No coronary artery calcifications are seen.The study is not optimized for evaluation of coronary arteries. The heart is enlarged. No evidence of pericardial effusion. MEDIASTINUM AND YOUSIF, LOWER NECK AND AXILLA: The visualized thyroid gland is within normal limits. Mild prominence of the bilateral hilar lymph nodes. Additionally, there is soft tissue prominence in the subcarinal region which again may be related to lymph nodes. Esophagus appears within normal limits as seen. LUNGS AND AIRWAYS: The trachea and central airways are patent. No endobronchial lesion. No confluent airspace disease. Bibasilar atelectatic changes. Scattered ground-glass densities throughout both lungs. UPPER ABDOMEN: The visualized subdiaphragmatic structures demonstrate no remarkable findings. CHEST WALL AND OSSEOUS STRUCTURES: There are no suspicious osseous lesions. Multilevel degenerative changes are present IMPRESSION: 1. No pulmonary emboli. 2. Ground-glass densities throughout may be seen with diffuse atelectatic change or possible edema. Mild bibasilar atelectasis. Cardiomegaly. 3. Prominent lymph nodes seen within the bilateral yousif and likely subcarinal region. These are nonspecific and may be reactive. Electronically signed by: HAN GÓMEZ MD [facility] Covid 19 Resultson 2 SARS-CoV-2 (COVID-19) RNA JASON+probe Ql (Unsp spec) NEGATIVE COVID-19 Test Coronaviruses are common world-wide and are the cause of many common colds. SARS-COV2 is a new coronavirus that began circulating worldwide in 2019 so we are calling it COVID-19. It has been estimated that four out of five patients with COVID-19 will recover at home without the need for medical attention. Symptoms of COVID-19 may include cough, fever, shortness of breath, loss of taste or smell and other flu-like symptoms including chills, sore muscles, sore throat, and headache. Severe illness is more common in older people and people with other health problems such as high blood pressure, obesity, and immune system problems. If the test is positive, you have COVID-19. You will be contacted by the ordering physicians office and instructed to remain on home isolation, in accordance with CDC guidelines. You may also be contacted by the [facility] to see if any of your close contacts may have been exposed to the virus and need to quarantine. If the test is negative, you likely do not have COVID-19 at this time, but you still may have a different illness that can spread to other people (like Influenza, or the Flu) and could still be at risk for getting COVID-19. We recommend that you stay away from other people to limit the spread of illness until your symptoms are improving and you are fever-free for 24 hours without the use of fever lowering medications such as acetaminophen or ibuprofen. No test is 100% accurate so if you are still concerned you may have COVID-19, talk to your doctor about the need to continue to stay away from others. Medicines Unless your provider told you not to use the following: Acetaminophen (Tylenol and others) is generally safe. Anti-inflammatory medications, such as Ibuprofen (Advil or Motrin) or Naproxen (Aleve) can also be used. Dbin-fjr-xdcethc cough and cold medicines can be used according to the instructions on the package. Some mwin-duu-msokclv medicines also contain acetaminophen. Make sure you are not taking more than your recommended dose. For those not hospitalized, there is no specific treatment available for this illness. Antibiotics do not treat Coronaviruses. Follow-Up Follow up with your doctor by scheduling a virtual visit or consider follow-up at one of our urgent care fever clinics. If you are having difficulty breathing, or are very weak and having difficulty standing, this is a medical emergency. Call 911 or have someone take you to the nearest emergency room immediately. If possible, wear a facemask. Additional guidance from the CDC for patients who tested POSITIVE for COVID-19 How to isolate: Isolate yourself in a specific room at home and limit your contact with others. Use a separate bathroom from other members of the household, when possible. Leave home only to get essential medical care. Do not go to work, school or public areas. Avoid using public transportation, ride-sharing, or taxis. Restrict contact with pets and other animals. If you must care for your pet or be around animals while you are sick, wash your hands before and after your interaction and wear a facemask. Make sure that shared spaces in the home have good airflow, such as by an air conditioner or an opened window, weather permitting. Personal Hygiene Procedures: Wear a face mask when in the same room as other people or pets. If a face mask interferes with your breathing, others should wear a mask when sharing space with you. Frequent hand-washing: wash your hands with soap and water for at least 20 seconds. If soap and water are not available, use alcohol-based hand clinical laboratory director. Avoid touching your eyes, nose, and mouth with unwashed hands. Household Hygiene Procedures: Avoid sharing personal household items such as dishes, glassware, cups, eating utensils, towels or bedding with other people or pets in your home. After use, these items should be washed with soap and hot water. Disinfect all high-touch surfaces every day with antibacterial cleaning solutions such as Lysol wipes, bleach, cleansers, etc. High-touch surfaces include tabletops, doorknobs, bathroom fixtures, toilets, phones, keyboards, tablets and bedside tables. Immediately clean any surfaces that may have blood, poop or body fluids on them, using antibacterial cleaning solutions such as Lysol wipes, bleach, cleansers, etc. If clothing or bedding come into contact with blood, poop or body fluids, they should be washed immediately. Follow the directions on the laundry detergent and clothing labels but hot water is recommended when possible. Stopping home isolation precautions: If possible, consult your doctor before stopping home isolation precautions. According to the CDC, you can discontinue home isolation precautions when you have met both of these criteria: Your fever and respiratory symptoms have been gone for 24 chioma (more content not included)... Normal [facility] D-DIMER, VTE EXCLUSIONon D-DIMER, VTE EXCLUSION 1702 ng/mL FEU Abnormal < or = 500 [facility] Comment on above: Result Comment: The VTE Exclusion D-Dimer assay is reported in ng/mL Fibrinogen Equivalent Units (FEU). Per manufacturers instructions for use, a value of less than 500 ng/mL (FEU) may help to exclude DVT or PE in outpatients when the assay is used with a clinical pretest probability assessment. (AEMR must utilize and document eCalc Wells Score Deep Vein Thrombosis Risk for DVT exclusion only; Emergency Department should utilize Guidelines for Emergency Department Use of the VTE Exclusion D-Dimer and Clinical Pretest probability assessment model for DVT or PE exclusion.) Performed By: #### D IMEX #### [place] [id number] Provider Note - ED v3on 05-0 Provider Note - ED v3 Provider Note: Chart Review: ED NOTES ED NOTES: Source of Information: Patient. EMR was reviewed for previous records. The EMS transfer sheet was not available during my initial assessment of the patient. -- --------- HPI: Shortness of breath, wheezing, cough, chest pain. This 36-year-old black female presents to the ED via EMS from home secondary to shortness of breath that began approximately 3 days ago she states that she has had increasing shortness of breath and wheezing with cough that occasionally produces clear sputum she denies any fevers chills or night sweats. She states that she feels as though she has had some epigastric or chest spasms for the past 3 days. She states that activity makes her symptoms worse rest helps to some extent. Today she attempted to treat her self with cigarettes without improvement and called 911. EMS noted the pulse ox on room air was 84%. Patient denies any use of oxygen. -- --------- PMH: Morbid obesity, type 2 diabetes, COPD, tobacco abuse PSH: Right breast lumpectomy that was benign Social Hx: The patient admits to daily use of cigarettes up to 1 pack/day she states that she is cutting down to 1/2 pack/day. Denies any alcohol use. Does admit to use occasional marijuana. Fam: MEDS: Metformin, glimepiride ALLERGIES: NKDA -- --------- PHYSICAL EXAM: General: Patient alert, awake, oriented X3, appears be mild respiratory distress, nontoxic, cooperative, morbidly obese Skin: Warm. Dry. Intact. No rash. Eyes: PEARTLA, EOMIs intact, sclera white, conjunctiva clear HEENT: Atraumatic. Normo-cephalic. Oral nasal mucosa pink and moist. Neck: Supple without meningismus, no lymphadenopathy. CV: Regular rate and rhythm without murmurs, heaves, lifts or thrills. Respiratory: Patient has mild tachypnea with prolonged expiratory phase with diffuse expiratory wheezing all lung plunkett. GI: Soft, nontender, without gross distention, bowel sounds present in all 4 quadrants. There is no pulsatile masses. There is no CVA tenderness. No rebound, rigidity or guarding. MUSC: There is no joint swelling or bony tenderness on exam. Neuro: Cranial nerves II - XII grossly intact. Speech is fluent. No focal neurologic deficits are noted on exam. Lower extremities: There is less 2/4 nonpitting peripheral edema bilaterally, negative Homans sign. No palpable cords. Distal pulses are present in both lower extremities. Psych: Maintains eye contact. Cooperative. -- --------- ED course: EKG was interpreted by myself at 7:40 AM reveals sinus tachycardia with flipped T waves in the lateral precordial leads. Flattening of the T waves in leads I and aVL. The heart rate is 108 bpm. The AL interval is 148 ms. QRS duration is 90 ms. QTc 485 ms axis -27 degrees. Patient states troponin and repeat troponin are both elevated. Patient did have some chest pain complaints and I discussed the case with Dr. Gaitan At 11:20 AM he recommended that he treat the patient with Lovenox for coverage of ACS and possible PE and have the patient transferred to [facility] he recommended contacted transfer center for this. Patient was taken to CT to have a CTA of the chest performed for possible PE. CTA of the chest was negative for PE. Patient currently is awaiting a room at [facility]. I had my trade union secretary contact the call center at [phone] to see if there are any other available beds in the system and currently there are none. They told her that we should be patient and hopefully there will be a bed at [facility] in the near future. This chart was dictated with the use of Vuzix software within the framework of the current electronic medical records software. Attempts were made to edit in real time, given time constraints there is the potential for inaccuracies in my dictation. Kiarra Arambula, DO HISTORY OF PRESENTING ILLNESS PABLO is a 46 year old Female and was seen by me at 27-Dec-2021 07:42. Triage Information: Most recent Vital Sign Value Date Temp (F): 97.7 12-27-2021 07:47 Temp (C): 36.5 12-27-2021 07:47 Heart Rate (beats/min): 107 12-27-2021 07:47 Respirations (breaths/min): 22 12-27-2021 07:47 SpO2 (%): 89 12-27-2021 07:47 BP Systolic (mm Hg): 154 12-27-2021 07:47 BP Diastolic (mm Hg): 114 12-27-2021 07:47 PAST MEDICAL HISTORY CURRENT OR FORMER SUBSTANCE USE: Tobacco/Nicotine Use: moderate user (uses 11-30 cig/day, (more content not included)... Normal [facility] RED CELL MORPHOLOGYon 2021 GIANT PLATELETS FEW Normal [facility] Comment on above: Performed By: #### M ORP2 #### [facility] [address] [place] [address] RBC morphology finding Nom (Bld) SEE BELOW [facility] Comment on above: Performed By: #### M ORP2 #### [place] [id number] [place] [address] Risk Screen - Adult Emergenc yon 12-27-2021 Risk Screen - Adult Emergency Preferred Language: Preferred Language: Preferred Language for Discussing Health Care (patient/designee)Surinamese Advanced Directives: Advance Directive/DNRno Family Violence Adult: Abuse Screen: Are you or have you been threatened or abused physically, emotionally, or sexually by anyoneno Learning Assessment (Patient): Learning Assessment (Patient): Patient is Able to be Assessed for Learningyes Factors Influencing Readiness to Learnacuteness of illness Factors that Impact Ability to Learnnone Devices/Methods Used to Communicatenone Learning Preferencesverbal instruction; written material Cultural Considerationsnone Developmental Considerationsnone Rastafari Considerationsnone Learning Assessment (Other Learner): Learning Assessment (Other Learner): Other learner availableno Pressure Injury/TB/Substance: Pressure Injury: Pressure Injury Present on Admissionno Do you have a coughno Smoking Statusheavy user (uses >30 cig/day, OR >1.5 ppd, OR >3 cans/pouches loose leaf tobacco per week, OR >1.5 vape pods per day) Tobacco Cessation Education (provide if tobacco use within the last 12 mos) patient declined Alcohol Usedenies(1) Drug Useoccasionally (1) Substance CommentMarijuana(1) Admission Risk Screen: Significant IndicatorsComplete CAGE: CAGE: Is this an injured patient at a Trauma Center ([facility]/Laura/Ramon/Kong/Jessica Lion/Michelle): no Electronic Signatures: Marcella Torres (LEROY) (Signed 27-Dec-2021 09:33) Authored: Preferred Language, Advanced Directives, Family Violence Adult, Learning Assessment (Patient), Learning Assessment (Other Learner), Pressure Injury/TB/Substance, Pressure Injury, CAGE Last Updated: 27-Dec-2021 09:33 by Marcella Torres (LEROY) References: 1. Data Referenced From Provider Note - ED v3 27-Dec-2021 07:45 Normal [facility] TROPONIN I, HIGH SENSITIVITY on 12-27-2021 TROPONIN I, HIGH SENSITIVITY 182 ng/L High 0 - 13 [facility] Comment on above: Result Comment: . Less than 99th percentile of normal range cutoff- Female and children under 18 years old <14 ng/L; Male <21 ng/L: Negative Repeat testing should be performed if clinically indicated. . Female and children under 18 years old 14-50 ng/L; Male 21-50 ng/L: Consistent with possible cardiac damage and possible increased clinical risk. Serial measurements may help to assess extent of myocardial damage. . >50 ng/L: Consistent with cardiac damage, increased clinical risk and myocardial infarction. Serial measurements may help assess extent of myocardial damage. . NOTE: Children less than 1 year old may have higher baseline troponin levels and results should be interpreted in conjunction with the overall clinical context. . NOTE: Troponin I testing is performed using a different testing methodology at [facility] than at other [facility]. Direct result comparisons should only be made within the same method. This is a critical result. Per Laboratory policy, critical results for this test only qualify to the call list once per 24 hours. Performed By: #### [facility] #### [place] [id number] TROPONIN I, HIGH SENSITIVITY 171 ng/L High 0 - 13 [facility] Comment on above: Result Comment: . Less than 99th percentile of normal range cutoff- Female and children under 18 years old <14 ng/L; Male <21 ng/L: Negative Repeat testing should be performed if clinically indicated. . Female and children under 18 years old 14-50 ng/L; Male 21-50 ng/L: Consistent with possible cardiac damage and possible increased clinical risk. Serial measurements may help to assess extent of myocardial damage. . >50 ng/L: Consistent with cardiac damage, increased clinical risk and myocardial infarction. Serial measurements may help assess extent of myocardial damage. . NOTE: Children less than 1 year old may have higher baseline troponin levels and results should be interpreted in conjunction with the overall clinical context. . NOTE: Troponin I testing is performed using a different testing methodology at [facility] than at other [facility]. Direct result comparisons should only be made within the same method. This is a critical result. Per Laboratory policy, critical results for this test only qualify to the call list once per 24 hours. Performed By: #### [facility] #### [address] [address] TROPONIN I, HIGH SENSITIVITY 181 ng/L Critically high 0 13 [facility] Comment on above: Order Comment: Maury Serrano, NAUN, 12/27/2021 09:36 Result Comment: . Less than 99th percentile of normal range cutoff- Female and children under 18 years old <14 ng/L; Male <21 ng/L: Negative Repeat testing should be performed if clinically indicated. . Female and children under 18 years old 14-50 ng/L; Male 21-50 ng/L: Consistent with possible cardiac damage and possible increased clinical risk. Serial measurements may help to assess extent of myocardial damage. . >50 ng/L: Consistent with cardiac damage, increased clinical risk and myocardial infarction. Serial measurements may help assess extent of myocardial damage. . NOTE: Children less than 1 year old may have higher baseline troponin levels and results should be interpreted in conjunction with the overall clinical context. . NOTE: Troponin I testing is performed using a different testing methodology at [facility] than at other [facility]. Direct result comparisons should only be made within the same method. Calin- DAMION Serrano, NAUN, 12/27/2021 09:36 Performed By: #### [facility] #### [place] [address] Triage - EDon 12-27-2021 Triage - ED Quick Triage: Are You no Have You Given In The Last 6 Weeksno Are You Currently Breastfeedingno The patient and/or guardian verbally acknowledges placement for services into the following (when Urgent Care Service hours are operating):emergency department Chart Review: ARRIVAL INFORMATION Mode of Arrival: ambulance Agency: City Agency Name: [facility] CHIEF COMPLAINT PABLO TABARES is a Female patient with a chief complaint of shortness of breath (To ED per D squad with c/o SOB x 3 days with prod cough of clear phlegm at times. She also reports that she has had some tightness and pressure in her chest. Pt is a heavy smoker, was smoking upon EMS arrival. RA SpO2 is 88-89% on arrival. Placed her on 3L/NC and SpO2 increases to 94%. CPS obtained EKG at and was given orders for breathing treatments.). Triage Date/Time: 27-Dec-2021 07:40 BEBA: 2 Pain Rating (0-10): 0 = None Pain location: denies Vital Signs: Temperature: 97.7F ( 36.5C) taken temporal Blood Pressure: 154/114 Mean: Heart Rate: 107 Respiratory Rate: 22 Pulse Oximetry: 89% on room air, no respiratory support. Weight: 279.9 pounds. Calculated 127.0 kg. Diann Coma Scale: Best Eye Response: (E4) spontaneous Best Motor Response: (M6) obeys commands Best Verbal Response: (V5) oriented [place] Score: 15 Cough lasting greater than 3 weeks: no Allergies: no Mask applied: yes Last menstrual period: unknown Patient has homicidal thoughts: no Symptoms Are POSITIVE For: cough and dyspnea. Symptoms Are Negative For: body aches, chest pain, chills, congestion, diaphoresis, fever, headache and malaise. Risk Screens Suicide Risk Screen In the Past Month: Have you wished you were or wished you could go to sleep and not wake up no In the Past Month: Have you had any actual thoughts of killing yourself no In Your Lifetime: Have you ever done anything, started to do anything, or prepared to do anything to end your life no Nath Fall Scale Screening Has the patient fallen before (or is the patient in the ED as a result of a fall) has not had a fall Does the patient have an impaired gait does not have impaired gait Is the patient cognitively impaired not cognitively impaired Interventions: Nath Fall Interventions: LOW INTERVENTIONS: *patient oriented to surroundings and call system, * patient/family falls education completed and documented, *patients fall status communicated during bedside handoff, *whiteboard updated, *mode of toileting discussed with patient, *bed in low position with brakes locked, *call light in reach, * non-skid footwear TRAVEL HISTORY Travel History Coronavirus Screening: no exposure or symptoms Travel Exposure History: NO travel to International locations in the past 30 days PAIN Pain Scale Used: AMBER Pain Rating (0-10): 0 = None Past Medical History: Past Medical History Reviewedyes HTN: Past Medical History, Active Diabetes: Past Medical History, Active COPD: Past Medical History, Active Electronic Signatures: Marcella Torres (LEROY) (Signed 27-Dec-2021 07:51) Entered: Risk Screens, Pain, Travel History, Chart Review, Scores, Past Medical History Authored: Quick Triage, Risk Screens, Pain, Travel History, Chart Review, Scores, Past Medical History Last Updated: 27-Dec-2021 07:51 by Marcella Torres (RN) Normal [facility] VENOUS BLOOD GASon 2 BASE EXCESS-BLOOD 2.4 mmol/L Normal -2.0 - 3.0 [facility] Comment on above: Performed By: #### B NP2 #### [place] [address] BICARB, CALCULATED 26.4 mmol/L High 22.0 - 26.0 [facility] Comment on above: Performed By: #### B NP2 #### [place] [address] FIO2 28 % Normal [facility] Comment on above: Performed By: #### B NP2 #### [place] [address] OXY HGB 75.6 % High 45.0 - 75.0 [facility] Comment on above: Performed By: #### B NP2 #### [place] [address] Oxygen (Bld) [Partial pressure] 49 mm[Hg] High 35 - 45 [facility] Comment on above: Performed By: #### B NP2 #### [place] [address] PATIENT TEMPERATURE 37.0 degrees C Normal [facility] Comment on above: Result Comment: NOTE : PATIENT RESULTS ARE NOT CORRECTED FOR TEMPERATURE. Performed By: #### B NP2 #### [place] [address] PCO2 38 mmHg Low 41 - 51 [facility] Comment on above: Performed By: #### B NP2 #### [place] [address] pH (Bld) 7.45 [pH] High 7.33 - 7.43 [facility] Comment on above: Performed By: #### B NP2 #### [place] [address] SO2 84 % High 45 - 75 [facility] Comment on above: Performed By: #### B NP2 #### [place] [address] CT Spine Lumbar w/o Contrast on 01-21-2019 CT Spine Lumbar w/o Contrast Exam Date/Time: 01/21/2019 01:15 EDT Reason for Exam: Sprain/Strain Report STUDY: CT Spine Lumbar w/o Contrast; 01/21/2019 1:15 am INDICATION: Sprain/Strain. COMPARISON: None. ACCESSION NUMBER(S): [id number] ORDERING CLINICIAN: Jeri Licea TECHNIQUE: Contiguous axial images of the lumbar spine were obtained without intravenous contrast. Coronal and sagittal reformatted images were obtained from the axial images. FINDINGS: The examination is limited secondary to body habitus. No evidence of acute fracture or malalignment of the lumbar spine. The vertebral body heights are preserved. There is degenerative change of the lumbar and imaged lower thoracic spine with mild multilevel anterior osseous spurring. There is limited evaluation of the soft tissues of the spinal canal. At L1-L2, there is no evidence of significant spinal canal stenosis. At L2-L3, there is no evidence of significant spinal canal stenosis. At L3-L4, there is mild disc bulge without evidence of significant spinal canal stenosis. At L4-L5, there is mild disc bulge and degenerative facet arthropathy without evidence of significant spinal canal stenosis. At L5-S1, there is mild disc bulge without evidence of significant spinal canal stenosis. IMPRESSION: No evidence of acute fracture or malalignment of the lumbar spine. FINAL REPORT Dictated: 01/21/2019 1:19 am Anton Sauer MD Signed (Electronic Signature): 01/21/2019 1:19 am Signed by: Anton Sauer MD Technologist: [facility] [place] Mamm Screen w/CAD if perf ormed bilaton 09-08-2018 [place] Mamm Screen w/CAD if performed bilat Exam Date/Time: 09/08/2018 11:41 EST Reason for Exam: SCREENING Report STUDY: [place] Mamm Screen w/CAD if performed bilat; 09/08/2018 11:41 am ACCESSION NUMBER(S): [id number] ORDERING CLINICIAN: Kendra Foote INDICATION: Screening. COMPARISON: None. FINDINGS: There are areas of scattered fibroglandular tissue. No suspicious masses or calcifications are identified. IMPRESSION: No mammographic evidence of malignancy. BI-RADS CATEGORY: Category: 2 - Benign Finding. Recommendation: Normal Interval Follow-up, Over Age 40. Recall Interval: 12 Months. Breast Density: Scattered Fibroglandular Density. For any future breast imaging appointments, please call [phone]). FINAL REPORT Dictated: 09/08/2018 3:47 pm Miki Lopez MD Signed (Electronic Signature): 09/08/2018 3:47 pm Signed by: Miki Lopez MD Technologist: [facility] Assessment: BI-RADS Category 2-Benign finding Recommendation: Normal interval follow-up Normal [facility] POC Glucoseon 06-13-2017 Glucose mass conc 131 mg/dL High 65 - 99 mg/dL [facility] Interpretation and review of laboratory results Abnormal Invalid Interpretation Code [facility] Glucose mass conc 136 mg/dL High 65 - 99 mg/dL [facility] Interpretation and review of laboratory results Abnormal Invalid Interpretation Code [facility] POC Glucoseon 06-12-2017 Glucose mass conc 198 mg/dL High 65 - 99 mg/dL [facility] Interpretation and review of laboratory results Abnormal Invalid Interpretation Code [facility] Glucose mass conc 148 mg/dL High 65 - 99 mg/dL [facility] Interpretation and review of laboratory results Abnormal Invalid Interpretation Code [facility] Glucose mass conc 136 mg/dL High 65 - 99 mg/dL [facility] Interpretation and review of laboratory results Abnormal Invalid Interpretation Code [facility] Glucose mass conc 138 mg/dL High 65 - 99 mg/dL [facility] Interpretation and review of laboratory results Abnormal Invalid Interpretation Code [facility] POC Glucoseon 06-11-2017 Glucose mass conc 232 mg/dL High 65 - 99 mg/dL [facility] Interpretation and review of laboratory results Abnormal Invalid Interpretation Code [facility] Glucose mass conc 185 mg/dL High 65 - 99 mg/dL [facility] Interpretation and review of laboratory results Abnormal Invalid Interpretation Code [facility] Glucose mass conc 148 mg/dL High 65 - 99 mg/dL [facility] Interpretation and review of laboratory results Abnormal Invalid Interpretation Code [facility] Glucose mass conc 131 mg/dL High 65 - 99 mg/dL [facility] Interpretation and review of laboratory results Abnormal Invalid Interpretation Code [facility] POC Glucoseon 06-10-2017 Glucose mass conc 196 mg/dL High 65 - 99 mg/dL [facility] Interpretation and review of laboratory results Abnormal Invalid Interpretation Code [facility] Glucose mass conc 105 mg/dL High 65 - 99 mg/dL [facility] Interpretation and review of laboratory results Abnormal Invalid Interpretation Code [facility] Glucose mass conc 153 mg/dL High 65 - 99 mg/dL [facility] Interpretation and review of laboratory results Abnormal Invalid Interpretation Code [facility] Glucose mass conc 142 mg/dL High 65 - 99 mg/dL [facility] Interpretation and review of laboratory results Abnormal Invalid Interpretation Code [facility] POC Glucoseon 06-09-2017 Glucose mass conc 171 mg/dL High 65 - 99 mg/dL [facility] Interpretation and review of laboratory results Abnormal Invalid Interpretation Code [facility] Glucose mass conc 181 mg/dL High 65 - 99 mg/dL [facility] Interpretation and review of laboratory results Abnormal Invalid Interpretation Code [facility] Glucose mass conc 187 mg/dL High 65 - 99 mg/dL [facility] Interpretation and review of laboratory results Abnormal Invalid Interpretation Code [facility] Glucose mass conc 154 mg/dL High 65 - 99 mg/dL [facility] Interpretation and review of laboratory results Abnormal Invalid Interpretation Code [facility] POC Glucoseon 06-08-2017 Glucose mass conc 169 mg/dL High 65 - 99 mg/dL [facility] Interpretation and review of laboratory results Abnormal Invalid Interpretation Code [facility] Glucose mass conc 190 mg/dL High 65 - 99 mg/dL [facility] Interpretation and review of laboratory results Abnormal Invalid Interpretation Code [facility] Glucose mass conc 143 mg/dL High 65 - 99 mg/dL [facility] Interpretation and review of laboratory results Abnormal Invalid Interpretation Code [facility] Glucose mass conc 133 mg/dL High 65 - 99 mg/dL [facility] Interpretation and review of laboratory results Abnormal Invalid Interpretation Code [facility] POC Glucoseon 06-07-2017 Glucose mass conc 187 mg/dL High 65 - 99 mg/dL [facility] Interpretation and review of laboratory results Abnormal Invalid Interpretation Code [facility] Glucose mass conc 181 mg/dL High 65 - 99 mg/dL [facility] Interpretation and review of laboratory results Abnormal Invalid Interpretation Code [facility] Glucose mass conc 119 mg/dL High 65 - 99 mg/dL [facility] Interpretation and review of laboratory results Abnormal Invalid Interpretation Code [facility] Glucose mass conc 146 mg/dL High 65 - 99 mg/dL [facility] Interpretation and review of laboratory results Abnormal Invalid Interpretation Code [facility] POC Glucoseon 06-06-2017 Glucose mass conc 164 mg/dL High 65 - 99 mg/dL [facility] Interpretation and review of laboratory results Abnormal Invalid Interpretation Code [facility] Glucose mass conc 116 mg/dL High 65 - 99 mg/dL [facility] Interpretation and review of laboratory results Abnormal Invalid Interpretation Code [facility] Glucose mass conc 127 mg/dL High 65 - 99 mg/dL [facility] Interpretation and review of laboratory results Abnormal Invalid Interpretation Code [facility] Glucose mass conc 149 mg/dL High 65 - 99 mg/dL [facility] Interpretation and review of laboratory results Abnormal Invalid Interpretation Code [facility] POC Glucoseon 06-05-2017 Glucose mass conc 153 mg/dL High 65 - 99 mg/dL [facility] Interpretation and review of laboratory results Abnormal Invalid Interpretation Code [facility] Glucose mass conc 161 mg/dL High 65 - 99 mg/dL [facility] Interpretation and review of laboratory results Abnormal Invalid Interpretation Code [facility] Glucose mass conc 120 mg/dL High 65 - 99 mg/dL [facility] Interpretation and review of laboratory results Abnormal Invalid Interpretation Code [facility] Glucose mass conc 134 mg/dL High 65 - 99 mg/dL [facility] Interpretation and review of laboratory results Abnormal Invalid Interpretation Code [facility] POC Glucoseon 06-04-2017 Glucose mass conc 189 mg/dL High 65 - 99 mg/dL [facility] Interpretation and review of laboratory results Abnormal Invalid Interpretation Code [facility] Glucose mass conc 155 mg/dL High 65 - 99 mg/dL [facility] Interpretation and review of laboratory results Abnormal Invalid Interpretation Code [facility] Glucose mass conc 130 mg/dL High 65 - 99 mg/dL [facility] Interpretation and review of laboratory results Abnormal Invalid Interpretation Code [facility] Glucose mass conc 124 mg/dL High 65 - 99 mg/dL [facility] Interpretation and review of laboratory results Abnormal Invalid Interpretation Code [facility] POC Glucoseon 06-03-2017 Glucose mass conc 182 mg/dL High 65 - 99 mg/dL [facility] Interpretation and review of laboratory results Abnormal Invalid Interpretation Code [facility] Glucose mass conc 127 mg/dL High 65 - 99 mg/dL [facility] Interpretation and review of laboratory results Abnormal Invalid Interpretation Code [facility] Glucose mass conc 124 mg/dL High 65 - 99 mg/dL [facility] Interpretation and review of laboratory results Abnormal Invalid Interpretation Code [facility] Glucose mass conc 161 mg/dL High 65 - 99 mg/dL [facility] Interpretation and review of laboratory results Abnormal Invalid Interpretation Code [facility] POC Glucoseon 06-02-2017 Glucose mass conc 185 mg/dL High 65 - 99 mg/dL [facility] Interpretation and review of laboratory results Abnormal Invalid Interpretation Code [facility] Glucose mass conc 148 mg/dL High 65 - 99 mg/dL [facility] Interpretation and review of laboratory results Abnormal Invalid Interpretation Code [facility] Glucose mass conc 138 mg/dL High 65 - 99 mg/dL [facility] Interpretation and review of laboratory results Abnormal Invalid Interpretation Code [facility] Glucose mass conc 124 mg/dL High 65 - 99 mg/dL [facility] Interpretation and review of laboratory results Abnormal Invalid Interpretation Code [facility] POC Glucoseon 06-01-2017 Glucose mass conc 152 mg/dL High 65 - 99 mg/dL [facility] Interpretation and review of laboratory results Abnormal Invalid Interpretation Code [facility] Glucose mass conc 154 mg/dL High 65 - 99 mg/dL [facility] Interpretation and review of laboratory results Abnormal Invalid Interpretation Code [facility] Glucose mass conc 148 mg/dL High 65 - 99 mg/dL [facility] Interpretation and review of laboratory results Abnormal Invalid Interpretation Code [facility] Glucose mass conc 139 mg/dL High 65 - 99 mg/dL [facility] Interpretation and review of laboratory results Abnormal Invalid Interpretation Code [facility] POC Glucoseon 05-31-2017 Glucose mass conc 162 mg/dL High 65 - 99 mg/dL [facility] Interpretation and review of laboratory results Abnormal Invalid Interpretation Code [facility] Glucose mass conc 213 mg/dL High 65 - 99 mg/dL [facility] Interpretation and review of laboratory results Abnormal Invalid Interpretation Code [facility] Glucose mass conc 146 mg/dL High 65 - 99 mg/dL [facility] Interpretation and review of laboratory results Abnormal Invalid Interpretation Code [facility] Glucose mass conc 145 mg/dL High 65 - 99 mg/dL [facility] Interpretation and review of laboratory results Abnormal Invalid Interpretation Code [facility] POC Glucoseon 05-30-2017 Glucose mass conc 121 mg/dL High 65 - 99 mg/dL [facility] Interpretation and review of laboratory results Abnormal Invalid Interpretation Code [facility] Glucose mass conc 192 mg/dL High 65 - 99 mg/dL [facility] Interpretation and review of laboratory results Abnormal Invalid Interpretation Code [facility] Glucose mass conc 107 mg/dL High 65 - 99 mg/dL [facility] Interpretation and review of laboratory results Abnormal Invalid Interpretation Code [facility] Glucose mass conc 141 mg/dL High 65 - 99 mg/dL [facility] Interpretation and review of laboratory results Abnormal Invalid Interpretation Code [facility] POC Glucoseon 05-29-2017 Glucose mass conc 205 mg/dL High 65 - 99 mg/dL [facility] Interpretation and review of laboratory results Abnormal Invalid Interpretation Code [facility] Glucose mass conc 149 mg/dL High 65 - 99 mg/dL [facility] Interpretation and review of laboratory results Abnormal Invalid Interpretation Code [facility] Glucose mass conc 127 mg/dL High 65 - 99 mg/dL [facility] Interpretation and review of laboratory results Abnormal Invalid Interpretation Code [facility] Glucose mass conc 131 mg/dL High 65 - 99 mg/dL [facility] Interpretation and review of laboratory results Abnormal Invalid Interpretation Code [facility] POC Glucoseon 05-28-2017 Glucose mass conc 144 mg/dL High 65 - 99 mg/dL [facility] Interpretation and review of laboratory results Abnormal Invalid Interpretation Code [facility] Glucose mass conc 163 mg/dL High 65 - 99 mg/dL [facility] Interpretation and review of laboratory results Abnormal Invalid Interpretation Code [facility] Glucose mass conc 111 mg/dL High 65 - 99 mg/dL [facility] Interpretation and review of laboratory results Abnormal Invalid Interpretation Code [facility] Vitamin B12on 05-28-2017 Cobalamin (Vitamin B12) mass conc 404 pg/mL Invalid Interpretation Code 243 - 894 pg/mL [facility] Vitamin D 1,25 Dihydroxyon 1 1,25-Dihydroxyvitami n D mass conc 58.5 pg/mL Invalid Interpretation Code 19.9 - 79.3 pg/mL [facility] Interpretation and review of laboratory results Normal Invalid Interpretation Code [facility] Vitamin D 1,25 Dihydroxy Assay performed using [employer] CLIA methodology. Invalid Interpretation Code [facility] Alcohol, Medicalon 7 Ethanol mass conc mg/dL Invalid Interpretation Code <3.00 mg/dL [facility] Comment on above: Alcohol cutoff: <3.0 0 mg/dL = None Detected CBC Auto Differentialon Basophils Auto #/vol (Bld) 0.02 K/mcL Invalid Interpretation Code 0.00 - 0.30 [facility] Basophils/100 WBC Auto (Bld) 0.2 % Invalid Interpretation Code [facility] Eosinophils Auto #/vol (Bld) 0.14 K/mcL Invalid Interpretation Code 0.00 - 0.50 [facility] Eosinophils/100 WBC Auto (Bld) 1.2 % Invalid Interpretation Code [facility] Erythrocyte distribution width Auto Entitic volume (RBC) 15.6 % High 11.6 - 14.8 % [facility] Hematocrit Auto Volume Fraction (Bld) 39.7 % Invalid Interpretation Code 36 - 46 % [facility] Hemoglobin mass conc (Bld) 13.1 g/dL Invalid Interpretation Code 12 - 16 g/dL [facility] Immature granulocytes #/vol (Bld) 0.04 K/mcL Invalid Interpretation Code 0.00 - 0.30 [facility] Immature granulocytes/100 WBC (Bld) 0.30 % Invalid Interpretation Code [facility] Comment on above: The IG parameter is the percentage of metamyelocytes, myelocytes, and promyelocytes. Interpretation and review of laboratory results Abnormal Invalid Interpretation Code [facility] Lymphocytes Auto #/vol (Bld) 2.96 K/mcL Invalid Interpretation Code 0.90 - 4.00 [facility] Lymphocytes/100 WBC Auto (Bld) 25.7 % Invalid Interpretation Code [facility] MCH Auto Entitic mass (RBC) 29.0 pg Invalid Interpretation Code 26 - 34 pg [facility] MCHC Auto mass conc (RBC) 33.0 g/dL Invalid Interpretation Code 31 - 37 g/dL [facility] MCV Auto Entitic volume (RBC) 87.8 fL Invalid Interpretation Code 80 - 100 fL [facility] Monocytes Auto #/vol (Bld) 0.60 K/mcL Invalid Interpretation Code 0.30 - 0.90 [facility] Monocytes/100 WBC Auto (Bld) 5.2 % Invalid Interpretation Code [facility] Neutrophils Auto #/vol (Bld) 7.77 K/mcL High 1.70 - 7.00 [facility] Neutrophils/100 WBC Auto (Bld) 67.4 % Invalid Interpretation Code [facility] Nucleated RBC #/vol (Bld) 0.00 K/mcL Invalid Interpretation Code 0.00 - 0.00 [facility] Nucleated RBC/100 WBC Ratio (Bld) 0.0 % Invalid Interpretation Code [facility] Platelet mean volume Auto Entitic volume (Bld) 11.0 fL Invalid Interpretation Code 9 - 15.5 fL [facility] Platelets Auto #/vol (Bld) 189 K/mcL Invalid Interpretation Code 150 - 400 [facility] RBC Auto #/vol (Bld) 4.52 M/mcL Invalid Interpretation Code 4.00 - 5.20 [facility] WBC Auto #/vol (Bld) 11.53 K/mcL High 4.50 - 11.00 [facility] CBC w/ Diffon 05-27-2017 CBC w/ Diff The following orders were created for panel order CBC w/ Diff. Procedure Abnormality Status --------- ------ CBC Auto Differential[[id number]] Abnormal Final result Please view results for these tests on the individual orders. Invalid Interpretation Code [facility] [facility] Work Phone: CMPon 05-27-2017 Albumin mass conc 3.7 g/dL Invalid Interpretation Code 3.2 - 5.2 g/dL [facility] ALP enzyme act/vol 97 U/L Invalid Interpretation Code 40 - 150 U/L [facility] ALT enzyme act/vol 21 U/L Invalid Interpretation Code 14 - 65 U/L [facility] Anion gap 3 molar conc 11 mmol/L Invalid Interpretation Code 10 - 20 mmol/L [facility] AST enzyme act/vol 14 U/L Invalid Interpretation Code 0 - 45 U/L [facility] Bilirubin mass conc 0.2 mg/dL Invalid Interpretation Code 0 - 1.3 mg/dL [facility] Calcium mass conc 8.9 mg/dL Invalid Interpretation Code 8.4 - 10.2 mg/dL [facility] Chloride molar conc 106 mmol/L Invalid Interpretation Code 98 - 108 mmol/L [facility] Creatinine mass conc 0.90 mg/dL Invalid Interpretation Code 0.4 - 1.1 mg/dL [facility] GFR/1.73 sq M predicted among non-blacks MDRD vol rate/area (S/P/Bld) The eGFR should be used for monitoring renal function only and not for medication dosing. Invalid Interpretation Code [facility] GFR/1.73 sq M.predicted CKD-EPI vol rate/area (S/P/Bld) 91 mL/min/1.73 m2 Invalid Interpretation Code >=60 [facility] Glucose mass conc 137 mg/dL High 65 - 99 mg/dL [facility] HCO3 molar conc 27 mmol/L Invalid Interpretation Code 21 - 32 mmol/L [facility] Potassium molar conc 3.2 mmol/L Low 3.5 - 5 .1 mmol/L [facility] Protein mass conc 8.1 g/dL High 6 - 8 g/dL [facility] Sodium molar conc 141 mmol/L Invalid Interpretation Code 135 - 145 mmol/L [facility] Urea nitrogen mass conc 10 mg/dL Invalid Interpretation Code 8 - 25 mg/dL [facility] Urea nitrogen/Creatinine mass ratio 11.1 mg/mg Invalid Interpretation Code 10.0 - 20.0 [facility] Comprehensive metabolic pane renato 05-27-2017 Albumin mass conc 3.8 g/dL Invalid Interpretation Code 3.2 - 5.2 g/dL [facility] ALP enzyme act/vol 102 U/L Invalid Interpretation Code 40 - 150 U/L [facility] ALT enzyme act/vol 21 U/L Invalid Interpretation Code 14 - 65 U/L [facility] Anion gap 3 molar conc 10 mmol/L Invalid Interpretation Code 10 - 20 mmol/L [facility] AST enzyme act/vol 13 U/L Invalid Interpretation Code 0 - 45 U/L [facility] Bilirubin mass conc 0.4 mg/dL Invalid Interpretation Code 0 - 1.3 mg/dL [facility] Calcium mass conc 9.0 mg/dL Invalid Interpretation Code 8.4 - 10.2 mg/dL [facility] Chloride molar conc 106 mmol/L Invalid Interpretation Code 98 - 108 mmol/L [facility] Creatinine mass conc 0.76 mg/dL Invalid Interpretation Code 0.4 - 1.1 mg/dL [facility] GFR/1.73 sq M predicted among non-blacks MDRD vol rate/area (S/P/Bld) The eGFR should be used for monitoring renal function only and not for medication dosing. Invalid Interpretation Code [facility] GFR/1.73 sq M.predicted CKD-EPI vol rate/area (S/P/Bld) 111 mL/min/1.73 m2 Invalid Interpretation Code >=60 [facility] Glucose mass conc 127 mg/dL High 65 - 99 mg/dL [facility] HCO3 molar conc 28 mmol/L Invalid Interpretation Code 21 - 32 mmol/L [facility] Interpretation and review of laboratory results Abnormal Invalid Interpretation Code [facility] Potassium molar conc 3.5 mmol/L Invalid Interpretation Code 3.5 - 5.1 mmol/L [facility] Protein mass conc 8.3 g/dL High 6 - 8 g/dL [facility] Sodium molar conc 140 mmol/L Invalid Interpretation Code 135 - 145 mmol/L [facility] Urea nitrogen mass conc 9 mg/dL Invalid Interpretation Code 8 - 25 mg/dL [facility] Urea nitrogen/Creatinine mass ratio 11.8 mg/mg Invalid Interpretation Code 10.0 - 20.0 [facility] Drugs of Abuse Screen, Urine on 05-27-2017 Amphetamine Screen Ql (U) None Detected Invalid Interpretation Code None Detected [facility] Comment on above: Urine Amphetamine Cu toff: < 1000 ng/mL = None Detected Barbiturates Screen Ql (U) None Detected Invalid Interpretation Code None Detected [facility] Comment on above: Urine Barbiturates C utoff: < 200 ng/mL = None Detected Benzodiazepines Screen Ql (U) None Detected Invalid Interpretation Code None Detected [facility] Comment on above: Urine Benzodiazepine Cutoff: < 200 ng/mL = None Detected Cannabinoids Screen Ql (U) None Detected Invalid Interpretation Code None Detected [facility] Comment on above: Urine Cannabinoids C utoff: < 50 ng/mL = None Detected Cocaine Screen Ql (U) None Detected Invalid Interpretation Code None Detected [facility] Comment on above: Urine Cocaine Cutoff : < 300 ng/mL = None Detected Interpretation and review of laboratory results Normal Invalid Interpretation Code [facility] Methadone Screen Ql (U) None Detected Invalid Interpretation Code None Detected [facility] Comment on above: Urine Methadone Cuto ff: < 300 ng/mL = None Detected Opiates Screen Ql (U) None Detected Invalid Interpretation Code None Detected [facility] Comment on above: Urine Opiates Cutoff : < 300 ng/mL = None Detected Oxycodone Screen Ql (U) None Detected Invalid Interpretation Code None Detected [facility] Comment on above: Urine Oxycodone Cuto ff: < 100 ng/mL = None Detected Drugs of Abuse Screen, Urine Screen results should be used for treatment purposes only. Invalid Interpretation Code [facility] Hemoglobin A1con 05-27-2017 Average glucose Estimated from glycated hemoglobin mass conc (Bld) 154 mg/dL High 68 - 126 mg/dL [facility] Hemoglobin A1c/Hemoglobin.total mass fraction (Bld) 7.0 % High 4 - 6 % [facility] Lipid Panelon 05-27-2017 Cholesterol in HDL mass conc 54 mg/dL Invalid Interpretation Code 40 - 59 mg/dL [facility] Comment on above: National Cholesterol Education Program Guidelines: HDL Cholesterol Low: <40 mg/dL Near Optimal: 40-59 mg/dL High: greater than or equal to 60 mg/dL Cholesterol in LDL mass conc 57 mg/dL Invalid Interpretation Code 10 - 150 mg/dL [facility] Comment on above: National Cholesterol Education Program Guidelines: LDL Cholesterol Optimal: <100 mg/dL Near Optimal/above Optimal: 100-129 mg/dL Borderline High: 130-159 mg/dL High: 160-189 mg/dL Very High: greater than or equal to 190 mg/dL Cholesterol mass conc 127 mg/dL Invalid Interpretation Code 100 - 199 mg/dL [facility] Comment on above: National Cholesterol Education Program Guidelines: Cholesterol Desirable: <200 mg/dL Borderline High: 200-239 mg/dL High: greater than or equal to 240 mg/dL Cholesterol non HDL mass conc 73 mg/dL Invalid Interpretation Code [facility] Comment on above: National Cholesterol Education Program Guidelines: NON HDL Cholesterol Desirable: <130 mg/dL Borderline High: 130-159 mg/dL High: 160-189 mg/dL Very High: > or = 190 mg/dL Cholesterol.total/Ch olesterol in HDL mass ratio 2.4 {ratio} Invalid Interpretation Code [facility] Comment on above: Female Cholesterol/H DL Ratio: Average risk: 4.4 1/2 average risk: 3.3 2 x average risk: 7.1 Triglyceride mass conc 79 mg/dL Invalid Interpretation Code 30 - 150 mg/dL [facility] Comment on above: National Cholesterol Education Program Guidelines: Triglyceride Normal: <150 mg/dL Borderline High: 150-199 mg/dL High: 200-499 mg/dL Very High: greater than or equal to 500 mg/dL Magnesiumon 05-27-2017 Interpretation and review of laboratory results Normal Invalid Interpretation Code [facility] Magnesium mass conc 2.4 mg/dL Invalid Interpretation Code 1.6 - 2.4 mg/dL [facility] POC Glucoseon 05-27-2017 Glucose mass conc 157 mg/dL High 65 - 99 mg/dL [facility] Interpretation and review of laboratory results Abnormal Invalid Interpretation Code [facility] Glucose mass conc 99 mg/dL Invalid Interpretation Code 65 - 99 mg/dL [facility] Interpretation and review of laboratory results Normal Invalid Interpretation Code [facility] TSH with Reflex Free T4on Interpretation and review of laboratory results Normal Invalid Interpretation Code [facility] Thyrotropin Qn 1.13 mcIU/mL Invalid Interpretation Code 0.32 - 5.00 [facility] Thyrotropin Qn 0.87 mcIU/mL Invalid Interpretation Code 0.32 - 5.00 [facility] Urinalysison 05-27-2017 Bacteria Auto Ql (U) None Seen Invalid Interpretation Code None Seen /hpf [facility] Bilirubin Ql (U) Negative Invalid Interpretation Code Negative [facility] Clarity Refractometry automated Nom (U) Hazy Abnormal Clear [facility] Color Auto Nom (U) Yellow Invalid Interpretation Code Colorless, Yellow [facility] Epithelial cells.squamous Auto #/area (Urine sed) 2 /hpf Invalid Interpretation Code 0 - 4 [facility] Glucose Automated test strip mass conc (U) Negative Invalid Interpretation Code Negative mg/dL [facility] Hemoglobin Automated test strip Ql (U) Small Abnormal Negative [facility] Interpretation and review of laboratory results Abnormal Invalid Interpretation Code [facility] Ketones mass conc (U) Negative Invalid Interpretation Code Negative mg/dL [facility] Leukocyte esterase Automated test strip Ql (U) Moderate Abnormal Negative [facility] Nitrite Automated test strip Ql (U) Negative Invalid Interpretation Code Negative [facility] pH Test strip (U) 6.0 [pH] Invalid Interpretation Code 5.0 - 7.0 [facility] Protein mass conc (U) Negative Invalid Interpretation Code Negative mg/dL [facility] RBC Auto #/area (Urine sed) 5 /hpf High 0 - 3 [facility] Specific gravity Automated test strip Relative Density (U) 1.025 1 Invalid Interpretation Code 1.005 - 1.025 [facility] Urobilinogen Test strip Qn (U) <2.0 Invalid Interpretation Code <2.0 mg/dL [facility] WBC Auto #/area (Urine sed) 20 /hpf High 0 - 5 [facility] Urinalysis 00 00 Invalid Interpretation Code [facility] Urine Pregnancyon 05-27-2017 HCG ( test) Ql (U) Negative Invalid Interpretation Code Negative [facility] Interpretation and review of laboratory results Normal Invalid Interpretation Code [facility] POC Glucoseon 05-02-2017 Glucose mass conc 143 mg/dL High 65 - 99 mg/dL [facility] Interpretation and review of laboratory results Abnormal [facility] Glucose mass conc 115 mg/dL High 65 - 99 mg/dL [facility] Interpretation and review of laboratory results Abnormal [facility] Glucose mass conc 133 mg/dL High 65 - 99 mg/dL [facility] Interpretation and review of laboratory results Abnormal [facility] POC Glucoseon 05-01-2017 Glucose mass conc 160 mg/dL High 65 - 99 mg/dL [facility] Interpretation and review of laboratory results Abnormal [facility] Glucose mass conc 163 mg/dL High 65 - 99 mg/dL [facility] Interpretation and review of laboratory results Abnormal [facility] Glucose mass conc 132 mg/dL High 65 - 99 mg/dL [facility] Interpretation and review of laboratory results Abnormal [facility] Glucose mass conc 156 mg/dL High 65 - 99 mg/dL [facility] Interpretation and review of laboratory results Abnormal [facility] POC Glucoseon 04-30-2017 Glucose mass conc 194 mg/dL High 65 - 99 mg/dL [facility] Interpretation and review of laboratory results Abnormal [facility] Glucose mass conc 149 mg/dL High 65 - 99 mg/dL [facility] Interpretation and review of laboratory results Abnormal [facility] Glucose mass conc 125 mg/dL High 65 - 99 mg/dL [facility] Interpretation and review of laboratory results Abnormal [facility] Glucose mass conc 134 mg/dL High 65 - 99 mg/dL [facility] Interpretation and review of laboratory results Abnormal [facility] POC Glucoseon 04-29-2017 Glucose mass conc 191 mg/dL High 65 - 99 mg/dL [facility] Interpretation and review of laboratory results Abnormal [facility] Glucose mass conc 152 mg/dL High 65 - 99 mg/dL [facility] Interpretation and review of laboratory results Abnormal [facility] Glucose mass conc 117 mg/dL High 65 - 99 mg/dL [facility] Interpretation and review of laboratory results Abnormal [facility] Glucose mass conc 132 mg/dL High 65 - 99 mg/dL [facility] Interpretation and review of laboratory results Abnormal [facility] POC Glucoseon 04-28-2017 Glucose mass conc 192 mg/dL High 65 - 99 mg/dL [facility] Interpretation and review of laboratory results Abnormal [facility] Glucose mass conc 152 mg/dL High 65 - 99 mg/dL [facility] Interpretation and review of laboratory results Abnormal [facility] Glucose mass conc 121 mg/dL High 65 - 99 mg/dL [facility] Interpretation and review of laboratory results Abnormal [facility] Glucose mass conc 149 mg/dL High 65 - 99 mg/dL [facility] Interpretation and review of laboratory results Abnormal [facility] POC Glucoseon 04-27-2017 Glucose mass conc 233 mg/dL High 65 - 99 mg/dL [facility] Interpretation and review of laboratory results Abnormal [facility] Glucose mass conc 141 mg/dL High 65 - 99 mg/dL [facility] Interpretation and review of laboratory results Abnormal [facility] Glucose mass conc 175 mg/dL High 65 - 99 mg/dL [facility] Interpretation and review of laboratory results Abnormal [facility] Glucose mass conc 147 mg/dL High 65 - 99 mg/dL [facility] Interpretation and review of laboratory results Abnormal [facility] POC Glucoseon 04-26-2017 Glucose mass conc 170 mg/dL High 65 - 99 mg/dL [facility] Interpretation and review of laboratory results Abnormal [facility] Glucose mass conc 126 mg/dL High 65 - 99 mg/dL [facility] Interpretation and review of laboratory results Abnormal [facility] Glucose mass conc 148 mg/dL High 65 - 99 mg/dL [facility] Interpretation and review of laboratory results Abnormal [facility] Glucose mass conc 150 mg/dL High 65 - 99 mg/dL [facility] Interpretation and review of laboratory results Abnormal [facility] POC Glucoseon 04-25-2017 Glucose mass conc 177 mg/dL High 65 - 99 mg/dL [facility] Interpretation and review of laboratory results Abnormal [facility] Glucose mass conc 167 mg/dL High 65 - 99 mg/dL [facility] Interpretation and review of laboratory results Abnormal [facility] Glucose mass conc 172 mg/dL High 65 - 99 mg/dL [facility] Interpretation and review of laboratory results Abnormal [facility] Glucose mass conc 138 mg/dL High 65 - 99 mg/dL [facility] Interpretation and review of laboratory results Abnormal [facility] POC Glucoseon 04-24-2017 Glucose mass conc 200 mg/dL High 65 - 99 mg/dL [facility] Interpretation and review of laboratory results Abnormal [facility] Glucose mass conc 161 mg/dL High 65 - 99 mg/dL [facility] Interpretation and review of laboratory results Abnormal [facility] Glucose mass conc 105 mg/dL High 65 - 99 mg/dL [facility] Interpretation and review of laboratory results Abnormal [facility] Glucose mass conc 134 mg/dL High 65 - 99 mg/dL [facility] Interpretation and review of laboratory results Abnormal [facility] POC Glucoseon 04-23-2017 Glucose mass conc 234 mg/dL High 65 - 99 mg/dL [facility] Interpretation and review of laboratory results Abnormal [facility] Glucose mass conc 120 mg/dL High 65 - 99 mg/dL [facility] Interpretation and review of laboratory results Abnormal [facility] Glucose mass conc 124 mg/dL High 65 - 99 mg/dL [facility] Interpretation and review of laboratory results Abnormal [facility] Glucose mass conc 137 mg/dL High 65 - 99 mg/dL [facility] Interpretation and review of laboratory results Abnormal [facility] POC Glucoseon 04-22-2017 Glucose mass conc 171 mg/dL High 65 - 99 mg/dL [facility] Interpretation and review of laboratory results Abnormal [facility] Glucose mass conc 158 mg/dL High 65 - 99 mg/dL [facility] Interpretation and review of laboratory results Abnormal [facility] Glucose mass conc 114 mg/dL High 65 - 99 mg/dL [facility] Interpretation and review of laboratory results Abnormal [facility] Glucose mass conc 114 mg/dL High 65 - 99 mg/dL [facility] Interpretation and review of laboratory results Abnormal [facility] POC Glucoseon 04-21-2017 Glucose mass conc 195 mg/dL High 65 - 99 mg/dL [facility] Interpretation and review of laboratory results Abnormal [facility] Glucose mass conc 193 mg/dL High 65 - 99 mg/dL [facility] Interpretation and review of laboratory results Abnormal [facility] Glucose mass conc 146 mg/dL High 65 - 99 mg/dL [facility] Interpretation and review of laboratory results Abnormal [facility] Glucose mass conc 112 mg/dL High 65 - 99 mg/dL [facility] Interpretation and review of laboratory results Abnormal [facility] POC Glucoseon 04-20-2017 Glucose mass conc 133 mg/dL High 65 - 99 mg/dL [facility] Interpretation and review of laboratory results Abnormal [facility] Glucose mass conc 120 mg/dL High 65 - 99 mg/dL [facility] Interpretation and review of laboratory results Abnormal [facility] Glucose mass conc 178 mg/dL High 65 - 99 mg/dL [facility] Interpretation and review of laboratory results Abnormal [facility] Glucose mass conc 131 mg/dL High 65 - 99 mg/dL [facility] Interpretation and review of laboratory results Abnormal [facility] POC Glucoseon 04-19-2017 Glucose mass conc 161 mg/dL High 65 - 99 mg/dL [facility] Interpretation and review of laboratory results Abnormal [facility] Glucose mass conc 148 mg/dL High 65 - 99 mg/dL [facility] Interpretation and review of laboratory results Abnormal [facility] Glucose mass conc 134 mg/dL High 65 - 99 mg/dL [facility] Interpretation and review of laboratory results Abnormal [facility] Glucose mass conc 122 mg/dL High 65 - 99 mg/dL [facility] Interpretation and review of laboratory results Abnormal [facility] CBC Auto Differentialon 03-27 Basophils #/vol (Bld) 0.00 K/mcL 0.00 - 0.30 [facility] Basophils/100 WBC (Bld) 0.0 % [facility] Eosinophils #/vol (Bld) 0.07 K/mcL 0.00 - 0.50 [facility] Eosinophils/100 WBC (Bld) 0.7 % [facility] Erythrocyte distribution width Entitic volume (RBC) 14.6 % 11.6 - 14.8 % [facility] Hematocrit Volume Fraction (Bld) 33.3 % Low 36 - 46 % [facility] Hemoglobin mass conc (Bld) 11.2 g/dL Low 12 - 16 g/dL [facility] Immature granulocytes #/vol (Bld) 0.05 K/mcL 0.00 - 0.30 [facility] Immature granulocytes/100 WBC (Bld) 0.50 % [facility] Comment on above: The IG parameter is the percentage of metamyelocytes, myelocytes, and promyelocytes. Lymphocytes #/vol (Bld) 2.39 K/mcL 0.90 - 4.00 [facility] Lymphocytes/100 WBC (Bld) 24.4 % [facility] MCH Entitic mass (RBC) 29.1 pg 26 - 34 pg [facility] MCHC mass conc (RBC) 33.6 g/dL 31 - 37 g/dL [facility] MCV Entitic volume (RBC) 86.5 fL 80 - 100 fL [facility] Monocytes #/vol (Bld) 0.53 K/mcL 0.30 - 0.90 [facility] Monocytes/100 WBC (Bld) 5.4 % [facility] Neutrophils #/vol (Bld) 6.77 K/mcL 1.70 - 7.00 [facility] Neutrophils/100 WBC (Bld) 69.0 % [facility] Nucleated RBC #/vol (Bld) 0.00 K/mcL 0.00 - 0.00 [facility] Nucleated RBC/100 WBC Ratio (Bld) 0.0 % [facility] Platelet mean volume Entitic volume (Bld) 11.2 fL 9 - 15.5 fL [facility] Platelets #/vol (Bld) 182 K/mcL 150 - 400 [facility] RBC #/vol (Bld) 3.85 M/mcL Low 4.00 - 5.20 [facility] WBC #/vol (Bld) 9.81 K/mcL 4.50 - 11.00 [facility] CBC and Differentialon 04-18 CBC and Differential The following order s were created for panel order CBC and Differential. Procedure Abnormality Status --------- ------ CBC Auto Differential[[id number]] Abnormal Final result Please view results for these tests on the individual orders. [employer] [employer] [facility] Work Phone: Comprehensive Metabolic Pane renato 04-18-2017 Albumin mass conc 3.3 g/dL 3.2 - 5.2 g/dL [facility] ALP enzyme act/vol 85 U/L 40 - 150 U/L [facility] ALT enzyme act/vol 20 U/L 14 - 65 U/L [facility] AB Anion gap molar conc 10 mmol/L 10 - 20 mmol/L [facility] AST enzyme act/vol 11 U/L 0 - 45 U/L [facility] B Bilirubin mass conc 0.2 mg/dL 0 - 1.3 mg/dL [facility] Calcium mass conc 8.8 mg/dL 8.4 - 10.2 mg/dL [facility] Chloride molar conc 105 mmol/L 98 - 108 mmol/L [facility] Creatinine mass conc 0.77 mg/dL 0.4 - 1 .1 mg/dL [facility] GFR/1.73 sq M predicted among non-blacks MDRD vol rate/area (S/P/Bld) The eGFR should be used for monitoring renal function only and not for medication dosing. [facility] GFR/1.73 sq M.predicted CKD-EPI vol rate/area (S/P/Bld) 109 mL/min/1.73 m2 >=60 [facility] Glucose mass conc 150 mg/dL High 65 - 99 mg/dL [facility] HCO3 molar conc 25 mmol/L 21 - 32 mmol/L [facility] Potassium molar conc 4.1 mmol/L 3.5 - 5 .1 mmol/L [facility] Protein mass conc 7.0 g/dL 6 - 8 g/dL [facility] Sodium molar conc 136 mmol/L 135 - 145 mmol/L [facility] Urea nitrogen mass conc 13 mg/dL 8 - 25 mg/dL [facility] Urea nitrogen/Creatinine mass ratio 16.9 mg/mg 10.0 - 20.0 [facility] POC Glucoseon 04-18-2017 Glucose mass conc 171 mg/dL High 65 - 99 mg/dL [facility] Interpretation and review of laboratory results Abnormal [facility] Glucose mass conc 117 mg/dL High 65 - 99 mg/dL [facility] Glucose mass conc 149 mg/dL High 65 - 99 mg/dL [facility] Glucose mass conc 133 mg/dL High 65 - 99 mg/dL [facility] Urinalysison 04-18-2017 Bacteria Auto Ql (U) Many Abnormal None Se en /hpf [facility] Bilirubin Ql (U) Negative Negative [facility] Clarity Refractometry automated Nom (U) Hazy Abnormal Clear [facility] Color Nom (U) Yellow Colorless, Yellow [facility] Epithelial cells.squamous Auto #/area (Urine sed) 14 /hpf High 0 - 4 [facility] Glucose Automated test strip mass conc (U) Negative Negative mg/dL [facility] Hemoglobin Automated test strip Ql (U) Negative Negative [facility] Ketones mass conc (U) Negative Negative mg/dL [facility] Leukocyte clumps Auto #/area (Urine sed) Rare Abnormal None Seen /hpf [facility] Leukocyte esterase Automated test strip Ql (U) Large Abnormal Negative [facility] Mucus Auto #/area (Urine sed) Few Abnormal None Seen, Rare /lpf [facility] Nitrite Automated test strip Ql (U) Negative Negative [facility] pH (U) 7.5 [pH] High 5.0 - 7.0 [facility] Protein mass conc (U) Negative Negative mg/dL [facility] RBC Auto #/area (Urine sed) 5 /hpf High 0 - 3 [facility] Specific gravity Relative Density (U) 1.010 1 1.005 - 1.025 [facility] Urobilinogen mass conc (U) <2.0 <2.0 mg/dL [facility] WBC Auto #/area (Urine sed) >50 High 0 - 5 /hpf [facility] Urinalysis 00 00 [facility] Urine Aerobic Cultureon 03-27 Bacteria identified Aer cx Nom (Unsp spec) >100,000 CFU/mL Escherichia coli Abnormal [facility] POC Glucoseon 04-17-2017 Glucose mass conc 150 mg/dL High 65 - 99 mg/dL [facility] Interpretation and review of laboratory results Abnormal [facility] Glucose mass conc 115 mg/dL High 65 - 99 mg/dL [facility] Interpretation and review of laboratory results Abnormal [facility] Glucose mass conc 114 mg/dL High 65 - 99 mg/dL [facility] Interpretation and review of laboratory results Abnormal [facility] Glucose mass conc 116 mg/dL High 65 - 99 mg/dL [facility] Interpretation and review of laboratory results Abnormal [facility] POC Glucoseon 04-16-2017 Glucose mass conc 138 mg/dL High 65 - 99 mg/dL [facility] Interpretation and review of laboratory results Abnormal [facility] Glucose mass conc 113 mg/dL High 65 - 99 mg/dL [facility] Interpretation and review of laboratory results Abnormal [facility] Glucose mass conc 104 mg/dL High 65 - 99 mg/dL [facility] Interpretation and review of laboratory results Abnormal [facility] Glucose mass conc 126 mg/dL High 65 - 99 mg/dL [facility] Interpretation and review of laboratory results Abnormal [facility] POC Glucoseon 04-15-2017 Glucose mass conc 133 mg/dL High 65 - 99 mg/dL [facility] Interpretation and review of laboratory results Abnormal [facility] Glucose mass conc 167 mg/dL High 65 - 99 mg/dL [facility] Interpretation and review of laboratory results Abnormal [facility] Glucose mass conc 113 mg/dL High 65 - 99 mg/dL [facility] Interpretation and review of laboratory results Abnormal [facility] Glucose mass conc 122 mg/dL High 65 - 99 mg/dL [facility] Interpretation and review of laboratory results Abnormal [facility] POC Glucoseon 04-14-2017 Glucose mass conc 112 mg/dL High 65 - 99 mg/dL [facility] Interpretation and review of laboratory results Abnormal [facility] Glucose mass conc 107 mg/dL High 65 - 99 mg/dL [facility] Interpretation and review of laboratory results Abnormal [facility] Glucose mass conc 124 mg/dL High 65 - 99 mg/dL [facility] Interpretation and review of laboratory results Abnormal [facility] POC Glucoseon 04-13-2017 Glucose mass conc 154 mg/dL High 65 - 99 mg/dL [facility] Interpretation and review of laboratory results Abnormal [facility] Glucose mass conc 101 mg/dL High 65 - 99 mg/dL [facility] Interpretation and review of laboratory results Abnormal [facility] Glucose mass conc 128 mg/dL High 65 - 99 mg/dL [facility] Interpretation and review of laboratory results Abnormal [facility] Glucose mass conc 137 mg/dL High 65 - 99 mg/dL [facility] Interpretation and review of laboratory results Abnormal [facility] POC Glucoseon 04-12-2017 Glucose mass conc 135 mg/dL High 65 - 99 mg/dL [facility] Interpretation and review of laboratory results Abnormal [facility] Glucose mass conc 124 mg/dL High 65 - 99 mg/dL [facility] Interpretation and review of laboratory results Abnormal [facility] Glucose mass conc 118 mg/dL High 65 - 99 mg/dL [facility] Interpretation and review of laboratory results Abnormal [facility] POC Glucoseon 04-11-2017 Glucose mass conc 171 mg/dL High 65 - 99 mg/dL [facility] Interpretation and review of laboratory results Abnormal [facility] Glucose mass conc 112 mg/dL High 65 - 99 mg/dL [facility] Interpretation and review of laboratory results Abnormal [facility] Glucose mass conc 120 mg/dL High 65 - 99 mg/dL [facility] Interpretation and review of laboratory results Abnormal [facility] Glucose mass conc 117 mg/dL High 65 - 99 mg/dL [facility] Interpretation and review of laboratory results Abnormal [facility] POC Glucoseon 04-10-2017 Glucose mass conc 158 mg/dL High 65 - 99 mg/dL [facility] Interpretation and review of laboratory results Abnormal [facility] Glucose mass conc 127 mg/dL High 65 - 99 mg/dL [facility] Interpretation and review of laboratory results Abnormal [facility] Glucose mass conc 121 mg/dL High 65 - 99 mg/dL [facility] Interpretation and review of laboratory results Abnormal [facility] Glucose mass conc 133 mg/dL High 65 - 99 mg/dL [facility] Interpretation and review of laboratory results Abnormal [facility] CBC Auto Differentialon 03-26 Basophils #/vol (Bld) 0.01 K/mcL 0.00 - 0.30 [facility] Basophils/100 WBC (Bld) 0.1 % [facility] Eosinophils #/vol (Bld) 0.04 K/mcL 0.00 - 0.50 [facility] Eosinophils/100 WBC (Bld) 0.4 % [facility] Erythrocyte distribution width Entitic volume (RBC) 14.3 % 11.6 - 14.8 % [facility] Hematocrit Volume Fraction (Bld) 36.0 % 36 - 46 % [facility] Hemoglobin mass conc (Bld) 12.1 g/dL 12 - 16 g/dL [facility] Immature granulocytes #/vol (Bld) 0.05 K/mcL 0.00 - 0.30 [facility] Immature granulocytes/100 WBC (Bld) 0.50 % [facility] Comment on above: The IG parameter is the percentage of metamyelocytes, myelocytes, and promyelocytes. Lymphocytes #/vol (Bld) 2.77 K/mcL 0.90 - 4.00 [facility] Lymphocytes/100 WBC (Bld) 28.3 % [facility] [facility] Entitic mass (RBC) 29.5 pg 26 - 34 pg [facility] MCHC mass conc (RBC) 33.6 g/dL 31 - 37 g/dL [facility] MCV Entitic volume (RBC) 87.8 fL 80 - 100 fL [facility] Monocytes #/vol (Bld) 0.71 K/mcL 0.30 - 0.90 [facility] Monocytes/100 WBC (Bld) 7.3 % [facility] Neutrophils #/vol (Bld) 6.21 K/mcL 1.70 - 7.00 [facility] Neutrophils/100 WBC (Bld) 63.4 % [facility] Nucleated RBC #/vol (Bld) 0.00 K/mcL 0.00 - 0.00 [facility] Nucleated RBC/100 WBC Ratio (Bld) 0.0 % [facility] Platelet mean volume Entitic volume (Bld) 10.7 fL 9 - 15.5 fL [facility] Platelets #/vol (Bld) 238 K/mcL 150 - 400 [facility] RBC #/vol (Bld) 4.10 M/mcL 4.00 - 5.20 [facility] WBC #/vol (Bld) 9.79 K/mcL 4.50 - 11.00 [facility] CBC and Differentialon 04-09 CBC and Differential The following order s were created for panel order CBC and Differential. Procedure Abnormality Status --------- ------ CBC Auto Differential[[id number]] Final result Please view results for these tests on the individual orders. [facility] Work Phone: Hemoglobin A1con 04-09-2017 Average glucose Estimated from glycated hemoglobin mass conc (Bld) 151 mg/dL High 68 - 126 mg/dL [facility] Hemoglobin A1c/Hemoglobin.total mass fraction (Bld) 6.9 % High 4 - 6 % [facility] Interpretation and review of laboratory results Abnormal [facility] POC Glucoseon 04-09-2017 Glucose mass conc 128 mg/dL High 65 - 99 mg/dL [facility] Interpretation and review of laboratory results Abnormal [facility] Glucose mass conc 112 mg/dL High 65 - 99 mg/dL [facility] Interpretation and review of laboratory results Abnormal [facility] Glucose mass conc 187 mg/dL High 65 - 99 mg/dL [facility] Interpretation and review of laboratory results Abnormal [facility] Glucose mass conc 142 mg/dL High 65 - 99 mg/dL [facility] Interpretation and review of laboratory results Abnormal [facility] Glucose mass conc 162 mg/dL High 65 - 99 mg/dL [facility] Interpretation and review of laboratory results Abnormal [facility] RPRon 04-09-2017 Reagin Ab RPR Ql (S) Non-Reactive Non-Sheyla ctiv e [facility] Vitamin D 1,25 Dihydroxyon 0 04-09-2017 1,25-Dihydroxyvitami n D mass conc 76.2 pg/mL 19.9 - 79.3 pg/mL [facility] Interpretation and review of laboratory results Normal [facility] Vitamin D 1,25 Dihydroxy Assay performed using [employer] CLIA methodology. [facility] Alcohol, Medicalon 7 Ethanol mass conc mg/dL <3.00 mg/dL [facility] Comment on above: Alcohol cutoff: <3.00 mg/dL = None Detected B12/Folateon 04-08-2017 Cobalamin (Vitamin B12) mass conc 677 pg/mL 243 - 894 pg/mL [facility] Folate mass conc ng/mL High 3.1 - 17.5 ng/mL [facility] Comment on above: Borderline 2.2 - 3.0 Deficient <2.2 Excessive >17.5 Interpretation and review of laboratory results Abnormal [facility] Comprehensive Metabolic Pane renato 04-08-2017 Albumin mass conc 3.9 g/dL 3.2 - 5.2 g/dL [facility] ALP enzyme act/vol 88 U/L 40 - 150 U/L [facility] ALT enzyme act/vol 20 U/L 14 - 65 U/L [facility] AB Anion gap molar conc 15 mmol/L 10 - 20 mmol/L [facility] AST enzyme act/vol 16 U/L 0 - 45 U/L [facility] Bilirubin mass conc 0.5 mg/dL 0 - 1.3 mg/dL [facility] Calcium mass conc 9.2 mg/dL 8.4 - 10.2 mg/dL [facility] Chloride molar conc 107 mmol/L 98 - 108 mmol/L [facility] Creatinine mass conc 0.90 mg/dL 0.4 - 1 .1 mg/dL [facility] GFR/1.73 sq M predicted among non-blacks MDRD vol rate/area (S/P/Bld) The eGFR should be used for monitoring renal function only and not for medication dosing. [facility] GFR/1.73 sq M.predicted CKD-EPI vol rate/area (S/P/Bld) 91 mL/min/1.73 m2 >=60 [facility] Glucose mass conc 78 mg/dL 65 - 99 mg/dL [facility] HCO3 molar conc 21 mmol/L 21 - 32 mmol/L [facility] Potassium molar conc 3.7 mmol/L 3.5 - 5 .1 mmol/L [facility] Protein mass conc 8.8 g/dL High 6 - 8 g/dL [facility] Sodium molar conc 139 mmol/L 135 - 145 mmol/L [facility] Urea nitrogen mass conc 14 mg/dL 8 - 25 mg/dL [facility] Urea nitrogen/Creatinine mass ratio 15.6 mg/mg 10.0 - 20.0 [facility] Drugs of Abuse Screen, Urine on 04-08-2017 Amphetamines Ql (U) None Detected None Detected [facility] Comment on above: Urine Amphetamine Cutoff: < 1000 ng/mL = None Detected Barbiturates Screen Ql (U) None Detected None Detected [facility] Comment on above: Urine Barbiturates Cutoff: < 200 ng/mL = None Detected Benzodiazepines Ql (U) None Detected None Detected [facility] Comment on above: Urine Benzodiazepine Cutoff: < 200 ng/mL = None Detected Cannabinoids Screen Ql (U) None Detected None Detected [facility] Comment on above: Urine Cannabinoids Cutoff: < 50 ng/mL = None Detected Cocaine Ql (U) Positive Abnormal None Detected [facility] Comment on above: Urine Cocaine Cutoff: < 300 ng/mL = None Detected Interpretation and review of laboratory results Abnormal [facility] Methadone Screen Ql (U) None Detected None Detected [facility] Comment on above: Urine Methadone Cutoff: < 300 ng/mL = None Detected Opiates Screen Ql (U) None Detected None Detected [facility] Comment on above: Urine Opiates Cutoff: < 300 ng/mL = None Detected Oxycodone Ql (U) None Detected None Detected [facility] Comment on above: Urine Oxycodone Cutoff: < 100 ng/mL = None Detected Drugs of Abuse Screen, Urine Screen results should be used for treatment purposes only. Specimen will be kept for 2 weeks, if the sample is adequate. Confirmation testing can be initiated by calling the lab within 2 weeks. [facility] TSH with Reflex Free T4on Interpretation and review of laboratory results Normal [facility] Thyrotropin Qn 0.53 mcIU/mL 0.32 - 5.00 [facility] Urinalysison 04-08-2017 Bacteria Auto Ql (U) Many Abnormal None Se en /hpf [facility] Bilirubin Ql (U) Positive Abnormal Negative [facility] Comment on above: False positive urine bilirubins can occur in the setting of a large amount of hemoglobin and secondary to medications including anti-inflammatory agents, rifampin, and pyridium. Clarity Refractometry automated Nom (U) Clear Clear [facility] Color Nom (U) Yellow Colorless, Yellow [facility] Epithelial cells.squamous Auto #/area (Urine sed) 3 /hpf 0 - 4 [facility] Glucose Automated test strip mass conc (U) Negative Negative mg/dL [facility] Hemoglobin Automated test strip Ql (U) Small Abnormal Negative [facility] Ketones mass conc (U) Trace Abnormal Negative mg/dL [facility] Leukocyte esterase Automated test strip Ql (U) Small Abnormal Negative [facility] Nitrite Automated test strip Ql (U) Positive Abnormal Negative [facility] pH (U) 6.0 [pH] 5.0 - 7.0 [facility] Protein mass conc (U) 30 Abnormal Negative mg/dL [facility] Comment on above: False positive resul ts may occur in urines with large amounts of hemoglobin, pH greater than 8.0, contrast medium, or disinfectants including ammonium compounds. RBC Auto #/area (Urine sed) 10 /hpf High 0 - 3 [facility] Specific gravity Relative Density (U) >=1.030 High 1.005 - 1.025 [facility] Urobilinogen mass conc (U) <2.0 <2.0 mg/dL [facility] WBC Auto #/area (Urine sed) 40 /hpf High 0 - 5 [facility] Urinalysis 00 00 [facility] hCG, Serum, Qualitativeon HCG.beta subunit ( test) Ql Negative Negative [facility] hCG, Serum, Qualitative Negative: The result is less than or equal to 5 mIU/mL of HCG. [facility] Vital Signs Date Time Vital Sign Value Performing Clinician Facility 06-11-2024 10:10-0400 Body height 160 cm Manuel Neumann MD Work Phone: [facility] 06-11-2024 10:10-0400 Body mass index (BMI) [Ratio] 38.83 kg/m2 Manuel Neumann MD Work Phone: [facility] 06-11-2024 10:10-0400 Body weight 99.43 kg Manuel Neumann MD Work Phone: [facility] 06-11-2024 10:10-0400 Diastolic blood pressure 72 mm[Hg] Manuel Neumann MD Work Phone: [facility] 06-11-2024 10:10-0400 Heart rate 86 /min Manuel Neumann MD Work Phone: [facility] 06-11-2024 10:10-0400 SaO2% (BldA) [Mass fraction] 96 % Manuel Neumann MD Work Phone: [facility] 06-11-2024 10:10-0400 Systolic blood pressure 110 mm[Hg] Manuel Neumann MD Work Phone: [facility] 04-18-2023 11:25-0400 Body height 160.02 cm Kendra Foote Work Phone: IL-Uyezyqpaln-Kshgk [address] [place] Work Phone: 04-18-2023 11:25-0400 Body mass index (BMI) [Ratio] 44.64 kg/m2 Kendra Foote Work Phone: IU-Nlcyxyxpvd-Nhcyg [address] [place] Work Phone: 04-18-2023 11:25-0400 Body surface area Derived from formula 2.13 m2 Kendra Foote Work Phone: LA-Yymymvvzil-Lecif [address] [place] Work Phone: 04-18-2023 11:25-0400 Body weight 114.31 kg Kendra Foote Work Phone: LM-Orkfmfboae-Vjtsn nd [address] [place] Work Phone: 04-18-2023 11:25-0400 Diastolic blood pressure 74 mm[Hg] Kendra Foote Work Phone: TK-Nznespuxih-Qsqzv nd [address] [place] Work Phone: 04-18-2023 11:25-0400 Heart rate 75 /min Kendra Jackson Yassinelisandro Work Phone: KV-Pvbadugizm-Ozfrg nd [address] [place] Work Phone: 04-18-2023 11:25-0400 Systolic blood pressure 110 mm[Hg] Kendra Jackson Yassinelisandro Work Phone: CF-Dtwuoztspx-Cvqgj [address] [place] Work Phone: 10-18-2022 15:15-0500 Body height 160.02 cm Kendra Jackson Yassinelisandro Work Phone: SG-Pxlwwoagcd-Kzziw [address] [place] Work Phone: 10-18-2022 15:15-0500 Body mass index (BMI) [Ratio] 45.42 kg/m2 Kendra Foote Work Phone: QK-Rqhohirhdn-Iqtst [address] [place] Work Phone: 10-18-2022 15:15-0500 Body surface area Derived from formula 2.15 m2 Kendra Foote Work Phone: UA-Rrujllyobf-Ilipr nd [address] [place] Work Phone: 10-18-2022 15:15-0500 Body weight 116.29 kg Kendra Foote Work Phone: YK-Hazcutylqs-Luaup nd [address] [place] Work Phone: 10-18-2022 15:15-0500 Diastolic blood pressure 84 mm[Hg] CjManuel Foote Work Phone: PX-Vfibyxqkea-Pljcs nd [address] [place] Work Phone: 10-18-2022 15:15-0500 Heart rate 72 /min CjManuel Petersenmichael Work Phone: FB-Rfdhtiasqs-Eccti nd [address] [place] Work Phone: 10-18-2022 15:15-0500 SaO2% (BldA) [Mass fraction] 96 % CjManuel Foote Work Phone: PD-Eupewodihf-Vszhx nd [address] [place] Work Phone: 10-18-2022 15:15-0500 Systolic blood pressure 120 mm[Hg] Kendra Jackson Yassinelisandro Work Phone: ZQ-Rehajhexwt-Adjce nd [address] [place] Work Phone: 03-08-2022 10:03-0400 Body height 160.02 cm CjManuel Foote Work Phone: OV-Xkcfskgeex-Khlzj nd [address] [place] Work Phone: 03-08-2022 10:03-0400 Body mass index (BMI) [Ratio] 45.96 kg/m2 Kendra Jackson Yassinelisandro Work Phone: IE-Jfawydpyco-Hhjuw nd [address] [place] Work Phone: 03-08-2022 10:03-0400 Body surface area Derived from formula 2.16 m2 Kendra Jackson Yassinelisandro Work Phone: YU-Ilugdxqenr-Hcljs nd [address] [place] Work Phone: 03-08-2022 10:03-0400 Body weight 117.68 kg Kendra Foote Work Phone: OA-Gujwopvaul-Ewzzt nd [address] [place] Work Phone: 03-08-2022 10:03-0400 Diastolic blood pressure 72 mm[Hg] Kendra Foote Work Phone: LM-Gpzarqylzq-Deont nd [address] [place] Work Phone: 03-08-2022 10:03-0400 Heart rate 81 /min Kendra Jackson Dary Work Phone: SM-Ajkxjyqzdr-Rbmkx nh [address] [place] Work Phone: 03-08-2022 10:03-0400 SaO2% (BldA) [Mass fraction] 98 % Kendra Jackson Dary Work Phone: OQ-Ahtiboswhi-Jymfl nd [address] [place] Work Phone: 03-08-2022 10:03-0400 Systolic blood pressure 108 mm[Hg] Kendra Jackson Nicolamichael Work Phone: JC-Wpdkejsdcp-Evtgh nd [address] [place] Work Phone: 01-01-2022 22:02-0400 Body temperature 96.98 [degF] Kendra Foote Other Phone: [facility] Other Phone (unformatted): [phone] 01-01-2022 22:02-0400 Diastolic blood pressure 93 mm[Hg] Kendra Foote Other Phone: [facility] Other Phone (unformatted): [phone] 01-01-2022 22:02-0400 Heart rate 87 /min Kendra Foote Other Phone: [facility] Other Phone (unformatted): [phone] 01-01-2022 22:02-0400 SaO2% (BldA) [Mass fraction] 95 % Kendra Foote Other Phone: [facility] Other Phone (unformatted): [phone] 01-01-2022 22:02-0400 Systolic blood pressure 134 mm[Hg] Kendra Foote Other Phone: [facility] Other Phone (unformatted): [phone] 01-01-2022 17:15-0400 Respiratory rate 19 /min Kendra Foote Other Phone: [facility] Other Phone (unformatted): [phone] 12-27-2021 21:30-0400 Diastolic blood pressure 112 mm[Hg] Kendra Yassinelisandro Other Phone: [facility] 12-27-2021 21:30-0400 Heart rate 93 /min Kendra Yassinelisandro Other Phone: [facility] 12-27-2021 21:30-0400 Respiratory rate 18 /min Kendra Nicolamichael Other Phone: [facility] 12-27-2021 21:30-0400 SaO2% (BldA) [Mass fraction] 94 % Kendra Yassinelisandro Other Phone: [facility] 12-27-2021 21:30-0400 Systolic blood pressure 148 mm[Hg] Kendra Foote Other Phone: [facility] 12-27-2021 09:47-0400 Body temperature 97.7 [degF] Kendra Yassinelisandro Other Phone: [facility] 12-27-2021 09:47-0400 Body weight 127 kg Kendra Petersenmichael Other Phone: [facility] 06-13-2017 12:07-0400 BP Diastolic 84 mm[Hg] Jami Juarez Newsy Work Phone: 06-13-2017 12:07-0400 BP Systolic 125 mm[Hg] Jami Juarez Newsy Work Phone: 06-13-2017 12:07-0400 Pulse (Heart Rate) 83 /min Jami Juarez Newsy Work Phone: 06-13-2017 12:07-0400 Pulse Oximetry 100 % Jami Juarez Newsy Work Phone: 06-13-2017 08:12-0400 Body Temperature 97.9 [degF] Jami Juarez Newsy Work Phone: 06-13-2017 08:12-0400 Respiratory Rate 16 /min Jami Juarez [facility] Work Phone: 06-11-2017 07:45-0400 BMI (Body Mass Index) 46.82 kg/m2 Jmai Juarez [facility] Work Phone: 06-11-2017 07:45-0400 Weight 119.9 kg Jami Juarez [facility] Work Phone: 05-27-2017 06:58-0400 Height 160 cm Jami Juarez [facility] Work Phone: 05-02-2017 07:53-0400 Body Temperature 97.9 [degF] Kendra Angelo [facility] Work Phone: 05-02-2017 07:53-0400 BP Diastolic 84 mm[Hg] Kendra Angelo [facility] Work Phone: 05-02-2017 07:53-0400 BP Systolic 136 mm[Hg] Kendra Angelo [facility] Work Phone: 05-02-2017 07:53-0400 Pulse (Heart Rate) 73 /min Kendra Angelo [facility] Work Phone: 05-02-2017 07:53-0400 Pulse Oximetry 100 % Kendra Angelo [facility] Work Phone: 05-02-2017 07:53-0400 Respiratory Rate 16 /min Kendra Angelo [facility] Work Phone: 04-30-2017 07:33-0400 BMI (Body Mass Index) 47.68 kg/m2 Kendra Angelo [facility] Work Phone: 04-30-2017 07:33-0400 Weight 122.1 kg Kendra Angelo [facility] Work Phone: 04-08-2017 17:07-0400 Height 160 cm Kendra Angelo [facility] Work Phone: Encounters Encounter Date Encounter Type Care Provider Facility Start: 06-11-2024 End: 06-11-2024 Office outpatient visit 25 minutes Manuel Neumann MD Work Phone: [facility] Building Comment on above: 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 Start: 04-18-2023 Office outpatient vi sit 25 minutes Kendra Foote Work Phone: [address] Work Phone: Start: 11-02-[address] Kendra Foote Facility:[id number] Start: 10-18-2022 Office outpatient vi sit 25 minutes Kendra Foote Work Phone: [address] Work Phone: Start: 10-12-2022 End: 10-13-2022 Emergency department patient visit Taylor Ventura [facility] Emergency 12 Start: 05-03-2022 End: 05-03-2022 Emergency department patient [facility] Start: 03-22-[address] Kendra Foote Facility:[id number] Start: 03-08-2022 Office outpatient ne w 45 minutes Kendra Foote Work Phone: [address] Work Phone: Start: 12-27-2021 End: 01-01-2022 Evaluation and management of inpatient Pete Wadsworth [place] 8 ICU Stepdown [phone] Other Phone (unformatted): [phone] Start: 12-27-2021 End: 12-27-2021 Emergency department patient visit Kiarra Arambula [facility] Emergency 10 Start: 07-03-2017 Ambulatory Doug Cameron Work Phone: [facility] Start: 05-27-2017 End: 06-13-2017 Evaluation and management of inpatient PHYSICIAN [facility] Start: 05-27-2017 End: 06-13-2017 Evaluation and management of inpatient Jami LeeBetsy Juarez Work Phone: [facility] Comment on above: Schizophrenia, unspe cified type (HCC) (Primary Dx);Acute UTI Start: 05-16-2017 End: 05-16-2017 Amb[facility] Start: 04-09-2017 End: 05-02-2017 Evaluation and management of inpatient PHYSICIAN [facility] Start: 04-08-2017 End: 05-02-2017 Evaluation and management of inpatient Kendra Angelo Work Phone: [facility] Comment on above: Paranoid schizophren ia (HCC) (Primary Dx) Start: 03-20-2017 End: 03-20-2017 Emergency department patient visit PHYSICIAN [facility] Start: 10-26-2014 End: 12-25-2014 Ambulatory [facility] Procedures Date Procedure Procedure Detail Performing Clinician Start: 12-10-2023 Microscopic observat ion [Identifier] in Cervix by Cyto stain Manuel Neumann MD Work Phone: Start: 11-02-2022 Mammography Manuel valentine MD Work Phone: Start: 09-21-2022 Lipid 1996 panel - S jacqueline or Plasma Manuel Neumann MD Work Phone: Start: 12-27-2021 End: 12-27-2021 EKG impression Kiarra Arambula Start: 10-04-2014 Microscopic observat ion [Identifier] in Cervix by Cyto stain Kendra Angelo Lumpectomy of breast Kendra Foote Work Phone: Placement of stent i n coronary artery Kendra Foote Work Phone: Plan of Treatment Date Care Activity Detail Author Start: 09-21-2027 Lipid panel Lipid Panel [facility] Start: 12-09-2026 Screening for malignant neoplasm of cervix [facility] Start: 05-23-2025 Creatinine measurement Creatinine Level [facility] Start: 05-23-2025 Diabetes mellitus screening Diabetes Screening [facility] Start: 05-23-2025 Potassium measurement Potassium Level [facility] Start: 06-11-2024 End: 06-11-2026 US Heart Transthoracic Transthoracic Echo (TTE) Complete Echocardiography Routine Coronary artery disease involving kake coronary artery of kake heart without angina pectoris Chronic systolic heart failure (Multi) Chest discomfort Expected: 06/11/2024 (Approximate), Expires: 06/11/2026 [facility] Service Area Work Phone: Comment on above: Expected: 06/11/2024 (Approximate), Expi res: 06/11/2026 Start: 04-26-2024 COVID-19 Vaccine () COVID-19 Vaccine () [facility] Start: 04-26-2024 Influenza vaccination Influenza Vaccine (#1) [facility] Start: 04-16-2024 FUV, Provider: Manuel Neumann, Status: Pen, Time: 10:45 AM FUV, Provider: Manuel Neumann, Status: Pen, Time: 10:45 AM MD-Raeqzfiqgy-Mvhyj nd [address] Work Phone: Start: 12-20-2023 Zoster Vaccines (1 of 2) Zoster Vaccines (1 of 2) [facility] Start: 11-03-2023 Screening for malignant neoplasm of breast Mammogram [facility] Start: 04-17-2023 FUV, Provider: Manuel Neumann, Status: Pen, Time: 2:45 PM FUV, Provider: Manuel Neumann, Status: Pen, Time: 2:45 PM KO-Hvtwidurwj-Ymrbh nd [address] Work Phone: Start: 03-22-2023 Echocardiography Echocardiogram [facility] Start: 11-02-2022 Patient encounter procedure [facility] Start: 10-18-2022 Patient encounter procedure [facility] Start: 09-14-2022 FUV, Provider: Manuel Neumann, Status: Pen, Time: 10:15 AM FUV, Provider: Manuel Neumann, Status: Pen, Time: 10:15 AM LM-Cvyfdtgppp-Ycsel nd [address] Work Phone: Start: 03-22-2022 ECHO, Provider: TENRIISM REYNOLDI ECHO 2,SMCECHO2, Status: Pen, Time: 11:30 AM ECHO, Provider: TENRIISM REYNOLDI ECHO 2,SMCECHO2, Status: Pen, Time: 11:30 AM [facility] Work Phone: Start: 03-16-2022 ECHO, Provider: TENRIISM REYNOLDI ECHO 1,SMCECHO1, Status: Pen, Time: 12:00 PM ECHO, Provider: SANJUANA FLAHERTYI ECHO 1,SMCECHO1, Status: Pen, Time: 12:00 PM DW-Rcmlwxaeuu-Nbebq nd [address] Work Phone: Start: 01-18-2022 Patient encounter procedure [facility] Start: 01-01-2022 End: 01-01-2022 Sodium Chloride 0.9% Infusion . ; IV Bag Volume = 1,000 mL Run at: 50 mL/hr IntraVenous Stop After 5 Hours Start: 01-Jan-2022 End: 01-Jan-2022 Ordered: 01-Jan-2022 Emma Mclaughlin Intent [facility] Other Phone (unformatted): [phone] Start: 12-28-2021 End: 12-29-2022 Albuterol 2.5 mg - Ipratropium 0.5 mg/ 3 mL Neb Soln 3 mL Inhalation Every 4 Hours ; (DUONEB)DOSE = 3 mL Inhalation Every 2 Hours via Nebulizer, PRN Wheezing Start: 28-Dec-2021 End: 28-Dec-2022 Ordered: 28-Dec-2021 Nasim Arellano Intent [facility] Other Phone (unformatted): [phone] Start: 12-28-2021 End: 12-29-[address] [facility] Other Phone (unformatted): [phone] Comment on above: IF patient HAS a secure IV access & is U nconscious, Conscious, NPO or Unable to Eat or Drink. Repeat until BG reaches 100 mg/dL or greater. Push 2-3 mL/minute. Discontinue Once BG reaches 100 mg/dL or greater. IF patient DOES NOT have secure IV access & is Unconscious, Conscious, NPO or Unable to Eat or Drink. Repeat until BG reaches 100 mg/dL or greater. Discontinue Once BG reaches 100 mg/dL or greater. Start: 11-25-2017 Hemoglobin A1c/Hemoglobin.total mass fraction (Bld) HEMOGLOBIN A1C [facility] Work Phone: Start: 10-10-2017 Hemoglobin A1c/Hemoglobin.total mass fraction (Bld) HEMOGLOBIN A1C [facility] Work Phone: Start: 10-04-2017 Screening for malignant neoplasm of cervix PAP SMEAR [facility] Work Phone: Start: 04-26-2017 Influenza vaccination SEQUENTIAL INFLUENZA VACCINE (#1) [facility] Work Phone: Start: 06-05-2016 Pneumococcal Vaccine: Pediatrics (0 to 5 Years) and At-Risk Patients (6 to 64 Years) (2 of 2 - PCV) Pneumococcal Vaccine: Pediatrics (0 to 5 Years) and At-Risk Patients (6 to 64 Years) (2 of 2 - PCV) [facility] Start: 12-20-1995 DTaP/Tdap/Td Vaccines (1 - Tdap) DTaP/Tdap/Td Vaccines (1 - Tdap) [facility] Start: 1994 Screening for malignant neoplasm of cervix HPV/Cotest [facility] Start: 1992 Hepatitis B Vaccines (1 of 3 - 19+ 3-dose series) Hepatitis B Vaccines (1 of 3 - 19+ 3-dose series) [facility] Start: 12-20-1991 Hepatitis C screening Hepatitis C Screening [facility] Start: 12-20-1983 Diabetic foot examination (regime/therapy) FOOT EXAM [facility] Work Phone: Start: 12-20-1983 Ophthalmic examination and evaluation OPHTHALMOLOGY EXAM [facility] Work Phone: Start: 12-20-1983 Urine, microalbumin URINE MICROALBUMIN [facility] Work Phone: Start: 1974 MMR Vaccines (1 of 1 - Standard series) MMR Vaccines (1 of 1 - Standard series) [facility] Start: 1973 Medicare Annual Wellness Visit Medicare Annual Wellness Visit (AWV) [facility] Start: 1973 Screening for malignant neoplasm of colon [facility] Start: 1973 Tetanus vaccination TETANUS EVERY 10 YR [facility] Work Phone: Immunizations Immunization Date Immunization Notes Care Provider Ayush luong 07-01-2023 influenza virus vacc ine, unspecified formulation Manuel Neumann MD Work Phone: [facility] Work Phone: 05-27-2017 influenza, injectabl e, quadrivalent, preservative free; Translations: [INFLUENZA IIV4 3YO OR > FLUARIX/FLUZONE/AFLURIA 94256] Jami Juarez [facility] Work Phone: 05-27-2017 flu vaccine qv 2017 (FLUZONE QUAD/FLUARIX QUAD) syringe 0.5 mL 0.5 mL, Intramuscular, Prior To Discharge, administer vaccine prior to discharge, ., Starting 05/27/17 at 0704, For 1 dose Given 05/27/2017 14:45 EDT 0.5 mL Right Deltoid; Translations: [Flu Vaccine [id number](36 Mos Up)(Pf)60 McG(15 McGx4)/0.5 Ml Im Syringe] Jami Juarez [facility] Work Phone: 05-27-2017 HEMOGLOBIN A1C Jami Juarez [facility] Work Phone: 04-09-2017 HEMOGLOBIN A1C Kendra Petey [facility] Work Phone: 06-05-2015 influenza, injectabl e, quadrivalent, preservative free; Translations: [INFLUENZA IIV4 3YO OR > FLUARIX/FLUZONE/AFLURIA 76246] Kendra Angelo [facility] Work Phone: 06-05-2015 pneumococcal polysaccharide vaccine, 23 valent; Translations: [PNEUMOCOCCAL POLYSACCHARIDE (PNEUMOVAX)] Kendra Angelo [facility] Work Phone: 07-12-2005 influenza, seasonal, injectable, preservative free Kendra Angelo [facility] Work Phone: Payers Date Payer Category Payer Unknown [id number] 2017 Medicaid MEDICAID [id number] 2017 Medicaid [id number] 1997 Medicare MEDICARE PART A AND B [id number] 1996 Medicare [id number] 1996 Unknown 1996 Medicare [id number] 1973 Unknown [id number] 1973 Unknown [id number] 1973 Unknown [id number] 1973 Unknown [id number] 1973 Unknown [id number] 1973 Unknown [id number] 1973 Unknown [id number] 1973 Unknown [id number] 1973 Unknown [id number] Social History Date Type Detail Facility Start: 05-27-2017 End: 06-11-2024 Tobacco smoking status PAIS Current every day smoker [facility] Start: 05-27-2017 End: 05-21-2024 Cigarettes smoked current (pack per day) - Reported [facility] Work Phone: Start: 1975 Sex Assigned At Not on file O [facility] Work Phone: Tobacco smoking consumption unknown [facility] of [facility]: History of tobacco use Passive [facility]oker [facility] Work Phone: Start: 06-11-2024 Tobacco use and exposure Smokeless tobacco non-user [facility] Work Phone: Start: 06-11-2024 Alcoholic beverage intake Lifetime non-drinker (finding) [facility] Work Phone: Start: 05-21-2024 End: 06-11-2024 [facility] [employer] [facility] Work Phone: Has the [employer] threatened to shut off services in your home in past 12Mo No [facility] Work Phone: How often to you hav e a drink containing alcohol? Patient declined [facility] Work Phone: Start: 06-01-2024 End: 06-11-2024 Exposure to SARS-CoV-2 (event) Not sure [facility] Functional Status Date Assessment Result Facility Functional observable [facility] Other Phone (unformatted): [phone] Mental Status Date Assessment Result Facility 01-01-2022 Cognitive functi ons :[address] [facility] Other Phone (unformatted): [phone] Clinical Notes 12-28-2021 to 06-11-2024 Manuel Neumann MD - 06/11/2024 10:00 AM EDT<item> Note Date & Type Note Facility 06-11-2024 History of Present illness Narrative Cardiology Subsequent Encounter Clinic Note Name: Pablo Tabares : 1975 CC: HFrEF Active Issues: Pablo Tabares is a 48 y.o. female with a history of multiple psychiatric diagnoses, type 2 diabetes mellitus, COPD who was initially admitted to [facility] 01/01/2022 in the setting of CHF exacerbation and COPD. Was treated with IV steroids/diuretics/oxygen. Noted to have a an NSTEMI and underwent a cardiac authorization 01/01/2022 with SAMEER to LAD. Here for follow-up. Problem #1 ACC/AHA stage C HFrEF; heart failure with improved ejection fraction With revascularization and GDMT echocardiogram subsequently improved March 14 to 55%. -Current GDMT includes Entresto 49-51 mg twice daily, Toprol 25 mg daily, Aldactone 25 mg daily, Jardiance 10 mg daily Problem #2 coronary artery disease as described above Currently on aspirin 81 mg, Plavix 75 mg, rosuvastatin 5 mg. LDL at goal Denies any exertional chest pain or shortness of breath. Denies any orthopnea/PND. Does not appear to have any lower extremity edema Since her last appointment she has been having episodes of vomiting that are accompanied by twinges of chest discomfort. These last only seconds. No exertional chest discomfort as described above. Past Medical History No past medical history on file. Past Surgical History Past Surgical History: Procedure Laterality Date OTHER SURGICAL HISTORY 03/08/2022 Lumpectomy OTHER SURGICAL HISTORY 03/08/2022 Coronary artery stent placement Medications Current Outpatient Medications on File Prior to Visit Medication Sig Dispense Refill acetaminophen (Tylenol 8 HOUR) 650 mg ER tablet Take 2 tablets (1,300 mg) by mouth every 8 hours if needed for mild pain (1 - 3). Do not crush, chew, or split. aspirin 81 mg EC tablet Take 1 tablet (81 mg) by mouth once daily. clopidogrel (Plavix) 75 mg tablet Take 1 tablet (75 mg) by mouth once daily at bedtime. cyanocobalamin (Vitamin B-12) 1,000 mcg tablet Take 1 tablet (1,000 mcg) by mouth once daily. empagliflozin (Jardiance) 25 mg Take 1 tablet (25 mg) by mouth once daily in the morning. haloperidol (Haldol) 10 mg tablet Take 1 tablet (10 mg) by mouth once daily at bedtime. haloperidol (Haldol) 5 mg tablet Take 1 tablet (5 mg) by mouth 2 times a day. isosorbide mononitrate ER (Imdur) 120 mg 24 hr tablet Take 1 tablet (120 mg) by mouth once daily. Do not crush or chew. metFORMIN (Glucophage) 500 mg tablet Take 1 tablet (500 mg) by mouth 2 times daily (morning and late afternoon). metoprolol succinate XL (Toprol-XL) 25 mg 24 hr tablet Take 0.5 tablets (12.5 mg) by mouth once daily. Do not crush or chew. multivitamin tablet Take 1 tablet by mouth once daily. nitroglycerin (Nitrostat) 0.[address] 1 tablet (0.4 mg) under the tongue every 5 minutes if needed for chest pain. omeprazole (PriLOSEC) [address] capsule Take 1 capsule (40 mg) by mouth. Do not crush or chew. oxybutynin XL (Ditropan-XL) 10 mg 24 hr tablet Take 1 tablet (10 mg) by mouth once daily. Do not crush, chew, or split. QUEtiapine (SEROquel) 100 mg tablet Take 1 tablet (100 mg) by mouth 2 times a day. rosuvastatin (Crestor) 5 mg tablet Take 1 tablet (5 mg) by mouth once daily at bedtime. sacubitriL-valsartan (Entresto) 49-51 mg tablet Take 1 tablet by mouth 2 times a day. semaglutide (Ozempic) 1 mg/dose (4 mg/3 mL) pen injector Inject 1 mg under the skin every 7 days. spironolactone (Aldactone) 25 mg tablet Take 1 tablet (25 mg) by mouth once daily. torsemide (Demadex) 20 mg tablet Take 1 tablet (20 mg) by mouth once daily. escitalopram (Lexapro) 5 mg/5 mL solution Take 10 mL (10 mg) by mouth once daily. Patient states 20mg bid No current facility-administered medications on file prior to visit. Allergies Allergies Allergen Reactions Penicillin G GI Upset Penicillins Nausea/vomiting Social History Social History Tobacco Use Smoking status: Every Day Types: Cigarettes Passive exposure: Past Smokeless tobacco: Never Substance Use Topics Alcohol use: Never Drug use: Never Family History No family history on file. Physical Examination Vitals: BP 110/72 Pulse 86 Ht 1.6 m (5' 3 ) Wt 99.4 kg (219 lb 3.2 oz) SpO2 96% BMI 38.83 kg/m General: awake, alert and oriented. No acute distress. Skin: Skin is warm, dry and intact without rashes or lesions. Appropriate color for ethnicity. Nail beds pink with no cyanosis or clubbing HEENT: normocephalic, atraumatic; conjunctivae are clear without exudates or hemorrhage. Sclera is non-icteric. Eyelids are normal in appearance without swelling or lesions. Hearing intact. Nares are patent bilaterally. Moist mucous membranes. Cardiovascular: Regular. No murmurs, gallops, or rubs are auscultated. S1 and S2 are heard and are of normal intensity. No JVD, no carotid bruits Respiratory: Thorax symmetric. CTAB, breath sounds vesicular. No crackles, wheezes or ronchi. Gastrointestinal: soft, non-distended, BS + x 4 Genitourinary: exam deferred Musculoskeletal: moves all extremities Extremities: pulses palpable bilaterally; no swelling or erythema; no edema Neurological: alert & oriented x 3; no focal deficits Psychiatric: appropriate mood and affect Labs/Imaging/Procedures Lab Results Component Value Date HGB 14.4 05/23/2024 HGB 15.3 05/22/2024 HGB 15.5 05/21/2024 PLT 191 05/23/2024 WBC 12.0 (H) 05/23/2024 NA 137 05/23/2024 K 4.0 05/23/2024 CREATININE 0.85 05/23/2024 CREATININE 0.75 05/22/2024 CREATININE 0.93 05/21/2024 BUN 12 05/23/2024 CALCIUM 8.8 05/23/2024 INR 1.1 01/01/2022 BNP 64 05/21/2024 TROPHS 3 05/21/2024 TROPHS <3 05/21/2024 TROPHS 171 (HH) 12/28/2021 TROPHS 182 (H) 12/27/2021 TROPHS 171 (H) 12/27/2021 LDLF 42 09/21/2022 No echocardiogram results found for the past 12 months ECG 12 lead Normal sinus rhythm with sinus arrhythmia Left axis deviation Low voltage QRS Septal infarct , age undetermined Possible Lateral infarct , age undetermined Abnormal ECG When compared with ECG of 11-MAY-2024 16:00, (unconfirmed) Sinus rhythm has replaced Atrial fibrillation Left bundle branch block is no longer Present Septal infarct is now Present Borderline criteria for Lateral infarct are now Present See ED provider note for full interpretation and clinical correlation Confirmed by Selina Adam ([id number]) on 05/25/2024 10:38:09 AM Impression Pablo Tabares is a 48 y.o. female with a history of multiple psychiatric diagnoses, type 2 diabetes mellitus, COPD who was initially admitted to [facility] 01/01/2022 in the setting of CHF exacerbation and COPD. Was treated with IV steroids/diuretics/oxygen. Noted to have a an NSTEMI and underwent a cardiac authorization 01/01/2022 with SAMEER to LAD. Here for follow-up. Problem #1 ACC/AHA stage C HFrEF; heart failure with improved ejection fraction With revascularization and GDMT echocardiogram subsequently improved March 14 to 55%. -Current GDMT includes Entresto 49-51 mg twice daily, Toprol 25 mg daily, Aldactone 25 mg daily, Jardiance 10 mg daily Problem #2 coronary artery disease as described above Currently on aspirin 81 mg, Plavix 75 mg, rosuvastatin 5 mg. LDL at goal (August 2022) Plan: -EF has improved and is now normal. We will hold off on further up titration of GDMT -Chest discomfort is highly atypical and likely does not reflect angina -Repeat echocardiogram -RTC 1 year Manuel Neumann MD Advanced Heart Failure/Transplant Cardiology Cardio-Oncology [facility] documented in this encounter [facility] Work Phone: 01-01-2022 Note Send Summary: Discharge Summary Providers: Provider RoleProvider Name AttendingPete Wadsworth Paul ConsultingPoommipanit, Kendra Bautista Note Recipients: Bernardino Gaitan MD Tomchak, David, MD - [id number] [] Discharge: Summary: Admission Date: .27-Dec-2021 21:46:00 Discharge Date: 01-Jan-2022 Attending Physician at Discharge: Kendra Kidd Admission Reason: COPD exacerbation, CHF Final Discharge Diagnoses: NSTEMI, initial episode of care, CAD in kake artery, CHF (congestive heart failure), COPD (chronic obstructive pulmonary disease), Diabetes mellitus, Other cardiomyopathy Procedures: Right and left heart catheterization (12/29/2021), left heart catheterization with drug-eluting stent placed to LAD (01/01/2022) Condition at Discharge: Fair Disposition at Discharge: .Home Vital Signs: T PRBPMAPSpO2 [id number]% Date/Time01/01 12: 12: 4: 12: 12: 12:09 Range(35.7C - 37C ) (64 - 94 ) (17 - 20 ) (113 - 179 )/ (65 - 111 ) (86 - 130 ) (90% - 95% ) Highest temp of 37 C was recorded at 01/01 4:00 Date: Weight/Scale Type:Height: 27-Dec-2021 22:08345 kg / rquabcnl447.9 cm Hospital Course: PABLO TABARES is a 46 year old Female with history of multiple psychiatric diagnosis, DM II, COPD admitted to [facility] for CHF exacerbation and COPD. She was treated with IV steroids, diuretics, and supplementation oxygen. She was found to have an NSTEMI with rising troponin levels and symptoms consistent with ACS, and was seen by cardiology. Echocardiogram revealed EF 35-40% with focal wall motion abnormalities. Patient was started on Entresto and SGLT2 inhibitor in setting of uncontrolled diabetes. After undergoing diuresis for decompensated heart failure, the patient had SAMEER to the LED with Dr. Gaitan on 01/01/2022. The patient is stable and ready for discharge home with follow-up with PCP, cardiology, and endocrinology. All imaging and results were discussed. All questions and concerns were addressed. Discharge Information: and Continuing Care: Lab Results - Pending: None Radiology Results - Pending: None Discharge Instructions: Activity: You are advised to go directly home from the hospital No excessive exercise or treadmill use for one week. You may walk and do stairs, slowly No sexual activities for 24 hours after you arrive home Wound Care: You may experience some tenderness, bruising or minimal inflammation. If you have any concerns, you may contact the [facility] or if any of these symptoms become excessive, contact your arabic teacher or go to the emergency room No tub baths, soaking, or swimming for one week May shower the next day after your procedure Follow Up Appointments: Follow-Up Appointment 01: Physician/Dept/Service: Primary care physician Reason for Referral: hospital follow-up Call to Schedule in: 1 week Follow-Up Appointment 02: Physician/Dept/Service: Cardiology (Dr. Neumann) Reason for Referral: follow-up for CHF, NSTEMI/PCI Call to Schedule in: 3 weeks Follow-Up Appointment 03: Physician/Dept/Service: Endocrinology (Dr. River) Reason for Referral: Type 2 diabetes Call to Schedule in: 4 weeks Location: [address] [place] [address] Discharge Medications: amLODIPine 5 mg oral tablet 1 tab(s) orally once a day aspirin 81 mg oral tablet, chewable 1 tab(s) orally once a day Benadryl 50 mg oral capsule 1 cap(s) orally once a day (in the evening) clopidogrel 75 mg oral tablet 1 tab(s) orally once a day empagliflozin 10 mg oral tablet 1 tab(s) orally once a day haloperidol 10 mg oral tablet 1 tab(s) orally once a day (at bedtime) haloperidol 5 mg oral tablet 1 tab(s) orally 2 times a day // AM & PM insulin glargine 100 units/mL subcutaneous solution 15 unit(s) subcutaneous once a day (in the evening) insulin lispro 100 units/mL injectable solution 5 unit(s) injectable 3 times a day with meals Janumet 50 mg-500 mg oral tablet 1 tab(s) orally 2 times a day // AM & PM with meals. Hold for 48 hours post cardiac catheterization procedure, resume 01/04/22. metoclopramide 5 mg oral tablet 1 tab(s) orally 4 times a day (before meals and at bedtime) metoprolol succinate 25 mg oral tablet, extended release 1 tab(s) orally once a day omeprazole 40 mg oral delayed release capsule 1 cap(s) orally once a day oxybutynin 10 mg/24 hr oral tablet, extended release 1 tab(s) orally once a day (in the morning) QUEtiapine 100 mg oral tablet 1 tab(s) orally 2 times a day // AM & PM QUEtiapine 50 mg oral tablet 1 tab(s) orally 2 times a day rosuvastatin 5 mg oral tablet 1 tab(s) orally once a day (at bedtime) sacubitril-valsartan 49 mg-51 mg oral tablet 1 tab(s) orally 2 times a day spironolactone 25 mg oral tablet 1 tab(s) orally once a day sucralfate 1 g oral tablet 1 tab(s) orall (more content not included)... [facility] 01-01-2022 History of Present illness Narrative 46-year-old female with a history of multiple psychiatric diagnoses, type 2 diabetes mellitus, COPD who was initially admitted to [facility] 01/01/2022 in the setting of CHF exacerbation and COPD. Was treated with IV steroids/diuretics/oxygen. Noted to have a an NSTEMI and underwent a cardiac authorization 01/01/2022 with SAMEER to LAD. Here for follow-up.Problem #1 ACC/AHA stage C HFrEFLast echocardiogram with an EF of 35-40%-Current GDMT includes Entresto 49-51 mg twice daily, Toprol 25 mg daily, Aldactone 25 mg daily, Jardiance 10 mg dailyProblem #2 coronary artery disease as described aboveCurrently on aspirin 81 mg, Plavix 75 mg, rosuvastatin 5 mg.Patient notes that she has been compliant with all her medications since discharge. Since discharge she has been noticing chest discomfort and shortness of breath that comes on randomly about twice a week. She notes that these episodes are not consistently related to exertion; and do not worsen with position/palpation or respiration. Denies any orthopnea/PND or lower extremity edema. Denies any dizziness or lightheadedness. [facility] [address] Work Phone: 01-01-2022 History of Present illness Narrative 46-year-old female with a history of multiple psychiatric diagnoses, type 2 diabetes mellitus, COPD who was initially admitted to [facility] 01/01/2022 in the setting of CHF exacerbation and COPD. Was treated with IV steroids/diuretics/oxygen. Noted to have a an NSTEMI and underwent a cardiac authorization 01/01/2022 with SAMEER to LAD. Here for follow-up.Problem #1 ACC/AHA stage C HFrEFLast echocardiogram with an EF of 35-40%-Current GDMT includes Entresto 49-51 mg twice daily, Toprol 25 mg daily, Aldactone 25 mg daily, Jardiance 10 mg dailyProblem #2 coronary artery disease as described aboveCurrently on aspirin 81 mg, Plavix 75 mg, rosuvastatin 5 mg.Patient notes that she has been compliant with all her medications since discharge. Since discharge she has been noticing chest discomfort and shortness of breath that comes on randomly about twice a week. She notes that these episodes are not consistently related to exertion; and do not worsen with position/palpation or respiration. Denies any orthopnea/PND or lower extremity edema. Denies any dizziness or lightheadedness. [facility] Work Phone: 01-01-2022 History of Present illness Narrative 46-year-old female with a history of multiple psychiatric diagnoses, type 2 diabetes mellitus, COPD who was initially admitted to [facility] 01/01/2022 in the setting of CHF exacerbation and COPD. Was treated with IV steroids/diuretics/oxygen. Noted to have a an NSTEMI and underwent a cardiac authorization 01/01/2022 with SAMEER to LAD. Here for follow-up.Problem #1 ACC/AHA stage C HFrEF; heart failure with improved ejection fractionWith revascularization and GDMT echocardiogram subsequently improved March 14 to 55%.-Current GDMT includes Entresto 49-51 mg twice daily, Toprol 25 mg daily, Aldactone 25 mg daily, Jardiance 10 mg dailyProblem #2 coronary artery disease as described aboveCurrently on aspirin 81 mg, Plavix 75 mg, rosuvastatin 5 mg. LDL at goalContinues to notice random episodes of chest discomfort; that change with respiration. These are not related to exertion. She denies any exertional angina or shortness of breath. Denies any orthopnea/PND. Has minimal lower extremity edema. [facility] [employer] Work Phone: 01-01-2022 History of Present illness Narrative 47-year-old female with a history of multiple psychiatric diagnoses, type 2 diabetes mellitus, COPD who was initially admitted to [facility] 01/01/2022 in the setting of CHF exacerbation and COPD. Was treated with IV steroids/diuretics/oxygen. Noted to have a an NSTEMI and underwent a cardiac authorization 01/01/2022 with SAMEER to LAD. Here for follow-up.Problem #1 ACC/AHA stage C HFrEF; heart failure with improved ejection fractionWith revascularization and GDMT echocardiogram subsequently improved March 14 to 55%.-Current GDMT includes Entresto 49-51 mg twice daily, Toprol 25 mg daily, Aldactone 25 mg daily, Jardiance 10 mg dailyProblem #2 coronary artery disease as described aboveCurrently on aspirin 81 mg, Plavix 75 mg, rosuvastatin 5 mg. LDL at goalDenies any exertional chest pain or shortness of breath. Denies any orthopnea/PND. Does not appear to have any lower extremity edema [facility] [employer] Work Phone: 01-01-2022 History of Present illness Narrative 47-year-old female with a history of multiple psychiatric diagnoses, type 2 diabetes mellitus, COPD who was initially admitted to [facility] 01/01/2022 in the setting of CHF exacerbation and COPD. Was treated with IV steroids/diuretics/oxygen. Noted to have a an NSTEMI and underwent a cardiac authorization 01/01/2022 with SAMEER to LAD. Here for follow-up.Problem #1 ACC/AHA stage C HFrEF; heart failure with improved ejection fractionWith revascularization and GDMT echocardiogram subsequently improved March 14 to 55%.-Current GDMT includes Entresto 49-51 mg twice daily, Toprol 25 mg daily, Aldactone 25 mg daily, Jardiance 10 mg dailyProblem #2 coronary artery disease as described aboveCurrently on aspirin 81 mg, Plavix 75 mg, rosuvastatin 5 mg. LDL at goalDenies any exertional chest pain or shortness of breath. Denies any orthopnea/PND. Does not appear to have any lower extremity edema [facility] [employer] Work Phone: 01-01-2022 Note History & Physical R eviewed: /Lactating: Are You no Are You Currently Breastfeedingno I have reviewed the History and Physical dated: 28-Dec-2021 History and Physical reviewed and relevant findings noted. Patient examined to review pertinent physical findings.: No significant changes Home Medications Reviewed: changes noted See EMR. 12/28/21 LDL 30 - patient will continue on atorvastatin 10mg daily. Allergies Reviewed: no changes noted Airway/Sedation Assessment: Emotional Statuscalm Neurologicalert & oriented x 3 RespiratoryDiminished bilaterally. Cardiovascularrhythm & rate regular GI/GUsoft, nontender Obese, +BS. Pulsespresent: Pedal Left, Pedal Right, Radial Left, Radial Right Mouth Opening OKyes Neck Flexibility OKyes Loose Teethno Oropharyngeal Classification: Image has been removed. Oropharyngeal ClassificationClass III ASA PS ClassificationASA III Sedation Planmoderate sedation ERAS (Enhanced Recovery After Surgery): ERAS Patient: no Consent: COVID-19 Consent: COVID-19 Risk ConsentSurgeon has reviewed khan risks related to the risk of annmarie COVID-19 and if they contract COVID-19 what the risks are. Coronavirus Attestation of Need for Surgery: COVID-19 Surgery / Procedure Attestation: Select all criteria that apply Presence of severe symptoms causing an inability to perform activities of daily living Electronic Signatures: Emma Mclaughlin (MANAGER PHOTOGRAPHY-RETAIL LOSS PREVENTION INVESTIGATOR) (Signed 01-Jan-2022 09:12) Authored: History & Physical Reviewed, Airway/Sedation, ERAS, Consent, Note Completion Bernardino Gaitan) (Signed 01-Jan-2022 07:56) Authored: Consent Co-Signer: History & Physical Reviewed, Airway/Sedation, ERAS, Consent, Note Completion Last Updated: 01-Jan-2022 09:12 by Emma Mclaughlin (MANAGER PHOTOGRAPHY-RETAIL LOSS PREVENTION INVESTIGATOR) [facility] 12-28-2021 Note History of Present I llness: HPI: PABLO TABARES is a 46 year old Female with history of multiple psychiatric diagnosis, DM II, COPD who presented to the ED with complaints of chest pain and SOB. She has been having SOB for about 3 days. She describes a chest tightness as well. She had no cough or sputum. Chest pain is non radiating. No fevers or chills. She was hypoxic on arrival to the ER. She had a mild troponin elevation. She was given a dose of Lovenox and transferred to our facility for cardiology evaluation. A 10 point ROS was performed with the patient denying any complaints at this time aside from those listed in the HPI above. PMHx: as stated in HPI PSHx: Right breast lumpectomy, multiple cutaneous cyst extractions Social Hx: Smokes about a pack a day, no drug or alcohol abuse, lives in a snf Family Hx: Unfamiliar with her family history Physical Exam: GENERAL: Obese no distress, alert and cooperative HEENT: normocephalic, atraumatic CARDIOVASCULAR: regular rate and rhythm. No murmurs, rubs, or gallops. S1/S2 RESPIRATORY: Clear to auscultation b/l. No wheezes rales, rhonchi. No distress ABDOMEN: Soft, non-tender. No rebound or guarding. No masses or pulsations. Normal BS MUSCULOSKELETAL: ROM intact, no joint swelling EXTREMITIES: No edema NEUROLOGICAL: A&O X 3. CN II-XII grossly intact. No focal deficits. SKIN: Warm and dry, no lesions, no rashes PSYCH: normal mood and affect Assessment/Plan: Patient is a 46-year-old female with history of COPD who presented to the hospital with chest pain and shortness of breath. Symptoms ongoing for about 3 days. CTA shows bilateral ground glass most consistent with edema, her BNP is elevated. I do not suspect a PNA Decompensated congestive heart failure Elevated troponin Acute exacerbation of COPD Type 2 diabetes Multiple psychiatric conditions Obesity Nicotine abuse -trial dose of IV lasix, obtain echo, cardiology consult -40mg prednisone, duonebs -SSI -reconcile home meds once list is verified, unclear what her psych regimen is -dvt prophylaxis Allergies: Cipro: Swelling/Edema KAMERON inhibitors: Swelling/Edema Medications Prior to Admission: Home meds have been reviewed, but review is not yet complete Orders Reconciliation is incomplete. Benadryl 50 mg oral capsule: 1 cap(s) orally once a day (in the evening) Vitamin D3 25 mcg (1000 intl units) oral tablet: 1 tab(s) orally once a day (in the morning) amLODIPine 5 mg oral tablet: 1 tab(s) orally once a day Vitamin B12 1000 mcg oral tablet: 1 tab(s) orally once a day Tab-A-Marilyn + Iron oral tablet: 1 tab(s) orally once a day rosuvastatin 5 mg oral tablet: 1 tab(s) orally once a day (at bedtime) sucralfate 1 g oral tablet: 1 tab(s) orally 4 times a day (before meals and at bedtime) metoclopramide 5 mg oral tablet: 1 tab(s) orally 4 times a day (before meals and at bedtime) haloperidol 10 mg oral tablet: 1 tab(s) orally once a day (at bedtime) omeprazole 40 mg oral delayed release capsule: 1 cap(s) orally once a day QUEtiapine 50 mg oral tablet: 1 tab(s) orally 2 times a day haloperidol 5 mg oral tablet: 1 tab(s) orally 2 times a day // AM & PM oxybutynin 10 mg/24 hr oral tablet, extended release: 1 tab(s) orally once a day (in the morning) QUEtiapine 100 mg oral tablet: 1 tab(s) orally 2 times a day // AM & PM glipiZIDE 10 mg oral tablet, extended release: 1 tab(s) orally once a day. Objective: Objective Information: T PRBPMAPSpO2 [id number]/8497% Date/Time12/27 22: 22: 22: 22: 22:09 Range(36.3C - 36.3C ) (93 - 93 ) (22 - 22 ) (141 - 141 )/ (84 - 84 ) (97% - 97% ) As of 27-Dec-2021 22:09:00, patient is on 2 L/min of oxygen via nasal cannula. Pain reported at 12/27 22:50: 5 = Moderate Recent Lab Results: Results: CBC: 12/27/2021 08:16 \ Hgb / \ 13.4 / WBC Plt 14.3 H 181 / Hct \ / 41.3 \ RBC: 4.59 MCV: 90 Neutrophil %: 80.3 CMP: 12/27/2021 08:55 NA+ Cl- BUN / 139 105 9 / Glucose 226 H K+ HCO3- Creat \ 4.1 29 0.62 \ \ T Bili / \ 0.4 / AST x ---- x ALT 35 x ---- x 91 H / Alk P \ / 111 H \ Calcium : 8.6 Anion Gap : 9 L Albumin : 3.9 T Protein : 6.8 Coagulation: null PT / / -------< INR < PTT\ \ Electronic Signatures: Nasim Arellano () (Signed 28-Dec-2021 04:47) Authored: History of Present Illness, Allergies, Medications Prior to Admission, Objective, Note Completion Last Updated: 28-Dec-2021 04:47 by Nasim Arellano () [facility] Evaluation note ENMT: mucous membran es moist, no apparent injury, no lesions seenHead/Neck: Neck supple, no bruitsRespiratory/Thorax: CTAB, normal breath sounds with good chest expansion, thorax symmetricCardiovascular: Regular, rate and rhythm, no murmurs, 2+ equal pulses of the extremities, normal S 1and S 2Gastrointestinal: Nondistended, soft, + BSSkin: Warm and dry, no lesions, no rashesExtremities: normal extremities, no cyanosis, trace edemaNeurological: alert and oriented x3, intact sensesConstitutional: Well developed, awake/alert/oriented x3, no acute distressEyes: EOMI, clear scleraMusculoskeletal: ROM intact, no joint swelling, normal strengthPsychological: Appropriate mood and behavior 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 It is recommended that a responsible adult be with you for the first 24 hours. DO NOT drink any alcoholic drinks or take any non-prescriptive medications that contain alcohol for the first 24 hours. DO NOT make any important decisions for the first 24 hours. * Activity:You are advised to go directly home from the hospital. No excessive exercise or treadmill use for one week. You may walk and do stairs, slowly. No sexual activities for 24 hours after you arrive home. * Wound Care:You may experience some tenderness, bruising or minimal inflammation. If you have any concerns, you may contact the [facility] or if any of these symptoms become excessive, contact your arabic teacher or go to the emergency room. No tub baths, soaking, or swimming for one week. May shower the next day after your procedure. * Other Instructions:If you develop diffficulty breathing, rash, hives, severe nausea, vomiting, light-headedness or any signs of infection, immediately contact your doctor and go to the nearest emergency room. If you have any questions about the effects of the sedative drugs or groin care, call the p hysician who performed your procedure. If your doctor has prescribed aspirin and/or clopidogrel (Plavix) or prasugrel (Effient) or ticagrelor (Brilinta) and you have a stent in your heart arteries, DO NOT STOP THESE MEDICATIONS for any reason without talking first to your arabic teacher. You must take your aspirin, clopidogrel (Plavix), prasugrel (Effient), or ticagrelor (Brilinta) every day without missing a single dose. If you are getting low on these medications, contact your physician immediately for a refill. * Follow Up Appointment 1:Physician/ Dept/ Service: Dr. Neumann (cardiology)Call to Schedule in: 2 weeksScheduled Date/Time: 18-Jan-2022 02:30Location: [facility] 2nd Floor Cardio, [address] [place] [address], [id number] Number: [phone]/Comments: Please follow up with Dr. Neumann 01/18/22 at 2:30PM as scheduled. * Follow Up Appointment 1:Physician/Dept/Service: Dr. Blake for Referral: hospital follow-up & diabetic medication follow upCall to Schedule in: 1 weekPhone Number: [phone] * Follow Up Appointment 2:Physician/Dept/Service: Cardiology (Dr. Neumann)Reason for Referral: follow-up for CHF, NSTEMI/PCI * Follow Up Appointment 3:Physician/Dept/Service: Endocrinology (Dr. River)Reason for Referral: Type2 diabetesLocation: [address] [place], [place] [address]Ggrfa Number: * Gold Form - Other Clinicians:Other Clinician Instructions: Thank you for choosing [facility] - it has been a pleasure taking part in your medical care. Please follow upwith your Primary Medical Physician within 1 week of discharge and any specialists as noted within 1-2 weeks for further workup. If your symptoms should persist or worsen, please return immediately to the nearest Emergency Room for further care. If you have any questions about the care you receivedplease call [facility] at .Additional Instructions*You have been started on new medications, please carefully review dosing regimen. You will be taking:amLODIPine 5 mg oral tablet 1 tab(s) orally once a day aspirin 81 mg oral tablet, chewable 1 tab(s) orally once a day Benadryl 50 mg oral capsule 1 cap(s) orally once a day (in the evening) clopidogrel 75 mg oral tablet 1 tab(s) orallyonce a day empagliflozin 10 mg oral tablet 1 tab(s) orally once a day haloperidol 10 mg oral tablet1 tab(s) orally once a day (at bedtime) haloperidol 5 mg oral tablet 1 tab(s) orally 2 times a day // AM & PM insulin glargine 100 units/mL subcutaneous solution 15 unit(s) subcutaneous once a day (in the evening) insulin lispro 100 units/mL injectable solution 5 unit(s) injectable 3 times a day with meals Janumet 50 mg-500 mg oral tablet 1 tab(s) orally 2 times a day // AM & PM with meals. Hold for 48 hours post cardiac catheterization procedure, resume 01/04/22. metoclopramide 5 mg oral tablet 1 tab(s) orally 4 times a day (before meals and at bedtime) metoprolol succinate 25 mg oral tablet, extended release 1 tab(s) orally once a day omeprazole 40 mg oral delayed release capsule 1cap(s) orally once a day oxybutynin 10 mg/24 hr oral tablet, extended release 1 tab(s) orally once a day (in the morning) QUEtiapine 100 mg oral tablet 1 tab(s) orally 2 times a day // AM & PM QUE tiapine 50 mg oral tablet 1 tab(s) orally 2 times a day rosuvastatin 5 mg oral tablet 1 tab(s) orally once a day (at bedtime) sacubitril-valsartan 49 mg-51 mg oral tablet 1 tab(s) orally 2 times a day spironolactone 25 mg oral tablet 1 tab(s) orally once a day sucralfate 1 g oral tablet 1 tab(s) orally 4 times a day (before meals and at bedtime) Tab-A-Marilyn + Iron oral tablet 1 tab(s) orally once a day torsemide 20 mg oral tablet 1 tab(s) orally once a day Vitamin B12 1000 mcg oral tablet 1 tab(s) orally once a day Vitamin D3 25 mcg (1000 intl units) oral tablet 1 tab(s) orally once a day (in the morning) [facility] Other Phone (unformatted): [phone] Summary Purpose Family History No Family History Records FoundNo Family History Records FoundNo Family History Records FoundNo Family History Records FoundNo Family History Records FoundNo Family History Records FoundNo Family History Records FoundNo Family History Records FoundNo Family History Records FoundNo Family History Records FoundNo Family History Records FoundNo Family History Records FoundNo Family History Records Found Advance Directives No Advanced Directives Records FoundDocuments on File Type Date Recorded Patient Precipitation Equipment Tender Expl anation Living Will 01/21/2019 Date Activated Date Inactivated Comments 05/22/2024 2:16 AM Question Answer Comments Plan of Care: Code Status Discussion Completed Decision Maker: Patient Hospital Course * Perry Montoya MD - 06/13/2017 9:49 AM EDT Formatting of this note may be different from the original. Inpatient Psychiatry Discharge Summary Patient Name: Pablo Tabares MR #: [id number] : 1975 Admit Date: [id number] Discharge Date/Time: 06/13/2017 9:49 AM Clinical Summary Discharge Diagnoses and Associated Hospital Course: * Schizophrenia, paranoid, chronic (HCC) Assessment & Plan Patient was placed back on the discharge medication regimen from last admission. Patient started showing improvement. Patient has not required any as needed medications for psychotic agitation in quite some time. We had numerous discussions in treatment team that the patient would do really well [facility] supervised setting. silver spray worker has been working with [facility] as well as guardian-it seems that placement will not be an option. Patient will be going to [facility]. Hospitalist was consulted for medical management. Metformin dose will be 500mg bid. No insulin coverage required with the higher dose of metformin per hospitalist. Patient has been engaging in groups and has been working on coping skills. Patient completed a safety plan. Occupational therapy provided task activity to improve self esteem and to support functioning. Psychotherapy provided education to improve coping skills. Patient was encouraged to utilize workbooks during hospitalization. Patient has been denying suicidal ideation, plan or intent. Patient has been denying homicidal ideation, plan or intent, denying auditory or visual hallucinations. Patient is hopeful, goal and future oriented. I have counseled the patient on the importance of compliance with medications and outpatient follow-up upon discharge. I have provided psycho-education on diagnosis and medications. Reason for Hospitalization: Pablo Tabares is a 41 y.o. female with a history of schizophrenia who was admitted by Dr. Greer due to worsening psychotic sx. Patient was hospitalized from March to May 02, 2017 under my care. Patient with a very similar presentation. Patient with numerous past psychiatric hospitalizations. During her last hospitalization, her Haldol dose was increased to 5 mg in the morning, 5 mg in the afternoon, 10 mg at bedtime. Patient was also given Atarax 50 mg 3 times a day schedules. Patient was also given BuSpar and trazodone as needed for sleep. Her psychotic symptoms, mood and agitation symptoms improved with this medication regimen. Guardianship was pursued and granted. It seems that placement in a supervised setting such as snf were not options for the patient. Patient did really well in a supervised hospital setting. Due to lack of finances, the [facility] had [facility] Patient was discharged with case management and med drops. Patient unable to provide hx since dc. Most likely, patient with noncompliance with meds since dc. I reviewed notes in care connect. Patient states [place] need [place] go [place] be with my family. Patient is disorganized, psychotic, internally stimulated during the interview. Patient with racing thoughts, rapid speech. Patient is overall paranoiad. Patient is very agitated duringthe interview. [facility] since pt needs placement once stabilized. PSYCHIATRIC HISTORY: Prior diagnosis: schizophrenia Current psychiatrist: thru [facility] Current therapist: [facility] Previous hospitalizations: numerous History of suicide attempts: unable to obtain Access to firearms currently: unable to obtain Past medication trials: unable to obtain from pt SOCIAL HISTORY: Patient has a guardian. SUBSTANCE ABUSE HISTORY: Patient denies alcohol use or illicit drug use. Her tox is negative. Condition upon discharge: Risk to self and others assessed and is lower: denies suicidal ideation, plan or intent, homicidal ideation, plan or intent, denies AH/VH, mood symptoms improved, psychotic symptoms improved, brighter affect, completed safety plan, hopeful, goal and future oriented, plans to not use alcohol or drugs, going to a safe place, no access to guns, guardian feels safe with patient being discharged, no suicidal gestures on unit, no recent prn medications, no seclusion or restraint. silver spray worker has been working with patient and guardian on discharge planning- including living situation, follow- up appointments, confirming no access to guns, and providing resources for patie nt. Patient will also be provided with crisis numbers. Consults placed Procedures Emergency Department consult to PSYCH - Cytology Supervisor Hospitalize Patient To : Inpatient consult to Hospitalist Allergies Kameron inhibitors; Amoxicillin; Ciprofloxacin; and Penicillins Procedures performed No orders of the defined types were placed in this encounter. Other tests No orders of the defined types were placed in this encounter. Studies pending at discharge None Laboratory Results: Invalid input(s): CO2 Review of Systems: 10 systems reveiwed and negative except as noted above Mental Status Evaluation: General Appearance & Behavior: age appropriate, pleasant, cooperative, good eye contact Grooming & Hygiene: neat and clean Psychomotor Activity: no psychomotor abnormalities or muscle atrophy noted Speech: diminished amount Flow of Thought: concrete Thought Associations: Intact Content of Thought: No evidence of suicidal ideations/homicidal ideations/psychosis Mood: great Affect: euthymic Insight: improved Judgment: improved Orientation: alert and oriented to person, place, time, and circumstances Memory: intact recent and remote Attention: adequate Concentration: reduced Language: fluent Fund of Knowledge: estimated below average intelligence Discharge Information Discharge Medications: Medication List START taking these medications albuterol 90 mcg/actuation inhaler Inhale 2 (two) puffs every 6 (six) hours as needed for wheezing. hydrOXYzine 50 MG tablet Commonly known as: ATARAX Take 1 (one) tablet (50 mg total) by mouth 3 (three) times a day. nicotine 21 mg/24 hr Commonly known as: NICODERM CQ Place 1 (one) patch on the skin daily. traZODone 150 MG tablet Commonly known as: DESYREL Take 1 (one) tablet (150 mg total) by mouth nightly. CHANGE how you take these medications metFORMIN 500 MG tablet Commonly known as: GLUCOPHAGE Take 1 (one) tablet (500 mg total) by mouth 2 (two) times a day with meals. What changed: when to take this CONTINUE taking these medications amLODIPine 10 MG tablet Commonly known as: NORVASC Take 1 (one) tablet (10 mg total) by mouth daily. busPIRone 7.5 MG tablet Commonly known as: BUSPAR Take 1 (one) tablet (7.5 mg total) by mouth 3 (three) times a day. * haloperidol 10 MG tablet Commonly known as: HALDOL Take 1 (one) tablet (10 mg total) by mouth nightly. * haloperidol 5 MG tablet Commonly known as: HALDOL Take 1 (one) tablet (5 mg total) by mouth 2 (two) times a day Take in am and 1400. * Notice: This list has 2 medication(s) that are the same as other medications prescribed for you. Read the directions carefully, and ask your doctor or other care provider to review them with you. Where to Get Your Medications You can get these medications from any pharmacy Bring a paper prescription for each of these medications albuterol 90 mcg/actuation inhaler amLODIPine 10 MG tablet busPIRone 7.5 MG tablet haloperidol 10 MG tablet haloperidol 5 MG tablet hydrOXYzine 50 MG tablet metFORMIN 500 MG tablet nicotine 21 mg/24 hr traZODone 150 MG tablet This patient is being discharged on one antipsychotic. Diagnostic work up including: BMI, blood pressure, hemoglobin A1c or blood glucose, and lipid panel have been completed in the past year performed within [facility] and available in EPIC. Glucose >126mg/dL, HgbA1c 7.0. Tobacco cessation medication is not indicated as patient smokes <4 cigarettes daily. [facility]position: [facility] Follow Up: [facility] ([facility]) [facility] [address] [place] [address] [phone] 1:50pm Sunday, June 18, 2017 with Eli Mclean M.D. I have also encouraged patient to follow-up with PCP in 1-2 weeks. Discharge Diet: Resume home diet Additional Information: none Provider(s): Primary Care: Physician No Phone: None Address: [facility] Patient instructions, including activity, were given to the patient/family at discharge. Please seethe After Visit Summary in the medical record for details. Time spent on discharge: > 30 minutes Completed by: Perry Montoya on 06/13/17, 9:49 AM in this encounter* Perry Montoya MD - 05/02/2017 9:31 AM EDT Formatting of this note may be different from the original. Inpatient Psychiatry Discharge Summary Patient Name: Pablo Tabares MR #: [id number] : 1975 Admit Date: [id number] Discharge Date/Time: 05/02/2017 9:32 AM Clinical Summary Discharge Diagnoses and Associated Hospital Course: * Schizophrenia, paranoid, chronic with acute exacerbation (HCC) Assessment & Plan Treatment team knows the patient well from multiple past hospitalizations. Patient was initially very disorganized and psychotic. Patient started on Haldol which was increased to 5 mg in the morning,5 mg in the afternoon, 10 mg at bedtime. Patient started showing some improvement with the higher dose of Haldol. Patient felt that Atarax was helpful for anxiety and therefore Atarax was given 50 mg3 times a day scheduled. Patient was also given trazodone for sleep. Patient was also given BuSpar for anxiety which she had been on in the past. Patient has been taking better care of ADLs. Patient has not been observed to be internally stimulated during rounds. After long discussions in treatment team, we all agreed that the patient would benefit from a guardian. Therefore guardianship was pursued and granted. silver spray worker has been working with patient, guardian and [facility] on discharge planning. It seems that placement in a supervised setting such as placement in snf or [facility] are not options for patient. That would be the most ideal for the patient. Patient has done extremely well in a structured hospital setting. We have also discussed in treatment team how [facility] would not be ideal even short term for patient due to high risk of rehospitalization. However, it seems that [facility] has to [facility] due to lack of finances. SW has been working with guardian and [facility]. Patient will have case management and med drops. Patient has been compliant with her oral medications. Patient has not required any as needed medications for psychotic agitation. Patient with no seclusion or restraint. Patient denies suicidal ideation, plan or intent. Patient denies homicidal ideation, auditory or visual hallucinations. Patient with no prn meds for agitation. Hospitalist was consulted for medical management. Patient has been engaging in groups and has been working on coping skills. Patient completed a safety plan. Occupational therapy provided task activity to improve self esteem and to support functioning. Psychotherapy provi ded education to improve coping skills. Patient was encouraged to utilize workbooks during hospitalization. Patient has been denying suicidal ideation, plan or intent. Patient has been denying homicidal ideation, plan or intent, denying auditory or visual hallucinations. Patient is hopeful, goal and future oriented. I have counseled the patient on the importance of compliance with medications andoutpatient follow-up upon discharge. I have provided psycho- education on diagnosis and medications. Reason for Hospitalization: Pablo Tabares is a 41 y.o. female with a history of schizophrenia who is admitted on a voluntary basis from our emergency room due to worsening psychotic symptoms. Patient is extremely psychotic and unable to provide a comprehensive history. Patient was on our behavioral health unit and was discharged in January 2017 when she was under the care of Dr. Mclean on a combination including Haldol 5 mg 3 times a day, BuSpar 5 mg 3 times a day, Celexa 10 mg daily and trazodone 100 mg at bedtime. We discussed this patient in treatment team. According to discussion, the patient was supposed to go to [facility]. Most likely, the patient has been noncompliant with her medi cations and follow-up. According to documentation, the patient has not been to [facility] because of belief that they are trying to inject DNA into her. It seems that the patient has been off her meds since her discharge. Patient is unkempt and most likely not taking care of her ADLs. Her toxicology screen was positive for cocaine. However the patient cannot give me a clear history of her illicit drug use. Urinalysis is positive for bacteria, nitrites and most likely the patient does have a UTI. CBC and CMP were unremarkable. Patient with numerous past psychiatric hospitalizations. I reviewed the documentation in care connect from her 3 hospitalizations here. Patient presents with flight of ideas, psychomotor agitation, rapid pressured speech, mood lability, impulsivity, distractibility, decreased sleep, overall decline in functioning with decline in attendance to ADLs. Patient is extremely disorganized. Patient also believes that she has microchips in her head. Patient presents with paranoid delusions as well as persecutory delusions. Unable to do a comprehensivepsychiatric review of systems at this time. She had endorsed auditory and visual hallucinations to staff including having conversations with her and aliens by satellite. Patient wants to go by [facility] this admission. PSYCHIATRIC HISTORY: Prior diagnosis: schizophrenia Current psychiatrist[facility]- but noncompliant Current therapist: [facility] Previous hospitalizations: numerous History of suicide attempts: unable to obtain Access to firearms currently: unable to obtain Past medication trials: unable to obtain other than records in care connect SOCIAL HISTORY: Unable to obtain from patient. From discussion in tx team, patient does not have a guardian. It seems that pt was supposed to go to [facility]. SUBSTANCE ABUSE HISTORY: Unable to obtain from patient. Tox screen was positive for cocaine. Condition upon discharge: Risk to self and others assessed and is lower: denies suicidal ideation, plan or intent, homicidal ideation, plan or intent, denies AH/VH, mood symptoms improved, psychotic symptoms improved, anxiety sx improved, brighter affect, completed safety plan, hopeful, goal and future oriented, plans to not use alcohol or drugs, going to a safe place, no access to guns, no suicidal gestures on unit, no recent prn medications, no seclusion or restraint. silver spray worker has been working with patient, guardian and [facility] on discharge planning- including living situation, follow-up appointments, confirming no access to guns, and providing resources for patient. Patient will also be provided with crisis numbers. Risk of rehospitalization is high due to pt being [facility]. It seems that there are no other options per my discussion with SW which is unfortunate. Consults placed Procedures ED Consult to PSYCH - Cytology Supervisor (PSS) Hospitalize Patient To : Inpatient consult to Hospitalist Inpatient consult to Hospitalist Allergies Kameron inhibitors; Amoxicillin; Ciprofloxacin; and Penicillins Procedures performed No orders of the defined types were placed in this encounter. Other tests No orders of the defined types were placed in this encounter. Studies pending at discharge None Laboratory Results: Invalid input(s): CO2 Review of Systems: 10 systems reveiwed and negative except as noted above Mental Status Evaluation: General Appearance & Behavior: age appropriate, pleasant, cooperative, good eye contact Grooming & Hygiene: neat and clean Psychomotor Activity: no psychomotor abnormalities or muscle atrophy noted Speech: diminished amount Flow of Thought: concrete Thought Associations: Intact Content of Thought: No evidence of suicidal ideations/homicidal ideations/psychosis Mood: fine Affect: anxious Insight: improved Judgment: improved Orientation: alert and oriented to person, place, time, and circumstances Memory: unable to recall events leading to hospital admission Attention: adequate Concentration: intact Language: fluent Fund of Knowledge: estimated below average intelligence Discharge Information Discharge Medications: Medication List START taking these medications amLODIPine 10 MG tablet Commonly known as: NORVASC Take 1 (one) tablet (10 mg total) by mouth daily. benzocaine 7.5 % oral gel Commonly known as: BABY ORAJEL Apply to the mouth or throat 4 (four) times a day as needed for pain. busPIRone 7.5 MG tablet Commonly known as: BUSPAR Take 1 (one) tablet (7.5 mg total) by mouth 3 (three) times a day. * haloperidol 10 MG tablet Commonly known as: HALDOL Take 1 (one) tablet (10 mg total) by mouth nightly. * haloperidol 5 MG tablet Commonly known as: HALDOL Take 1 (one) tablet (5 mg total) by mouth 2 (two) times a day Take in am and 1400. hydrOXYzine 50 MG tablet Commonly known as: ATARAX Take 1 (one) tablet (50 mg total) by mouth 3 (three) times a day. metFORMIN 500 MG tablet Commonly known as: GLUCOPHAGE Take 1 (one) tablet (500 mg total) by mouth daily with breakfast. nicotine 21 mg/24 hr Commonly known as: NICODERM CQ Place 1 (one) patch on the skin daily. traZODone 150 MG tablet Commonly known as: DESYREL Take 1 (one) tablet (150 mg total) by mouth nightly. * Notice: This list has 2 medication(s) that are the same as other medications prescribed for you. Read the directions carefully, and ask your doctor or other care provider to review them with you. Where to Get Your Medications You can get these medications from any pharmacy Bring a paper prescription for each of these medications amLODIPine 10 MG tablet benzocaine 7.5 % oral gel busPIRone 7.5 MG tablet haloperidol 10 MG tablet haloperidol 5 MG tablet hydrOXYzine 50 MG tablet metFORMIN 500 MG tablet nicotine 21 mg/24 hr traZODone 150 MG tablet This patient is being discharged on one antipsychotic. Diagnostic work up including: BMI, blood pressure, hemoglobin A1c or blood glucose, and lipid panel have been completed in the past year performed within [facility] and available in [facility]. Glucose >126mg/dL, HgbA1c 6.9.- have asked hospitalist to determine medication dosing for insulin/diabetic meds for dc. Tobacco cessation medication has been ordered. Disposition: [facility] Follow Up: SW to make outpt followup appts. I have also encouraged patient to follow-up with PCP in 1-2 weeks. Discharge Diet: Resume home diet Additional Information: none Provider(s): Primary Care: Physician No Phone: None Address: [facility] Patient instructions, including activity, were given to the patient/family at discharge. Please seethe After Visit Summary in the medical record for details. Time spent on discharge: > 30 minutes Completed by: Perry Montoya on 05/02/17, 9:32 AM in this encounter* Perry Montoya MD - 05/02/2017 9:31 AM EDT Formatting of this note may be different from the original. Inpatient Psychiatry Discharge Summary Patient Name: Pablo Tabares MR #: [id number] : 1975 Admit Date: 636115 Discharge Date/Time: 05/02/2017 9:32 AM Clinical Summary Discharge Diagnoses and Associated Hospital Course: * Schizophrenia, paranoid, chronic with acute exacerbation (HCC) Assessment & Plan Treatment team knows the patient well from multiple past hospitalizations. Patient was initially very disorganized and psychotic. Patient started on Haldol which was increased to 5 mg in the morning,5 mg in the afternoon, 10 mg at bedtime. Patient started showing some improvement with the higher dose of Haldol. Patient felt that Atarax was helpful for anxiety and therefore Atarax was given 50 mg3 times a day scheduled. Patient was also given trazodone for sleep. Patient was also given BuSpar for anxiety which she had been on in the past. Patient has been taking better care of ADLs. Patient has not been observed to be internally stimulated during rounds. After long discussions in treatment team, we all agreed that the patient would benefit from a guardian. Therefore guardianship was pursued and granted. silver spray worker has been working with patient, guardian and [facility] on discharge planning. It seems that placement in a supervised setting such as placement in snf or [facility] place are not options for patient. That would be the most ideal for the patient. Patient has done extremely well in a structured hospital setting. We have also discussed in treatment team how [facility] would not be ideal even short term for patient due to high risk of rehospitalization. However, it seems that [facility] has to [facility] due to lack of finances. SW has been working with guardian and [facility]. Patient will have case management and med drops. Patient has been compliant with her oral medications. Patient has not required any as needed medications for psychotic agitation. Patient with no seclusion or restraint. Patient denies suicidal ideation, plan or intent. Patient denies homicidal ideation, auditory or visual hallucinations. Patient with no prn meds for agitation. Hospitalist was consulted for medical management. Patient has been engaging in groups and has been working on coping skills. Patient completed a safety plan. Occupational therapy provided task activity to improve self esteem and to support functioning. Psychotherapy provi ded education to improve coping skills. Patient was encouraged to utilize workbooks during hospitalization. Patient has been denying suicidal ideation, plan or intent. Patient has been denying homicidal ideation, plan or intent, denying auditory or visual hallucinations. Patient is hopeful, goal and future oriented. I have counseled the patient on the importance of compliance with medications andoutpatient follow-up upon discharge. I have provided psycho- education on diagnosis and medications. Reason for Hospitalization: Pablo Tabares is a 41 y.o. female with a history of schizophrenia who is admitted on a voluntary basis from our emergency room due to worsening psychotic symptoms. Patient is extremely psychotic and unable to provide a comprehensive history. Patient was on our behavioral health unit and was discharged in January 2017 when she was under the care of Dr. Mclean on a combination including Haldol 5 mg 3 times a day, BuSpar 5 mg 3 times a day, Celexa 10 mg daily and trazodone 100 mg at bedtime. We discussed this patient in treatment team. According to discussion, the patient was supposed to go to [facility]. Most likely, the patient has been noncompliant with her medi cations and follow-up. According to documentation, the patient has not been to [facility] because of belief that they are trying to inject DNA into her. It seems that the patient has been off her meds since her discharge. Patient is unkempt and most likely not taking care of her ADLs. Her toxicology screen was positive for cocaine. However the patient cannot give me a clear history of her illicit drug use. Urinalysis is positive for bacteria, nitrites and most likely the patient does have a UTI. CBC and CMP were unremarkable. Patient with numerous past psychiatric hospitalizations. I reviewed the documentation in care connect from her 3 hospitalizations here. Patient presents with flight of ideas, psychomotor agitation, rapid pressured speech, mood lability, impulsivity, distractibility, decreased sleep, overall decline in functioning with decline in attendance to ADLs. Patient is extremely disorganized. Patient also believes that she has microchips in her head. Patient presents with paranoid delusions as well as persecutory delusions. Unable to do a comprehensivepsychiatric review of systems at this time. She had endorsed auditory and visual hallucinations to staff including having conversations with her and aliens by satellite. Patient wants to go by [facility] this admission. PSYCHIATRIC HISTORY: Prior diagnosis: schizophrenia Current psychiatrist: [facility]- but noncompliant Current therapist[facility] Previous hospitalizations: numerous History of suicide attempts: unable to obtain Access to firearms currently: unable to obtain Past medication trials: unable to obtain other than records in care connect SOCIAL HISTORY: Unable to obtain from patient. From discussion in tx team, patient does not have a guardian. It seems that pt was supposed to go to [facility]. SUBSTANCE ABUSE HISTORY: Unable to obtain from patient. Tox screen was positive for cocaine. Condition upon discharge: Risk to self and others assessed and is lower: denies suicidal ideation, plan or intent, homicidal ideation, plan or intent, denies AH/VH, mood symptoms improved, psychotic symptoms improved, anxiety sx improved, brighter affect, completed safety plan, hopeful, goal and future oriented, plans to not use alcohol or drugs, going to a safe place, no access to guns, no suicidal gestures on unit, no recent prn medications, no seclusion or restraint. silver spray worker has been working with patient, guardian and [facility] on discharge planning- including living situation, follow-up appointments, confirming no access to guns, and providing resources for patient. Patient will also be provided with crisis numbers. Risk of rehospitalization is high due to pt being [facility]. It seems that there are no other options per my discussion with SW which is unfortunate. Consults placed Procedures ED Consult to PSYCH - Cytology Supervisor (PSS) Hospitalize Patient To : Inpatient consult to Hospitalist Inpatient consult to Hospitalist Allergies Kameron inhibitors; Amoxicillin; Ciprofloxacin; and Penicillins Procedures performed No orders of the defined types were placed in this encounter. Other tests No orders of the defined types were placed in this encounter. Studies pending at discharge None Laboratory Results: Invalid input(s): CO2 Review of Systems: 10 systems reveiwed and negative except as noted above Mental Status Evaluation: General Appearance & Behavior: age appropriate, pleasant, cooperative, good eye contact Grooming & Hygiene: neat and clean Psychomotor Activity: no psychomotor abnormalities or muscle atrophy noted Speech: diminished amount Flow of Thought: concrete Thought Associations: Intact Content of Thought: No evidence of suicidal ideations/homicidal ideations/psychosis Mood: fine Affect: anxious Insight: improved Judgment: improved Orientation: alert and oriented to person, place, time, and circumstances Memory: unable to recall events leading to hospital admission Attention: adequate Concentration: intact Language: fluent Fund of Knowledge: estimated below average intelligence Discharge Information Discharge Medications: Medication List START taking these medications amLODIPine 10 MG tablet Commonly known as: NORVASC Take 1 (one) tablet (10 mg total) by mouth daily. benzocaine 7.5 % oral gel Commonly known as: BABY ORAJEL Apply to the mouth or throat 4 (four) times a day as needed for pain. busPIRone 7.5 MG tablet Commonly known as: BUSPAR Take 1 (one) tablet (7.5 mg total) by mouth 3 (three) times a day. * haloperidol 10 MG tablet Commonly known as: HALDOL Take 1 (one) tablet (10 mg total) by mouth nightly. * haloperidol 5 MG tablet Commonly known as: HALDOL Take 1 (one) tablet (5 mg total) by mouth 2 (two) times a day Take in am and 1400. hydrOXYzine 50 MG tablet Commonly known as: ATARAX Take 1 (one) tablet (50 mg total) by mouth 3 (three) times a day. metFORMIN 500 MG tablet Commonly known as: GLUCOPHAGE Take 1 (one) tablet (500 mg total) by mouth daily with breakfast. nicotine 21 mg/24 hr Commonly known as: NICODERM CQ Place 1 (one) patch on the skin daily. traZODone 150 MG tablet Commonly known as: DESYREL Take 1 (one) tablet (150 mg total) by mouth nightly. * Notice: This list has 2 medication(s) that are the same as other medications prescribed for you. Read the directions carefully, and ask your doctor or other care provider to review them with you. Where to Get Your Medications You can get these medications from any pharmacy Bring a paper prescription for each of these medications amLODIPine 10 MG tablet benzocaine 7.5 % oral gel busPIRone 7.5 MG tablet haloperidol 10 MG tablet haloperidol 5 MG tablet hydrOXYzine 50 MG tablet metFORMIN 500 MG tablet nicotine 21 mg/24 hr traZODone 150 MG tablet This patient is being discharged on one antipsychotic. Diagnostic work up including: BMI, blood pressure, hemoglobin A1c or blood glucose, and lipid panel have been completed in the past year performed within [facility] and available in [facility]. Glucose >126mg/dL, HgbA1c 6.9.- have asked hospitalist to determine medication dosing for insulin/diabetic meds for dc. Tobacco cessation medication has been ordered. Disposition: [facility] Follow Up: SW to make outpt followup appts. I have also encouraged patient to follow-up with PCP in 1-2 weeks. Discharge Diet: Resume home diet Additional Information: none Provider(s): Primary Care: Physician No Phone: None Address: [facility] Patient instructions, including activity, were given to the patient/family at discharge. Please seethe After Visit Summary in the medical record for details. Time spent on discharge: > 30 minutes Completed by: Perry Montoya on 05/02/17, 9:32 AM in this encounter Discharge Instructions * Discharge Instr - Care Coordination - lAex Lee LISW-S - 05/27/2017 9:10 AM EDT You are encouraged to attend AA/NA meetings. Please attend 90 meetings in 90 days and secure a sponsor. You are referred for psychiatric/addiction treatment upon discharge. in this encounter* Discharge Instr - Care Coordination - Lizbeth Jalloh - 05/02/2017 10:39 AM EDT You are encouraged to attend AA/NA meetings. Please attend 90 meetings in 90 days and secure a sponsor. You are referred for psychiatric/addiction treatment upon discharge. NA Meetings in [place]: Saturday NA Noon,[facility], [facility] [address] Liturature, Steps, & Discussion. Open, Literature Study, Step, and/or Tradition, Discussion, Wheelchair Accessible. 8:30pm [facility] [address] (Use rear entrance) (O,D) Saturday, Just for Today, [facility], [address], Open, Literature Study with monthly speaker, H & I Recovery Meeting. Saturday 8:00pm. [facility], [facility], Open, Discussion, Speaker, Rotating Format, Wheelchair Accessible. 7:00pm [facility], [address] 8:30pm [facility], [address] Saturday NA , Saturday Keep Coming Back, [facility], [address] Open, Rotating Format. AA Meetings-Saturday 11:30am [facility], [address]O,D,N) 7:30pm [place] [facility] [address] (O,D) 8:00pm [facility] (O,D,N) 8:00pm [place] [facility], [address] (O, D,N) Saturday 12:00noon [place] [facility], [address] (H/A, O, D) 8:00pm [facility], [address], [place] (O, D, H/A) 8:30pm [place] [facility], [address] (O, D, 12&12) Saturday 12:00noon [place] [facility], [address] (O, D, H/A, GR) 8:00pm [facility], [address] [facility] (C, D, H/A) 8:30pm [place] [facility], [address] (BB, O, D, H/A) 8:30pm [facility], [address] (O,D,N) Saturday 12:00noon- [place] [facility], [address]BB, H/A) 8:00pm [place] [facility], (W,O,D) 8:00pm [facility] [address] (O,D,N) 8:30pm [facility], [facility] Latha Ortiz (C, D, H/A) 12:00noon [place] [facility], [address] (O, D, H/A, GR) 8:30pm [facility], [address]O, L, H/A) 8:30pm [facility], [address] (C, D, H/A) Saturday 12:00pm [place] [facility], [address] (O, L, D, H/A) 8:30pm [facility], [address]O, L, H/A) 8:00pm [facility], [address] (O,D,N) Midnight, t, [facility], (O,D) Saturday, [facility], [address] 8:30pm [facility], [facility] [address]O, L, H/A) in this encounter* Discharge Instr - Care Coordination - Shubham Lizbeth L - 05/02/2017 10:39 AM EDT You are encouraged to attend AA/NA meetings. Please attend 90 meetings in 90 days and secure a sponsor. You are referred for psychiatric/addiction treatment upon discharge. NA Meetings in : Saturday Noon,[facility], [facility] [address] Liturature, Steps, & Discussion. Open, Literature Study, Step, and/or Tradition, Discussion, Wheelchair Accessible. NA 8:30pm [facility] [address] (Use rear entrance) (O,D) Saturdayon, Just for Today, [facility], [address], Open, Literature Study with monthly speaker, H & I Recovery Meeting. Saturday 8:00pm. [facility], [facility], Open, Discussion, Speaker, Rotating Format, Wheelchair Accessible. 7:00pm [facility], [facility] [address] 8:30pm [facility], [address] Saturday NA , Saturday Keep Coming Back, [facility], [address] Open, Rotating Format. AA Meetings-Saturday 11:30am [facility], [address]O,D,N) 7:30pm [facility] [address] (O,D) 8:00pm [facility] (O,D,N) 8:00pm [facility], [facility] [address] (O, D,N) Saturday 12:00noon [place] [facility], [address] (H/A, O, D) 8:00pm [place] [facility], [address], [place] (O, D, H/A) 8:30pm [facility], [address] (O, D, 12&12) Saturday 12:00noon [place] [facility], [address] (O, D, H/A, GR) 8:00pm [place] [facility], [address] (C, D, H/A) 8:30pm [place] [facility], [address] (BB, O, D, H/A) 8:30pm [facility], [address] (O,D,N) Saturday 12:00noon- [place] [facility], [address]BB, H/A) 8:00pm [place] [facility], (W,O,D) 8:00pm [facility] [address] (O,D,N) 8:30pm [facility], [address] (C, D, H/A) 12:00noon [place] [facility], [address] (O, D, H/A, GR) 8:30pm [place] [facility], [address]O, L, H/A) 8:30pm [facility], [address] (C, D, H/A) Saturday 12:00pm [place] [facility], [address] (O, L, D, H/A) 8:30pm [place] [facility], [address]O, L, H/A) 8:00pm [facility], [address] (O,D,N) Midnight, t, [place] [facility], (O,D) Saturday Noon, [place] [facility], [address] 8:30pm [facility], [address]O, L, H/A) in this encounter History of Present Illness * Radha Sands, RN - 06/13/2017 3:34 PM EDT Patient reviewed and signed all discharge plans and orders. Patient verbalized understanding. All belongings returned and copies of discharge plans given with scripts included. Patient left unit ambulatory with counter caser [id number]. * Kati Harrison LISW - 06/13/2017 11:45 AM EDT Left voicemail for dat-Nolan Dietrich @ [phone] re: d/c date/time/plan. Left voicemail for Finn Estrada @ [phone] re: d/c date/time. * Letha Nelson, LEROY - 06/13/2017 10:48 AM EDT Pt calm and cooperative. Presented to nurses station for morning and afternoon meds without prompting. Pt is guarded, but friendly. When asked if hearing voices, pt states, Yes but they're quiet, and I pay no attention to them. Pt says she is feeling well today, and is, more than ready to go home. Pt attended all morning and afternoon groups, and could be seen walking the halls with peers in between groups. Provided pt with positive feedback regarding discharge plans. Denies SI, HI and pain. * Kati Harrison LISW - 06/13/2017 9:53 AM EDT Patient denies suicidal ideation, homicidal ideation, psychosis. Safety plan completed, reviewed and will be scanned into care connect. Pt denies questions/concerns re: d/c plan. Patient is on target for discharge today, with outpatient follow-up arranged. Please see the AVS for details. Pt will be staying at [facility]. Transportation is provided by [employer]: Rosalio at 15:45. silver spray worker spoke with guardian and CM for discharge planning/collateral and they denied safety concerns. Ithas been confirmed the patient will not have access to guns. IP discharge bundle has been faxed for coordination of care, to the outpatient provider. Resources provided. Patient was strongly encouraged to f/u as outpatient. Medications were faxed to [facility] to be delivered to [facility]. * Hollie Armenta LEROY - 06/13/2017 2:28 AM EDT Pt remains on Suicide and Unpredictable precautions. Safety checks performed every 15 minutes at varied intervals. Pt retired to bed at 2058. 0100- Pt resting in bed with eyes closed. Respirations unlabored. No distress noted. 0500- Pt resting in bed with eyes closed. Respirations unlabored. No distress noted. Pt has rested approximately 7.5 hours thus far. Interrupted x 2. Accuchek at 0600 was 136. * Priya Schaffer, LEROY - 06/12/2017 4:15 PM EDT Patient presents as depressed with a blunted. She is looking forward to discharge tomorrow, and stated that her plan is to follow what the counter caser wants for her. Patient attends available groups. She spends free time in common areas but is minimally interactive with peers. Patient denies SI, HI, and thoughts of self harm at this time. Endorses auditory hallucinations but stated that they have down. Patient was compliant with dinner dose of Insulin. Was present for dinner meal. Patientarrived independently for HS medications and was compliant with them. PRN's: Nicotine replacement throughout shift Accuchecks: 1615: 148; 4 units administered 2000: 198, no coverage required * Tiffanie Fraga RN - 06/12/2017 1:32 PM EDT Pt calm and cooperative. Presents to nurses' station for morning medication with prompting. Compliant with all scheduled meds. Pt states she feels pretty good today. Compliant with unit schedule. Often observed walking laps during free time. Pt guarded with 1:1 interaction. States she is looking forward to potential discharge tomorrow. Positive feedback provided to pt. Thoughts are limited. Speech is appropriate. Denies SI, HI. Endorses auditory hallucinations that are quiet and not distracting. Denies pain. PRN: dre replacement Accu check @ 3372=537, 0 U @1392=209, 0 U * Perry Montoya MD - 06/12/2017 11:12 AM EDT Formatting of this note may be different from the original. Psychiatry Progress Note Patient Name: Pablo Tabares Admit Date: 10010901 MR #: [id number] : 1975 Perpetual Assessment Pablo Tabares is a 41 y.o. female presenting with worsening psychotic sx who is slowly improving. Patient does well in a supervised setting. Diagnosis & Plan/Recommendations Other * Schizophrenia, paranoid, chronic (HCC) Assessment & Plan Provide support and reassurance. Social service to obtain additional information and background, coordinate care and assess supports. silver spray worker to work with patient, family and outpatient providers on follow-up appointments and resources. silver spray worker to confirm no access to guns, review safety plan and address psychosocial issues. Occupational Therapy to provide task activity to improve self esteem and to assess and support functioning. Psychotherapy to provide disease education and improve coping skills. Encouraged patient to participate in milieu and go to groups. Incorporate individual therapy, art therapy, group therapy. Encourage patient to incorporate workbooks. No medication changes. Hospitalist to reconcile insulin discharge regimen. Interval History: Notes in care connect were reviewed. Patient was discussed in treatment team. Carolhas been compliant with her oral medications. No irritability shown. Patient says, no when discussing auditory hallucinations. She denies command hallucinations. Patient denies suicidal ideation, homicidal ideation, or visual hallucinations. It seems that placement is not an option for this patien t. Patient has done well in a supervised setting. The plan is for the patient to go to [facility] tomorrow. We discussed in tx team about the insulin regimen needing to be reconciled prior to discharge. Review of Systems: All other systems reviewed and negative other than HPI Physical Examination: Vital Signs: BP (!) 158/94 (BP Location: Left arm, Patient Position: Sitting) Pulse 87 Temp 97.7 F (36.5 C) (Oral) Resp 16 Ht 5' 3 Wt 119.9 kg (264 lb 5.3 oz) LMP Comment: currently menstruating SpO2 98% ? No BMI 46.82 kg/m2 Mental Status Examination: General Appearance & Behavior: cooperative Grooming & Hygiene: street clothes Psychomotor Activity: no psychomotor abnormalities or muscle atrophy noted Speech: diminished amount Flow of Thought: concrete Thought Associations: linear Content of Thought: No evidence of suicidal ideations/homicidal ideations/psychosis, delusions and paranoia Mood: much better Affect: bright Insight: limited Judgment: limited Orientation: oriented to person, place and time Memory: impaired Attention: adequate Concentration: reduced Language: fluent Fund of Knowledge: estimated below average intelligence Laboratory and Additional Data Reviewed: Notes in care connect reviewed. Treatment options and alternatives reviewed with patient and Guardian. Risks, benefits, side effects of all psychiatric medications discussed with patient and Guardian and informed consent obtained. All questions were answered. ITZEL and nursing staff communicating with guardian. Perry Montoya MD 06/12/2017 11:12 AM * Kati Harrison LISW - 06/12/2017 10:29 AM EDT F/U w/pt and completed safety plan and reviewed d/c plan. Pt is in agreement with d/c plan. Denies current SI/HI/psychosis. ITZEL faxed award letter, SS card, Photo ID and certificate to [facility] for meeting with guardian. RX faxed to pharmacy ([facility] and request made to deliver medications to [facility]. Message left for CM to update * Kati Harrison LISW - 06/12/2017 9:24 AM EDT R/C call from Rosalio at [facility] counseling P# [phone] ext [phone]. She will pick-up pt on 06/13 @ 15:45. She requests that pt's Rx be faxed to [facility] earlier in the day so that they can be delivered to [facility] ([address] [place] [address]) prior to her arrival. She also requests that ptlocate her ID/SS card and Award Letter in her property and that these be faxed to her attention @ F# [phone]. She advises that they are meeting with the guardian prior to her d/c as the guardianhas a trip out of state at the end of the week. She confirms pt has f/u w/Dr. Mclean on 06/18/17 also. * Hollie Armenta, RN - 06/12/2017 2:16 AM EDT Pt remains on Suicide, Unpredictable and precautions. Safety checks performed every 15 minutes at varied intervals. Pt retired to bed at 2102. 0100- Pt resting in bed with eyes closed. Respirations unlabored. No distress noted. 0500- Pt resting in bed with eyes closed. Respirations unlabored. No distress noted. Pt has rested approximately 8.0 hours thus far. Uninterrupted. FSBS at 0600 was 138. * Hollie Armenta RN - 06/11/2017 7:18 PM EDT Pt has spent free time mainly isolating to herself. She is friendly when approached for conversation. She states that her plan after discharge is to live at [facility] for about 3 months. Shestates that she will be able to save money while living there so she will be able to get another place to live after those 3 months. Pt states that she has lived at [facility] in the past and that she likes it. She smiles upon approach, but appears sad much of the rest of the time. Pt denies SI, HI and hallucinations, but appears at times to be responding to internal stimuli. Pt presented independently for bedtime medications and took them without issues. PRNs: None Blood glucose at 1954 was 232. No coverage necessary. * Torie Jackson PSA - 06/11/2017 3:14 PM EDT Pt continues to attend all groups, but is very quiet, not initiating conversation. She is more reality based. She does appear positive about impending discharge and respite housing. Staff will continue to monitor her progress. * Perry Montoya MD - 06/11/2017 11:41 AM EDT Formatting of this note may be different from the original. Psychiatry Progress Note Patient Name: Pablo Tabares Admit Date: 10010901 MR #: [id number] : 1975 Perpetual Assessment Pablo Tabares is a 41 y.o. female presenting with worsening psychotic sx who is slowly improving. Patient does well in a supervised setting. Diagnosis & Plan/Recommendations Other * Schizophrenia, paranoid, chronic (HCC) Assessment & Plan Provide support and reassurance. Social service to obtain additional information and background, coordinate care and assess supports. silver spray worker to work with patient, family and outpatient providers on follow-up appointments and resources. silver spray worker to confirm no access to guns, review safety plan and address psychosocial issues. Occupational Therapy to provide task activity to improve self esteem and to assess and support functioning. Psychotherapy to provide disease education and improve coping skills. Encouraged patient to participate in milieu and go to groups. Incorporate individual therapy, art therapy, group therapy. Encourage patient to incorporate workbooks. No medication changes. Hospitalist following for medical management. Interval History: Notes in care connect were reviewed. Patient was discussed in treatment team. Shehas been compliant with her oral medications. No irritability shown. Patient says, no when discussing auditory hallucinations. She denies command hallucinations. Patient denies suicidal ideation, homicidal ideation, or visual hallucinations. It seems that placement is not an option for this patien t. Patient has done well in a supervised setting. The plan is for the patient to go to [facility] this . Review of Systems: All other systems reviewed and negative other than HPI Physical Examination: Vital Signs: BP 136/85 Pulse 76 Temp 98.4 F (36.9 C) (Oral) Resp 16 Ht 5' 3 Wt 119.9 kg (264 lb 5.3 oz) LMP Comment: currently menstruating SpO2 98% ? No BMI 46.82 kg/m2 Mental Status Examination: General Appearance & Behavior: cooperative Grooming & Hygiene: street clothes Psychomotor Activity: no psychomotor abnormalities or muscle atrophy noted Speech: diminished amount Flow of Thought: concrete Thought Associations: linear Content of Thought: No evidence of suicidal ideations/homicidal ideations/psychosis, delusions and paranoia Mood: fine Affect: bright Insight: limited Judgment: limited Orientation: oriented to person, place and time Memory: impaired Attention: adequate Concentration: reduced Language: fluent Fund of Knowledge: estimated below average intelligence Laboratory and Additional Data Reviewed: Notes in care connect reviewed. Treatment options and alternatives reviewed with patient and Guardian. Risks, benefits, side effects of all psychiatric medications discussed with patient and Guardian and informed consent obtained. All questions were answered. SW and nursing staff communicating with guardian. Perry Montoya MD 06/11/2017 11:42 AM * Deloris Aldana RN - 06/11/2017 11:39 AM EDT Patient is calm and cooperative. Patient remains hopeful for impending placement following discharge. Patient continues to voice that she is struggling with auditory hallucinations however they have improved since admission. Patient indicates that her mood has improved however her affect and demeanor conflicts this. Patient does attend and participate in unit schedule. Eats meals and tolerated well. Denies any suicidal ideation. Will continue to provide emotional support and reassurance as needed throughout shift. 0730 BS 131- no coverage required 1130 BS 148, no insulin available to give 1630 185, 6 units given * Alex Lee LISW-S - 06/11/2017 9:39 AM EDT I spoke with the patient's counter caser. [facility] has kindly agreed to try, yet again, placing the patient in female respite at [facility]. After collaboration with multiple parties, we hope that between the guardian (over person and now estate), the corporate compliance officer, and [facility] supervision that the p atient will not wander off into the unknown. She will be picked up, and returned to [facility]. The patient tells me she wants to be a [facility], will not leave, and will take her medications like a good patient. Unfortunately, she is easily led astray. [facility] has agreed to re-try respite, because it is a last resort . The guardian is aware and in agreement with the plan. He needs to be called on the day of discharge. The patient actually is an outpatient of Dr. Funez, and I made a follow-up appointment for next week. [facility] needs a couple days to make arrangements, and get the guardian's written consent. afternoon, at 1600 hours, is the time of discharge. I informed the counter caser, Rosalio, that Kati is the director social welfare moving forward. * Hollie Armenta, LEROY - 06/11/2017 12:45 AM EDT Pt remains on Suicide, Unpredictable and Escape precautions. Safety checks performed every 15 minutes at varied intervals. Pt retired to bed at 2132. 0100- Pt resting in bed with eyes closed. Respirations unlabored. No distress noted. 0500- Pt resting in bed with eyes closed. Respirations unlabored. No distress noted. Pt has rested approximately 7.5 hours thus far. Interrupted x 1. FSBS at 0600 was 131. * Hollie Armenta, LEROY - 06/10/2017 7:28 PM EDT Pt has been calm, cooperative and quiet this evening. She spends free time in the active areas, buthas little to no interaction with peers. She denies SI, HI and hallucinations, but appears at timesto respond to unknown stimuli. Pt isolates to herself and appears sad, but did not want to discuss what is bothering her. She presented independently for bedtime medications and took them without issues. She requested and was provided with nicotine lozenges twice during the shift. PRNs: Nicotine lozenges Pt's blood glucose at 2022 was 196. No coverage required per protocol. * Jose Mclean MD - 06/10/2017 1:37 PM EDT Patient attended group, interacted when addressed. Discussed some of the events leading to her admission. Explored what she needed to do differently. Evaluation and management case was reviewed. Patient adjusting to unit adequately. Unfortunately, placement issues may very well be impaired because of practicalities. If alternative arrangements will need to be made, we discussed the patient's prior history and the complexities of dealing with. * Alex Lee STEPHEN-Jessica - 06/10/2017 1:02 PM EDT I received a voicemail from Jeri, at [facility], in response to my voicemail. At this time they are unable to accept the patient, due to the [place] Department of Mental Health stating she does notmeet criteria for a shelter placement. She is ambulatory, and independent with all of her ADL's, so their position is not entirely unreasonable. I spoke with Nolberto from [facility]. He suggested I callthe guardian, as the guardian needs to figure out what to do. Unfortunately, the guardian does not have any ideas. I called Nolberto and the [facility] counter caser, leaving both parties voicemails on the fact that ECF placement is not an option, and the guardian does not have a miraculous solution to the pl acement problem. We will await feedback from [facility], before discharge may be further contemplated. custodial or snf placements are not options, so that leaves an apartment or respite through [facility]. Perhaps with the guardian in place, and her inability to access her social security, she will acquiesce to therapeutic treatment and care through [facility]. 1405 I updated the patient on the reality of her ineligibility for ECF placement and snf placement. I asked her about an apartment at [facility]. She states she would stay, take her medications, and behave herself. Unfortunately, history has a way of repeating itself. I spoke with Nolberto from [facility], and [facility] will be getting back with me on Ms. Tabares. Hopefully tomorrow brings some news. * Jose Mclean MD - 06/10/2017 10:43 AM EDT Formatting of this note may be different from the original. Psychiatry Progress Note Patient Name: Pablo Tabares Admit Date: 10010901 MR #: [id number] : 1975 Perpetual Assessment Pablo Tabares is a 41 y.o. female presenting with Inability to care for herself, disorganization. Diagnosis & Plan/Recommendations Other * Schizophrenia, paranoid, chronic (HCC) Assessment & Plan Provide support and reassurance. Social service to obtain additional information and background, coordinate care and assess supports. silver spray worker to work with patient, family and outpatient providers on follow-up appointments and resources. silver spray worker to confirm no access to guns, review safety plan and address psychosocial issues. Occupational Therapy to provide task activity to improve self esteem and to assess and support functioning. Psychotherapy to provide disease education and improve coping skills. Encouraged patient to participate in milieu and go to groups. Incorporate individual therapy, art therapy, group therapy. Encourage patient to incorporate workbooks. No medication changes. Hospitalist following for medical management. Following for Acute exacerbation of chronic paranoid schizophrenia with history of substance abuse. The patient continues to exhibit some instability behaviors, required several p.r.n.'s. Apparently, placement options have been disrupted, as shelter placement may not be possible. The patient unable to explain the need for increasing p.r.n. medication. Interval History: Review of Systems: 10 systems reveiwed and negative except as noted above Physical Examination: Vital Signs: BP 139/79 (BP Location: Left arm, Patient Position: Sitting) Pulse 76 Temp 98 F (36.7 C) (Oral) Resp 16 Ht 5' 3 Wt 120.7 kg (266 lb 1.5 oz) LMP Comment: currently menstruating SpO2 94% ? No BMI 47.14 kg/m2 Mental Status Evaluation: General Appearance & Behavior: age appropiate and obese Grooming & Hygiene: unkempt Psychomotor Activity: restless Gait & Station stable gait Speech: diminished amount Flow of Thought: circumstantial Thought Associations: Loose Content of Thought: auditory hallucinations Mood: stressed out Affect: worried Insight: limited Judgment: poor Orientation: alert and oriented to person, place, time, and circumstances Memory: intact recent and remote Attention: adequate Concentration: reduced Language: intact Fund of Knowledge: estimated below average intelligence Laboratory and Additional Data Reviewed: Laboratory 06/10/17 10:44 AM Medications 06/10/17 10:44 AM Transcriptions 06/10/17 10:44 AM Treatment options and alternatives reviewed with patient. Risks, benefits, side effects of all psychiatric medications discussed with patient and Guardian and informed consent obtained. All questionswere answered. Jose Mclean MD 06/10/2017 10:43 AM * Deloris Aldana, RN - 06/10/2017 10:39 AM EDT Patient is cooperative and approachable. Patient reports that she is continuing to struggle with auditory hallucinations that are bothersome to her. Describes them as voice in the background . Patient indicates that her racing thoughts have stopped. Patient inquired about taking another medicationin addition to her prescribed medication to aid with her hallucinations. Encouraged patient to discuss this with the doctor today. Patient is hopeful for possible placement soon and is ok with a shelter. Patient denies any current depression or anxiety. Attends and participates in unit schedule. Eats meals and tolerate well. PRN- Nicotine replacement. 0730 BS- 142, units of coverage given 1130 BS- 153, 4 units given 1630 BS- 105, no coverage given * Shubham Obando RN - 06/10/2017 5:09 AM EDT -0100 Pt resting in bed with eyes closed. No distress noted. -0500 Pt resting in bed with eyes closed. Pt rested in bed with eyes closed for the majority of night when checked at 15-minute intervals. No distress noted. -Pt has slept approximately 7.25 hours up to this point. * Kiara Jalloh RN - 06/09/2017 4:28 PM EDT Patient spends her free time in the group room isolative to herself, is compliant with unit routine. This afternoon she was observed creating tarot cards, said she has been doing this since she was young and that it is a family tradition. Her affect is full, mood is anxious. Patient appears more spontaneous than previous days, offers more interaction during 1:1. She reported that she has been experiencing racing thoughts and auditory hallucinations. Patient stated that today her racing thoughtshaven't been as bad but she hears, voices in the background. She said as long as she keeps busy the voices aren't too bothersome but she requested and was provided with PRN Zyprexa as she did appear bothered. Patient talked about being discharged to, that snf place. When asked how she felt about this she said, Well I don't have a choice so my feelings don't really matter. She denies any other issues, will continue to monitor. She is compliant with medication independently. PRNs: 1626 Zyprexa 10 mg given for racing thoughts. 1726 Patient reports that her racing thoughts have stopped 1600 BS 181, 6 units coverage administered 2000 BS 171, no coverage required * Matt Prajapati MD - 06/09/2017 11:24 AM EDT Formatting of this note may be different from the original. Psychiatry Progress Note Patient Name: Pablo Tabares Admit Date: 10010901 MR #: [id number] : 1975 Perpetual Assessment Pablo Tabares is a 41 y.o. female presenting with Disorganized behavior. Unable to care for herself. Diagnosis & Plan/Recommendations Assessment & plan notes cannot be loaded without a specified hospital service. Following for Acute exacerbation of chronic schizoaffective disorder complicated by history of substance abuse, lack of insight. EVALUATION AND MANAGEMENT Patient adjusting to unit adequately. Found her still anxious and depressed. Frustrated about voices which are loud at times. Eating and sleeping well. Will continue to adjust medications accordingly. Review of Systems: 10 systems reveiwed and negative except as noted above Physical Examination: Vital Signs: BP 136/88 Pulse 86 Temp 97.6 F (36.4 C) (Oral) Resp 12 Ht 5' 3 Wt 120.7 kg (266 lb 1.5 oz) LMP Comment: currently menstruating SpO2 98% ? No BMI 47.14 kg/m2 Mental Status Evaluation: General Appearance & Behavior: obese and minimally engaged Grooming & Hygiene: street clothes Psychomotor Activity: restless Gait & Station stable gait Speech: diminished amount Flow of Thought: concrete Thought Associations: Intact Content of Thought: paranoia and magical thinking Mood: stressed out Affect: worried Insight: limited Judgment: poor Orientation: alert and oriented to person, place, time, and circumstances Memory: impaired short term, intact remote Attention: adequate Concentration: reduced Language: intact Fund of Knowledge: estimated average intelligence Laboratory and Additional Data Reviewed: Laboratory 06/09/17 11:24 AM Radiology 06/09/17 11:24 AM Cardiology 06/09/17 11:24 AM Medications 06/09/17 11:24 AM Transcriptions 06/09/17 11:24 AM Treatment options and alternatives reviewed with patient. Risks, benefits, side effects of all psychiatric medications discussed with patient and informed consent obtained. All questions were answered. Matt Prajapati MD 06/09/2017 11:24 AM * Gwen Macias RN - 06/09/2017 8:52 AM EDT Morning [id number], requiring 4 units of insulin coverage. The pt was up and about for breakfast with peers in the dining room, then presented to the nurses station for scheduled medications. Staff discussed with the pt her hearing voices. She verbalizes sheis hearing them, a little bit . When asked if the Zyprexa helped last evening when she took it, she denies she had any lessening of voices. She denies needing Zyprexa at this time, citing she wants to let her morning medications take effect, then if the voices continue, she will seek out staff. The pt is pleasant and cooperative, brightens with interaction with staff, denies suicidal ideation atthis time. Lunch time Accu-[id number]=211, requiring 6 units of insulin coverage. * Shubham Obando RN - 06/09/2017 5:01 AM EDT -0100 Pt resting in bed with eyes closed. No distress noted. -0500 Pt resting in bed with eyes closed. Pt rested in bed with eyes closed for the majority of night when checked at 15-minute intervals. No distress noted. -Pt has slept approximately 7.25 hours up to this point. * Matt Prajapati MD - 06/08/2017 6:20 PM EDT Formatting of this note may be different from the original. Psychiatry Progress Note Patient Name: Pablo Tabares Admit Date: 10010901 MR #: [id number] : 1975 Perpetual Assessment Pablo Tabares is a 41 y.o. female presenting with Disorganized behavior. Unable to care for herself. Diagnosis & Plan/Recommendations Assessment & plan notes cannot be loaded without a specified hospital service. Following for Acute exacerbation of chronic schizoaffective disorder complicated by history of substance abuse, lack of insight. EVALUATION AND MANAGEMENT Patient adjusting to unit adequately. Found her still anxious and depressed. Frustrated about voices which are loud at times. Eating and sleeping well. Will continue to adjust medications accordingly. Review of Systems: 10 systems reveiwed and negative except as noted above Physical Examination: Vital Signs: BP (!) 165/99 Pulse 75 Temp 98.7 F (37.1 C) (Oral) Resp 15 Ht 5' 3 Wt 120.7 kg (266 lb 1.5 oz) LMP Comment: currently menstruating SpO2 99% ? No BMI 47.14 kg/m2 Mental Status Evaluation: General Appearance & Behavior: obese and minimally engaged Grooming & Hygiene: street clothes Psychomotor Activity: restless Gait & Station stable gait Speech: diminished amount Flow of Thought: concrete Thought Associations: Intact Content of Thought: paranoia and magical thinking Mood: stressed out Affect: worried Insight: limited Judgment: poor Orientation: alert and oriented to person, place, time, and circumstances Memory: impaired short term, intact remote Attention: adequate Concentration: reduced Language: intact Fund of Knowledge: estimated average intelligence Laboratory and Additional Data Reviewed: Laboratory 06/08/17 6:21 PM Radiology 06/08/17 6:21 PM Cardiology 06/08/17 6:21 PM Medications 06/08/17 6:21 PM Transcriptions 06/08/17 6:21 PM Treatment options and alternatives reviewed with patient. Risks, benefits, side effects of all psychiatric medications discussed with patient and informed consent obtained. All questions were answered. Matt Prajapati MD 06/08/2017 6:21 PM * Lv Lunsford RN - 06/08/2017 3:37 PM EDT BEHAVIOR/ACTIVITY : Anxious at times, cooperative. Denies pain, no distress. Reports racing thoughts, presents independently for PRNs. No distress, denies pain. Denies needs. Spends free time in public areas. THOUGHT PROCESS : Limited. MOOD/AFFECT : Anxious and constricted. MED COMPLIANCE : Full med compliance. PRN'S : Nicotine supplements. Zyprexa at 329p & 851p for racing thoughts. MED CHANGES/NEW ORDERS: No new orders. SUICIDAL OR HOMICIDAL : Denies. * Gwen Macias RN - 06/08/2017 9:13 AM EDT The pt was up for breakfast with peers in the dining room. The pt presented to the nurses station after breakfast for scheduled medications and prn nicotine replacement. The pt is polite and cooperative, denies suicidal/homicidal ideation or hallucinations. The pt smiles appropriately with interaction with staff.The pt is oriented to person, place, time and circumstance. The pt reports sleeping well. * Shubham Obando, RN - 06/08/2017 5:05 AM EDT -0100 Pt resting in bed with eyes closed. No distress noted. -0500 Pt resting in bed with eyes closed. Pt rested in bed with eyes closed for the majority of night when checked at 15-minute intervals. No distress noted. -Pt has slept approximately 7.75 hours up to this point. * Lv Lunsford RN - 06/07/2017 4:05 PM EDT BEHAVIOR/ACTIVITY : Anxious but cooperative. Verbalizes racing thoughts/hearing voices. Provided PRN. Denies new pain, no distress. Reports ongoing back pain, declined need for pain PRN. Spends free time in public areas. Denies needs. Provided coverage for 181 sugar at 535p, 187 (no coverage) at HS. THOUGHT PROCESS : Limited. MOOD/AFFECT : Anxious and full. MED COMPLIANCE : Full med compliance. PRN'S : Zyprexa at 401p for racing thoughts/voices. Nicotine supplements. MED CHANGES/NEW ORDERS: No new orders. SUICIDAL OR HOMICIDAL : Denies. * Rory Adams, MOBILE SECURITY ARCHITECT - 06/07/2017 1:03 PM EDT Patient maintains consistent group participation in most scheduled groups. Pt. Focus is greatly improved, though she does keep isolated to self. Orientation to reality improved. Pt. Insightful that she has a place to live but is not too excited until she knows for sure. Pt. Will continue to be educated on positive coping skills and monitored for the same. * Jose Mclean MD - 06/07/2017 11:06 AM EDT Formatting of this note may be different from the original. Psychiatry Progress Note Patient Name: Pablo Tabares Admit Date: 10010901 MR #: [id number] : 1975 Perpetual Assessment Pablo Tabares is a 41 y.o. female presenting with Disorganized behavior. Unable to care for herself. Diagnosis & Plan/Recommendations Other * Schizophrenia, paranoid, chronic (HCC) Assessment & Plan Provide support and reassurance. Social service to obtain additional information and background, coordinate care and assess supports. silver spray worker to work with patient, family and outpatient providers on follow-up appointments and resources. silver spray worker to confirm no access to guns, review safety plan and address psychosocial issues. Occupational Therapy to provide task activity to improve self esteem and to assess and support functioning. Psychotherapy to provide disease education and improve coping skills. Encouraged patient to participate in milieu and go to groups. Incorporate individual therapy, art therapy, group therapy. Encourage patient to incorporate workbooks. No medication changes. Hospitalist following for medical management. Following for Acute exacerbation of chronic schizoaffective disorder complicated by history of substance abuse, lack of insight. GROUP Patient attended, interactive when addressed. Discussed some of the events leading to her admission. Explored what her thoughts were about her placement and what she could do to make this productive. EVALUATION AND MANAGEMENT Patient adjusting to unit adequately. Arrangements are proceeding for the patient to go to [facility]. She is passively compliant with yuen routine but seems perplexed at times and lacks insightinto her condition but passively accepting of this disposition. Interval History: Review of Systems: 10 systems reveiwed and negative except as noted above Physical Examination: Vital Signs: BP 117/73 (BP Location: Right arm, Patient Position: Lying) Pulse 83 Temp 97.8 F (36.6 C) (Oral) Resp 16 Ht 5' 3 Wt 120.7 kg (266 lb 1.5 oz) LMP Comment: currently menstruating SpO2 94% ? No BMI 47.14 kg/m2 Mental Status Evaluation: General Appearance & Behavior: obese and minimally engaged Grooming & Hygiene: street clothes Psychomotor Activity: restless Gait & Station stable gait Speech: diminished amount Flow of Thought: concrete Thought Associations: Intact Content of Thought: paranoia and magical thinking Mood: stressed out Affect: worried Insight: limited Judgment: poor Orientation: alert and oriented to person, place, time, and circumstances Memory: impaired short term, intact remote Attention: adequate Concentration: reduced Language: intact Fund of Knowledge: estimated average intelligence Laboratory and Additional Data Reviewed: Laboratory 06/07/17 11:08 AM Radiology 06/07/17 11:08 AM Cardiology 06/07/17 11:08 AM Medications 06/07/17 11:08 AM Transcriptions 06/07/17 11:08 AM Treatment options and alternatives reviewed with patient. Risks, benefits, side effects of all psychiatric medications discussed with patient and informed consent obtained. All questions were answered. Jose Mclean MD 06/07/2017 11:07 AM * Winnie Martinez RN - 06/07/2017 8:47 AM EDT Patient resting in bed since shift change ([phone]), had to be prompted to take morning medications and eat breakfast before quickly returning to bed. Patient smiles on approach, withdrawn to self but alerts needs to his nurse when they arise. Denied HI/SI/AH/VH and contracts for safety. She received 4 units of insulin for 146 BS before breakfast. Anxious mood, constricted affect. She mentionedwhile waking up that I shouldn't be here anymore and have a place already. No signs of distress noted, no other needs at this time. 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 She explained she got her hopes up for discharge earlier this week and it got pushed off so she doesn't want to get her hopes up yet. She continues to rest in bed on and off but it easily arousable and attending groups when alerted. No signs of distress, no other needs at this time. 1320: Patient up to nurse to state Dr. Mclean is a great doctor and that Zyprexa has completely taken away my racing thoughts and I feel that I can function now. Will you tell him for me? Message relayed to doctor, patient states while smiling that she is excited for pizza making tonight. * Umu Ortiz, LEROY - 06/07/2017 3:04 AM EDT Patient 15 min safety checks were performed at random intervals throughout the shift. 0105 Patient has been resting in bed with eyes closed since 2051. 0304 Patient has been resting in bed throughout the shift. Respirations are easy and unlabored. 0505 Patient has been resting in bed throughout the shift. Respirations are easy and unlabored. * Priya Schaffer, LEROY - 06/06/2017 4:33 PM EDT Patient presents as depressed with a blunted affect. She stated that she is doing alright today, although had a rough and sleepless night last night due to her roommate. Patient stated that she was able to catch up on sleep today and slept until around 1400. Patient voiced anxiety related to discharge into [facility], stating that she doesn't know when she'll be able to go. Emotional supportprovided and this RN discussed the facility with patient. Patient denies SI, HI, or thoughts of self harm at this time. Denies hallucinations at this time. Attends available evening groups. She spends free time isolated to self, mainly, and has been reading the [place]. 1730 Patient arrived at nurses station complaining of racing thoughts and anxiety. She stated that she tried to read her book but that it's not helping. This RN encouraged coloring, work book, or walking. Patient stated that she will try to read some more. She was instructed to let this RN know if her symptoms don't improve Patient arrived independently for HS medications and was compliant with them. PRN's: Nicotine replacement throughout shift 175 Zyprexa 5 mg PO for racing thoughts unresolved by coping skills. Effective Accucheck's: 1610= 116 (No coverage required). 2842=436 (No coverage required) * Winnie Martinez, RN - 06/06/2017 11:01 AM EDT Up for morning medications without prompting. A+0x3, taught this nurse about what medications she was on. BS for breakfast 149 = 4 units of insulin. Patient states she feels better, did not sleep well though so she is a little tired. She denies SI/HI/depression/anxiety/AH/VH and contracts for safety. Her goal for the day is to get placement and be discharged. She states she plans to go to groups.Patient is friendly in interaction, but withdrawn to self in common areas does not interact with peers. BS at lunch 127 = no converge needed * Perry Montoya MD - 06/06/2017 10:12 AM EDT Formatting of this note may be different from the original. Psychiatry Progress Note Patient Name: Pablo Tabares Admit Date: 10010901 MR #: [id number] : 1975 Perpetual Assessment Pablo Tabares is a 41 y.o. female presenting with worsening psychotic sx who is slowly improving. Patient does well in a supervised setting. Patient decompensates in an unsupervised setting Diagnosis & Plan/Recommendations Other * Schizophrenia, paranoid, chronic (HCC) Assessment & Plan Provide support and reassurance. Social service to obtain additional information and background, coordinate care and assess supports. silver spray worker to work with patient, family and outpatient providers on follow-up appointments and resources. silver spray worker to confirm no access to guns, review safety plan and address psychosocial issues. Occupational Therapy to provide task activity to improve self esteem and to assess and support functioning. Psychotherapy to provide disease education and improve coping skills. Encouraged patient to participate in milieu and go to groups. Incorporate individual therapy, art therapy, group therapy. Encourage patient to incorporate workbooks. No medication changes. Hospitalist following for medical management. Interval History: Notes in care connect were reviewed. Patient will be discussed in treatment team.She has been compliant with her oral medications. No irritability shown. Patient says, none when discussing auditory hallucinations. She denies command hallucinations. silver spray worker is working with [facility] on placement since patient has failed lower levels of care. Patient unable to function independently without supervision. Patient denies suicidal ideation, homicidal ideation, or visual hallucinations. Patient has been agreeable to placement during my conversation today. Patient has not received any as needed Zyprexa recently. Patient is excited about the prospect of placement soon. A surgical sales representative from [facility] came in to see pt yesterday. We also discussed that there is no end date for macrobid in care [facility]. Review of Systems: All other systems reviewed and negative other than HPI Physical Examination: Vital Signs: BP 133/76 (BP Location: Left arm, Patient Position: Lying) Pulse 73 Temp 98 F (36.7 C) (Oral) Resp 18 Ht 5' 3 Wt 120.7 kg (266 lb 1.5 oz) LMP Comment: currently menstruating SpO2 95% ? No BMI 47.14 kg/m2 Mental Status Examination: General Appearance & Behavior: cooperative Grooming & Hygiene: street clothes Psychomotor Activity: no psychomotor abnormalities or muscle atrophy noted Speech: diminished amount Flow of Thought: concrete Thought Associations: linear Content of Thought: delusions, paranoia and psychotic sx improving daily Mood: fine Affect: bright Insight: limited Judgment: limited Orientation: oriented to person, place and time Memory: impaired Attention: adequate Concentration: reduced Language: fluent Fund of Knowledge: estimated below average intelligence Laboratory and Additional Data Reviewed: Notes in care connect reviewed. Treatment options and alternatives reviewed with patient and Guardian. Risks, benefits, side effects of all psychiatric medications discussed with patient and Guardian and informed consent obtained. All questions were answered. SW and nursing staff communicating with guardian. Perry Montoya MD 06/06/2017 10:12 AM * Umu Ortiz RN - 06/06/2017 5:17 AM EDT Patient 15 min safety checks were performed at random intervals throughout the shift. 0105 Patient has been resting in bed with eyes closed since 2034. 0304 Patient has been resting in bed throughout the shift. Respirations are easy and unlabored. 0505 Patient has been resting in bed throughout the shift. Respirations are easy and unlabored. * Priya Schaffer RN - 06/05/2017 6:29 PM EDT Patient presents as anxious with a blunted affect. She brightens on approach and is cooperative during interaction. She looks forward to discharge to [facility] although voices anxiety regardingthe change as well. Patient spends free time withdrawn to self or interacting to select peers. She presents independently for medications and is compliant with them. Patient attends available groups.She denies SI, HI, or thoughts of self harm at this time. Denies hallucinations at this time. PRN's: Nicotine replacement throughout shift Accucheck's: 1630-161; 4 units of coverage administered 1999-153; No coverage required * Gwen Macias RN - 06/05/2017 10:37 AM EDT The pt was up for breakfast with peers in the dining room, then presented without prompt for scheduled morning medications. The pt denies hallucinations or suicidal/homicidal ideation. The pt is oriented to person, place and time. Thoughts are organized and reality based. The pt offers appropriate answers to questions. Behavior is calm and directable. Appearance is appropriate. Morning Accu-[id number]=445, no insulin coverage required. Lunch time Accu-imanu=572, no insulin coverage required. * ePrry Montoya MD - 06/05/2017 9:52 AM EDT Formatting of this note may be different from the original. Psychiatry Progress Note Patient Name: Pablo Tabares Admit Date: 10010901 MR #: [id number] : 1975 Perpetual Assessment Pablo Tabares is a 41 y.o. female presenting with worsening psychotic sx who is slowly improving. Patient does well in a supervised setting. Patient decompensates in an unsupervised setting Diagnosis & Plan/Recommendations Other * Schizophrenia, paranoid, chronic (HCC) Assessment & Plan Provide support and reassurance. Social service to obtain additional information and background, coordinate care and assess supports. silver spray worker to work with patient, family and outpatient providers on follow-up appointments and resources. silver spray worker to confirm no access to guns, review safety plan and address psychosocial issues. Occupational Therapy to provide task activity to improve self esteem and to assess and support functioning. Psychotherapy to provide disease education and improve coping skills. Encouraged patient to participate in milieu and go to groups. Incorporate individual therapy, art therapy, group therapy. Encourage patient to incorporate workbooks. No medication changes. Hospitalist following for medical management. Interval History: Notes in care connect were reviewed. Patient will be discussed in treatment team.She has been compliant with her oral medications. No irritability shown. Patient says, none when discussing auditory hallucinations. She denies command hallucinations. silver spray worker is working with [facility] on placement since patient has failed lower levels of care. Patient unable to function independently without supervision. Patient denies suicidal ideation, homicidal ideation, or visual hallucinations. Patient has been agreeable to placement during my conversation today. Patient has not received any as needed Zyprexa recently. Patient is excited about the prospect of placement soon. A surgical sales representative from [facility] is coming later on today. We also discussed that there is no end date for macrobid in care [facility]. Review of Systems: All other systems reviewed and negative other than HPI Physical Examination: Vital Signs: BP (!) 137/95 Pulse 90 Temp 98.4 F (36.9 C) (Oral) Resp 13 Ht 5' 3 Wt 120.7 kg (266 lb 1.5 oz) LMP Comment: currently menstruating SpO2 97% ? No BMI 47.14 kg/m2 Mental Status Examination: General Appearance & Behavior: cooperative Grooming & Hygiene: street clothes Psychomotor Activity: no psychomotor abnormalities or muscle atrophy noted Speech: diminished amount Flow of Thought: concrete Thought Associations: linear Content of Thought: delusions, paranoia and psychotic sx improving daily Mood: okay Affect: bright Insight: limited Judgment: limited Orientation: oriented to person, place and time Memory: impaired Attention: adequate Concentration: reduced Language: fluent Fund of Knowledge: estimated below average intelligence Laboratory and Additional Data Reviewed: Notes in care connect reviewed. Treatment options and alternatives reviewed with patient and Guardian. Risks, benefits, side effects of all psychiatric medications discussed with patient and Guardian and informed consent obtained. All questions were answered. SW and nursing staff communicating with guardian. Perry Montoya MD 06/05/2017 9:52 AM * Emily Alberts RN - 06/05/2017 5:14 AM EDT -Safety checks performed every 15 minutes at varied intervals for patient safety. -Pt retired to bed at 2216. -0101- Pt resting in bed with eyes closed. Respirations unlabored. No distress noted. -0500- Pt resting in bed with eyes closed. Respirations unlabored. No distress noted. -0617- Blood glucose= 134 -Pt has rested approximately 6.5 hours so far this shift. Awake 1 time since retiring to bed. * Priya Schaffer, LEROY - 06/04/2017 4:35 PM EDT Patient attends and participates in available evening groups. Patient presents as anxious with a full affect. She is cooperative and friendly during interaction with this RN. Patient stated that she is doing alright today, and is just feeling anxious about uncertainty regarding placement after discharge. Patient discussed potential placement to [facility] in [place], and was informed that someone should be in to speak with her tomorrow, per Alex ROBBINS's note. Patient voiced understanding. Shedenies feelings of depression. Denies SI, HI, or thoughts of self harm at this time. Denies hallucinations at this time. Patient presented for 1630 Insulin and was compliant with it. Patient was compl iant with HS medications and arrived for them independently. PRN's: Nicotine replacement throughout shift New orders: None this shift Accucheck's: 1630: 155; 4 units of Humalog administered per protocol. 1999: 189, No coverage required * Caroline Kowalski - 06/04/2017 12:42 PM EDT This pt is currently attending as well as participating in daytime AT groups as scheduled. Pt is able to focus and concentrate for 5-25 minutes during daytime AT groups. Pt is able to identify stressors which are questionable due to pt's orientation to reality which include, I missed the bus to take me to [place] and I ended up here. I don't want to live with my family in [place] anymore, because I have family in [place] waiting on me to get there, but I missed the bus, Pt is unable to identify any positive coping skills at this time. Pt is also oriented to reality based on responses to discussion. Staff will continue to monitor pt for future progress. * Alex Lee LISW-Jessica - 06/04/2017 11:32 AM EDT Both Saturday and today I have left voicemail's with the snfhome health rn at [facility], informing her the patient is ready to be transitioned to the snf setting. I received a call from her guardian, requesting an update on her mental status and discharge planning. I updated him on her psychiatric status, and informed him we are awaiting feedback from [facility] on placement. 1305 I spoke with [facility], regarding the patient. Now they state they have no RSS funds left for grouphome placement, but the patient is on the wait-list. Perhaps next antonio year they can consider snf placement. They recommended ECF placement, and state the guardian is on board with her goingto a shelter. He does not want her discharged to the community, which he voiced to me. I called [facility], and they do not have any female beds open. I am unaware of other [facility] nursing homes, and if she goes to an unlocked/long-term care ECF she will likely wander off into the unknown. The guardian has petitioned the court to be guardian of not only leo person, but estate. This will void the patient's access to her social security, which has recurrently been misappropriated. We willattempt to trouble-shoot this situation, and derive a solution. [address] [facility] does have an open female bed, and will consider the request for psychiatric placement. We will await their feedback, after they look over the clinical history I faxed for their consideration. [address] is interested in accepting the patient into their long-term care facility. A surgical sales representative will be down tomorrow, 1300 hours, to meet with the patient and I. I shared this news with the patient, and she affably received it. She remains preoccupied with going to [place]. I told her if she can get a hold of her mother, whom she claims lives there, then she and the mother could call the guardian. I gave her her guardian's phone number, so she may speak with him herself. In the meantime, placement will proceed. 06/05/17 1503 Lillian from [facility] met with the patient and I. The patient and Lillian both seemed amenable to her discharging to [facility]. Lillian had to return to [place], and review the admission with her superior. We will await an official acceptance. Once the acceptance is received, I will inform the guardian. Once we have his blessing, I will complete the LOC required for ECF placement. A surgical sales representative of [facility], [facility]'s contract provider, will have to come and screen the patient. Ultimately placement may not occur until early next week, depending on the timing of the above. * Perry Montoya MD - 06/04/2017 10:49 AM EDT Formatting of this note may be different from the original. Psychiatry Progress Note Patient Name: Pablo Tabares Admit Date: 10010901 MR #: [id number] : 1975 Perpetual Assessment Pablo Tabares is a 41 y.o. female presenting with worsening psychotic sx who is slowly improving. Patient does well in a supervised setting. Patient decompensates in an unsupervised setting Diagnosis & Plan/Recommendations Other * Schizophrenia, paranoid, chronic (HCC) Assessment & Plan Provide support and reassurance. Social service to obtain additional information and background, coordinate care and assess supports. silver spray worker to work with patient, family and outpatient providers on follow-up appointments and resources. silver spray worker to confirm no access to guns, review safety plan and address psychosocial issues. Occupational Therapy to provide task activity to improve self esteem and to assess and support functioning. Psychotherapy to provide disease education and improve coping skills. Encouraged patient to participate in milieu and go to groups. Incorporate individual therapy, art therapy, group therapy. Encourage patient to incorporate workbooks. No medication changes. Hospitalist following for medical management. Interval History: Notes in care connect were reviewed. Patient will be discussed in treatment team.She has been compliant with her oral medications. No irritability shown. Patient says, none when discussing auditory hallucinations. She denies command hallucinations. silver spray worker is working with guardian and [facility] on placement since patient has failed lower levels of care. Patient unable to function independently without supervision. Patient denies suicidal ideation, homicidal ideation, or visual hallucinations. Patient has been agreeable to placement during my conversation today. Patient has not received any as needed Zyprexa recently. Review of Systems: All other systems reviewed and negative other than HPI Physical Examination: Vital Signs: BP (!) 151/102 Pulse 81 Temp 97.8 F (36.6 C) (Oral) Resp 14 Ht 5' 3 Wt 120.7 kg (266 lb 1.5 oz) LMP Comment: currently menstruating SpO2 98% ? No BMI 47.14 kg/m2 Mental Status Examination: General Appearance & Behavior: cooperative Grooming & Hygiene: street clothes Psychomotor Activity: no psychomotor abnormalities or muscle atrophy noted Speech: diminished amount Flow of Thought: concrete Thought Associations: linear Content of Thought: delusions, paranoia and psychotic sx improving daily Mood: okay Affect: restricted Insight: limited Judgment: limited Orientation: oriented to person, place and time Memory: impaired Attention: adequate Concentration: reduced Language: fluent Fund of Knowledge: estimated below average intelligence Laboratory and Additional Data Reviewed: Notes in care connect reviewed. Treatment options and alternatives reviewed with patient and Guardian. Risks, benefits, side effects of all psychiatric medications discussed with patient and Guardian and informed consent obtained. All questions were answered. SW and nursing staff communicating with guardian. Perry Montoya MD 06/04/2017 10:49 AM * Gwen Macias RN - 06/04/2017 9:56 AM EDT The pt was out for breakfast, then presented to the nurses station for scheduled medications. One to one interaction (Pt:RN) done in the patient's room. The pt sits on the side of her bed and has appropriate eye contact during the interaction. The pt denies hallucinations or harmful thoughts.Thought process is limited, although organized when answering staff's questions. The pt is anticipating going to the snf in [facility] and she reports she know a Lorene there. The pleasant and cooperative and answers to Charprintha today. Morning Accu-llaub=829, no insulin coverage required. Lunch time Accu-napdg=136, no insulin coverage required. * Emily Alberts, LEROY - 06/04/2017 6:08 AM EDT -Safety checks performed every 15 minutes at varied intervals for patient safety. -Pt retired to bed at 2149. -0056- Pt resting in bed with eyes closed. Respirations unlabored. No distress noted. -0458- Pt resting in bed with eyes closed. Respirations unlabored. No distress noted. -0605- Blood htercmb=801 -Pt has rested approximately 7.25 hours so far this shift. Uninterrupted. * Debbie Leos RN - 06/03/2017 6:30 PM EDT Patient resting in bed at the beginning of the shift. Attends and participates in scheduled afternoon & evening groups. Presents to the nurse's station with requests. Sits with others during supper, however no interaction is noted. Withdraws to her room when not out for group, meal or snack. Tha to one seems resigned to the fact that she will be going to a snf in [facility]. Ida is one person there she already knows, a Julia Yeager. Reports she slept all night last night. Denies auditory or visual hallucinations. No delusional material is voiced to this nurse, however she has fixed delusions regarding telecommunications coming to her. No suicidal thoughts voiced. Presen ts independently for and is compliant with HS meds. Accucheck 1630 = 127 Accucheck 2013 = 182 PRN - NRT * Tiffanie Fraga, LEROY - 06/03/2017 11:25 AM EDT Pt calm and cooperative. Presents independently to nurses' station for morning medication. Compliant with all scheduled meds. Pt presents as depressed, flat affect. Pt states she feels sad today. When asked is making her feel sad pt replied, I just want to go see my family, but now they're sending me to a snf. Pt states that she is okay going to a snf, but she is unsure on the rules and how it all works. Pt encouraged to speak with SW regarding such. Pt guarded with interaction. Thoughts are preoccupied with finding family member. Pt out in active areas during free time. Attends groups throughout the shift. Denies SI, HI, hallucinations. Denies pain. PNR: none * Perry Montoya MD - 06/03/2017 9:38 AM EDT Formatting of this note may be different from the original. Psychiatry Progress Note Patient Name: Pablo Tabares Admit Date: 10010901 MR #: [id number] : 1975 Perpetual Assessment Pablo Tabares is a 41 y.o. female presenting with worsening psychotic sx who is slowly improving Diagnosis & Plan/Recommendations Other * Schizophrenia, paranoid, chronic (HCC) Assessment & Plan Provide support and reassurance. Social service to obtain additional information and background, coordinate care and assess supports. silver spray worker to work with patient, family and outpatient providers on follow-up appointments and resources. silver spray worker to confirm no access to guns, review safety plan and address psychosocial issues. Occupational Therapy to provide task activity to improve self esteem and to assess and support functioning. Psychotherapy to provide disease education and improve coping skills. Encouraged patient to participate in milieu and go to groups. Incorporate individual therapy, art therapy, group therapy. Encourage patient to incorporate workbooks. No medication changes. Hospitalist following for medical management. Interval History: Notes in care connect were reviewed. Patient will be discussed in treatment team.She has been compliant with her oral medications. No irritability shown. Patient says, none when discussing auditory hallucinations. She denies command hallucinations. silver spray worker is working with [facility] and [facility] on placement since patient has failed lower levels of care. Patient unable to function independently without supervision. Patient denies suicidal ideation, homicidal ideation, or visual hallucinations. Patient has been agreeable to placement during my conversation today. Patient has not received any as needed Zyprexa recently. Review of Systems: All other systems reviewed and negative other than HPI Physical Examination: Vital Signs: BP (!) 166/109 Pulse 85 Temp 98.4 F (36.9 C) (Temporal) Resp 14 Ht 5' 3 Wt 116.3 kg (256lb 6.3 oz) LMP Comment: currently menstruating SpO2 99% ? No BMI 45.42 kg/m2 Mental Status Examination: General Appearance & Behavior: cooperative Grooming & Hygiene: street clothes Psychomotor Activity: no psychomotor abnormalities or muscle atrophy noted Speech: diminished amount Flow of Thought: concrete Thought Associations: Loose Content of Thought: delusions, paranoia and psychotic sx improving daily Mood: fine Affect: restricted Insight: limited Judgment: limited Orientation: oriented to person, place and time Memory: impaired Attention: adequate Concentration: reduced Language: fluent Fund of Knowledge: estimated below average intelligence Laboratory and Additional Data Reviewed: Notes in care connect reviewed. Treatment options and alternatives reviewed with patient and Guardian. Risks, benefits, side effects of all psychiatric medications discussed with patient and Guardian and informed consent obtained. All questions were answered. SW and nursing staff communicating with guardian. Perry Montoya MD 06/03/2017 9:38 AM * Umu Ortiz RN - 06/03/2017 4:48 AM EDT Patient 15 min safety checks were performed at random intervals throughout the shift. 0105 Patient has been resting in bed with eyes closed since 2113. 0304 Patient has been resting in bed throughout the shift, up once. Respirations are easy and unlabored. 0505 Patient has been resting in bed throughout the shift, up twice. Respirations are easy and unlabored. * Debbie Leos RN - 06/02/2017 8:50 PM EDT Patient walks in the [place]. Does not attend Goals group. No interaction is noted with others. Presents to the nurse's station requesting to speak with this nurse. States I'm looking for advice on what to do. I'm wanting to go to [facility] to be with my mom. I don't know if they're going to let me. Theywant me to go to a snf. My grandma thinks it's a good idea & my mom does too. States she bought a bus ticket & the bus never came. I just want to go stay with my mom. Depressed and anxious. Feet moving the entire time we are talking. Missed Macrodantin and Trazodone at HS. When nurse went to have patient come back for these meds patient is snoring. * Tiffanie Fraga, LEROY - 06/02/2017 1:46 PM EDT Pt calm. Presents independently to nurses' station for morning medication. Compliant with all scheduled meds. States the medications are making her drag and make her legs feel very heavy. Pt described a feeling in her thoughts like stabbing needles. Pt encouraged to speak with the doctor regarding such. States she feels sad today. Thoughts are preoccupied with seeing her family in [place]. Per pt, she does not hear voices but she has telecommunication operation devices built into her neurons. When asked clarification question regarding such devices, pt becomes agitated and states, ask your own type of people swinging their arms about your telecommunications operations. I don't like talking to strangers about this. Pt also feels that she was working and fine and then boom, they tell me I'm schizophrenic. They started me on your medication and that paxil screwed my head up. Emotional support provided to pt. Pt educated on the importance of staying med compliant following discharge. Pt dismissive of information. Denies SI, HI. Denies pain. Attends groups. No peer interaction noted. PRN: none Accu check @ 6111=646, no coverage @ 1330=034, no coverage * Perry Montoya MD - 06/02/2017 10:51 AM EDT Formatting of this note may be different from the original. Psychiatry Progress Note Patient Name: Pablo Tabares Admit Date: 10010901 MR #: [id number] : 1975 Perpetual Assessment Pablo Tabares is a 41 y.o. female presenting with worsening psychotic sx who is slowly improving Diagnosis & Plan/Recommendations Other * Schizophrenia, paranoid, chronic (HCC) Assessment & Plan Provide support and reassurance. Social service to obtain additional information and background, coordinate care and assess supports. silver spray worker to work with patient, family and outpatient providers on follow-up appointments and resources. silver spray worker to confirm no access to guns, review safety plan and address psychosocial issues. Occupational Therapy to provide task activity to improve self esteem and to assess and support functioning. Psychotherapy to provide disease education and improve coping skills. Encouraged patient to participate in milieu and go to groups. Incorporate individual therapy, art therapy, group therapy. Encourage patient to incorporate workbooks. No medication changes. Hospitalist following for medical management. Interval History: Notes in care connect were reviewed. She has been compliant with her oral medications. No irritability shown. Patient says, no when discussing auditory hallucinations. She denies command hallucinations. She had discussed with staff that she does not want placement and wants to go to [place]. silver spray worker is working with guardian and [facility] on placement since patient has failed lower levels of care. Patient unable to function independently without supervision. Patient denies suicidal ideation, homicidal ideation, or visual hallucinations. Patient has been agreeable to placement during my earlier conversations. Today, patient is more sedated and therefore I did not re-engage her in conversation about dc planning. Review of Systems: All other systems reviewed and negative other than HPI Physical Examination: Vital Signs: BP (!) 133/96 (BP Location: Left arm, Patient Position: Sitting) Pulse 98 Temp 98.8 F (37.1 C) (Oral) Resp 16 Ht 5' 3 Wt 116.3 kg (256 lb 6.3 oz) LMP Comment: currently menstruating SpO2 95% ? No BMI 45.42 kg/m2 Mental Status Examination: General Appearance & Behavior: cooperative Grooming & Hygiene: street clothes Psychomotor Activity: psychomotor retardation Speech: diminished amount Flow of Thought: concrete Thought Associations: Loose Content of Thought: auditory hallucinations, delusions, paranoia and psychotic sx improving daily Mood: okay Affect: restricted Insight: limited Judgment: limited Orientation: oriented to person, place and time Memory: impaired Attention: adequate Concentration: reduced Language: fluent Fund of Knowledge: estimated below average intelligence Laboratory and Additional Data Reviewed: Notes in care connect reviewed. Treatment options and alternatives reviewed with patient and Guardian. Risks, benefits, side effects of all psychiatric medications discussed with patient and Guardian and informed consent obtained. All questions were answered. SW and nursing staff communicating with guardian. Perry Montoya MD 06/02/2017 10:51 AM * Umu Ortiz RN - 06/02/2017 4:50 AM EDT Patient 15 min safety checks were performed at random intervals throughout the shift. 0105 Patient has been resting in bed with eyes closed since 2058, up once 0304 Patient has been resting in bed throughout the shift. Respirations are easy and unlabored. 0505 Patient has been resting in bed throughout the shift. Respirations are easy and unlabored. * Pete Moreira RN - 06/01/2017 10:58 PM EDT Patient presents depressed and constricted. Patient is cooperative and withdrawn, patient can be paranoid at times. Patient denies SI, HI, pain, and hallucinations. Patient spends majority of shift in bed, when out of room the patient walks around the unit without much peer interaction. Patient states that she does not want to live in a snf when she leaves, she wants to move to [place] with the rest of her family but is worried about her grandmother that lives here. Patient is medication compliant without prompting. PRNs: Nicotine replacement * Perry Montoya MD - 06/01/2017 11:34 AM EDT Formatting of this note may be different from the original. Psychiatry Progress Note Patient Name: Pablo Tabares Admit Date: 10010901 MR #: [id number] : 1975 Perpetual Assessment Pablo Tabares is a 41 y.o. female presenting with worsening psychotic sx who is slowly improving Diagnosis & Plan/Recommendations Other * Schizophrenia, paranoid, chronic (HCC) Assessment & Plan Provide support and reassurance. Social service to obtain additional information and background, coordinate care and assess supports. silver spray worker to work with patient, family and outpatient providers on follow-up appointments and resources. silver spray worker to confirm no access to guns, review safety plan and address psychosocial issues. Occupational Therapy to provide task activity to improve self esteem and to assess and support functioning. Psychotherapy to provide disease education and improve coping skills. Encouraged patient to participate in milieu and go to groups. Incorporate individual therapy, art therapy, group therapy. Encourage patient to incorporate workbooks. No medication changes. Hospitalist following for medical management. Interval History: Notes in care connect were reviewed. She has been compliant with her oral medications. No irritability shown. Patient says, none at all when discussing auditory hallucinations. She denies command hallucinations. She doesn't voluntarily discuss her delusional thought processes today. silver spray worker is working with [facility] on placement since patient has failed lower levels of care. Patient unable to function independently without supervision. Patient denies suicidal ideation, homicidal ideation, or visual hallucinations. Patient herself is agreeable to placement. Review of Systems: All other systems reviewed and negative other than HPI Physical Examination: Vital Signs: BP 139/87 (BP Location: Right arm, Patient Position: Sitting) Pulse 71 Temp 99.1 F (37.3 C) (Oral) Resp 16 Ht 5' 3 Wt 116.3 kg (256 lb 6.3 oz) LMP (LMP Unknown) Comment: currently menstruating SpO2 100% ? No BMI 45.42 kg/m2 Mental Status Examination: General Appearance & Behavior: cooperative Grooming & Hygiene: street clothes Psychomotor Activity: no psychomotor abnormalities or muscle atrophy noted Speech: diminished amount Flow of Thought: concrete Thought Associations: Loose Content of Thought: auditory hallucinations, delusions, paranoia and psychotic sx improving daily Mood: okay Affect: restricted and but brighter Insight: limited Judgment: limited Orientation: oriented to person, place and time Memory: impaired Attention: adequate Concentration: reduced Language: fluent Fund of Knowledge: estimated below average intelligence Laboratory and Additional Data Reviewed: Notes in care connect reviewed. Treatment options and alternatives reviewed with patient and Guardian. Risks, benefits, side effects of all psychiatric medications discussed with patient and Guardian and informed consent obtained. All questions were answered. SW and nursing staff communicating with guardian. Perry Montoya MD 06/01/2017 11:34 AM * Chely Quinn RN - 06/01/2017 9:47 AM EDT Patient presented to the nurses station independently for morning medication. Patient denies current suicidal or homicidal ideation, or hallucinations. Patient continues to be paranoid but has a moreorganized thought process. Patient denies current depression or anxiety. Patient presents as depressed with a full affect. Patient denies pain or needs at this time. Patient states she slept good last night. Patient is observed in the active areas with some peer interaction noted. Patient states she is tired today. Patient was observed taking a nap in the afternoon. Patient has remained medication compliant throughout the shift with prompting. PRN's- nicotine replacement. Accucheck- 0604- 139, no coverage. 1144- 148, 4 units of Humalog administered. 1619- 154, 4 units of Humalog administered. * Umu Ortiz RN - 05/31/2017 11:14 PM EDT Patient 15 min safety checks were performed at random intervals throughout the shift. 2315 Maalox given for heartburn. 0105 Patient has been resting in bed with eyes closed since 2044, up once. 0304 Patient has been resting in bed throughout the shift. Respirations are easy and unlabored. 0505 Patient has been resting in bed throughout the shift. Respirations are easy and unlabored. * Kiara Jalloh RN - 05/31/2017 4:50 PM EDT Patient spends her free time in the group room listening to music with minimal peer interaction. She attends meals and groups per unit routine. Her affect is flat, mood is depressed and anxious. She reports that she is feeling better since admission due to being back on her medication. Patient is able to understand that her complaint of blurry vision yesterday may have been her body readjusting to the medications. She verbalizes desire to be placed in a snf in [place] upon discharge so she can at least move out of [place] and be in a big city. She is interested in taking classes for graphic design, said she enjoys drawing and would like to do web design. Patient denies any suicidal id eation stating this is not an issue for her. She denies any hallucinations at this time. She is compliant with medication with minimal prompting. 1600 BS 213, 6 units coverage administered 2000 BS 162, no coverage required * Rory Adams, MOBILE SECURITY ARCHITECT - 05/31/2017 2:16 PM EDT Patient attends most scheduled daytime groups. Pt. Able to focus on group tasks for upwards of 35 minutes or longer. Pt. Insight is still poor, she remains fixated on delusional ideations yet is notably more guarded in presenting these thoughts. Orientation to reality is in question. Pt. Continues to be offered validation of her thoughts and educated towards positive coping skills for which she will be monitored for progress. * Perry Montoya MD - 05/31/2017 9:14 AM EDT Formatting of this note may be different from the original. Psychiatry Progress Note Patient Name: Pablo Tabares Admit Date: 10010901 MR #: [id number] : 1975 Perpetual Assessment Pablo Tabares is a 41 y.o. female presenting with worsening psychotic sx who is slowly improving Diagnosis & Plan/Recommendations Other * Schizophrenia, paranoid, chronic (HCC) Assessment & Plan Provide support and reassurance. Social service to obtain additional information and background, coordinate care and assess supports. silver spray worker to work with patient, family and outpatient providers on follow-up appointments and resources. silver spray worker to confirm no access to guns, review safety plan and address psychosocial issues. Occupational Therapy to provide task activity to improve self esteem and to assess and support functioning. Psychotherapy to provide disease education and improve coping skills. Encouraged patient to participate in milieu and go to groups. Incorporate individual therapy, art therapy, group therapy. Encourage patient to incorporate workbooks. No medication changes. Hospitalist following for medical management. Interval History: Notes in care connect were reviewed. Patient will be discussed extensively in treatment team. Patient has not received any prn zyprexa over the last 72 hours. She has been compliantwith her oral medications. She is less irritable. Patient says, none today when discussing auditory hallucinations. She denies command hallucinations. She doesn't voluntarily discuss her delusionalthought processes today. silver spray worker is working with [facility] and [facility] on placement since patient has failed lower levels of care. Patient unable to function independently without supervision. Patient denies suicidal ideation, homicidal ideation, or visual hallucinations.She does not get irritable when I explained to patient that we are looking into placement - had thesame discussion yesterday. She agrees and says ok. She does report some sedation in the morning. Review of Systems: All other systems reviewed and negative other than HPI Physical Examination: Vital Signs: BP 129/89 Pulse 90 Temp 98.6 F (37 C) (Oral) Resp 16 Ht 5' 3 Wt 116.3 kg (256 lb 6.3 oz) LMP (LMP Unknown) Comment: currently menstruating SpO2 97% ? No BMI 45.42 kg/m2 Mental Status Examination: General Appearance & Behavior: cooperative Grooming & Hygiene: street clothes Psychomotor Activity: no psychomotor abnormalities or muscle atrophy noted Speech: diminished amount Flow of Thought: concrete Thought Associations: Loose Content of Thought: auditory hallucinations, delusions and paranoia Mood: okay Affect: restricted and but brighter Insight: limited Judgment: limited Orientation: oriented to person, place and time Memory: impaired Attention: adequate Concentration: reduced Language: fluent Fund of Knowledge: estimated below average intelligence Laboratory and Additional Data Reviewed: Notes in care connect reviewed. Treatment options and alternatives reviewed with patient and Guardian. Risks, benefits, side effects of all psychiatric medications discussed with patient and Guardian and informed consent obtained. All questions were answered. SW and nursing staff communicating with guardian. Perry Montoya MD 05/31/2017 9:14 AM * Chely Quinn RN - 05/31/2017 8:27 AM EDT Patient presented to the nurses station independently for morning medication. Patient denies current suicidal or homicidal ideation, or hallucinations. Patient presents as paranoid. Patient reports 3/10 anxiety and 3/10 depression. Patient presents as depressed and anxious with a full affect. Patient states she slept good last night. Patient denies pain or needs at this time. Patient has remained medication compliant throughout the shift with prompting. Patient has been observed in the activeareas with minimal peer interaction. Patient was smiling and being friendly with this RN during interaction. Patient is using her given name throughout the shift. PRN's- nicotine replacement. Accucheck- 0608-145, 4 units of Humalog administered. 1110- 146, 4 units of Humalog administered. * Emily Alberts RN - 05/31/2017 6:51 AM EDT ECT pre-op assessment complete. Pt voided. Placed in snap gowns. Denies any questions or concerns at this time. * Emily Alberts RN - 05/31/2017 4:54 AM EDT -Safety checks performed every 15 minutes at varied intervals for patient safety. -Pt retired to bed at 2117. -0100- Pt resting in bed with eyes closed. Respirations unlabored. No distress noted. -0502- Pt resting in bed with eyes closed. Respirations unlabored. No distress noted. -Pt has rested approximately 7.75 hours so far this shift. Uninterrupted. * Kiara Jalloh RN - 05/30/2017 5:38 PM EDT Patient spends her free time in the active areas with minimal peer interaction, attends meals and majority of groups. Her affect is flat, mood is depressed and anxious. Patient remains fixated on moving to [place] to find her family. She is frustrated and believes that staff is attempting to keep her here. It was explained that things take time to arrange so to allow staff to assist her in preparing a plan for her discharge. She states that other than this, she is doing good. She does not appear to be responding to internal stimuli and denies any current hallucinations. Patient denies thoughts of suicide. She is compliant with medication independently. Patient reports that one of her medications seems to be making her eyesight blurry, would like her medications evaluated to alleviate this concern. 1600 BS 192, 6 units insulin coverage 2000 BS 121, no coverage required * Tiffanie Fraga, LEROY - 05/30/2017 10:33 AM EDT Pt is anxious and cooperative. Presents to nurses' station for morning medication with prompting. Compliant with all scheduled meds. Pt states she is alright today. Reports she slept well last night. Thoughts are preoccupied with going to [place] to see her family. Pt, however, does not know the names of her family members. Per pt, when I'm in places like this, I forget things. Something isfishy, I don't remember their names, but I will recognize them when I see them. Reports that she is not from here, I have memories from a foreign country. Denies SI, HI. When asked if she hears voices, the pt responded not like you guys thing. I hear my own thoughts, but sometimes the medicine makes it so I can't even hear my own thoughts. Thoughts are preoccupied with seeing her family in [place]. Presents as depressed, anxious, constricted affect. Attends groups throughout the shift. No peer interaction noted. PRN: none Accu check @ 4124=743, 4 U insulin administered in arm @ 5526=156, 0 U * Perry Montoya MD - 05/30/2017 9:46 AM EDT Formatting of this note may be different from the original. Psychiatry Progress Note Patient Name: Pablo Tabares Admit Date: 10010901 MR #: [id number] : 1975 Perpetual Assessment Pablo Tabares is a 41 y.o. female presenting with worsening psychotic sx who is slowly improving Diagnosis & Plan/Recommendations Other * Schizophrenia, paranoid, chronic (HCC) Assessment & Plan Provide support and reassurance. Social service to obtain additional information and background, coordinate care and assess supports. silver spray worker to work with patient, family and outpatient providers on follow-up appointments and resources. silver spray worker to confirm no access to guns, review safety plan and address psychosocial issues. Occupational Therapy to provide task activity to improve self esteem and to assess and support functioning. Psychotherapy to provide disease education and improve coping skills. Encouraged patient to participate in milieu and go to groups. Incorporate individual therapy, art therapy, group therapy. Encourage patient to incorporate workbooks. No medication changes. Hospitalist following for medical management. Interval History: Notes in care connect were reviewed. Patient will be discussed extensively in treatment team. Patient has not received any prn zyprexa over the last 48 hours. She has been compliantwith her oral medications. She is less irritable. Patient says, better when discussing auditory hallucinations. She denies command hallucinations. She doesn't voluntarily discuss her delusional thought processes today. [facility] since patient has failed lower levels of care. Patient unable to function independently without supervision. Patient does not provide a lot of details. She has been discussing with staff how she needs to go to [place]. Patient denies suicidal ideation, homicidal ideation, or visual hallucinations. She today asks where she will be going upon discharge. She does not get irritable when I explained to patient that we are looking into placement. Review of Systems: All other systems reviewed and negative other than HPI Physical Examination: Vital Signs: BP (!) 150/95 (BP Location: Right arm, Patient Position: Sitting) Pulse 75 Temp 98 F (36.7 C) (Oral) Resp 14 Ht 5' 3 Wt 116.3 kg (256 lb 6.3 oz) LMP (LMP Unknown) Comment: currently menstruating SpO2 95% ? No BMI 45.42 kg/m2 Mental Status Examination: General Appearance & Behavior: cooperative Grooming & Hygiene: street clothes Psychomotor Activity: restless Speech: diminished amount Flow of Thought: concrete Thought Associations: Loose Content of Thought: auditory hallucinations, delusions and paranoia Mood: okay Affect: restricted Insight: poor Judgment: poor Orientation: oriented to person, place and time Memory: impaired Attention: impaired Concentration: reduced Language: fluent Fund of Knowledge: estimated below average intelligence Laboratory and Additional Data Reviewed: Notes in care connect reviewed. Treatment options and alternatives reviewed with patient and Guardian. Risks, benefits, side effects of all psychiatric medications discussed with patient and Guardian and informed consent obtained. All questions were answered. SW and nursing staff communicating with guardian. Perry Montoya MD 05/30/2017 9:46 AM * Shubham Obando RN - 05/30/2017 5:11 AM EDT -0100 Pt resting in bed with eyes closed. No distress noted. -0500 Pt resting in bed with eyes closed. Pt rested in bed with eyes closed for the majority of night when checked at 15-minute intervals. No distress noted. -Pt has slept approximately 8 hours up to this point. * Kiara Jalloh RN - 05/29/2017 5:21 PM EDT Patient remains isolated to herself either in her room or in the active areas with minimal peer interaction. Her affect is flat, mood is depressed. She remains fixated on finding her family in [place] saying, I don't know why they leave and don't come back. Patient is frustrated with having a guardian as well, stating, I may be dependent but not incompetent. She is fearful that, they're keeping me here and I just want to find my family. Patient is reassured that we cannot keep her on this unit but was reminded of the importance of being back on her medication prior to leaving. She denies any hallucinations at this time and does not seem to be responding to stimuli. She reports no difficulty sleeping. Patient is compliant with medication independently. 1600 BS 149, 4 units insulin given 2000 BS 205, no insulin required * Alex Lee LISW-S - 05/29/2017 2:25 PM EDT I met with the patient, regarding her mental status and plans moving forward. She remains preoccupied with seemingly fixed delusions. She spent the time ranting about how she needs to get to [place], so she can be with her imaginary family. She did provide a tiny history on what was going on imm ediately before her admission. She had been staying with a friend of hers, but ran out of money, sohe kicked her out to the street. She spent a couple nights sleeping on the ground. Before she ran out of money, she had bought a bus ticket to [place], but apparently missed the bus so decided tocome to the hospital. She thinks she is just fine and ready to move on to her hallucinated family in [place], hoping [facility] will given her a free ticket, and does not appreciate people thinking she is crazy. She began to work herself up, so I made my departure. * Tiffanie Fraga, RN - 05/29/2017 2:23 PM EDT Pt much less irritable when compared with previous days. States she feels better today, but is just sad. Out of room more today. Attends groups. Thoughts are more organized. Pt discusses wanting togo to [place] and be with her family. States he mother lives in [place]. Pt discusses that her grandmother who lives in [place] is getting old and cranky. Pt states she wants to move away from her. Reports her that is in [place] is not actually recognized as her because the DMV has a different name for him. Pt smiles while discussing her . Pt discusses how she is now on probation and unable to leave the state. Pt encouraged to speak with SW regarding such. Speech is appropriate and free flowing. Denies SI, HI, hallucinations. Denies pain. PRN: none Accu check @ 5560=138, 0 units insulin @1911=952, 0 units insulin * Perry Montoya MD - 05/29/2017 11:56 AM EDT Formatting of this note may be different from the original. Psychiatry Progress Note Patient Name: Pablo Tabares Admit Date: 10010901 MR #: [id number] : 1975 Perpetual Assessment Pablo Tabares is a 41 y.o. female presenting with worsening psychotic sx who is slowly improving Diagnosis & Plan/Recommendations Other * Schizophrenia, paranoid, chronic (HCC) Assessment & Plan Provide support and reassurance. Social service to obtain additional information and background, coordinate care and assess supports. silver spray worker to work with patient, family and outpatient providers on follow-up appointments and resources. silver spray worker to confirm no access to guns, review safety plan and address psychosocial issues. Occupational Therapy to provide task activity to improve self esteem and to assess and support functioning. Psychotherapy to provide disease education and improve coping skills. Encouraged patient to participate in milieu and go to groups. Incorporate individual therapy, art therapy, group therapy. Encourage patient to incorporate workbooks. No medication changes. Hospitalist following for medical management. Interval History: Notes in care connect were reviewed. Patient was discussed extensively in treatment team. Patient has not received any prn zyprexa over the last 24 hours. She has been compliant with her oral medications. She is in group when approached. She is less irritable. Patient says, it's better when discussing auditory hallucinations. She denies command hallucinations. She doesn't voluntarily discuss her delusional thought processes today. silver spray worker is working with guardian and [facility] on placement since patient has failed lower levels of care. Patient unable to function independently without supervision. Patient does not provide a lot of details. Patient denies suicidal ideation, homicidal ideation, or visual hallucinations. Review of Systems: All other systems reviewed and negative other than HPI Physical Examination: Vital Signs: BP 121/80 Pulse 75 Temp 98 F (36.7 C) (Oral) Resp 14 Ht 5' 3 Wt 116.3 kg (256 lb 6.3 oz) LMP (LMP Unknown) Comment: currently menstruating SpO2 95% ? No BMI 45.42 kg/m2 Mental Status Examination: General Appearance & Behavior: cooperative Grooming & Hygiene: street clothes Psychomotor Activity: restless Speech: diminished amount Flow of Thought: concrete Thought Associations: Loose Content of Thought: auditory hallucinations, delusions and paranoia Mood: okay Affect: restricted Insight: poor Judgment: poor Orientation: unable to assess due to patient refusal Memory: impaired Attention: impaired Concentration: reduced Language: fluent Fund of Knowledge: estimated below average intelligence Laboratory and Additional Data Reviewed: Notes in care connect reviewed. Treatment options and alternatives reviewed with patient and Guardian. Risks, benefits, side effects of all psychiatric medications discussed with patient and Guardian and informed consent obtained. All questions were answered. SW and nursing staff communicating with guardian. Perry Montoya MD 05/29/2017 11:56 AM * Umu Ortiz RN - 05/29/2017 5:03 AM EDT Patient 15 min safety checks were performed at random intervals throughout the shift. 0105 Patient has been resting in bed with eyes closed since 2099, up once. 0304 Patient has been resting in bed throughout the shift. Respirations are easy and unlabored. 0505 Patient has been resting in bed throughout the shift. Respirations are easy and unlabored. * Kiara Jalloh RN - 05/28/2017 5:02 PM EDT Patient has been wandering around the unit with minimal peer interaction, attends meals but is selective with group attendance. Her affect is flat, mood is labile. She presented to the nurse's station prior to dinner requesting, I need to speak to a counselor or something. This nurse offered to return to her room to talk. Patient verbalized that she is upset because she wants to go to [place] In order to search for her family. She said she has her grandma but knows she has more family members and needs to find them. She told this nurse how she had a bus ticket but the business transformation analyst told her to wait for the next bus, which never came. She no longer wants to live around here, [place]. Patient was reminded that staff and SW will work on formulating a plan prior to her discharge. She was asked if she had been taking her medication prior to admission but she said, no, I ran out. We discussed the importance of getting her back on her medication regimen prior to leaving here. Attimes she appears to respond to internal stimuli but is also able to have a conversation. Patient is fixated on this topic of her family and discusses little else. She has requested numerous times tosee her bus ticket but staff has been unable to locate this in her belongings. She is compliant with medication with minimal prompting. PRNs: Nicotine replacement 1600 BS 163, 4 units of coverage given 2000 BS 144, no insulin coverage required * Perry Montoya MD - 05/28/2017 11:09 AM EDT Formatting of this note may be different from the original. Psychiatry Progress Note Patient Name: Pablo Tabares Admit Date: 10010901 MR #: [id number] : 1975 Perpetual Assessment Pablo Tabares is a 41 y.o. female presenting with worsening psychotic sx who is slowly improving Diagnosis & Plan/Recommendations Other * Schizophrenia, paranoid, chronic (HCC) Assessment & Plan Provide support and reassurance. Social service to obtain additional information and background, coordinate care and assess supports. silver spray worker to work with patient, family and outpatient providers on follow-up appointments and resources. silver spray worker to confirm no access to guns, review safety plan and address psychosocial issues. Occupational Therapy to provide task activity to improve self esteem and to assess and support functioning. Psychotherapy to provide disease education and improve coping skills. Encouraged patient to participate in milieu and go to groups. Incorporate individual therapy, art therapy, group therapy. Encourage patient to incorporate workbooks. No medication changes. Hospitalist following for medical management. Interval History: Notes in care connect were reviewed. Patient was discussed extensively in treatment team. Patient has received as needed Zyprexa for agitation since admission. Patient was restartedon her home medication regimen. silver spray worker is working with guardian and [facility] on placement since patient has failed lower levels of care. Patient unable to function independently without supervision. Patient is more pleasant and cooperative when approached. Patient does not provide a lot of details. Patient denies suicidal ideation, homicidal ideation, auditory or visual hallucinations. This improvement is most likely due to the patient receiving as needed Zyprexa this morning. Review of Systems: All other systems reviewed and negative other than HPI Physical Examination: Vital Signs: BP (!) 135/90 (BP Location: Right arm, Patient Position: Sitting) Pulse 94 Temp 98.1 F (36.7 C)(Oral) Resp 18 Ht 5' 3 Wt 116.3 kg (256 lb 6.3 oz) LMP (LMP Unknown) Comment: currently menstruating SpO2 96% ? No BMI 45.42 kg/m2 Mental Status Examination: General Appearance & Behavior: cooperative Grooming & Hygiene: street clothes Psychomotor Activity: restless Speech: diminished amount Flow of Thought: concrete Thought Associations: Loose Content of Thought: auditory hallucinations, delusions, paranoia and has been observed to be internally stimulated Mood: okay Affect: labile Insight: poor Judgment: poor Orientation: unable to assess due to patient refusal Memory: impaired Attention: impaired Concentration: reduced Language: fluent Fund of Knowledge: estimated below average intelligence Laboratory and Additional Data Reviewed: Notes in care connect reviewed. Treatment options and alternatives reviewed with patient and Guardian. Risks, benefits, side effects of all psychiatric medications discussed with patient and Guardian and informed consent obtained. All questions were answered. SW and nursing staff communicating with guardian. Perry Montoya MD 05/28/2017 11:09 AM * Tiffanie Fraga RN - 05/28/2017 9:16 AM EDT Pt agitated. Walking around unit talking loudly and cursing. Pt appears to be responding to internal stimuli as evidenced by no other people around when pt is speaking. Pt becomes increasingly agitated when asked if she hears voices. 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 Speech ispressured. Thoughts are delusional. 0757 PRN zyprexa 10 mg IM administered for agitation. Protective services outside room. Pt tolerated well. Pt ate breakfast then attended group. Will continue to monitor closely. Pt calm. Attends groups in the morning. Out for meals. Pt's speech is more appropriate. Thoughts are more organized, but remains focused on catching a bus to [place] to be with her family. She wants to then take the bus to [place] to be home home with her people. Pt became agitated again when asked if she was hearing voices. Pt responded Do you mean like microchips planted in my brain receiving messages from satellites? I don't want anyone to open my skull and check. Pt reassured that no one was going to open up her head. Denies SI and HI. Denies pain. Spoke with Nolan Dietrich, pt's guardian. Verbal consent for admission obtained. Peer RN witnessed.Med consent and general consent faxed. Waiting for return fax at this time. Guardian also was requested to fax guardianship papers to be scanned in to pt's chart. * Umu Ortiz RN - 05/28/2017 5:09 AM EDT Patient 15 min safety checks were performed at random intervals throughout the shift. 0105 Patient has been resting in bed with eyes closed since 191. 0304 Patient has been resting in bed throughout the shift, up once. Respirations are easy and unlabored. 0505 Patient has been resting in bed throughout the shift. Respirations are easy and unlabored. * Lv [place], LEROY - 05/27/2017 7:03 PM EDT BEHAVIOR/ACTIVITY : Calm & cooperative. Lethargic. Withdrawn to bed except for dinner. DeclinedHS meds. Denies voices, no hallucinations. Declined group participation. No pain, no distress. Denies needs. THOUGHT PROCESS : Limited. MOOD/AFFECT : Anxious and full. MED COMPLIANCE : Declined HS meds after prompting. PRN'S : No PRNs this shift. MED CHANGES/NEW ORDERS: Insulin sliding scale and albuterol PRN. SUICIDAL OR HOMICIDAL : Denies. * Tiffanie Fraga, LEROY - 05/27/2017 10:09 AM EDT 0913 Pt woken for V/S. Med consent signed. Morning medications provided to pt. Pt falling asleep during interaction. Pt requested and was provided with breakfast tray. 0930 Pt observed yelling in dining room. This RN and peer RN approached the pt to offer support. Ptwas cursing and yelling about you people and needing to get back home to [place] to be with her people. Pt reports that her skin is black because she is going through a transformation and it is not complete. Pt yelling about people putting their f*cking hands on her. War was also a recurring theme. Pt unable to be redirected or reoriented. Pt agreed to walk to her room with this RN due to yelling and cursing. Pt continued to yell and curse and become increasingly agitated once in her room. Protective services called for a walk through and possible assistance with PRN injection. 0955 PRN zyprexa 10 mg IM administered to pt in left deltoid without incidence. Peer RN in room. Protective services outside room. Following injection pt was encouraged to remain in her room to allowthe medication to calm her down. Pt told this RN to get the f*ck out of here and stop calling me that. Pt being monitored by camera at this time. 1020 Pt resting in bed with eyes closed. Respirations easy. No distress noted. Will continue to monitor. 1430 Pt remains resting in bed. Respirations easy and unlabored. No distress noted. 1440 afternoon medications administered to pt. Pt awake long enough for med administration, then went back to sleep. Flu vaccination administered in right deltoid. Pt tolerated well. * Alex Lee LISW-Jessica - 05/27/2017 9:44 AM EDT Collateral/Family meeting Relationship/length of time known to patient: [facility] Tie Man - [facility] has tended to the patient for decades Most recent contact with pt and how often they contact pt: episodic Baseline behaviors: not psychotic Any observed recent behavior changes: yes When: last several months Triggers for behavior change: non-compliance Mental Health/Substance Abuse history of pt: lengthy hx of recurrent psychosis Suicide attempt hx: none noted Hospitalizations: multiple Current treatment: none Mediation compliance: non-compliant Family hx of mental health/substance abuse: unknown Hx of pt violence: verbal aggression noted Any other stressors (legal/housing/financial/etc): homelessness Access to Guns/weapons: none noted silver spray worker reviewed inpatient treatment plan and goals. Feedback from (collateral source) I spoke with the casting associate at [facility], regarding the patient's psychiatric status. [facility] is amenable to the patient going to respite post-admission, if snf placement is not immediately available. [facility] agrees the patient is incompetent, unable to independently survive in the community. We will attempt to optimize her psychotropics, engage her in therapeutic treatment, and transition her to the female respite or snf setting, to be determined by [facility]. [facility] stated the patient didnot follow-up post-admission, and they have not seen her. 1047 I called the probate court of [facility], regarding the patient's guardianship status. 05/15/17 the guardianship was indefinitely approved, for person only not estate. She legally has the right to manage her own funds, but we will inquire into [facility] being her payee. Safety plan reviewed: This will be considered, closer to discharge. * Hollie Armenta, LEROY - 05/27/2017 6:36 AM EDT Pt is a 41 year old female admitted to the [facility] at 0551 to room 1040B. She was approved for admission by Dr Greer, but she will be under the service of Dr Montoya. She has a long history of mental illness, with many admissions. She was last admitted to this unit in April,.Pt presented to the [facility] ED with hallucinations and making delusional statements. Pt's diagnosis is Schizophrenia, Paranoid, Chronic. She was lucid enough to tell the ED nurse, I need to be in the mental health unit. I need my meds . Pt went on to make delusional statements such as, I need to get on a bus to [place] To see my . She then told the RN I can't think straight . Pt's belongings did contain 4 bus tickets from [place], [place] to [place], [place], each costing $258. 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 When asked where that is, she stated, [place], I am an [place]. I can change color and patterns and so can my . Just because you can't do that doesn't mean I can't. Pt's grandmother is listed as her emergency contact, yet when asked if she wanted to sign an NANCY for her grandmother, she very loudly stated, her grandmother is old, and she is not the only relativeshe has . Pt frequently referred to herself in the third person during the conversation. Pt spoke about alternate dimensions and the fact that she can change like a lizard. Pt states, she doesn't need your meds and her family is mad that you are keeping her here . Pt was cooperative with much coaxing to sign part of the admission paperwork, but refused to sign NANCY or medication consents. She allowed lab to draw her blood after more coaxing. Pt was unwilling toallow a physical exam and was talking very loudly about delusional material. She was given a snack and left alone to eat it so she could calm down. Pt could still be heard talking loudly after RN hadleft the room. She has a physical history of chronic HTN, DM type 2 (controlled by Metformin), Hypokalemia, LumbarDDD, Cocaine Abuse, Hypertensive Urgency, Abdominal pain, and Asthma. The tests in the ED were negative for ETOH and drugs. She was placed on a Diabetic diet, Accucheks twice a day, and Unpredictableprecautions. in this encounter* Rhonda Martinez RN - 05/02/2017 1:11 PM EDT Patient reviewed and signed all discharge plans and orders. Patient verbalized understanding. All belongings returned and copies of discharge plans given with scripts included. Patient left unit ambulatory with staff to waiting cab with instruction to take her to [facility]. * Lizbeth Jalloh - 05/02/2017 10:39 AM EDT Patient denies suicidal ideation, homicidal ideation, psychosis. Safety plan completed, reviewed and will be scanned into care connect. Pt denies questions/concerns re: d/c plan. Patient is on target for discharge today, with outpatient follow-up arranged. Please see the AVS for details. Pt will be staying at the [facility].Transportation is provided by cab.. silver spray worker spoke with cathy Francisco and also Rosalio brandt for discharge planning/collateral and they denied safety concerns. It has been confirmed the patient will not have access to guns. IP discharge bundle has been faxed for coordination of care, to the outpatient provider. Resources provided. Patient was strongly encouraged to f/u as outpatient. Pt has Medicare A&B and also Medicaid for medication management and services * Rhonda Martinez, RN - 05/02/2017 9:14 AM EDT 0900 Second webX placed to Dr. Sahu regarding med reconciliation for this pt. Margareth MIL paged regarding insulin orders. Med rec done per Dr. Sahu. Metformin ordered and script sent to pts pharmacy.. * Shubham Obando, RN - 05/02/2017 5:07 AM EDT -0100 Pt resting in bed with eyes closed. No distress noted. -0500 Pt resting in bed with eyes closed. Pt rested in bed with eyes closed for the majority of night when checked at 15-minute intervals. No distress noted. -Pt has slept approximately 7.5 hours up to this point. * Hollie Armenta, LEROY - 05/01/2017 7:11 PM EDT [id number] Pt has been calm and cooperative this shift. She presented independently for bedtime medications and took all without issues. She states that she is feeling ok except for 8/10 tooth pain. She was provided with PRN Ibuprofen and Orajel for this. Pt denies SI, HI and hallucinations at this time, but at times appears to respond to internal stimuli. Pt states that she feels ready for discharge, butdoes not appear anxious or in a hurry to leave. PRNs: Ibuprofen, Orajel, and Nicotine lozenge Blood Glucose at 1936 was 160. No coverage per protocol. * Lizbeth Jallho - 05/01/2017 10:15 AM EDT SW to talk with Pt in office for Pt to [facility]. Hopefully they will have a bedavailable. If they do Pt will be [facility] to the [facility] with [facility] working with Pt to obtain her monthly check, medications and services for Pt to get her own place. SW to follow up. SW and Pt one to one in office. SW and Pt together called the [facility] and they are doing a background check on her. SW to call back a 4:00 pm to check on status. There is 2 beds available. The [facility] is aware that discharge is set for tomorrow. * Perry Montoya MD - 05/01/2017 9:48 AM EDT Formatting of this note may be different from the original. Psychiatry Progress Note Patient Name: Pablo Tabares Admit Date: 8130901 MR #: [id number] : 1975 Perpetual Assessment Pablo Tabares is a 41 y.o. female presenting with worsening psychotic sx who is more delusional due to her focus on finances. SW to determine when the sleeping room would be available and then work with guardian, pt and outpt team on discharge plan. Patient does need a structured setting ideally. Addendum: After further discussion, it seems that sleeping room is currently not a possibility due to lack of finances. Therefore, she would be discharged to homeless [facility]. Diagnosis & Plan/Recommendations Other * Schizophrenia, paranoid, chronic with acute exacerbation (HCC) Assessment & Plan Vs. Schizoaffective disorder vs. Bipolar disorder. Sx could also be exacerbated by her cocaine use. Provide support and reassurance. Social service to obtain additional information and background, coordinate care and assess supports. silver spray worker to work with patient, family and outpatient providers on follow-up appointments and resources. silver spray worker to confirm no access to guns, review safety plan and address psychosocial issues. Occupational Therapy to provide task activity to improve self esteem and to assess and support functioning. Psychotherapy to provide disease education and improve coping skills. Encouraged patient to participate in milieu and go to groups. Incorporate individual therapy, art therapy, group therapy. Encourage patient to incorporate workbooks. Hospitalist has been consulted for ongoing medical management No medication changes. Interval History: Nursing notes were reviewed. Patient will be discussed extensively in treatment team. Patient is very focused on her finances and her social security check. SW is working with patient, guardian and outpt team. Patient has been taking better care of ADLs. Patient has not been observed to be internally stimulated during rounds. We discussed in treatment team how homeless [facility] would not be ideal for patient due to high risk of rehospitalization. Discharge plan and date would depend on the length of wait for the sleeping room. Patient wants to be discharged this week. Patientwill have case management and med drops. It seems that placement in a supervised setting such as placement in snf or [facility] are not options for patient. That would be the most ideal forthe patient. Patient has been compliant with her oral medications. Patient has not required any as needed medications for psychotic agitation. Patient with no seclusion or restraint. Patient denies suicidal ideation, plan or intent. Patient denies homicidal ideation, auditory or visual hallucinations. Patient with no prn meds for agitation. Review of Systems: All other systems reviewed and negative other than HPI Physical Examination: Vital Signs: BP (!) 134/90 Pulse 71 Temp (!) 100.6 F (38.1 C) (Oral) Resp 15 Ht 5' 3 Wt 122.1 kg (269lb 2.9 oz) LMP (LMP Unknown) SpO2 100% ? No BMI 47.68 kg/m2 Mental Status Examination: General Appearance & Behavior: age appropriate, pleasant, cooperative, good eye contact Grooming & Hygiene: street clothes Psychomotor Activity: no psychomotor abnormalities or muscle atrophy noted Speech: diminished amount Flow of Thought: concrete Thought Associations: Intact Content of Thought: delusions, paranoia and overall improved Mood: frustrated Affect: anxious Insight: improving Judgment: improving Orientation: alert and oriented to person, place, time, and circumstances Memory: unable to recall events leading to hospital admission Attention: intact Concentration: intact Language: intact Fund of Knowledge: estimated below average intelligence Laboratory and Additional Data Reviewed: Notes in care connect reviewed. Treatment options and alternatives reviewed with patient. Risks, benefits, side effects of all psychiatric medications discussed with patient and informed consent obtained. All questions were answered. SW communicating with guardian. Perry Montoya MD 05/01/2017 9:48 AM * Hollie Armenta, LEROY - 05/01/2017 1:05 AM EDT Pt remains on Suicide, Unpredictable, and Elopement precautions. Safety checks performed every 15 minutes at varied intervals. Pt retired to bed at 2132. 0100- Pt resting in bed with eyes closed. Respirations unlabored. No distress noted. 0500- Pt resting in bed with eyes closed. Respirations unlabored. No distress noted. Pt has rested approximately 7.5 hours thus far. Uninterrupted. FSBS at 0600 was 156. * Hollie Armenta, LEROY - 04/30/2017 7:24 PM EDT [id number] Pt has been calm and cooperative this shift. She spends free time in the active areas, but has little to no interaction with peers. She was cooperative with speaking with this RN, and stated that seeis feeling well and that her mood is ok . When RN began asking whether she has hallucinations, pt stated, I don't have that because you have my phone in there . When RN attempted to discuss this further, pt stated, I don't want to talk about that anymore . She presented independently for bedtimemedications and took them without issues. FSBS at 1999 was 194. No coverage needed per protocol. PRNs: Ibuprofen, Orajel, and Nicotine lozenge at 2117. Ibuprofen for 8/10 tooth pain. * Caroline Kowalski - 04/30/2017 1:02 PM EDT This pt is currently meeting all of her daytime AT goals at this time. Staff will continue to monitor pt for future progress. * Perry Montoya MD - 04/30/2017 11:27 AM EDT Formatting of this note may be different from the original. Psychiatry Progress Note Patient Name: Pablo Tabares Admit Date: 8130901 MR #: [id number] : 1975 Perpetual Assessment Pablo Tabares is a 41 y.o. female presenting with worsening psychotic sx who is more delusional due to her focus on finances. Diagnosis & Plan/Recommendations Other * Schizophrenia, paranoid, chronic with acute exacerbation (HCC) Assessment & Plan Vs. Schizoaffective disorder vs. Bipolar disorder. Sx could also be exacerbated by her cocaine use. Provide support and reassurance. Social service to obtain additional information and background, coordinate care and assess supports. silver spray worker to work with patient, family and outpatient providers on follow-up appointments and resources. silver spray worker to confirm no access to guns, review safety plan and address psychosocial issues. Occupational Therapy to provide task activity to improve self esteem and to assess and support functioning. Psychotherapy to provide disease education and improve coping skills. Encouraged patient to participate in milieu and go to groups. Incorporate individual therapy, art therapy, group therapy. Encourage patient to incorporate workbooks. Hospitalist has been consulted for ongoing medical management No medication changes. Interval History: Nursing notes were reviewed. Patient was discussed extensively in treatment team.Patient is very focused on her finances and her social security check. Patient is also exhibiting more delusional thought processes due to her focus on her finances. SW is working with patient, guardian and outpt team. Patient has been taking better care of ADLs. Patient has not been observed to beinternally stimulated during rounds. We discussed in treatment team how homeless [facility] would not be ideal even short term for patient due to high risk of rehospitalization. Patient will have case management and med drops. It seems that placement in a supervised setting such as placement in snf or [facility] are not options for patient. That would be the most ideal for the patient. Patient has been compliant with her oral medications. Patient has not required any as needed medications for psychotic agitation. Patient with no seclusion or restraint. Patient denies suicidal ideation,plan or intent. Patient denies homicidal ideation, auditory or visual hallucinations. Patient with no prn meds for agitation. Review of Systems: All other systems reviewed and negative other than HPI Physical Examination: Vital Signs: BP (!) 141/86 (BP Location: Left arm, Patient Position: Sitting) Pulse 69 Temp 97.6 F (36.4 C) (Oral) Resp 14 Ht 5' 3 Wt 122.1 kg (269 lb 2.9 oz) LMP (LMP Unknown) SpO2 98% ? No BMI 47.68 kg/m2 Mental Status Examination: General Appearance & Behavior: age appropriate, pleasant, cooperative, good eye contact Grooming & Hygiene: street clothes Psychomotor Activity: no psychomotor abnormalities or muscle atrophy noted Speech: diminished amount Flow of Thought: concrete Thought Associations: Intact Content of Thought: delusions and paranoia Mood: frustrated Affect: anxious Insight: improving Judgment: improving Orientation: alert and oriented to person, place, time, and circumstances Memory: unable to recall events leading to hospital admission Attention: intact Concentration: intact Language: intact Fund of Knowledge: estimated below average intelligence Laboratory and Additional Data Reviewed: Notes in care connect reviewed. Treatment options and alternatives reviewed with patient. Risks, benefits, side effects of all psychiatric medications discussed with patient and informed consent obtained. All questions were answered. SW communicating with guardian. Perry Montoya MD 04/30/2017 11:27 AM * Deloris Aldana RN - 04/30/2017 9:53 AM EDT Patient is calm and cooperative. Attends and participates in unit schedule. Minimal interaction noted. Patient is observed spending free time out in active areas. Observed responding to unknown stimuli throughout shift. Patient reports that she is hopeful for impending discharge later this shift. Patient does not make any delusional comments to this nurse. PRN- Ibuprofen 600mg PO for tooth pain with positive results Orajel for tooth pain * Lillian Malhotra, LEROY - 04/29/2017 11:29 PM EDT Precaution monitoring continues-see flow sheet documentation. 2232-In bed sleeping at this time. 0500-Patient has slept approx 6.5 hours to present. * Debbie Leos RN - 04/29/2017 4:21 PM EDT Patient presents to the nurse's station for needs. One to one in patient room. Asked if there was astronger dose of ibuprofen she could take. Think she only takes 300 mg. Still communicates via cordless phone and satellite. Was asked about her name being Lulu . States her registered name when she registered in [place] is Lulu LopezBetsy Velazquez. I was in the . I had ECT. States she had ECThere in this facility. I forgot who I was temporarily. They're erasin all my records. States we are at war. When asked who we were at war with she stated [place], [place], [place] and [place]. We are according to patient at war over oil. Adds I'm not from [place]. Presents independently forand is compliant with scheduled meds. Denies thoughts of wanting to . Denies hallucinations. * Teri Morales, LEROY - 04/29/2017 2:28 PM EDT Patient is calm, cooperative, isolative, withdrawn. Spends most of the time in bed due to teeth pain. Not observed to be internally stimulated. Attends groups. Denies SI, or hallucinations. Denies depression, or anxiety. BS 117 at 1130 am. Compliant with medications. No PRN. No new orders. * Perry Montoya MD - 04/29/2017 11:04 AM EDT Formatting of this note may be different from the original. Psychiatry Progress Note Patient Name: Pablo Tabares Admit Date: 8130901 MR #: [id number] : 1975 Perpetual Assessment Pablo Tabares is a 41 y.o. female presenting with worsening psychotic sx who is overall improving daily. Diagnosis & Plan/Recommendations Other * Schizophrenia, paranoid, chronic with acute exacerbation (HCC) Assessment & Plan Vs. Schizoaffective disorder vs. Bipolar disorder. Sx could also be exacerbated by her cocaine use. Provide support and reassurance. Social service to obtain additional information and background, coordinate care and assess supports. silver spray worker to work with patient, family and outpatient providers on follow-up appointments and resources. silver spray worker to confirm no access to guns, review safety plan and address psychosocial issues. Occupational Therapy to provide task activity to improve self esteem and to assess and support functioning. Psychotherapy to provide disease education and improve coping skills. Encouraged patient to participate in milieu and go to groups. Incorporate individual therapy, art therapy, group therapy. Encourage patient to incorporate workbooks. Hospitalist has been consulted for ongoing medical management No medication changes. Interval History: Nursing notes were reviewed. Patient has been taking better care of ADLs. Patientdressed in street clothes- does have a lot of makeup today. Patient has not been observed to be internally stimulated during rounds. It looks like they will be trying to secure an apartment for the patient. Patient will have case management and med drops. It seems that placement in a supervised setting such as placement in snf or [facility] place are not options for patient. That would be themost ideal for the patient. Patient has been compliant with her oral medications. Patient has not required any as needed medications for psychotic agitation. Patient with no seclusion or restraint. Patient denies suicidal ideation, plan or intent. Patient denies homicidal ideation, auditory or visual hallucinations. Patient with no prn meds for agitation. She is smiling appropriately. Says, I ambored. That's why I am laying down. I am ready to get out of here. Review of Systems: All other systems reviewed and negative other than HPI Physical Examination: Vital Signs: BP 110/89 (BP Location: Right arm, Patient Position: Sitting) Pulse 72 Temp 97.7 F (36.5 C) (Oral) Resp (!) 20 Ht 5' 3 Wt 120.8 kg (266 lb 5.1 oz) LMP (LMP Unknown) SpO2 95% ? No BMI 47.18 kg/m2 Mental Status Examination: General Appearance & Behavior: age appropriate, pleasant, cooperative, good eye contact Grooming & Hygiene: street clothes Psychomotor Activity: psychomotor retardation Speech: diminished amount Flow of Thought: concrete Thought Associations: Intact Content of Thought: No evidence of suicidal ideations/homicidal ideations/psychosis Mood: fine Affect: bright Insight: improving Judgment: improving Orientation: alert and oriented to person, place, time, and circumstances Memory: unable to recall events leading to hospital admission Attention: intact Concentration: intact Language: intact Fund of Knowledge: estimated below average intelligence Laboratory and Additional Data Reviewed: Notes in care connect reviewed. Treatment options and alternatives reviewed with patient. Risks, benefits, side effects of all psychiatric medications discussed with patient and informed consent obtained. All questions were answered. SW communicating with guardian. Perry Montoya MD 04/29/2017 11:04 AM * Emily Alberts RN - 04/29/2017 4:59 AM EDT -Safety checks performed every 15 minutes at varied intervals for patient safety. -Pt retired to bed at 2045. -0103- Pt resting in bed with eyes closed. Respirations unlabored. No distress noted. -0500- Pt resting in bed with eyes closed. Respirations unlabored. No distress noted. -0622- Blood mahhxyx=921 -Pt has rested approximately 7.75 hours so far this shift. Awake 1 time for approximately 30 minutes since retiring to bed. * Debbie Leos RN - 04/28/2017 7:30 PM EDT Patient has been out at intervals walking slowly in the [place]. No interaction is noted with others. Pleasant on approach. Frequently noted resting in bed with eyes closed. Out for supper and HS snack.Required several prompts for HS meds. PRN's - ibuprofen 600 mg per request for tooth pain she rates 03/04 - baby oragel - nicotine lozenge 4 mg * Teri Morales RN - 04/28/2017 12:46 PM EDT Patient is calm, smiling, friendly, euthymic. Future oriented. Not observed to be internally stimulated. Attends groups, isolative. Denies SI, or hallucinations. Denies depression, or anxiety. Patient complains of teeth pain, states Ibuprofen and Orajel are effective. Patient states she slept poorly last night because of the teeth pain. BS 121 at 1130 am. Compliant with medications. PRN: 1016 Ibuprofen for teeth pain 1104 Reports slight improvement No new orders. * Perry Montoya MD - 04/28/2017 10:37 AM EDT Formatting of this note may be different from the original. Psychiatry Progress Note Patient Name: aPblo Tabares Admit Date: 8130901 [id number] 1975 Perpetual Assessment Pablo Tabares is a 41 y.o. female presenting with worsening psychotic sx who is overall improving daily. Diagnosis & Plan/Recommendations Other * Schizophrenia, paranoid, chronic with acute exacerbation (HCC) Assessment & Plan Vs. Schizoaffective disorder vs. Bipolar disorder. Sx could also be exacerbated by her cocaine use. Provide support and reassurance. Social service to obtain additional information and background, coordinate care and assess supports. silver spray worker to work with patient, family and outpatient providers on follow-up appointments and resources. silver spray worker to confirm no access to guns, review safety plan and address psychosocial issues. Occupational Therapy to provide task activity to improve self esteem and to assess and support functioning. Psychotherapy to provide disease education and improve coping skills. Encouraged patient to participate in milieu and go to groups. Incorporate individual therapy, art therapy, group therapy. Encourage patient to incorporate workbooks. Hospitalist has been consulted for ongoing medical management No medication changes. Interval History: Nursing notes were reviewed. Patient has been taking better care of ADLs. Patientdressed in street clothes- does have a lot of makeup today. Patient has not been observed to be internally stimulated during rounds. It looks like they will be trying to secure an apartment for the patient. Patient will have case management and med drops. It seems that placement in a supervised setting such as placement in snf or [facility] are not options for patient. That would be themost ideal for the patient. Patient has been compliant with her oral medications. Patient has not required any as needed medications for psychotic agitation. Patient with no seclusion or restraint. Patient denies suicidal ideation, plan or intent. Patient denies homicidal ideation, auditory or visual hallucinations. Patient with no prn meds for agitation. She is smiling appropriately. Review of Systems: All other systems reviewed and negative other than HPI Physical Examination: Vital Signs: BP 132/86 Pulse 77 Temp 99.5 F (37.5 C) (Oral) Resp 14 Ht 5' 3 Wt 120.8 kg (266 lb 5.1 oz) LMP (LMP Unknown) SpO2 95% ? No BMI 47.18 kg/m2 Mental Status Examination: General Appearance & Behavior: age appropriate, pleasant, cooperative, good eye contact Grooming & Hygiene: street clothes Psychomotor Activity: no psychomotor abnormalities or muscle atrophy noted Speech: diminished amount Flow of Thought: concrete Thought Associations: Intact Content of Thought: No evidence of suicidal ideations/homicidal ideations/psychosis Mood: much better Affect: bright Insight: improving Judgment: improving Orientation: alert and oriented to person, place, time, and circumstances Memory: unable to recall events leading to hospital admission Attention: intact Concentration: intact Language: intact Fund of Knowledge: estimated below average intelligence Laboratory and Additional Data Reviewed: Notes in care connect reviewed. Treatment options and alternatives reviewed with patient. Risks, benefits, side effects of all psychiatric medications discussed with patient and informed consent obtained. All questions were answered. SW communicating with guardian. Perry Montoya MD 04/28/2017 10:37 AM * Emily Alberts RN - 04/28/2017 5:07 AM EDT -Safety checks performed every 15 minutes at varied intervals for patient safety. -Pt retired to bed at 2115. -0059- Pt resting in bed with eyes closed. Respirations unlabored. No distress noted. 0348-Pt presented to nurses station with c/o 10/10 right side, upper and lower tooth pain. Ibuprofen PO given. -0501- Pt ambulating in hallway. Socially appropriate. No distress noted. 0615-Blood Avwndij=[id number] -Pt has rested approximately 6.25 hours so far this shift. Uninterrupted. * Kiara Jalloh RN - 04/27/2017 6:26 PM EDT Patient spends the majority of her free time isolated to herself in her room, participates in majority of unit activities. Her affect is full, mood is euthymic. She provides minimal conversation during interaction. Patient reports that she is doing well, no issues noted. This nurse mentioned that her blood sugars have been running good, she said that uses different insulin coverage at home. She discussed how she recently [place] Patient identified that she does have family in the area and they are a good support system for her. She denies hallucinations but is observed responding to internal stimuli. She was compliant with HS medication after prompting. PRNs: Nicotine replacement 1600 BS 141, 2 units coverage provided 2000 BS 233, no coverage * Teri Morales RN - 04/27/2017 2:31 PM EDT Patient is calm, smiling, friendly, euthymic. Future oriented. Attends groups, isolative. Denies SI, or hallucinations. Denies depression. Anxiety 11/02. BS 175 at 1130 am. Compliant with medications. PRN: 0908 Ibuprofen for teeth pain 0956 Reports slight improvement No new orders. * Perry Montoya MD - 04/27/2017 1:29 PM EDT Formatting of this note may be different from the original. Psychiatry Progress Note Patient Name: Pablo Tabares Admit Date: 8130901 MR #: [id number] : 1975 Perpetual Assessment Pablo Tabares is a 41 y.o. female presenting with worsening psychotic sx who is overall improving daily. Diagnosis & Plan/Recommendations Other * Schizophrenia, paranoid, chronic with acute exacerbation (HCC) Assessment & Plan Vs. Schizoaffective disorder vs. Bipolar disorder. Sx could also be exacerbated by her cocaine use. Provide support and reassurance. Social service to obtain additional information and background, coordinate care and assess supports. silver spray worker to work with patient, family and outpatient providers on follow-up appointments and resources. silver spray worker to confirm no access to guns, review safety plan and address psychosocial issues. Occupational Therapy to provide task activity to improve self esteem and to assess and support functioning. Psychotherapy to provide disease education and improve coping skills. Encouraged patient to participate in milieu and go to groups. Incorporate individual therapy, art therapy, group therapy. Encourage patient to incorporate workbooks. Hospitalist has been consulted for ongoing medical management No medication changes. Interval History: Nursing notes were reviewed. Patient has been taking better care of ADLs. Patientdressed in street clothes. Patient has not been observed to be internally stimulated during rounds.silver spray worker had a meeting with [facility]. It looks like they will be trying to secure an apartment for the patient. Patient will have case management and med drops.It seems that placement in a supervised setting such as placement in snf or [facility] are not options for patient. That would be the most ideal for the patient. Patient has been compliant with her oral medications. Patient has not required any as needed medications for psychotic agitation. Patient with no seclusion or restraint. Patient denies suicidal ideation, plan or intent. Patientdenies homicidal ideation, auditory or visual hallucinations. Patient with no prn meds for agitation. She is smiling appropriately. Review of Systems: All other systems reviewed and negative other than HPI Physical Examination: Vital Signs: BP (!) 151/94 Pulse 78 Temp 98.9 F (37.2 C) (Oral) Resp 16 Ht 5' 3 Wt 120.8 kg (266 lb 5.1 oz) LMP (LMP Unknown) SpO2 98% ? No BMI 47.18 kg/m2 Mental Status Examination: General Appearance & Behavior: age appropriate, pleasant, cooperative, good eye contact Grooming & Hygiene: street clothes Psychomotor Activity: no psychomotor abnormalities or muscle atrophy noted Speech: diminished amount Flow of Thought: concrete Thought Associations: Intact Content of Thought: No evidence of suicidal ideations/homicidal ideations/psychosis Mood: fine Affect: bright Insight: improving Judgment: improving Orientation: alert and oriented to person, place, time, and circumstances Memory: unable to recall events leading to hospital admission Attention: intact Concentration: intact Language: intact Fund of Knowledge: estimated below average intelligence Laboratory and Additional Data Reviewed: Notes in care connect reviewed. Treatment options and alternatives reviewed with patient. Risks, benefits, side effects of all psychiatric medications discussed with patient and informed consent obtained. All questions were answered. SW communicating with guardian. Perry Montoya MD 04/27/2017 1:29 PM * Hollie Armenta, LEROY - 04/27/2017 3:37 AM EDT Pt remains on Unpredictable precautions. Safety checks performed every 15 minutes at varied intervals. Pt retired to bed at 2107. 0100- Pt resting in bed with eyes closed. Respirations unlabored. No distress noted. 0500- Pt resting in bed with eyes closed. Respirations unlabored. No distress noted. Pt has rested approximately 7.25 hours thus far. Interrupted x 1. PRNs: Ibuprofen and Orajel at 0324 for 10/10 tooth pain at 0324. Trazodone and Nicotine lozenge at 0350. FSBS at 0600 was 147. * Kiara Jalloh, LEROY - 04/26/2017 4:04 PM EDT Patient spends her free time mainly to herself in her room, attends and participates in unit routine. Her affect is full, mood is euthymic. Her thoughts are limited, provides minimal interaction during 1:1 with this nurse. She reports that she is doing well and everything is alright. Patient denies any issues with sleep. She denies hallucinations but appears to be distracted when this nurse attempts to have a conversation with her. She is compliant with HS medication independently. 1600 BS 126, no coverage required 2000 BS 170, no coverage required PRNs: 1603 Maalox 30 mL given for heartburn. 1703 Patient reports relief * Perry Montoya MD - 04/26/2017 3:32 PM EDT Formatting of this note may be different from the original. Psychiatry Progress Note Patient Name: Pablo Tabares Admit Date: 8130901 MR #: [id number] : 1975 Perpetual Assessment Pablo Tabares is a 41 y.o. female presenting with worsening psychotic sx who is overall improving daily. Diagnosis & Plan/Recommendations Other * Schizophrenia, paranoid, chronic with acute exacerbation (HCC) Assessment & Plan Vs. Schizoaffective disorder vs. Bipolar disorder. Sx could also be exacerbated by her cocaine use. Provide support and reassurance. Social service to obtain additional information and background, coordinate care and assess supports. silver spray worker to work with patient, family and outpatient providers on follow-up appointments and resources. silver spray worker to confirm no access to guns, review safety plan and address psychosocial issues. Occupational Therapy to provide task activity to improve self esteem and to assess and support functioning. Psychotherapy to provide disease education and improve coping skills. Encouraged patient to participate in milieu and go to groups. Incorporate individual therapy, art therapy, group therapy. Encourage patient to incorporate workbooks. Hospitalist has been consulted for ongoing medical management No medication changes. Interval History: Nursing notes were reviewed. Patient will be discussed in treatment team. Patienthas been taking better care of ADLs. Patient dressed in street clothes. Patient has not been observed to be internally stimulated during rounds. silver spray worker had a meeting with [facility]. It looks like they will be trying to secure an apartment for the patient. Patient will have case management and med drops. It seems that placement in a supervised setting such as placement in snf or [facility] are not options for patient. That would be the most idealfor the patient. Patient has been compliant with her oral medications. Patient has not required anyas needed medications for psychotic agitation. Patient with no seclusion or restraint. Patient denies suicidal ideation, plan or intent. Patient denies homicidal ideation, auditory or visual hallucinations. Patient with no prn meds for agitation. She is smiling appropriately. Review of Systems: All other systems reviewed and negative other than HPI Physical Examination: Vital Signs: BP (!) 164/98 (BP Location: Right arm, Patient Position: Sitting) Pulse 68 Temp 97.7 F (36.5 C)(Oral) Resp 14 Ht 5' 3 Wt 120.8 kg (266 lb 5.1 oz) LMP (LMP Unknown) SpO2 98% ? No BMI 47.18 kg/m2 Mental Status Examination: General Appearance & Behavior: age appropriate, pleasant, cooperative, good eye contact Grooming & Hygiene: street clothes Psychomotor Activity: no psychomotor abnormalities or muscle atrophy noted Speech: diminished amount Flow of Thought: concrete Thought Associations: Intact Content of Thought: delusions, paranoia and but overall psychotic sx improving daily Mood: great Affect: bright Insight: improving Judgment: improving Orientation: alert and oriented to person, place, time, and circumstances Memory: unable to recall events leading to hospital admission Attention: intact Concentration: intact Language: intact Fund of Knowledge: estimated below average intelligence Laboratory and Additional Data Reviewed: Notes in care connect reviewed. Treatment options and alternatives reviewed with patient. Risks, benefits, side effects of all psychiatric medications discussed with patient and informed consent obtained. All questions were answered. SW communicating with guardian. Perry Montoya MD 04/26/2017 3:32 PM * Rory Adams, MOBILE SECURITY ARCHITECT - 04/26/2017 1:26 PM EDT Patient attends most scheduled daytime groups. Focus to group process notable improved. Pt. Smiles and interacts more directly with peers. No reacting to internal stimulus noted. Pt. Orientation to reality is improved based from direct conversations. Pt. Feels she is meeting her own goals and is excited about the possibility of getting a new apartment. AT staff will continue to educate the patient on positive coping skills and monitor for further progress. * Teri Morales RN - 04/26/2017 12:29 PM EDT Patient is calm, smiling, friendly, euthymic. Attends groups. Denies SI, or hallucinations. Denies depression. Anxiety 02/02. Not responding to internal stimuli today. Patient states she wants to get discharged. BS 148 at 1130 am. Compliant with medications. No PRN. No new orders. * Eduardo Pierre RN - 04/26/2017 5:27 AM EDT 15-minute checks performed at alternating intervals for patient safety. 0100 Patient is resting in bed with eyes closed. Respirations easy and unlabored. No distress noted. Patient retired to bed at 2150. 0500 Patient is resting in bed with eyes closed. No needs at this time. Patient has rested approximately 7 hours thus far. * Eduardo Pierre RN - 04/25/2017 11:15 PM EDT Patient seen in bedroom most of the shift with minimal peer interaction noted. She did attend snackand was up for HS medications independently. Patient denies depression. Says she has felt anxious but excited because it is a good chance she could have a place to live by next . I've got nothing but good news all day. Patient smiled and said I just need a roof over my head and I will behappy. Pt denies suicidal thoughts or hallucinations. Comfort and support given. * Deloris Aldana RN - 04/25/2017 11:18 AM EDT Patient spends free time out in active areas. Attends and participates in unit schedule. Isolates to self with minimal peer interaction. Patient does not endorse any overt delusions. Patient thoughtsare future focused. Patient voices that she feels hopeful . Voices that she is pleased with finding out that potential discharge next and she may get an efficiency apartment. Patient's affect is brighter and smiles when talking about her apartment. Patient denies any hallucinations however appears distracted at periods throughout shift. Denies any suicidal ideation. PRN- Nicotine replacement * Perry Montoya MD - 04/25/2017 10:54 AM EDT Formatting of this note may be different from the original. Psychiatry Progress Note Patient Name: Pablo Tabares Admit Date: 8130901 MR #: [id number] : 1975 Perpetual Assessment Pablo Tabares is a 41 y.o. female presenting with worsening psychotic sx who is overall improving daily. Diagnosis & Plan/Recommendations Other * Schizophrenia, paranoid, chronic with acute exacerbation (HCC) Assessment & Plan Vs. Schizoaffective disorder vs. Bipolar disorder. Sx could also be exacerbated by her cocaine use. Provide support and reassurance. Social service to obtain additional information and background, coordinate care and assess supports. silver spray worker to work with patient, family and outpatient providers on follow-up appointments and resources. silver spray worker to confirm no access to guns, review safety plan and address psychosocial issues. Occupational Therapy to provide task activity to improve self esteem and to assess and support functioning. Psychotherapy to provide disease education and improve coping skills. Encouraged patient to participate in milieu and go to groups. Incorporate individual therapy, art therapy, group therapy. Encourage patient to incorporate workbooks. Hospitalist has been consulted for ongoing medical management No medication changes. Interval History: Nursing notes were reviewed. Patient will be discussed in treatment team. Patienthas been taking better care of ADLs. Patient dressed in street clothes. Patient has not been observed to be internally stimulated during rounds. silver spray worker had a meeting with [facility] and [facility]. It looks like they will be trying to secure an apartment for the patient. Patient will have case management and med drops. It seems that placement in a supervised setting such as placement in snf or [facility] are not options for patient. That would be the most idealfor the patient. Patient has been compliant with her oral medications. Patient has not required anyas needed medications for psychotic agitation. Patient with no seclusion or restraint. Patient denies suicidal ideation, plan or intent. Patient denies homicidal ideation, auditory or visual hallucinations. Hospitalist has been following the patient. Patient also endorses an improvement in anxiety with higher dose of atarax. Patient with no prn meds for agitation. She is smiling appropriately. Review of Systems: All other systems reviewed and negative other than HPI Physical Examination: Vital Signs: BP 118/83 (BP Location: Right arm, Patient Position: Sitting) Pulse 72 Temp 98 F (36.7 C) (Oral) Resp 18 Ht 5' 3 Wt 120.8 kg (266 lb 5.1 oz) LMP (LMP Unknown) SpO2 97% ?No BMI 47.18 kg/m2 Mental Status Examination: General Appearance & Behavior: age appropriate, pleasant, cooperative, good eye contact Grooming & Hygiene: street clothes Psychomotor Activity: no psychomotor abnormalities or muscle atrophy noted Speech: diminished amount Flow of Thought: concrete Thought Associations: Intact Content of Thought: delusions, paranoia and but overall psychotic sx improving daily Mood: great Affect: bright Insight: improving Judgment: improving Orientation: alert and oriented to person, place, time, and circumstances Memory: unable to recall events leading to hospital admission Attention: intact Concentration: intact Language: intact Fund of Knowledge: estimated below average intelligence Laboratory and Additional Data Reviewed: Notes in care connect reviewed. Treatment options and alternatives reviewed with patient. Risks, benefits, side effects of all psychiatric medications discussed with patient and informed consent obtained. All questions were answered. ITZEL communicating with guardian. Perry Montoya MD 04/25/2017 10:54 AM * Lizbeth Jalloh - 04/25/2017 10:30 AM EDT ITZEL met one to one with pt and Pt's counter caser Precious from [facility]. Marianlynda is willing to do everything possible for the Pt as long as the Pt does what she needs. All the services are connected with [facility] that includes therapy, physician for medication management, daily med drops, case management andpayee services with Arelis Lara at [facility]. Guardian Nolan Workmen. Discharge plans at this time is as follows: Precious will check with the possibility of getting a sleeping room ([facility] ) until an apartment can be obtained.[facility]ious will call the [facility] and work with the case manger at the [facility] if needed. Pt can not go to [facility] due to her level of functioning according to Katerin however Pt can be on the waiting list for the 1 day a week Aftercare. [facility] can also get Pt involved in groups at [facility] and will also get the Pt a monthlybus ticket. Tentative discharge is set for 05/02/17. ITZEL and counter caser will work together on Saturday and finalize things on Saturday with discharge on . * Eduardo Pierre RN - 04/25/2017 2:12 AM EDT 15-minute checks performed at alternating intervals for patient safety. 0100 Patient is resting in bed with eyes closed. Respirations easy and unlabored. No distress noted. Patient retired to bed at 2132. 0500 Patient is resting in bed with eyes opened. No needs at this time. Patient has rested approximately 7 hours thus far. (Up x1.) 0606 Maalox given for upset stomach. * Eduardo Pierre RN - 04/24/2017 8:38 PM EDT Patient seen in bedroom most of the shift. Out in active areas at times with select peer interaction noted. Patient attended snack and was up for HS medications independently. Patient denies any depression, anxiety, or suicidal ideations. Denies hallucinations, however seems somewhat preoccupied. Patient is focused on finding a place to live so she can get out of here. Ibuprofen given at 2022 for 5/10 lower back pain. Glucose at bedtime is 200, no coverage needed. * Lizbeth Jalloh - 04/24/2017 3:25 PM EDT SW and counter caser from [facility], Precious (?) has been playing phone tag. I left her a message and whatever time is good for her to come see Pt that was fine and SW told Pt about her coming to see Pt. Pt was fine with that. * Perry Montoya MD - 04/24/2017 11:05 AM EDT Formatting of this note may be different from the original. Psychiatry Progress Note Patient Name: Pablo Tabares Admit Date: 8130901 MR #: [id number] : 1975 Perpetual Assessment Pablo Tabares is a 41 y.o. female presenting with worsening psychotic sx who is overall improving daily. Diagnosis & Plan/Recommendations Other * Schizophrenia, paranoid, chronic with acute exacerbation (HCC) Assessment & Plan Vs. Schizoaffective disorder vs. Bipolar disorder. Sx could also be exacerbated by her cocaine use. Provide support and reassurance. Social service to obtain additional information and background, coordinate care and assess supports. silver spray worker to work with patient, family and outpatient providers on follow-up appointments and resources. silver spray worker to confirm no access to guns, review safety plan and address psychosocial issues. Occupational Therapy to provide task activity to improve self esteem and to assess and support functioning. Psychotherapy to provide disease education and improve coping skills. Encouraged patient to participate in milieu and go to groups. Incorporate individual therapy, art therapy, group therapy. Encourage patient to incorporate workbooks. Hospitalist has been consulted for ongoing medical management No medication changes. Interval History: Nursing notes were reviewed. Patient was discussed in treatment team. Patient hasbeen taking better care of ADLs. Patient dressed in street clothes. Patient has not been observed to be internally stimulated during rounds. silver spray worker had a meeting with guardian and [facility]. It looks like they will be trying to secure an apartment for the patient. Patientwill have case management and med drops. It seems that placement in a supervised setting such as placement in snf or [facility] are not options for patient. That would be the most ideal forthe patient. Patient has been compliant with her oral medications. Patient has not required any as n eeded medications for psychotic agitation. Patient with no seclusion or restraint. Patient denies suicidal ideation, plan or intent. Patient denies homicidal ideation, auditory or visual hallucinations. Hospitalist has been following the patient. Patient also endorses an improvement in anxiety with higher dose of atarax. Review of Systems: All other systems reviewed and negative other than HPI Physical Examination: Vital Signs: BP (!) 160/89 (BP Location: Left arm, Patient Position: Sitting) Pulse 74 Temp 100.2 F (37.9 C)(Oral) Resp 16 Ht 5' 3 Wt 120.8 kg (266 lb 5.1 oz) LMP (LMP Unknown) SpO2 96% ? No BMI 47.18 kg/m2 Mental Status Examination: General Appearance & Behavior: age appropriate, pleasant, cooperative, good eye contact Grooming & Hygiene: street clothes Psychomotor Activity: no psychomotor abnormalities or muscle atrophy noted Speech: diminished amount Flow of Thought: concrete Thought Associations: Intact Content of Thought: delusions, paranoia and but overall psychotic sx improving daily Mood: much better Affect: bright Insight: improving Judgment: improving Orientation: alert and oriented to person, place, time, and circumstances Memory: unable to recall events leading to hospital admission Attention: intact Concentration: intact Language: intact Fund of Knowledge: estimated below average intelligence Laboratory and Additional Data Reviewed: Notes in care connect reviewed. Treatment options and alternatives reviewed with patient. Risks, benefits, side effects of all psychiatric medications discussed with patient and informed consent obtained. All questions were answered. SW communicating with guardian. Perry Montoya MD 04/24/2017 11:05 AM * Deloris Aldana RN - 04/24/2017 9:18 AM EDT Patient thought process is coherent. Patient discusses that since admission, she feels that her anger is better . Indicates that she was upset about the PIP program and not being able to find housing because she owed money for electric and heating. Patient does not endorse any overt delusions. Patient reports that she is concerned about her housing following discharge. Indicates that she is pleased that she will have assistance with finding house because she feels as this is her main stressor.Patient denies any hallucinatory activity but does appear distracted throughout shift. Patient selectively attends and participates in unit schedule. Eats meals and tolerated well. Spends free time out in active areas with minimal peer interaction. PRN- Ibuprofen 600mg PO for tooth pain/ back pain Maalox for heartburn/ upset stomach New orders- Orajel QID PRN * Emily Alberts RN - 04/24/2017 5:46 AM EDT Pt remains on suicide and unpredictable precautions. Safety checks performed every 15 minutes at varied intervals for patient safety. Pt retired to bed at 2159. 0132- Pt resting in bed with eyes closed. Respirations unlabored. No distress noted. 0529- Pt resting in bed with eyes closed. Respirations unlabored. No distress noted. 0602-blood [id number] Pt has rested approximately 7.5 hours so far this shift. Uninterrupted. * Priya Schaffer RN - 04/23/2017 3:40 PM EDT Patient presents as anxious with a full affect. She attends available evening groups. Patient is cooperative and pleasant during interaction. Patient smiles appropriately. Denies SI, HI, or thoughts of self harm at this time. Denies hallucinations at this time. No delusions voiced at this time. Patient spends free time withdrawn to self walking in the hallways. Patient stated that she is looking forward to tomorrow because she should find out where she will be placed to stay after discharge. Patient arrived independently for HS medications and was compliant with them. PRN's: Nicotine replacement throughout shift New Order's: None this shift Accucheck's: 1600: 120, no insulin coverage required 2000: 234, no coverage. * Torie Jackson PSA - 04/23/2017 1:54 PM EDT Pt attends all groups and appears recently to be more interactive and less paranoid about white people. Pt attended art group and made a greeting card and bookmark for her grandmother. On past days, she would only sit and stare out the window or wander aimlessly around the room, declining to attempt any project. Her goal is to find out about new housing arrangements and appears to be receptive to that plan. Staff will continue to encourage her progress. * Perry Montoya MD - 04/23/2017 10:39 AM EDT Formatting of this note may be different from the original. Psychiatry Progress Note Patient Name: Pablo Tabares Admit Date: 8130901 MR #: [id number] : 1975 Perpetual Assessment Pablo Tabares is a 41 y.o. female presenting with worsening psychotic sx who is overall improving daily. Diagnosis & Plan/Recommendations Other * Schizophrenia, paranoid, chronic with acute exacerbation (HCC) Assessment & Plan Vs. Schizoaffective disorder vs. Bipolar disorder. Sx could also be exacerbated by her cocaine use. Provide support and reassurance. Social service to obtain additional information and background, coordinate care and assess supports. silver spray worker to work with patient, family and outpatient providers on follow-up appointments and resources. silver spray worker to confirm no access to guns, review safety plan and address psychosocial issues. Occupational Therapy to provide task activity to improve self esteem and to assess and support functioning. Psychotherapy to provide disease education and improve coping skills. Encouraged patient to participate in milieu and go to groups. Incorporate individual therapy, art therapy, group therapy. Encourage patient to incorporate workbooks. Hospitalist has been consulted for ongoing medical management Increase atarax to 50mg tid. Interval History: Nursing notes were reviewed. Patient has been taking better care of ADLs. Patientdressed in street clothes. Patient has not been observed to be internally stimulated during rounds.Patient is even agreeable to placement whether it is a snf or [facility]. Patient has been appointed temporary guardian for 30 days. silver spray worker is working with guardian and outpatient provider on discharge planning options. Patient is smiling. Patient has been compliant with her oral medications. Patient has not required any as needed medications for psychotic agitation. Patient withno seclusion or restraint. Patient denies suicidal ideation, plan or intent. Patient denies homicidal ideation, auditory or visual hallucinations. Hospitalist has been following the patient. Patient states I need to apologize to Lizbeth. It's not her fault. Later in the morning, patient approaches me to ask whether her Atarax dose can be doubled to 50 mg 3 times a day. Patient states that the higher dose has been more helpful. Review of Systems: All other systems reviewed and negative other than HPI Physical Examination: Vital Signs: BP (!) 132/90 Pulse 80 Temp 98 F (36.7 C) (Oral) Resp 12 Ht 5' 3 Wt 120.8 kg (266 lb 5.1oz) LMP (LMP Unknown) SpO2 99% ? No BMI 47.18 kg/m2 Mental Status Examination: General Appearance & Behavior: age appropriate, pleasant, cooperative, good eye contact Grooming & Hygiene: street clothes Psychomotor Activity: no psychomotor abnormalities or muscle atrophy noted Speech: diminished amount Flow of Thought: concrete Thought Associations: Intact Content of Thought: delusions, paranoia and but overall psychotic sx improving daily Mood: fine Affect: bright Insight: improving Judgment: improving Orientation: alert and oriented to person, place, time, and circumstances Memory: unable to recall events leading to hospital admission Attention: intact Concentration: intact Language: intact Fund of Knowledge: estimated below average intelligence Laboratory and Additional Data Reviewed: Notes in care connect reviewed. Treatment options and alternatives reviewed with patient. Risks, benefits, side effects of all psychiatric medications discussed with patient and informed consent obtained. All questions were answered. SW communicating with guardian. Perry Montoya MD 04/23/2017 10:39 AM * Chely Quinn RN - 04/23/2017 9:11 AM EDT Patient presented to the nurses station for morning medication with prompting. Patient denies current suicidal or homicidal ideation, delusions, or hallucinations. Patient denies current anxiety or depression. Patient presents as anxious with a flat affect. Patient denies pain or needs at this time. Patient does attend groups. Patient is observed walking in the hallway. Patient is observed with some peer interaction. Patient states she is feeling better today and her anxiety is getting under control. Patient is observed talking with family on the phone. Patient states she gets along well withher family today. PRN's- Nicotine replacement. 1257 Ibuprofen 600 mg given for 9/10 tooth pain- improved. 1257 Maaloxgiven for acid reflux- improved. Accucheck- 0614- 137, 1132- 124, no coverage this shift. New order- increase Atarax to 50 mg 3 x daily. * Emily Alberts RN - 04/23/2017 5:16 AM EDT Pt remains on suicide and unpredictable precautions. Safety checks performed every 15 minutes at varied intervals for patient safety. Pt retired to bed at 2147. 0058- Pt resting in bed with eyes closed. Respirations unlabored. No distress noted. 0457- Pt resting in bed with eyes closed. Respirations unlabored. No distress noted. 0613-blood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 (HCC) Assessment & Plan Vs. Schizoaffective disorder vs. Bipolar disorder. Sx could also be exacerbated by her cocaine use. Provide support and reassurance. Social service to obtain additional information and background, coordinate care and assess supports. silver spray worker to work with patient, family and outpatient providers on follow-up appointments and resources. silver spray worker to confirm no access to guns, review safety plan and address psychosocial issues. Occupational Therapy to provide task activity to improve self esteem and to assess and support functioning. Psychotherapy to provide disease education and improve coping skills. Encouraged patient to participate in milieu and go to groups. Incorporate individual therapy, art therapy, group therapy. Encourage patient to incorporate workbooks. Hospitalist has been consulted for ongoing medical management- will ask them to see pt. Ordered UA,CBC and CMP. No medication changes today. Interval History: Nursing notes were reviewed. Patient will be discussed in treatment team. Dagmarhas been appointed temporary guardian for 30 days. silver spray worker is working with guardian and outpatient provider on discharge planning options. Psychotic symptoms are slowly improving. Patient is smiling. Patient has been taking care of ADLs. Patient has been compliant with her oral medications. Patient has not required any as needed medications for psychotic agitation. Patient with no seclusionor restraint. Patient is dressed in street clothes with her hair braided. Patient still very focused on going to [place]. Overall, the patient has shown slow improvement in her racing thoughts, flight of ideas, rapid pressured speech and paranoid delusions. Patient is not observed talking to the hall. Patient is smiling. However, the patient does have a history of chronic noncompliance. Patient overall lacks insight into her illness. Patient unable to understand the relevant information, appreciate situation and its consequences, and reason about treatment options. Patient denies suicidal ideation, plan or intent at this time. Patient denies homicidal ideation, homicidal plan or intentat this time. Patient denies any medication side effects. Patient states that she is sleeping well. Review of Systems: All other systems reviewed and negative other than HPI Physical Examination: Vital Signs: BP (!) 145/86 Pulse 72 Temp 97.8 F (36.6 C) (Oral) Resp (!) 20 Ht 5' 3 Wt 116.8 kg (257 lb 8 oz) LMP (LMP Unknown) SpO2 100% ? No BMI 45.61 kg/m2 Mental Status Examination: General Appearance & Behavior: age appropriate, pleasant, cooperative, good eye contact and poor eye contact Grooming & Hygiene: street clothes Psychomotor Activity: restless, psychomotor agitation and but improved Speech: hyperverbal and but improved Flow of Thought: flight of ideas, disorganized and but improved Thought Associations: Loose Content of Thought: auditory hallucinations, visual hallucinations, delusions, paranoia and magicalthinking Mood: okay Affect: bright Insight: poor Judgment: poor Orientation: unable to assess due to patient refusal Memory: unable to recall events leading to hospital admission Attention: improved in comparison Concentration: improved in comparison Language: intact Fund of Knowledge: estimated below average intelligence Laboratory and Additional Data Reviewed: Notes in care connect reviewed. Treatment options and alternatives reviewed with patient. Risks, benefits, side effects of all psychiatric medications discussed with patient and informed consent obtained. All questions were answered. Perry Montoya MD 04/19/2017 9:57 AM * Emily Alberts, LEROY - 04/19/2017 5:33 AM EDT Pt remains on suicide and unpredictable precautions. Safety checks performed every 15 minutes at varied intervals for patient safety. Pt retired to bed at 2117. 0059- Pt resting in bed with eyes closed. Respirations unlabored. No distress noted. 0503- Pt resting in bed with eyes closed. Respirations unlabored. No distress noted. 0441-pt presents to nurses station requesting Nicotine lozenge. Lozenge provided. 0600-Blood myxjmmf=196 Pt has rested approximately 7.25 hours so far this shift. Awake 2 times since retiring to bed. * Debbie Leos RN - 04/18/2017 10:42 PM EDT Patient has been out walking in the hallway. No interaction is noted with others. Interacts well with the contract technical writer. States she feels she is doing better. Reports she missed some groups today d/t hearing regarding guardianship. No delusional material voiced to this nurse. Has arranged her hair severaldifferent ways throughout the shift. Sometimes covered and sometimes not. Less attentive to internal stimuli. Presents independently for and is compliant with HS meds. PRN - NRT * Teri Morales RN - 04/18/2017 2:47 PM EDT Patient is calm, less internally stimulated, paranoid, pressured speech, lacks insight. Attends select groups, isolative. Denies SI, or hallucinations. Denies depression or anxiety. BS 149 at 1130 am. Compliant with medications. No PRN. No new orders. * Perry Montoya MD - 04/18/2017 9:10 AM EDT Formatting of this note may be different from the original. Psychiatry Progress Note Patient Name: Pablo Tabares Admit Date: 8130901 MR #: [id number] : 1975 Perpetual Assessment Pablo Tabares is a 41 y.o. female presenting with worsening psychotic sx who remains psychotic and lacks insight into her illness. She is overall improving daily. Diagnosis & Plan/Recommendations Other * Schizophrenia, paranoid, chronic with acute exacerbation (HCC) Assessment & Plan Vs. Schizoaffective disorder vs. Bipolar disorder. Sx could also be exacerbated by her cocaine use. Provide support and reassurance. Social service to obtain additional information and background, coordinate care and assess supports. silver spray worker to work with patient, family and outpatient providers on follow-up appointments and resources. silver spray worker to confirm no access to guns, review safety plan and address psychosocial issues. Occupational Therapy to provide task activity to improve self esteem and to assess and support functioning. Psychotherapy to provide disease education and improve coping skills. Encouraged patient to participate in milieu and go to groups. Incorporate individual therapy, art therapy, group therapy. Encourage patient to incorporate workbooks. Hospitalist has been consulted for ongoing medical management- will ask them to see pt. Ordered UA,CBC and CMP. Emergency guardianship pending- hearing today. Consider mood stabilizer versus adjunct with another antipsychotic. Patient gets very irritable with a focus on discharge when discussing medication augmentation. We may have to wait till guardianship is in place before adding medications. Interval History: Nursing notes were reviewed. Patient will be discussed in treatment team. Emergency guardianship hearing is today. Patient is dressed in hospital gown. Patient states David is coming to the hearing. I am going to [place]. Away from the prejudice. I want to be with colored people. Overall, the patient has shown slow improvement in her racing thoughts, flight of ideas, rapidpressured speech and paranoid delusions. Patient is not observed talking to the hall. Patient is smiling. However, the patient does have a history of chronic noncompliance. Patient overall lacks insight into her illness. Patient unable to understand the relevant information, appreciate situation and its consequences, and reason about treatment options. Patient denies suicidal ideation, plan or intent at this time. Patient denies homicidal ideation, homicidal plan or intent at this time. Patient denies any medication side effects. Patient states that she is sleeping well. Upon review of nursing notes, the patient did complain of dysuria. Patient denies any other symptoms of a UTI. I will obtain a urinalysis with a CBC and CMP. We will have hospitalist follow the patient as well. Patient is focused on being discharged and does not want to consider any medication adjustments. Review of Systems: All other systems reviewed and negative other than HPI Physical Examination: Vital Signs: BP (!) 138/92 (BP Location: Right arm, Patient Position: Sitting) Pulse 78 Temp 98.5 F (36.9 C)(Oral) Resp (!) 20 Ht 5' 3 Wt 116.8 kg (257 lb 8 oz) LMP (LMP Unknown) SpO2 99% ? No BMI 45.61 kg/m2 Mental Status Examination: General Appearance & Behavior: minimally engaged and poor eye contact Grooming & Hygiene: hospital gown Psychomotor Activity: restless, psychomotor agitation and but improved Speech: hyperverbal and but improved Flow of Thought: flight of ideas, disorganized and but improved Thought Associations: Loose Content of Thought: auditory hallucinations, visual hallucinations, delusions, paranoia and magicalthinking Mood: great Affect: labile Insight: poor Judgment: poor Orientation: unable to assess due to patient refusal Memory: unable to recall events leading to hospital admission Attention: improved in comparison Concentration: improved in comparison Language: intact Fund of Knowledge: estimated below average intelligence Laboratory and Additional Data Reviewed: Notes in care connect reviewed. Treatment options and alternatives reviewed with patient. Risks, benefits, side effects of all psychiatric medications discussed with patient and informed consent obtained. All questions were answered. Perry Montoya MD 04/18/2017 9:10 AM * Emily Alberts RN - 04/18/2017 5:07 AM EDT Pt remains on suicide and unpredictable precautions. Safety checks performed every 15 minutes at varied intervals for patient safety. Pt retired to bed at 2217. 0101- Pt resting in bed with eyes closed. Respirations unlabored. No distress noted. 0502- Pt resting in bed with eyes closed. Respirations unlabored. No distress noted. 0600-blood duhdtcr=176 PRN: Nicotine Lozenge Pt has rested approximately 6.5 hours so far this shift. Awake 1 time since retiring to bed. * Lizbeth Jalloh - 04/17/2017 5:14 PM EDT ITZEL Hammonds called probate court and ITZEL received the court paperwork for the hearing scheduled for tomorrow 04/18/17 @ noon at [facility] [place]. Copy in chart. ITZEL Nieves obtained a copy of paperwork for the hearing tomorrow. Pt was delivered the court hearing and current is appointed a guardian and will have a court appointed district attorney for tomorrow's hearing. Pt remains delusional and paranoid. * Priya Schaffer, LEROY - 04/17/2017 3:31 PM EDT Patient presents as a bit less irritable than previous day but continues to exhibit lability throughout shift. Patient is delusional and continues to focus on her perceived injustices of the U. Shestated that she should be taking Tramadol versus Ibuprofen, and that her real medical doctor, had it prescribed for her. Patient denies SI, HI, or thoughts of self harm at this time. Denies hallucinations, however appears to be responding to internal stimuli. Patient is withdrawn to selfand spends free time pacing the hallways talking to herself. She does not attend afternoon groups. Patient stated that she has been experiencing slight discomfort with urination, relates this to dehydration. This RN will leave note for doctor. Lawyer Ronald, may be in to see patient regarding guardianship hearing tomorrow. PRN's: Nicotine replacement throughout shift Accuchecks: 1634- 115, No coverage required 2000-150, No coverage required * Teri Morales, RN - 04/17/2017 2:46 PM EDT Patient is friendly, more organized, paranoid, pressured speech, lacks insight. States: I'm here for physical therapy. It says physiatric yuen, not psychiatric yuen. People don't know how to spell. I don't have mental problems. Attends select groups, isolative. Denies SI, or hallucinations. Patient talks less to herself or the hall. Denies depression or anxiety. BS 114 at 1130 am. Compliant with medications. No PRN. No new orders. * Amaya Álvarez - 04/17/2017 11:38 AM EDT [facility] Nolan Dietrich has been named the pt. Emergency guardian. The paperwork has been filed in the pt. Paper chart. * Perry Montoya MD - 04/17/2017 10:39 AM EDT Formatting of this note may be different from the original. Psychiatry Progress Note Patient Name: Pablo Tabares Admit Date: 8130901 MR #: [id number] : 1975 Perpetual Assessment Pablo Tabares is a 41 y.o. female presenting with worsening psychotic sx who remains psychotic and lacks insight into her illness. She is overall improving daily. Diagnosis & Plan/Recommendations Other * Schizophrenia, paranoid, chronic with acute exacerbation (HCC) Assessment & Plan Vs. Schizoaffective disorder vs. Bipolar disorder. Sx could also be exacerbated by her cocaine use. Provide support and reassurance. Social service to obtain additional information and background, coordinate care and assess supports. silver spray worker to work with patient, family and outpatient providers on follow-up appointments and resources. silver spray worker to confirm no access to guns, review safety plan and address psychosocial issues. Occupational Therapy to provide task activity to improve self esteem and to assess and support functioning. Psychotherapy to provide disease education and improve coping skills. Encouraged patient to participate in milieu and go to groups. Incorporate individual therapy, art therapy, group therapy. Encourage patient to incorporate workbooks. Hospitalist has been consulted for ongoing medical management. Emergency guardianship pending. Consider mood stabilizer versus adjunct with another antipsychotic. Patient gets very irritable with a focus on discharge when discussing medication augmentation. We may have to wait till guardianship is in place before adding medications. Meds just increased. Interval History: Nursing notes were reviewed. Patient was discussed extensively in treatment team.Emergency guardianship is pending- hearing is tomorrow. Patient has overall shown improvement in regards to her racing thoughts, flight of ideas, rapid pressured speech, paranoid delusions. Patient still very focused on going to [place]. Patient asks when she will be going in front of ic designer standard cells Anastasiia let her know that the hearing is scheduled for tentatively tomorrow. Patient with a history of chronic noncompliance as an outpatient. Patient overall lacks insight into her illness. Patient unableto understand the relevant information, appreciate situation and its consequences, and reason about treatment options. Patient denies suicidal ideation, plan or intent at this time. Patient denies homicidal ideation, homicidal plan or intent at this time. Patient denies any medication side effects.Patient states that she is sleeping well. Patient states that she did shower yesterday. Patient appears less internally stimulated overall. Review of Systems: All other systems reviewed and negative other than HPI Physical Examination: Vital Signs: BP (!) 141/98 (BP Location: Right arm, Patient Position: Sitting) Pulse 68 Temp 97.8 F (36.6 C)(Oral) Resp 14 Ht 5' 3 Wt 116.8 kg (257 lb 8 oz) LMP (LMP Unknown) SpO2 99% ? No BMI 45.61 kg/m2 Mental Status Examination: General Appearance & Behavior: minimally engaged and poor eye contact Grooming & Hygiene: hospital gown Psychomotor Activity: restless, psychomotor agitation and but improved Speech: hyperverbal and but improved Flow of Thought: flight of ideas, disorganized and but improved Thought Associations: Loose Content of Thought: auditory hallucinations, visual hallucinations, delusions, paranoia and magicalthinking Mood: fine Affect: labile Insight: poor Judgment: poor Orientation: unable to assess due to patient refusal Memory: unable to recall events leading to hospital admission Attention: distracted Concentration: reduced Language: intact Fund of Knowledge: estimated below average intelligence Laboratory and Additional Data Reviewed: Notes in care connect reviewed. Treatment options and alternatives reviewed with patient. Risks, benefits, side effects of all psychiatric medications discussed with patient and informed consent obtained. All questions were answered. Perry Montoya MD 04/17/2017 10:39 AM * Umu Ortiz RN - 04/17/2017 3:52 AM EDT Patient 15 min safety checks were performed at random intervals throughout the shift. 0105 Patient has been resting in bed with eyes closed since 2118. 0304 Patient has been resting in bed throughout the shift. Respirations are easy and unlabored. 0505 Patient has been resting in bed throughout the shift. Respirations are easy and unlabored. * Teri Morales, RN - 04/16/2017 3:38 PM EDT Patient is friendly, withdrawn, disorganized, pressured speech, paranoid, lacks insight. Attends select groups, isolative. Denies SI, or hallucinations, internally stimulated. Denies depression, low level of anxiety. Dismissive at interaction. BS 104 at 1130 am. Compliant with medications. No PRN. No new orders. * Priya Schaffer, LEROY - 04/16/2017 3:23 PM EDT Patient attends available evening groups. She presents as irritable and labile. She is delusional, persecutory, and paranoid/suspicious. Patient is focused on discharge. Patient stated that she is doing fine but is ready to go home. Patient stated I am sick of people thinking that they can decide where I'm supposed to be. My family wants me to be with me, and they're getting upset too. They feellike I'm going farther and farther away from them by being in these facilities. Patient stated that she is not [place], but that she is [place]. She stated People talk about my dark skin, I don't have dark skin. A male named David called nurse's station, stating that patient needed to call him RONALDO and that he needs to visit her RONALDO. Patient stated that David is a friend/long lost uncle. She stated that he is going to help her get back to her country. David called nurses' station once again requesting for this RN to relay message to patient, stating that a boilermaker fitter has papers for her to sign. Again, message relayed. Patient presented to nurse's station asking for something for dehydration. This RN offered water and patient stated I don't need water, I need 7 UP but you people won't give it to me because you don't let me have any sugar. And you know what? I need sugar to break down stuff, so for that my familyis suing. You just wait. This RN attempted to provide education but patient was non-receptive. Diet [place] provided to patient. 1645 Patient stated I want something to be done about my pee test results. I might as well have something done about them while I'm in here. This RN asked patient if she was experiencing any burning, frequency, or retention issues with urination, and patient declined. Patient was reminded that doctor saw her for this abnormal Urinalysis and would like to be notified with symptoms. Patient also complaining that she sees Dr. Ventura, not Dr. Mclean. This RN informed patient that Dr. Mclean is her doctor while she is on the unit, and will not necessarily be her doctor after discharge. Patient voiced understanding. Compliant with HS medications. PRN's: Nicotine replacement throughout shift 1857 Ibuprofen 600 mg PO for 06/04 back pain. Partially effective. * Lizbeth Jalloh - 04/16/2017 2:44 PM EDT SW rec'd a message from Yasmeen at [facility]. He got all the information needed and the reports is sent on the [employer] for filing of guardianship. Pt signed AMA only after talking with her friend David. Pt wasvery approrpaite about it. Again Pt appears not to be understanding the guardian ship consist of. Dr. Troncoso is up dated on every thing. * Torie Jackson PSA - 04/16/2017 2:38 PM EDT Pt attends selective groups, but appears not to grasp the information presented and has difficulty following simple directions. When this staff greeted her in the hallway with, Hi, how are you? sheanswered You are a nosy bitch. Staff will continue to encourage and monitor her progress. * Perry Montoya MD - 04/16/2017 11:18 AM EDT Formatting of this note may be different from the original. Psychiatry Progress Note Patient Name: Pablo Tabares Admit Date: 8130901 MR #: [id number] : 1975 Perpetual Assessment Pablo Tabares is a 41 y.o. female presenting with worsening psychotic sx who remains psychotic and lacks insight into her illness. She is just a little bit more organized in comparison to yesterday. Diagnosis & Plan/Recommendations Other * Schizophrenia, paranoid, chronic with acute exacerbation (HCC) Assessment & Plan Vs. Schizoaffective disorder vs. Bipolar disorder. Sx could also be exacerbated by her cocaine use. Provide support and reassurance. Social service to obtain additional information and background, coordinate care and assess supports. silver spray worker to work with patient, family and outpatient providers on follow-up appointments and resources. silver spray worker to confirm no access to guns, review safety plan and address psychosocial issues. Occupational Therapy to provide task activity to improve self esteem and to assess and support functioning. Psychotherapy to provide disease education and improve coping skills. Encouraged patient to participate in milieu and go to groups. Incorporate individual therapy, art therapy, group therapy. Encourage patient to incorporate workbooks. Hospitalist has been consulted for ongoing medical management. Emergency guardianship pending. Consider mood stabilizer versus adjunct with another antipsychotic. Patient gets very irritable with a focus on discharge when discussing medication augmentation. We may have to wait till guardianship is in place before adding medications. Meds just increased. Interval History: Nursing notes were reviewed. Patient was discussed extensively in treatment team.Emergency guardianship is pending. Patient is a little bit more organized during interview today. Racing thoughts, flight of ideas, rapid pressured speech, paranoid delusions are still present but slightly improved since yesterday. Patient is focused on going to [place] so I can be with more colored people. There is just so much prejudice out here. Patient tolerated the increases in Haldol,BuSpar and trazodone. We did discuss in treatment team that the patient signed AMA form. Everyone is in agreement to continue to pursue guardianship. Patient with a history of chronic noncompliance as an outpatient. Patient overall lacks insight into her illness. Patient unable to understand the relevant information, appreciate situation and its consequences, and reason about treatment options. Patient denies suicidal ideation, plan or intent at this time. Patient denies homicidal ideation, homi cidal plan or intent at this time. Patient denies any medication side effects. Review of Systems: Unobtainable due to pt being disorganized Physical Examination: Vital Signs: BP (!) 159/78 (BP Location: Right arm, Patient Position: Sitting) Pulse 67 Temp 97.7 F (36.5 C)(Oral) Resp (!) 20 Ht 5' 3 Wt 112 kg (246 lb 14.6 oz) LMP (LMP Unknown) SpO2 98% ? No BMI 43.74 kg/m2 Mental Status Examination: General Appearance & Behavior: poor eye contact Grooming & Hygiene: malodorous and unkempt Psychomotor Activity: restless and psychomotor agitation Speech: hyperverbal Flow of Thought: flight of ideas and disorganized Thought Associations: Loose Content of Thought: auditory hallucinations, visual hallucinations, delusions, paranoia and magicalthinking Mood: fine Affect: labile Insight: poor Judgment: poor Orientation: unable to assess due to patient refusal Memory: unable to recall events leading to hospital admission Attention: impaired Concentration: impaired Language: intact Fund of Knowledge: estimated below average intelligence Laboratory and Additional Data Reviewed: Notes in care connect reviewed. Treatment options and alternatives reviewed with patient. Risks, benefits, side effects of all psychiatric medications discussed with patient and informed consent obtained. All questions were answered. Perry Montoya MD 04/16/2017 11:18 AM * Umu Ortiz RN - 04/16/2017 4:55 AM EDT Patient 15 min safety checks were performed at random intervals throughout the shift. 0105 Patient has been resting in bed with eyes closed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 .Cranial nerves 2-12 intact Sensations -grossly symmetrical and good Motor strength 5/5 all over dtr 1 bilaterally Skin -no ulceraitons Psych -mood stable . Results from last 7 days Lab Units 04/09/17 0628 WBC K/mcL 9.79 HGB g/dL 12.1 HCT % 36.0 PLT K/mcL 238 MONOS% % 7.3 . Results from last 7 days Lab Units 04/08/17 1715 SODIUM mmol/L 139 POTASSIUM mmol/L 3.7 CHLORIDE mmol/L 107 BUN mg/dL 14 CREATININE mg/dL 0.90 CALCIUM mg/dL 9.2 TOTAL PROTEIN g/dL 8.8* BILIRUBIN TOTAL mg/dL 0.5 ALK PHOS U/L 88 ALTR U/L 20 AST U/L 16 GLUCOSE mg/dL 78 . amLODIPine 10 mg Oral Daily benztropine 0.5 mg Oral TID busPIRone 5 mg Oral TID haloperidol 5 mg Oral TID lispro insulin 1-15 Units Subcutaneous at bedtime insulin lispro 1-30 Units Subcutaneous TID AC nicotine 1 patch Transdermal Daily traZODone 100 mg Oral Nightly . Ap .Schizoaffective/Schizophrenia:- Psych to manage DMII-- Accu checks, SS- Diabetic diet HTN- Home meds reviewed and continued/bp better Abnormal ua--no symptoms -no treatment for now-if any abdominal pain or dysuria or fevers--immediately call for abx initiattion .Will sign out for now Call if any questions or clarifications or any change in clinical picture Thank you for the consult * Perry Montoya MD - 04/11/2017 9:39 AM EDT Formatting of this note may be different from the original. Psychiatry Progress Note Patient Name: Pablo Tabares Admit Date: 8130901 MR #: [id number] : 1975 Perpetual Assessment Pablo Tabares is a 41 y.o. female presenting with worsening psychotic sx who remains psychotic and lacks insight into her illness. Diagnosis & Plan/Recommendations Other Schizophrenia, paranoid, chronic with acute exacerbation (HCC) Assessment & Plan Vs. Schizoaffective disorder vs. Bipolar disorder. Sx could also be exacerbated by her cocaine use. Provide support and reassurance. Social service to obtain additional information and background, coordinate care and assess supports. silver spray worker to work with patient, family and outpatient providers on follow-up appointments and resources. silver spray worker to confirm no access to guns, review safety plan and address psychosocial issues. Occupational Therapy to provide task activity to improve self esteem and to assess and support functioning. Psychotherapy to provide disease education and improve coping skills. Encouraged patient to participate in milieu and go to groups. Incorporate individual therapy, art therapy, group therapy. Encourage patient to incorporate workbooks. Continue current meds for now. Hospitalist has been consulted for ongoing medical management. Discussed in tx team about emergency guardianship. Everyone in agreement. Completed paperwork and given to SW. Interval History: Nursing notes were reviewed. Patient will be discussed extensively in treatment team. Records obtained from [facility] were reviewed yesterday. It seems that the patient left [facility] on February 25. Patient states that she was at [place] with a friend. Patient states that she plans to move to [place] eventually with this friend. Patient provides me with the name and phone number of this friend which will be provided to director social welfare during treatment team today. Patient also states that she has been to alf a couple of times in the last couple of months. Patient is disorganized and unable to provide a timeline at this time. Patient also states that she was at [facility] 3 days prior to admission here. Patient when asked about psychotic symptoms states people are just prejudiced in this town. I want to talk with other life forms. Patient is observed talking to herself in the hallway. Patient is internally stimulated. We also discussed in treatment team that the patient currently does not have a guardian. silver spray worker to communicate with [facility] about resources and eventual discharge planning. Patient with a history of numerous hospitalizations and chronic noncompliance. Patient lacks insight into her illness. We had a discussion in treatment team and everyone in agreement with pursuing emergency guardianship. Paperwork completed and given to SW. Review of Systems: Unobtainable due to pt being disorganized Physical Examination: Vital Signs: BP 138/83 (BP Location: Right arm, Patient Position: Sitting) Pulse 69 Temp 98.5 F (36.9 C) (Oral) Resp 16 Ht 5' 3 Wt 112 kg (246 lb 14.6 oz) LMP (LMP Unknown) SpO2 98% ? No BMI 43.74 kg/m2 Mental Status Examination: General Appearance & Behavior: poor eye contact Grooming & Hygiene: malodorous and unkempt Psychomotor Activity: restless and psychomotor agitation Speech: hyperverbal Flow of Thought: flight of ideas and disorganized Thought Associations: Loose Content of Thought: auditory hallucinations, visual hallucinations, delusions, paranoia and magicalthinking Mood: fine Affect: labile Insight: poor Judgment: poor Orientation: unable to assess due to patient refusal Memory: unable to recall events leading to hospital admission Attention: impaired Concentration: impaired Language: intact Fund of Knowledge: estimated below average intelligence Laboratory and Additional Data Reviewed: Records from [facility] reviewed. Treatment options and alternatives reviewed with patient. Risks, benefits, side effects of all psychiatric medications discussed with patient and informed consent obtained. All questions were answered. Perry Montoya MD 04/11/2017 9:39 AM * Robyn Ortiz RN - 04/11/2017 8:39 AM EDT Patient presents for medication administration after prompting. Patient appears irritable and is vocalizing all responses to internal stimuli. Patient is actively experiencing visual and auditory hallucinations. Unable to assess depression however patient appears suspicious and anxious which looks very much like paranoia.. Patient denies self harm, suicidal thought, and homicidal thoughts. Patient denies pain. Patient declines nicotine patch because RN requested she choose an alternate site as skin tissue appears excoriated where patch last places. Patient denies pain. 1404 Patient provided with education related to nicotine products. Patient is withholding multiple pieces of nicotine gun in her mouth and refusing to throw the was of gum away. Patient educated and refused to throw it away. Patient was told only lozenge can be provided until she is able to comply with medication adherence. Patient verbalized understanding. * Umu Ortiz RN - 04/11/2017 6:26 AM EDT Patient 15 min safety checks were performed at random intervals throughout the shift. 0105 Patient has been resting in bed with eyes closed since 2117. 0304 Patient has been resting in bed throughout the shift, up once. Respirations are easy and unlabored. 0505 Patient has been resting in bed throughout the shift, up twice. Respirations are easy and unlabored. * Lizbeth Jalloh - 04/10/2017 9:10 PM EDT SW obtained [facility] notes and it appears that Pt left [facility] and is staying with a friend in [place] and has not followed up with medications or treatment since February 25. Pt remains scattered and disorganized however was able to have some conversation with Dr. Montoya today. Pt Still walks the halls talking loudly to self and having conversations to no one that is there. ITZEL called [facility] and left a message with Nolberto to see what happened with [facility] and what may or may notbe what the plan is. ITZEL will also contact Ian Jose Manuel counter caser and see what he knows. * Priya Schaffer RN - 04/10/2017 4:47 PM EDT Patient presents as anxious with a full affect. She is calm, cooperative, and bright during interaction with this RN. Patient is delusional and suspicious. She attends available evening groups and ismore interactive with peers in common areas during free time. She is observed smiling and singing in the hallways. Pleasant with this RN, stating I'm glad to see you, I'm doing really good! Patientdoes continue to be guarded, and doesn't elaborate much on her thoughts or feelings. Patient denieshallucinations but appears to be responding to internal stimuli. Denies SI, HI, or thoughts of selfharm at this time. When patient was up for medication, she stated They say it will cost me $100 per letter to get my name changed from Pablo to what it should be, Lulu. I don't even know where they got that name. If I were to return to my country, they wouldn't have any idea who that is. Patient stated that she is from [facility]. Patient was compliant with HS medications. PRN's: Nicotine replacement throughout shift Accucheck's: 1600: 127, No coverage required. 1999: 158, no coverage required * Robyn Ortiz RN - 04/10/2017 1:58 PM EDT Abnormal UA results noted and shared with Dr. Aleshia Leal. Assessed patient for urinary symptoms including frequency, hesitancy, and burning which patient denies. Patient denies all urinary symptoms. Patient reports not having a water source in her home and issues with remaining hydrated outside of hospital. Encouraged fluids. * Perry Montoya MD - 04/10/2017 12:41 PM EDT Formatting of this note may be different from the original. Psychiatry Progress Note Patient Name: Pablo Tabares Admit Date: 8130901 MR #: [id number] : 1975 Perpetual Assessment Pablo Tabares is a 41 y.o. female presenting with worsening psychotic sx which are slowly improving. Diagnosis & Plan/Recommendations Other Schizophrenia, paranoid, chronic with acute exacerbation (HCC) Assessment & Plan Vs. Schizoaffective disorder vs. Bipolar disorder. Sx could also be exacerbated by her cocaine use. Provide support and reassurance. Social service to obtain additional information and background, coordinate care and assess supports. silver spray worker to work with patient, family and outpatient providers on follow-up appointments and resources. silver spray worker to confirm no access to guns, review safety plan and address psychosocial issues. Occupational Therapy to provide task activity to improve self esteem and to assess and support functioning. Psychotherapy to provide disease education and improve coping skills. Encouraged patient to participate in milieu and go to groups. Incorporate individual therapy, art therapy, group therapy. Encourage patient to incorporate workbooks. Continue current meds for now. Hospitalist has been consulted for ongoing medical management. Interval History: Nursing notes were reviewed. Patient was discussed extensively in treatment team.Records obtained from [facility] were reviewed. It seems that the patient left [facility] on February 25. Patient states that she was at [place] with a friend. Patient states thatshe plans to move to [place] eventually with this friend. Patient also states that she has beento alf a couple of times in the last couple of months. Patient is disorganized and unable to provide a timeline at this time. Treatment team knows this patient from numerous admissions. Patient alsostates that she was at [facility] 3 days prior to admission here. Patient when asked about psychotic symptoms states people are just prejudiced. Just the satellite. Patient is also talking about microchips in her body. We also discussed in treatment team that the patient currently does not have aguardian. silver spray worker to communicate with [facility] about resources and eventual discharge planning. Patient with a history of numerous hospitalizations and chronic noncompliance. Review of Systems: Unobtainable due to pt being disorganized Physical Examination: Vital Signs: BP (!) 164/108 Pulse 84 Temp 99.7 F (37.6 C) (Oral) Resp 14 Ht 5' 3 Wt 112 kg (246 lb 14.6 oz) LMP (LMP Unknown) SpO2 100% ? No BMI 43.74 kg/m2 Mental Status Examination: General Appearance & Behavior: poor eye contact Grooming & Hygiene: malodorous and unkempt Psychomotor Activity: restless and psychomotor agitation Speech: hyperverbal Flow of Thought: flight of ideas and disorganized Thought Associations: Loose Content of Thought: auditory hallucinations, visual hallucinations, delusions, paranoia and magicalthinking Mood: fine Affect: labile Insight: poor Judgment: poor Orientation: unable to assess due to patient refusal Memory: unable to recall events leading to hospital admission Attention: impaired Concentration: impaired Language: intact Fund of Knowledge: estimated below average intelligence Laboratory and Additional Data Reviewed: Records from [facility] reviewed. Treatment options and alternatives reviewed with patient. Risks, benefits, side effects of all psychiatric medications discussed with patient and informed consent obtained. All questions were answered. Perry Montoya MD 04/10/2017 12:41 PM * Robyn Ortiz RN - 04/10/2017 8:56 AM EDT Morning nursing assessment began will pursue throughout morning as to not overwhelm patient. Patient presents for medication when prompted. Patient is actively responding to internal stimuli but responsive to nurse directives and questions. Patient reports depression is 4/10 and denies anxiety. Patient appears to be experiencing both auditory and visual hallucinations as well as openly discussinghallucinations. Patient denies suicidal and homicidal ideation. Patient is cooperative. Patient denies pain. Thoughts are loose with a flight of ideas. Thinking is disorganized. Patient has been pacing throughout morning, hyperverbal, and pressured speech. * Eduardo Pierre RN - 04/10/2017 1:15 AM EDT 15-minute checks performed at alternating intervals for patient safety. 0100 Patient is resting in bed with eyes closed. Respirations easy and unlabored. No distress noted. Patient retired to bed at 2315. 0320 Patient given Tylenol 650 mg PO for c/o 9/10 lower back pain. 0500 Patient is resting in bed with eyes closed. No needs at this time. Patient has rested approximately 5.5 hours thus far. (up x1.) * Debbie Leos RN - 04/09/2017 7:44 PM EDT Patient has been walking around the unit most of the shift. Attended Recovery group and Goals groupthis evening. Did not watch evening Rec movie. Noted talking to herself as she walks about the unit. When approached states she wants to go home. You are not my people. We are making her mad. When asked where her home was she refers to another planet. Thanks this nurse for calling her by her name Lulu . States That's not my registered name though. That's not the name on my registration. Used the phone later this evening.Compliant with HS meds. States she didn't get the chance to get hermedication filled after she was discharged the last time. PRN - NRT * Rory Adams, MOBILE SECURITY ARCHITECT - 04/09/2017 11:29 AM EDT Patient is a new admission, though familiar to the unit routine from previous admits. Pt. Will be assessed today by AT staff and encouraged group participation where appropriate and be monitored for progress. * Deloris Aldana RN - 04/09/2017 8:52 AM EDT Patient's thought process is disorganized, tangential, and delusional. Patient reports that the reason that she was admitted to unit was because [facility] declared war on [place]. You should watch the news and you would know . All attempts to reality orient patient was met with resistance. Patient becomes almost challenging when this nurse would not agree with her delusions. Patient is noted hailee walking around unit responding to unknown stimuli. Patient denies any suicidal ideation. Takes medication with prompting. During morning hours, patient became increasingly more agitated talking toself. Patient took PRN PO Zyprexa without resistance. PRN- Zyprexa 5mg PO for increased agitation New orders- Buspar 5mg PO TID Hemoglobin A1C Trazadone 100mg PO QHS Haldol 5mg TID Cogentin 0.5mg PO TID * Eduardo Pierre RN - 04/09/2017 2:14 AM EDT 15-minute checks performed at alternating intervals for patient safety. 0100 Patient is resting in bed with eyes closed. Respirations easy and unlabored. No distress noted. Patient retired to bed at 0030. 0500 Patient is resting in bed with eyes closed. No needs at this time. Patient has rested approximately 4.5 hours thus far. * Eduardo Pierre RN - 04/08/2017 11:39 PM EDT Patient is a 41 year old -[place] female voluntarily admitted under the care of Dr. Field [facility] with a diagnosis of paranoid schizophrenia. Patient was brought to our ER by Daylin VILLEGAS after she was causing disturbances in places of business. Pt has been having audio/visual hallucinations; having conversation with and aliens by satellite. Also is seeing shape shifters. Patient last on this unit February 16, 2017 and was supposed to follow up with [facility]. Per reports, patient has not been to [facility] because the belief they are trying to inject their DNA into her. Apparently,patient has not been on any scheduled medications since her last admission here either. Patient is a poor historian and unable to answer most admission questions. Patient told this nurse she has no allergies, even though admissions in the past state she has many. Pt also states she is single thensays she is . Patient appears unkempt like she is not showering or taking care of ADLs. Clothes/body very dirty. Patient presented with loose associations, flight of ideas, and rambling during our 1:1 conversation. She states you all think I am on drugs..I got a cocoa leaf..It's from my kake people..I'm tired of [place]'s..[place] is going to declare war on [place]..I am an and my family is pissed at you all for putting me in here.. When asking patient if she hearsvoices she says of course she does but they are real. She believes she is telekinetic and no one believes her. She has microchips in her head and can hear everyone talking.. but I won't tell you what about, it's none of your business. Patient denies any current suicidal/homicidal ideation. Patient has a medical history of HTN, diabetes, degenerative disk disease, and asthma. Surgical history includes breast biopsy and EGD. This information was taken from the chart as patient could not state any med/surgical history. Patient denies any alcohol or drug use. Said the cocaine in her system is a legal cocoa plant in my culture. Pt smokes 1 ppd. Patient brought on unit by security. She was given a snack and something to drink. Patient able to answer some questions, however having difficulty answering all as she would go off on tangents and switch to other topics. Patient only able to sign voluntary admission form at this time; pt unable to focus long enough to sign all papers. Pt took a shower and took all night medications with ease, saying I suppose I will have to take the meds anyway. Pt placed on unpredictable and suicide precautions. 2332 Zyprexa 5 mg PO given with HS medications for patient agitation. * Lizbeth Jalloh Seng - 04/08/2017 11:02 PM EDT SW notes that Pt is active with [facility] within the past year as this SW had her on her last admission.SW to talk with iNkia at [facility] to requested records. SW will follow up with psychosocial assessment. SW left her card with Pt. And also gave the Pt a safety plan to think about and work on. * Natasha Ring RN - 04/08/2017 7:13 PM EDT DISCHARGE PLAN PROGRESS NOTE Date: 04/08/2017 Time: 7:13 PM Patient Name: Pablo Tabares Date of : 1975 Sex: Female CALLED AND SPOKE WITH TORIE FROM [facility] TO COME IN TO DO PINK SLIP . in this encounter* Rhonda Martinez RN - 05/02/2017 1:11 PM EDT Patient reviewed and signed all discharge plans and orders. Patient verbalized understanding. All belongings returned and copies of discharge plans given with scripts included. Patient left unit ambulatory with staff to waiting cab with instruction to take her to [facility]. * ShubhamLizbeth Seng - 05/02/2017 10:39 AM EDT Patient denies suicidal ideation, homicidal ideation, psychosis. Safety plan completed, reviewed and will be scanned into care connect. Pt denies questions/concerns re: d/c plan. Patient is on target for discharge today, with outpatient follow-up arranged. Please see the AVS for details. Pt will be staying at the [facility].Transportation is provided by cab.. silver spray worker spoke with cathy Francisco and also Rosalio brandt for discharge planning/collateral and they denied safety concerns. It has been confirmed the patient will not have access to guns. IP discharge bundle has been faxed for coordination of care, to the outpatient provider. Resources provided. Patient was strongly encouraged to f/u as outpatient. Pt has Medicare A&B and also Medicaid for medication management and services * Rhonda Martinez RN - 05/02/2017 9:14 AM EDT 0900 Second webX placed to Dr. Sahu regarding med reconciliation for this pt. Margareth JAEGER paged regarding insulin orders. Med rec done per Dr. Sahu. Metformin ordered and script sent to pts pharmacy.. * Shubham Obando RN - 05/02/2017 5:07 AM EDT -0100 Pt resting in bed with eyes closed. No distress noted. -0500 Pt resting in bed with eyes closed. Pt rested in bed with eyes closed for the majority of night when checked at 15-minute intervals. No distress noted. -Pt has slept approximately 7.5 hours up to this point. * Hollie Armenta RN - 05/01/2017 7:11 PM EDT [id number] Pt has been calm and cooperative this shift. She presented independently for bedtime medications and took all without issues. She states that she is feeling ok except for 8/10 tooth pain. She was provided with PRN Ibuprofen and Orajel for this. Pt denies SI, HI and hallucinations at this time, but at times appears to respond to internal stimuli. Pt states that she feels ready for discharge, butdoes not appear anxious or in a hurry to leave. PRNs: Ibuprofen, Orajel, and Nicotine lozenge Blood Glucose at 1936 was 160. No coverage per protocol. * Lizbeth Jalloh - 05/01/2017 10:15 AM EDT SW to talk with Pt in office for Pt to contact [facility]. Hopefully they will have a bedavailable. If they do Pt will be discharged to the [facility] with [facility] working with Pt to obtain her monthly check, medications and services for Pt to get her own place. SW to follow up. SW and Pt one to one in office. SW and Pt together called the mcc and they are doing a background check on her. SW to call back a 4:00 pm to check on status. There is 2 beds available. The [facility] is aware that discharge is set for tomorrow. * Perry Montoya MD - 05/01/2017 9:48 AM EDT Formatting of this note may be different from the original. Psychiatry Progress Note Patient Name: Pablo Tabares Admit Date: 8130901 MR #: [id number] : 1975 Perpetual Assessment Pablo Tabares is a 41 y.o. female presenting with worsening psychotic sx who is more delusional due to her focus on finances. SW to determine when the sleeping room would be available and then work with guardian, pt and outpt team on discharge plan. Patient does need a structured setting ideally. Addendum: After further discussion, it seems that sleeping room is currently not a possibility due to lack of finances. Therefore, she would be discharged to homeless [facility]. Diagnosis & Plan/Recommendations Other * Schizophrenia, paranoid, chronic with acute exacerbation (HCC) Assessment & Plan Vs. Schizoaffective disorder vs. Bipolar disorder. Sx could also be exacerbated by her cocaine use. Provide support and reassurance. Social service to obtain additional information and background, coordinate care and assess supports. silver spray worker to work with patient, family and outpatient providers on follow-up appointments and resources. silver spray worker to confirm no access to guns, review safety plan and address psychosocial issues. Occupational Therapy to provide task activity to improve self esteem and to assess and support functioning. Psychotherapy to provide disease education and improve coping skills. Encouraged patient to participate in milieu and go to groups. Incorporate individual therapy, art therapy, group therapy. Encourage patient to incorporate workbooks. Hospitalist has been consulted for ongoing medical management No medication changes. Interval History: Nursing notes were reviewed. Patient will be discussed extensively in treatment team. Patient is very focused on her finances and her social security check. SW is working with patient, guardian and outpt team. Patient has been taking better care of ADLs. Patient has not been observed to be internally stimulated during rounds. We discussed in treatment team how homeless [facility] would not be ideal for patient due to high risk of rehospitalization. Discharge plan and date would depend on the length of wait for the sleeping room. Patient wants to be discharged this week. Patientwill have case management and med drops. It seems that placement in a supervised setting such as placement in sn[facility] or [facility] are not options for patient. That would be the most ideal forthe patient. Patient has been compliant with her oral medications. Patient has not required any as needed medications for psychotic agitation. Patient with no seclusion or restraint. Patient denies suicidal ideation, plan or intent. Patient denies homicidal ideation, auditory or visual hallucinations. Patient with no prn meds for agitation. Review of Systems: All other systems reviewed and negative other than HPI Physical Examination: Vital Signs: BP (!) 134/90 Pulse 71 Temp (!) 100.6 F (38.1 C) (Oral) Resp 15 Ht 5' 3 Wt 122.1 kg (269lb 2.9 oz) LMP (LMP Unknown) SpO2 100% ? No BMI 47.68 kg/m2 Mental Status Examination: General Appearance & Behavior: age appropriate, pleasant, cooperative, good eye contact Grooming & Hygiene: street clothes Psychomotor Activity: no psychomotor abnormalities or muscle atrophy noted Speech: diminished amount Flow of Thought: concrete Thought Associations: Intact Content of Thought: delusions, paranoia and overall improved Mood: frustrated Affect: anxious Insight: improving Judgment: improving Orientation: alert and oriented to person, place, time, and circumstances Memory: unable to recall events leading to hospital admission Attention: intact Concentration: intact Language: intact Fund of Knowledge: estimated below average intelligence Laboratory and Additional Data Reviewed: Notes in care connect reviewed. Treatment options and alternatives reviewed with patient. Risks, benefits, side effects of all psychiatric medications discussed with patient and informed consent obtained. All questions were answered. SW communicating with guardian. Perry Montoya MD 05/01/2017 9:48 AM * Hollie Armenta RN - 05/01/2017 1:05 AM EDT Pt remains on Suicide, Unpredictable, and Elopement precautions. Safety checks performed every 15 minutes at varied intervals. Pt retired to bed at 2132. 0100- Pt resting in bed with eyes closed. Respirations unlabored. No distress noted. 0500- Pt resting in bed with eyes closed. Respirations unlabored. No distress noted. Pt has rested approximately 7.5 hours thus far. Uninterrupted. FSBS at 0600 was 156. * Hollie Armenta RN - 04/30/2017 7:24 PM EDT [id number] Pt has been calm and cooperative this shift. She spends free time in the active areas, but has little to no interaction with peers. She was cooperative with speaking with this RN, and stated that seeis feeling well and that her mood is ok . When RN began asking whether she has hallucinations, pt stated, I don't have that because you have my phone in there . When RN attempted to discuss this further, pt stated, I don't want to talk about that anymore . She presented independently for bedtimemedications and took them without issues. FSBS at 1999 was 194. No coverage needed per protocol. PRNs: Ibuprofen, Orajel, and Nicotine lozenge at 2117. Ibuprofen for 8/10 tooth pain. * Caroline Kowalski Jessica - 04/30/2017 1:02 PM EDT This pt is currently meeting all of her daytime AT goals at this time. Staff will continue to monitor pt for future progress. * Perry Montoya MD - 04/30/2017 11:27 AM EDT Formatting of this note may be different from the original. Psychiatry Progress Note Patient Name: Pablo Tabares Admit Date: 8130901 MR #: [id number] : 1975 Perpetual Assessment Pablo Tabares is a 41 y.o. female presenting with worsening psychotic sx who is more delusional due to her focus on finances. Diagnosis & Plan/Recommendations Other * Schizophrenia, paranoid, chronic with acute exacerbation (HCC) Assessment & Plan Vs. Schizoaffective disorder vs. Bipolar disorder. Sx could also be exacerbated by her cocaine use. Provide support and reassurance. Social service to obtain additional information and background, coordinate care and assess supports. silver spray worker to work with patient, family and outpatient providers on follow-up appointments and resources. silver spray worker to confirm no access to guns, review safety plan and address psychosocial issues. Occupational Therapy to provide task activity to improve self esteem and to assess and support functioning. Psychotherapy to provide disease education and improve coping skills. Encouraged patient to participate in milieu and go to groups. Incorporate individual therapy, art therapy, group therapy. Encourage patient to incorporate workbooks. Hospitalist has been consulted for ongoing medical management No medication changes. Interval History: Nursing notes were reviewed. Patient was discussed extensively in treatment team.Patient is very focused on her finances and her social security check. Patient is also exhibiting more delusional thought processes due to her focus on her finances. SW is working with patient, guardian and outpt team. Patient has been taking better care of ADLs. Patient has not been observed to beinternally stimulated during rounds. We discussed in treatment team how homeless [facility] would not be ideal even short term for patient due to high risk of rehospitalization. Patient will have case management and med drops. It seems that placement in a supervised setting such as placement in snf or [facility] are not options for patient. That would be the most ideal for the patient. Patient has been compliant with her oral medications. Patient has not required any as needed medications for psychotic agitation. Patient with no seclusion or restraint. Patient denies suicidal ideation,plan or intent. Patient denies homicidal ideation, auditory or visual hallucinations. Patient with no prn meds for agitation. Review of Systems: All other systems reviewed and negative other than HPI Physical Examination: Vital Signs: BP (!) 141/86 (BP Location: Left arm, Patient Position: Sitting) Pulse 69 Temp 97.6 F (36.4 C) (Oral) Resp 14 Ht 5' 3 Wt 122.1 kg (269 lb 2.9 oz) LMP (LMP Unknown) SpO2 98% ? No BMI 47.68 kg/m2 Mental Status Examination: General Appearance & Behavior: age appropriate, pleasant, cooperative, good eye contact Grooming & Hygiene: street clothes Psychomotor Activity: no psychomotor abnormalities or muscle atrophy noted Speech: diminished amount Flow of Thought: concrete Thought Associations: Intact Content of Thought: delusions and paranoia Mood: frustrated Affect: anxious Insight: improving Judgment: improving Orientation: alert and oriented to person, place, time, and circumstances Memory: unable to recall events leading to hospital admission Attention: intact Concentration: intact Language: intact Fund of Knowledge: estimated below average intelligence Laboratory and Additional Data Reviewed: Notes in care connect reviewed. Treatment options and alternatives reviewed with patient. Risks, benefits, side effects of all psychiatric medications discussed with patient and informed consent obtained. All questions were answered. SW communicating with guardian. Perry Montoya MD 04/30/2017 11:27 AM * Deloris Aldana RN - 04/30/2017 9:53 AM EDT Patient is calm and cooperative. Attends and participates in unit schedule. Minimal interaction noted. Patient is observed spending free time out in active areas. Observed responding to unknown stimuli throughout shift. Patient reports that she is hopeful for impending discharge later this shift. Patient does not make any delusional comments to this nurse. PRN- Ibuprofen 600mg PO for tooth pain with positive results Orajel for tooth pain * Lillian Malhotra, LEROY - 04/29/2017 11:29 PM EDT Precaution monitoring continues-see flow sheet documentation. 2232-In bed sleeping at this time. 0500-Patient has slept approx 6.5 hours to present. * Debbie Leos, LEROY - 04/29/2017 4:21 PM EDT Patient presents to the nurse's station for needs. One to one in patient room. Asked if there was astronger dose of ibuprofen she could take. Think she only takes 300 mg. Still communicates via cordless phone and satellite. Was asked about her name being Lulu . States her registered name when she registered in [place] is Lulu Velazquez. I was in the . I had ECT. States she had ECThere in this facility. I forgot who I was temporarily. They're erasin all my records. States we are at war. When asked who we were at war with she stated [place], [place], [place] and [place]. We are according to patient at war over oil. Adds I'm not from [place]. Presents independently forand is compliant with scheduled meds. Denies thoughts of wanting to . Denies hallucinations. * Teri Morales, LEROY - 04/29/2017 2:28 PM EDT Patient is calm, cooperative, isolative, withdrawn. Spends most of the time in bed due to teeth pain. Not observed to be internally stimulated. Attends groups. Denies SI, or hallucinations. Denies depression, or anxiety. BS 117 at 1130 am. Compliant with medications. No PRN. No new orders. * Perry Montoya MD - 04/29/2017 11:04 AM EDT Formatting of this note may be different from the original. Psychiatry Progress Note Patient Name: Pablo Tabares Admit Date: 8130901 MR #: [id number] : 1975 Perpetual Assessment Pablo Tabares is a 41 y.o. female presenting with worsening psychotic sx who is overall improving daily. Diagnosis & Plan/Recommendations Other * Schizophrenia, paranoid, chronic with acute exacerbation (HCC) Assessment & Plan Vs. Schizoaffective disorder vs. Bipolar disorder. Sx could also be exacerbated by her cocaine use. Provide support and reassurance. Social service to obtain additional information and background, coordinate care and assess supports. silver spray worker to work with patient, family and outpatient providers on follow-up appointments and resources. silver spray worker to confirm no access to guns, review safety plan and address psychosocial issues. Occupational Therapy to provide task activity to improve self esteem and to assess and support functioning. Psychotherapy to provide disease education and improve coping skills. Encouraged patient to participate in milieu and go to groups. Incorporate individual therapy, art therapy, group therapy. Encourage patient to incorporate workbooks. Hospitalist has been consulted for ongoing medical management No medication changes. Interval History: Nursing notes were reviewed. Patient has been taking better care of ADLs. Patientdressed in street clothes- does have a lot of makeup today. Patient has not been observed to be internally stimulated during rounds. It looks like they will be trying to secure an apartment for the patient. Patient will have case management and med drops. It seems that placement in a supervised setting such as placement in snf or [facility] are not options for patient. That would be themost ideal for the patient. Patient has been compliant with her oral medications. Patient has not required any as needed medications for psychotic agitation. Patient with no seclusion or restraint. Patient denies suicidal ideation, plan or intent. Patient denies homicidal ideation, auditory or visual hallucinations. Patient with no prn meds for agitation. She is smiling appropriately. Says, I ambored. That's why I am laying down. I am ready to get out of here. Review of Systems: All other systems reviewed and negative other than HPI Physical Examination: Vital Signs: BP 110/89 (BP Location: Right arm, Patient Position: Sitting) Pulse 72 Temp 97.7 F (36.5 C) (Oral) Resp (!) 20 Ht 5' 3 Wt 120.8 kg (266 lb 5.1 oz) LMP (LMP Unknown) SpO2 95% ? No BMI 47.18 kg/m2 Mental Status Examination: General Appearance & Behavior: age appropriate, pleasant, cooperative, good eye contact Grooming & Hygiene: street clothes Psychomotor Activity: psychomotor retardation Speech: diminished amount Flow of Thought: concrete Thought Associations: Intact Content of Thought: No evidence of suicidal ideations/homicidal ideations/psychosis Mood: fine Affect: bright Insight: improving Judgment: improving Orientation: alert and oriented to person, place, time, and circumstances Memory: unable to recall events leading to hospital admission Attention: intact Concentration: intact Language: intact Fund of Knowledge: estimated below average intelligence Laboratory and Additional Data Reviewed: Notes in care connect reviewed. Treatment options and alternatives reviewed with patient. Risks, benefits, side effects of all psychiatric medications discussed with patient and informed consent obtained. All questions were answered. SW communicating with guardian. Perry Montoya MD 04/29/2017 11:04 AM * Emily Alberts RN - 04/29/2017 4:59 AM EDT -Safety checks performed every 15 minutes at varied intervals for patient safety. -Pt retired to bed at 2045. -0103- Pt resting in bed with eyes closed. Respirations unlabored. No distress noted. -0500- Pt resting in bed with eyes closed. Respirations unlabored. No distress noted. -0622- Blood [id number] -Pt has rested approximately 7.75 hours so far this shift. Awake 1 time for approximately 30 minutes since retiring to bed. * Debbie Leos RN - 04/28/2017 7:30 PM EDT Patient has been out at intervals walking slowly in the [place]. No interaction is noted with others. Pleasant on approach. Frequently noted resting in bed with eyes closed. Out for supper and HS snack.Required several prompts for HS meds. PRN's - ibuprofen 600 mg per request for tooth pain she rates 03/04 - baby oragel - nicotine lozenge 4 mg * Teri Morales RN - 04/28/2017 12:46 PM EDT Patient is calm, smiling, friendly, euthymic. Future oriented. Not observed to be internally stimulated. Attends groups, isolative. Denies SI, or hallucinations. Denies depression, or anxiety. Patient complains of teeth pain, states Ibuprofen and Orajel are effective. Patient states she slept poorly last night because of the teeth pain. BS 121 at 1130 am. Compliant with medications. PRN: 1016 Ibuprofen for teeth pain 1104 Reports slight improvement No new orders. * Perry Montoya MD - 04/28/2017 10:37 AM EDT Formatting of this note may be different from the original. Psychiatry Progress Note Patient Name: Pablo Tabares Admit Date: 8130901 MR #: [id number] : 1975 Perpetual Assessment Pablo Tabares is a 41 y.o. female presenting with worsening psychotic sx who is overall improving daily. Diagnosis & Plan/Recommendations Other * Schizophrenia, paranoid, chronic with acute exacerbation (HCC) Assessment & Plan Vs. Schizoaffective disorder vs. Bipolar disorder. Sx could also be exacerbated by her cocaine use. Provide support and reassurance. Social service to obtain additional information and background, coordinate care and assess supports. silver spray worker to work with patient, family and outpatient providers on follow-up appointments and resources. silver spray worker to confirm no access to guns, review safety plan and address psychosocial issues. Occupational Therapy to provide task activity to improve self esteem and to assess and support functioning. Psychotherapy to provide disease education and improve coping skills. Encouraged patient to participate in milieu and go to groups. Incorporate individual therapy, art therapy, group therapy. Encourage patient to incorporate workbooks. Hospitalist has been consulted for ongoing medical management No medication changes. Interval History: Nursing notes were reviewed. Patient has been taking better care of ADLs. Patientdressed in street clothes- does have a lot of makeup today. Patient has not been observed to be internally stimulated during rounds. It looks like they will be trying to secure an apartment for the patient. Patient will have case management and med drops. It seems that placement in a supervised setting such as placement in snf or [facility] are not options for patient. That would be themost ideal for the patient. Patient has been compliant with her oral medications. Patient has not required any as needed medications for psychotic agitation. Patient with no seclusion or restraint. Patient denies suicidal ideation, plan or intent. Patient denies homicidal ideation, auditory or visual hallucinations. Patient with no prn meds for agitation. She is smiling appropriately. Review of Systems: All other systems reviewed and negative other than HPI Physical Examination: Vital Signs: BP 132/86 Pulse 77 Temp 99.5 F (37.5 C) (Oral) Resp 14 Ht 5' 3 Wt 120.8 kg (266 lb 5.1 oz) LMP (LMP Unknown) SpO2 95% ? No BMI 47.18 kg/m2 Mental Status Examination: General Appearance & Behavior: age appropriate, pleasant, cooperative, good eye contact Grooming & Hygiene: street clothes Psychomotor Activity: no psychomotor abnormalities or muscle atrophy noted Speech: diminished amount Flow of Thought: concrete Thought Associations: Intact Content of Thought: No evidence of suicidal ideations/homicidal ideations/psychosis Mood: much better Affect: bright Insight: improving Judgment: improving Orientation: alert and oriented to person, place, time, and circumstances Memory: unable to recall events leading to hospital admission Attention: intact Concentration: intact Language: intact Fund of Knowledge: estimated below average intelligence Laboratory and Additional Data Reviewed: Notes in care connect reviewed. Treatment options and alternatives reviewed with patient. Risks, benefits, side effects of all psychiatric medications discussed with patient and informed consent obtained. All questions were answered. SW communicating with guardian. Perry Montoya MD 04/28/2017 10:37 AM * Emily Alberts RN - 04/28/2017 5:07 AM EDT -Safety checks performed every 15 minutes at varied intervals for patient safety. -Pt retired to bed at 2115. -0059- Pt resting in bed with eyes closed. Respirations unlabored. No distress noted. 0348-Pt presented to nurses station with c/o 10/10 right side, upper and lower tooth pain. Ibuprofen PO given. -0501- Pt ambulating in hallway. Socially appropriate. No distress noted. 0615-Blood Zvzzyqs=701 -Pt has rested approximately 6.25 hours so far this shift. Uninterrupted. * Kiara Jalloh, LEROY - 04/27/2017 6:26 PM EDT Patient spends the majority of her free time isolated to herself in her room, participates in majority of unit activities. Her affect is full, mood is euthymic. She provides minimal conversation during interaction. Patient reports that she is doing well, no issues noted. This nurse mentioned that her blood sugars have been running good, she said that uses different insulin coverage at home. She discussed how she recently [place] Patient identified that she does have family in the area and they are a good support system for her. She denies hallucinations but is observed responding to internal stimuli. She was compliant with HS medication after prompting. PRNs: Nicotine replacement 1600 BS 141, 2 units coverage provided 2000 BS 233, no coverage * Teri Morales RN - 04/27/2017 2:31 PM EDT Patient is calm, smiling, friendly, euthymic. Future oriented. Attends groups, isolative. Denies SI, or hallucinations. Denies depression. Anxiety 11/02. BS 175 at 1130 am. Compliant with medications. PRN: 0908 Ibuprofen for teeth pain 0956 Reports slight improvement No new orders. * Perry Montoya MD - 04/27/2017 1:29 PM EDT Formatting of this note may be different from the original. Psychiatry Progress Note Patient Name: Pablo Tabares Admit Date: 8130901 MR #: [id number] : 1975 Perpetual Assessment Pablo Tabares is a 41 y.o. female presenting with worsening psychotic sx who is overall improving daily. Diagnosis & Plan/Recommendations Other * Schizophrenia, paranoid, chronic with acute exacerbation (HCC) Assessment & Plan Vs. Schizoaffective disorder vs. Bipolar disorder. Sx could also be exacerbated by her cocaine use. Provide support and reassurance. Social service to obtain additional information and background, coordinate care and assess supports. silver spray worker to work with patient, family and outpatient providers on follow-up appointments and resources. silver spray worker to confirm no access to guns, review safety plan and address psychosocial issues. Occupational Therapy to provide task activity to improve self esteem and to assess and support functioning. Psychotherapy to provide disease education and improve coping skills. Encouraged patient to participate in milieu and go to groups. Incorporate individual therapy, art therapy, group therapy. Encourage patient to incorporate workbooks. Hospitalist has been consulted for ongoing medical management No medication changes. Interval History: Nursing notes were reviewed. Patient has been taking better care of ADLs. Patientdressed in street clothes. Patient has not been observed to be internally stimulated during rounds.silver spray worker had a meeting with [facility]. It looks like they will be trying to secure an apartment for the patient. Patient will have case management and med drops.It seems that placement in a supervised setting such as placement in snf or [facility] place are not options for patient. That would be the most ideal for the patient. Patient has been compliant with her oral medications. Patient has not required any as needed medications for psychotic agitation. Patient with no seclusion or restraint. Patient denies suicidal ideation, plan or intent. Patientdenies homicidal ideation, auditory or visual hallucinations. Patient with no prn meds for agitation. She is smiling appropriately. Review of Systems: All other systems reviewed and negative other than HPI Physical Examination: Vital Signs: BP (!) 151/94 Pulse 78 Temp 98.9 F (37.2 C) (Oral) Resp 16 Ht 5' 3 Wt 120.8 kg (266 lb 5.1 oz) LMP (LMP Unknown) SpO2 98% ? No BMI 47.18 kg/m2 Mental Status Examination: General Appearance & Behavior: age appropriate, pleasant, cooperative, good eye contact Grooming & Hygiene: street clothes Psychomotor Activity: no psychomotor abnormalities or muscle atrophy noted Speech: diminished amount Flow of Thought: concrete Thought Associations: Intact Content of Thought: No evidence of suicidal ideations/homicidal ideations/psychosis Mood: fine Affect: bright Insight: improving Judgment: improving Orientation: alert and oriented to person, place, time, and circumstances Memory: unable to recall events leading to hospital admission Attention: intact Concentration: intact Language: intact Fund of Knowledge: estimated below average intelligence Laboratory and Additional Data Reviewed: Notes in care connect reviewed. Treatment options and alternatives reviewed with patient. Risks, benefits, side effects of all psychiatric medications discussed with patient and informed consent obtained. All questions were answered. SW communicating with guardian. Perry Montoya MD 04/27/2017 1:29 PM * Hollie Armenta RN - 04/27/2017 3:37 AM EDT Pt remains on Unpredictable precautions. Safety checks performed every 15 minutes at varied intervals. Pt retired to bed at 2107. 0100- Pt resting in bed with eyes closed. Respirations unlabored. No distress noted. 0500- Pt resting in bed with eyes closed. Respirations unlabored. No distress noted. Pt has rested approximately 7.25 hours thus far. Interrupted x 1. PRNs: Ibuprofen and Orajel at 0324 for 10/10 tooth pain at 0324. Trazodone and Nicotine lozenge at 0350. FSBS at 0600 was 147. * Kiara Jalloh, LEROY - 04/26/2017 4:04 PM EDT Patient spends her free time mainly to herself in her room, attends and participates in unit routine. Her affect is full, mood is euthymic. Her thoughts are limited, provides minimal interaction during 1:1 with this nurse. She reports that she is doing well and everything is alright. Patient denies any issues with sleep. She denies hallucinations but appears to be distracted when this nurse attempts to have a conversation with her. She is compliant with HS medication independently. 1600 BS 126, no coverage required 2000 BS 170, no coverage required PRNs: 1603 Maalox 30 mL given for heartburn. 1703 Patient reports relief * Perry Montoya MD - 04/26/2017 3:32 PM EDT Formatting of this note may be different from the original. Psychiatry Progress Note Patient Name: Pablo Tabares Admit Date: 8130901 MR #: [id number] : 1975 Perpetual Assessment Pabol Tabares is a 41 y.o. female presenting with worsening psychotic sx who is overall improving daily. Diagnosis & Plan/Recommendations Other * Schizophrenia, paranoid, chronic with acute exacerbation (HCC) Assessment & Plan Vs. Schizoaffective disorder vs. Bipolar disorder. Sx could also be exacerbated by her cocaine use. Provide support and reassurance. Social service to obtain additional information and background, coordinate care and assess supports. silver spray worker to work with patient, family and outpatient providers on follow-up appointments and resources. silver spray worker to confirm no access to guns, review safety plan and address psychosocial issues. Occupational Therapy to provide task activity to improve self esteem and to assess and support functioning. Psychotherapy to provide disease education and improve coping skills. Encouraged patient to participate in milieu and go to groups. Incorporate individual therapy, art therapy, group therapy. Encourage patient to incorporate workbooks. Hospitalist has been consulted for ongoing medical management No medication changes. Interval History: Nursing notes were reviewed. Patient will be discussed in treatment team. Patienthas been taking better care of ADLs. Patient dressed in street clothes. Patient has not been observed to be internally stimulated during rounds. silver spray worker had a meeting with [facility]. It looks like they will be trying to secure an apartment for the patient. Patient will have case management and med drops. It seems that placement in a supervised setting such as placement in [facility] or [facility] are not options for patient. That would be the most idealfor the patient. Patient has been compliant with her oral medications. Patient has not required anyas needed medications for psychotic agitation. Patient with no seclusion or restraint. Patient denies suicidal ideation, plan or intent. Patient denies homicidal ideation, auditory or visual hallucinations. Patient with no prn meds for agitation. She is smiling appropriately. Review of Systems: All other systems reviewed and negative other than HPI Physical Examination: Vital Signs: BP (!) 164/98 (BP Location: Right arm, Patient Position: Sitting) Pulse 68 Temp 97.7 F (36.5 C)(Oral) Resp 14 Ht 5' 3 Wt 120.8 kg (266 lb 5.1 oz) LMP (LMP Unknown) SpO2 98% ? No BMI 47.18 kg/m2 Mental Status Examination: General Appearance & Behavior: age appropriate, pleasant, cooperative, good eye contact Grooming & Hygiene: street clothes Psychomotor Activity: no psychomotor abnormalities or muscle atrophy noted Speech: diminished amount Flow of Thought: concrete Thought Associations: Intact Content of Thought: delusions, paranoia and but overall psychotic sx improving daily Mood: great Affect: bright Insight: improving Judgment: improving Orientation: alert and oriented to person, place, time, and circumstances Memory: unable to recall events leading to hospital admission Attention: intact Concentration: intact Language: intact Fund of Knowledge: estimated below average intelligence Laboratory and Additional Data Reviewed: Notes in care connect reviewed. Treatment options and alternatives reviewed with patient. Risks, benefits, side effects of all psychiatric medications discussed with patient and informed consent obtained. All questions were answered. SW communicating with guardian. Perry Montoya MD 04/26/2017 3:32 PM * Rory Adams, MOBILE SECURITY ARCHITECT - 04/26/2017 1:26 PM EDT Patient attends most scheduled daytime groups. Focus to group process notable improved. Pt. Smiles and interacts more directly with peers. No reacting to internal stimulus noted. Pt. Orientation to reality is improved based from direct conversations. Pt. Feels she is meeting her own goals and is excited about the possibility of getting a new apartment. AT staff will continue to educate the patient on positive coping skills and monitor for further progress. * Teri Morales RN - 04/26/2017 12:29 PM EDT Patient is calm, smiling, friendly, euthymic. Attends groups. Denies SI, or hallucinations. Denies depression. Anxiety 6/10. Not responding to internal stimuli today. Patient states she wants to get discharged. BS 148 at 1130 am. Compliant with medications. No PRN. No new orders. * Eduardo Pierre RN - 04/26/2017 5:27 AM EDT 15-minute checks performed at alternating intervals for patient safety. 0100 Patient is resting in bed with eyes closed. Respirations easy and unlabored. No distress noted. Patient retired to bed at 2150. 0500 Patient is resting in bed with eyes closed. No needs at this time. Patient has rested approximately 7 hours thus far. * Eduardo Pierre RN - 04/25/2017 11:15 PM EDT Patient seen in bedroom most of the shift with minimal peer interaction noted. She did attend snackand was up for HS medications independently. Patient denies depression. Says she has felt anxious but excited because it is a good chance she could have a place to live by next . I've got nothing but good news all day. Patient smiled and said I just need a roof over my head and I will behappy. Pt denies suicidal thoughts or hallucinations. Comfort and support given. * Deloris Aldana RN - 04/25/2017 11:18 AM EDT Patient spends free time out in active areas. Attends and participates in unit schedule. Isolates to self with minimal peer interaction. Patient does not endorse any overt delusions. Patient thoughtsare future focused. Patient voices that she feels hopeful . Voices that she is pleased with finding out that potential discharge next and she may get an efficiency apartment. Patient's affect is brighter and smiles when talking about her apartment. Patient denies any hallucinations however appears distracted at periods throughout shift. Denies any suicidal ideation. PRN- Nicotine replacement * Perry Montoya MD - 04/25/2017 10:54 AM EDT Formatting of this note may be different from the original. Psychiatry Progress Note Patient Name: Pablo Tabares Admit Date: 8130901 MR #: [id number] : 1975 Perpetual Assessment Pablo Tabares is a 41 y.o. female presenting with worsening psychotic sx who is overall improving daily. Diagnosis & Plan/Recommendations Other * Schizophrenia, paranoid, chronic with acute exacerbation (HCC) Assessment & Plan Vs. Schizoaffective disorder vs. Bipolar disorder. Sx could also be exacerbated by her cocaine use. Provide support and reassurance. Social service to obtain additional information and background, coordinate care and assess supports. silver spray worker to work with patient, family and outpatient providers on follow-up appointments and resources. silver spray worker to confirm no access to guns, review safety plan and address psychosocial issues. Occupational Therapy to provide task activity to improve self esteem and to assess and support functioning. Psychotherapy to provide disease education and improve coping skills. Encouraged patient to participate in milieu and go to groups. Incorporate individual therapy, art therapy, group therapy. Encourage patient to incorporate workbooks. Hospitalist has been consulted for ongoing medical management No medication changes. Interval History: Nursing notes were reviewed. Patient will be discussed in treatment team. Patienthas been taking better care of ADLs. Patient dressed in street clothes. Patient has not been observed to be internally stimulated during rounds. silver spray [facility]. It looks like they will be trying to secure an apartment for the patient. Patient will have case management and med drops. It seems that placement in a supervised setting such as placement in snf or [facility] place are not options for patient. That would be the most idealfor the patient. Patient has been compliant with her oral medications. Patient has not required anyas needed medications for psychotic agitation. Patient with no seclusion or restraint. Patient denies suicidal ideation, plan or intent. Patient denies homicidal ideation, auditory or visual hallucinations. Hospitalist has been following the patient. Patient also endorses an improvement in anxiety with higher dose of atarax. Patient with no prn meds for agitation. She is smiling appropriately. Review of Systems: All other systems reviewed and negative other than HPI Physical Examination: Vital Signs: BP 118/83 (BP Location: Right arm, Patient Position: Sitting) Pulse 72 Temp 98 F (36.7 C) (Oral) Resp 18 Ht 5' 3 Wt 120.8 kg (266 lb 5.1 oz) LMP (LMP Unknown) SpO2 97% ?No BMI 47.18 kg/m2 Mental Status Examination: General Appearance & Behavior: age appropriate, pleasant, cooperative, good eye contact Grooming & Hygiene: street clothes Psychomotor Activity: no psychomotor abnormalities or muscle atrophy noted Speech: diminished amount Flow of Thought: concrete Thought Associations: Intact Content of Thought: delusions, paranoia and but overall psychotic sx improving daily Mood: great Affect: bright Insight: improving Judgment: improving Orientation: alert and oriented to person, place, time, and circumstances Memory: unable to recall events leading to hospital admission Attention: intact Concentration: intact Language: intact Fund of Knowledge: estimated below average intelligence Laboratory and Additional Data Reviewed: Notes in care connect reviewed. Treatment options and alternatives reviewed with patient. Risks, benefits, side effects of all psychiatric medications discussed with patient and informed consent obtained. All questions were answered. ITZEL communicating with guardian. Perry Montoya MD 04/25/2017 10:54 AM * Lizbeth Jalloh - 04/25/2017 10:30 AM EDT ITZEL met one to one with pt and Pt's counter caser Precious from [facility]. Precious is willing to do everything possible for the Pt as long as the Pt does what she needs. All the services are connected with [facility] that includes therapy, physician for medication management, daily med drops, case management andpayee services with Arelis Lara at [facility]. Guardian Nolan Workmen. Discharge plans at this time is as follows: Marianlynda will check with the possibility of getting a sleeping room ([facility] ) until an apartment can be obtained.Precious will call the [facility] and work with the case manger at the [facility] if needed. Pt can not go to [facility] due to her level of functioning according to Katerin however Pt can be on the waiting list for the 1 day a week Aftercare. [facility] can also get Pt involved in groups at [facility] and will also get the Pt a monthlybus ticket. Tentative discharge is set for 05/02/17. ITZEL and counter caser will work together on Saturday and finalize things on Saturday with discharge on . * Eduardo iPerre RN - 04/25/2017 2:12 AM EDT 15-minute checks performed at alternating intervals for patient safety. 0100 Patient is resting in bed with eyes closed. Respirations easy and unlabored. No distress noted. Patient retired to bed at 2131. 0500 Patient is resting in bed with eyes opened. No needs at this time. Patient has rested approximately 7 hours thus far. (Up x1.) 0606 Maalox given for upset stomach. * Eduardo Pierre RN - 04/24/2017 8:38 PM EDT Patient seen in bedroom most of the shift. Out in active areas at times with select peer interaction noted. Patient attended snack and was up for HS medications independently. Patient denies any depression, anxiety, or suicidal ideations. Denies hallucinations, however seems somewhat preoccupied. Patient is focused on finding a place to live so she can get out of here. Ibuprofen given at 2022 for 5/10 lower back pain. Glucose at bedtime is 200, no coverage needed. * Lizbeth Jalloh - 04/24/2017 3:25 PM EDT ITZEL and counter caser from [facility], Precious (?) has been playing phone tag. I left her a message and whatever time is good for her to come see Pt that was fine and SW told Pt about her coming to see Pt. Pt was fine with that. * Perry Montoya MD - 04/24/2017 11:05 AM EDT Formatting of this note may be different from the original. Psychiatry Progress Note Patient Name: Pablo Tabares Admit Date: 8130901 MR #: [id number] : 1975 Perpetual Assessment Pablo Tabares is a 41 y.o. female presenting with worsening psychotic sx who is overall improving daily. Diagnosis & Plan/Recommendations Other * Schizophrenia, paranoid, chronic with acute exacerbation (HCC) Assessment & Plan Vs. Schizoaffective disorder vs. Bipolar disorder. Sx could also be exacerbated by her cocaine use. Provide support and reassurance. Social service to obtain additional information and background, coordinate care and assess supports. silver spray worker to work with patient, family and outpatient providers on follow-up appointments and resources. silver spray worker to confirm no access to guns, review safety plan and address psychosocial issues. Occupational Therapy to provide task activity to improve self esteem and to assess and support functioning. Psychotherapy to provide disease education and improve coping skills. Encouraged patient to participate in milieu and go to groups. Incorporate individual therapy, art therapy, group therapy. Encourage patient to incorporate workbooks. Hospitalist has been consulted for ongoing medical management No medication changes. Interval History: Nursing notes were reviewed. Patient was discussed in treatment team. Patient hasbeen taking better care of ADLs. Patient dressed in street clothes. Patient has not been observed to be internally stimulated during rounds. silver spray worker had a meeting with guardian and [facility]. It looks like they will be trying to secure an apartment for the patient. Patientwill have case management and med drops. It seems that placement in a supervised setting such as placement in sn[facility] or [facility] are not options for patient. That would be the most ideal forthe patient. Patient has been compliant with her oral medications. Patient has not required any as n eeded medications for psychotic agitation. Patient with no seclusion or restraint. Patient denies suicidal ideation, plan or intent. Patient denies homicidal ideation, auditory or visual hallucinations. Hospitalist has been following the patient. Patient also endorses an improvement in anxiety with higher dose of atarax. Review of Systems: All other systems reviewed and negative other than HPI Physical Examination: Vital Signs: BP (!) 160/89 (BP Location: Left arm, Patient Position: Sitting) Pulse 74 Temp 100.2 F (37.9 C)(Oral) Resp 16 Ht 5' 3 Wt 120.8 kg (266 lb 5.1 oz) LMP (LMP Unknown) SpO2 96% ? No BMI 47.18 kg/m2 Mental Status Examination: General Appearance & Behavior: age appropriate, pleasant, cooperative, good eye contact Grooming & Hygiene: street clothes Psychomotor Activity: no psychomotor abnormalities or muscle atrophy noted Speech: diminished amount Flow of Thought: concrete Thought Associations: Intact Content of Thought: delusions, paranoia and but overall psychotic sx improving daily Mood: much better Affect: bright Insight: improving Judgment: improving Orientation: alert and oriented to person, place, time, and circumstances Memory: unable to recall events leading to hospital admission Attention: intact Concentration: intact Language: intact Fund of Knowledge: estimated below average intelligence Laboratory and Additional Data Reviewed: Notes in care connect reviewed. Treatment options and alternatives reviewed with patient. Risks, benefits, side effects of all psychiatric medications discussed with patient and informed consent obtained. All questions were answered. SW communicating with guardian. Perry Montoya MD 04/24/2017 11:05 AM * Deloris Aldana RN - 04/24/2017 9:18 AM EDT Patient thought process is coherent. Patient discusses that since admission, she feels that her anger is better . Indicates that she was upset about the PIP program and not being able to find housing because she owed money for electric and heating. Patient does not endorse any overt delusions. Patient reports that she is concerned about her housing following discharge. Indicates that she is pleased that she will have assistance with finding house because she feels as this is her main stressor.Patient denies any hallucinatory activity but does appear distracted throughout shift. Patient selectively attends and participates in unit schedule. Eats meals and tolerated well. Spends free time out in active areas with minimal peer interaction. PRN- Ibuprofen 600mg PO for tooth pain/ back pain Maalox for heartburn/ upset stomach New orders- Orajel QID PRN * Emily Alberts RN - 04/24/2017 5:46 AM EDT Pt remains on suicide and unpredictable precautions. Safety checks performed every 15 minutes at varied intervals for patient safety. Pt retired to bed at 2159. 0132- Pt resting in bed with eyes closed. Respirations unlabored. No distress noted. 0529- Pt resting in bed with eyes closed. Respirations unlabored. No distress noted. 0602-blood [id number]=113 Pt has rested approximately 7.5 hours so far this shift. Uninterrupted. * Priya Schaffer, LEROY - 04/23/2017 3:40 PM EDT Patient presents as anxious with a full affect. She attends available evening groups. Patient is cooperative and pleasant during interaction. Patient smiles appropriately. Denies SI, HI, or thoughts of self harm at this time. Denies hallucinations at this time. No delusions voiced at this time. Patient spends free time withdrawn to self walking in the hallways. Patient stated that she is looking forward to tomorrow because she should find out where she will be placed to stay after discharge. Patient arrived independently for HS medications and was compliant with them. PRN's: Nicotine replacement throughout shift New Order's: None this shift Accucheck's: 1600: 120, no insulin coverage required 2000: 234, no coverage. * Torie Jackson PSA - 04/23/2017 1:54 PM EDT Pt attends all groups and appears recently to be more interactive and less paranoid about white people. Pt attended art group and made a greeting card and bookmark for her grandmother. On past days, she would only sit and stare out the window or wander aimlessly around the room, declining to attempt any project. Her goal is to find out about new housing arrangements and appears to be receptive to that plan. Staff will continue to encourage her progress. * Perry Montoya MD - 04/23/2017 10:39 AM EDT Formatting of this note may be different from the original. Psychiatry Progress Note Patient Name: Pablo Tabares Admit Date: 8130901 MR #: [id number] : 1975 Perpetual Assessment Pablo Tabares is a 41 y.o. female presenting with worsening psychotic sx who is overall improving daily. Diagnosis & Plan/Recommendations Other * Schizophrenia, paranoid, chronic with acute exacerbation (HCC) Assessment & Plan Vs. Schizoaffective disorder vs. Bipolar disorder. Sx could also be exacerbated by her cocaine use. Provide support and reassurance. Social service to obtain additional information and background, coordinate care and assess supports. silver spray worker to work with patient, family and outpatient providers on follow-up appointments and resources. silver spray worker to confirm no access to guns, review safety plan and address psychosocial issues. Occupational Therapy to provide task activity to improve self esteem and to assess and support functioning. Psychotherapy to provide disease education and improve coping skills. Encouraged patient to participate in milieu and go to groups. Incorporate individual therapy, art therapy, group therapy. Encourage patient to incorporate workbooks. Hospitalist has been consulted for ongoing medical management Increase atarax to 50mg tid. Interval History: Nursing notes were reviewed. Patient has been taking better care of ADLs. Patientdressed in street clothes. Patient has not been observed to be internally stimulated during rounds.Patient is even agreeable to placement whether it is a snf or [facility]. Patient has been appointed temporary guardian for 30 days. silver spray worker is working with guardian and outpatient provider on discharge planning options. Patient is smiling. Patient has been compliant with her oral medications. Patient has not required any as needed medications for psychotic agitation. Patient withno seclusion or restraint. Patient denies suicidal ideation, plan or intent. Patient denies homicidal ideation, auditory or visual hallucinations. Hospitalist has been following the patient. Patient states I need to apologize to Lizbeth. It's not her fault. Later in the morning, patient approaches me to ask whether her Atarax dose can be doubled to 50 mg 3 times a day. Patient states that the higher dose has been more helpful. Review of Systems: All other systems reviewed and negative other than HPI Physical Examination: Vital Signs: BP (!) 132/90 Pulse 80 Temp 98 F (36.7 C) (Oral) Resp 12 Ht 5' 3 Wt 120.8 kg (266 lb 5.1oz) LMP (LMP Unknown) SpO2 99% ? No BMI 47.18 kg/m2 Mental Status Examination: General Appearance & Behavior: age appropriate, pleasant, cooperative, good eye contact Grooming & Hygiene: street clothes Psychomotor Activity: no psychomotor abnormalities or muscle atrophy noted Speech: diminished amount Flow of Thought: concrete Thought Associations: Intact Content of Thought: delusions, paranoia and but overall psychotic sx improving daily Mood: fine Affect: bright Insight: improving Judgment: improving Orientation: alert and oriented to person, place, time, and circumstances Memory: unable to recall events leading to hospital admission Attention: intact Concentration: intact Language: intact Fund of Knowledge: estimated below average intelligence Laboratory and Additional Data Reviewed: Notes in care connect reviewed. Treatment options and alternatives reviewed with patient. Risks, benefits, side effects of all psychiatric medications discussed with patient and informed consent obtained. All questions were answered. SW communicating with guardian. Perry Montoya MD 04/23/2017 10:39 AM * Chely Quinn RN - 04/23/2017 9:11 AM EDT Patient presented to the nurses station for morning medication with prompting. Patient denies current suicidal or homicidal ideation, delusions, or hallucinations. Patient denies current anxiety or depression. Patient presents as anxious with a flat affect. Patient denies pain or needs at this time. Patient does attend groups. Patient is observed walking in the hallway. Patient is observed with some peer interaction. Patient states she is feeling better today and her anxiety is getting under control. Patient is observed talking with family on the phone. Patient states she gets along well withher family today. PRN's- Nicotine replacement. 1257 Ibuprofen 600 mg given for 9/10 tooth pain- improved. 1257 Maaloxgiven for acid reflux- improved. Accucheck- 0614- 137, 1132- 124, no coverage this shift. New order- increase Atarax to 50 mg 3 x daily. * Emily Alberts, LEROY - 04/23/2017 5:16 AM EDT Pt remains on suicide and unpredictable precautions. Safety checks performed every 15 minutes at varied intervals for patient safety. Pt retired to bed at 2147. 0058- Pt resting in bed with eyes closed. Respirations unlabored. No distress noted. 0457- Pt resting in bed with eyes closed. Respirations unlabored. No distress noted. 0613-blood [id number] Pt has rested approximately 7 hours so far this shift. Awake 1 time since retiring to bed. * Lv Lunsford RN - 04/22/2017 3:45 PM EDT BEHAVIOR/ACTIVITY : Calm & cooperative. Denies voices, no hallucinations. Participates in groups, selectively interacts. Denies pain, no distress. Spends free time in public areas. Denies needs. No preoccupations, smiles on interactions. No acting out. THOUGHT PROCESS : Limited. MOOD/AFFECT : Anxious and flat. MED COMPLIANCE : Full med compliance. PRN'S : Maalox at 337p. Nicotine supplements. MED CHANGES/NEW ORDERS: No new orders. SUICIDAL OR HOMICIDAL : Denies. * Smooth Sahu MD - 04/22/2017 12:10 PM EDT Formatting of this note may be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 participate in milieu and go to groups. Incorporate individual therapy, art therapy, group therapy. Encourage patient to incorporate workbooks. Hospitalist has been consulted for ongoing medical management- will ask them to see pt. Ordered UA,CBC and CMP. No medication changes today. Interval History: Nursing notes were reviewed. Patient will be discussed in treatment team. Patienthas been appointed temporary guardian for 30 days. silver spray worker is working with guardian and outpatient provider on discharge planning options. Psychotic symptoms are slowly improving. Patient is smiling. Patient has been taking care of ADLs. Patient has been compliant with her oral medications. Patient has not required any as needed medications for psychotic agitation. Patient with no seclusionor restraint. Patient is dressed in street clothes with her hair braided. Patient still very focused on going to [place]. Overall, the patient has shown slow improvement in her racing thoughts, flight of ideas, rapid pressured speech and paranoid delusions. Patient is not observed talking to the hall. Patient is smiling. However, the patient does have a history of chronic noncompliance. Patient overall lacks insight into her illness. Patient unable to understand the relevant information, appreciate situation and its consequences, and reason about treatment options. Patient denies suicidal ideation, plan or intent at this time. Patient denies homicidal ideation, homicidal plan or intentat this time. Patient denies any medication side effects. Patient states that she is sleeping well. Review of Systems: All other systems reviewed and negative other than HPI Physical Examination: Vital Signs: BP (!) 145/86 Pulse 72 Temp 97.8 F (36.6 C) (Oral) Resp (!) 20 Ht 5' 3 Wt 116.8 kg (257 lb 8 oz) LMP (LMP Unknown) SpO2 100% ? No BMI 45.61 kg/m2 Mental Status Examination: General Appearance & Behavior: age appropriate, pleasant, cooperative, good eye contact and poor eye contact Grooming & Hygiene: street clothes Psychomotor Activity: restless, psychomotor agitation and but improved Speech: hyperverbal and but improved Flow of Thought: flight of ideas, disorganized and but improved Thought Associations: Loose Content of Thought: auditory hallucinations, visual hallucinations, delusions, paranoia and magicalthinking Mood: okay Affect: bright Insight: poor Judgment: poor Orientation: unable to assess due to patient refusal Memory: unable to recall events leading to hospital admission Attention: improved in comparison Concentration: improved in comparison Language: intact Fund of Knowledge: estimated below average intelligence Laboratory and Additional Data Reviewed: Notes in care connect reviewed. Treatment options and alternatives reviewed with patient. Risks, benefits, side effects of all psychiatric medications discussed with patient and informed consent obtained. All questions were answered. Perry Montoya MD 04/19/2017 9:57 AM * Emily Alberts RN - 04/19/2017 5:33 AM EDT Pt remains on suicide and unpredictable precautions. Safety checks performed every 15 minutes at varied intervals for patient safety. Pt retired to bed at 2117. 0059- Pt resting in bed with eyes closed. Respirations unlabored. No distress noted. 0503- Pt resting in bed with eyes closed. Respirations unlabored. No distress noted. 0441-pt presents to nurses station requesting Nicotine lozenge. Lozenge provided. 0600-Blood jggubov=739 Pt has rested approximately 7.25 hours so far this shift. Awake 2 times since retiring to bed. * Debbie Leos RN - 04/18/2017 10:42 PM EDT Patient has been out walking in the hallway. No interaction is noted with others. Interacts well with the contract technical writer. States she feels she is doing better. Reports she missed some groups today d/t hearing regarding guardianship. No delusional material voiced to this nurse. Has arranged her hair severaldifferent ways throughout the shift. Sometimes covered and sometimes not. Less attentive to internal stimuli. Presents independently for and is compliant with HS meds. PRN - NRT * Teri Morales RN - 04/18/2017 2:47 PM EDT Patient is calm, less internally stimulated, paranoid, pressured speech, lacks insight. Attends select groups, isolative. Denies SI, or hallucinations. Denies depression or anxiety. BS 149 at 1130 am. Compliant with medications. No PRN. No new orders. * Perry Montoya MD - 04/18/2017 9:10 AM EDT Formatting of this note may be different from the original. Psychiatry Progress Note Patient Name: Pablo Tabares Admit Date: 8130901 MR #: [id number] : 1975 Perpetual Assessment Pablo Tabares is a 41 y.o. female presenting with worsening psychotic sx who remains psychotic and lacks insight into her illness. She is overall improving daily. Diagnosis & Plan/Recommendations Other * Schizophrenia, paranoid, chronic with acute exacerbation (HCC) Assessment & Plan Vs. Schizoaffective disorder vs. Bipolar disorder. Sx could also be exacerbated by her cocaine use. Provide support and reassurance. Social service to obtain additional information and background, coordinate care and assess supports. silver spray worker to work with patient, family and outpatient providers on follow-up appointments and resources. silver spray worker to confirm no access to guns, review safety plan and address psychosocial issues. Occupational Therapy to provide task activity to improve self esteem and to assess and support functioning. Psychotherapy to provide disease education and improve coping skills. Encouraged patient to participate in milieu and go to groups. Incorporate individual therapy, art therapy, group therapy. Encourage patient to incorporate workbooks. Hospitalist has been consulted for ongoing medical management- will ask them to see pt. Ordered UA,CBC and CMP. Emergency guardianship pending- hearing today. Consider mood stabilizer versus adjunct with another antipsychotic. Patient gets very irritable with a focus on discharge when discussing medication augmentation. We may have to wait till guardianship is in place before adding medications. Interval History: Nursing notes were reviewed. Patient will be discussed in treatment team. Emergency guardianship hearing is today. Patient is dressed in hospital gown. Patient states David is coming to the hearing. I am going to [place]. Away from the prejudice. I want to be with colored people. Overall, the patient has shown slow improvement in her racing thoughts, flight of ideas, rapidpressured speech and paranoid delusions. Patient is not observed talking to the hall. Patient is smiling. However, the patient does have a history of chronic noncompliance. Patient overall lacks insight into her illness. Patient unable to understand the relevant information, appreciate situation and its consequences, and reason about treatment options. Patient denies suicidal ideation, plan or intent at this time. Patient denies homicidal ideation, homicidal plan or intent at this time. Patient denies any medication side effects. Patient states that she is sleeping well. Upon review of nursing notes, the patient did complain of dysuria. Patient denies any other symptoms of a UTI. I will obtain a urinalysis with a CBC and CMP. We will have hospitalist follow the patient as well. Patient is focused on being discharged and does not want to consider any medication adjustments. Review of Systems: All other systems reviewed and negative other than HPI Physical Examination: Vital Signs: BP (!) 138/92 (BP Location: Right arm, Patient Position: Sitting) Pulse 78 Temp 98.5 F (36.9 C)(Oral) Resp (!) 20 Ht 5' 3 Wt 116.8 kg (257 lb 8 oz) LMP (LMP Unknown) SpO2 99% ? No BMI 45.61 kg/m2 Mental Status Examination: General Appearance & Behavior: minimally engaged and poor eye contact Grooming & Hygiene: hospital gown Psychomotor Activity: restless, psychomotor agitation and but improved Speech: hyperverbal and but improved Flow of Thought: flight of ideas, disorganized and but improved Thought Associations: Loose Content of Thought: auditory hallucinations, visual hallucinations, delusions, paranoia and magicalthinking Mood: great Affect: labile Insight: poor Judgment: poor Orientation: unable to assess due to patient refusal Memory: unable to recall events leading to hospital admission Attention: improved in comparison Concentration: improved in comparison Language: intact Fund of Knowledge: estimated below average intelligence Laboratory and Additional Data Reviewed: Notes in care connect reviewed. Treatment options and alternatives reviewed with patient. Risks, benefits, side effects of all psychiatric medications discussed with patient and informed consent obtained. All questions were answered. Perry Montoya MD 04/18/2017 9:10 AM * Emily Alberts RN - 04/18/2017 5:07 AM EDT Pt remains on suicide and unpredictable precautions. Safety checks performed every 15 minutes at varied intervals for patient safety. Pt retired to bed at 2217. 0101- Pt resting in bed with eyes closed. Respirations unlabored. No distress noted. 0502- Pt resting in bed with eyes closed. Respirations unlabored. No distress noted. 0600-blood [id number]=[id number] PRN: Nicotine Lozenge Pt has rested approximately 6.5 hours so far this shift. Awake 1 time since retiring to bed. * Shubham Lizbeth L - 04/17/2017 5:14 PM EDT ITZEL Hammonds called probate court and ITZEL received the court paperwork for the hearing scheduled for tomorrow 04/18/17 @ noon at [facility] [place]. Copy in chart. ITZEL Nieves obtained a copy of paperwork for the hearing tomorrow. Pt was delivered the court hearing and current is appointed a guardian and will have a court appointed district attorney for tomorrow's hearing. Pt remains delusional and paranoid. * Priya Schaffer, LEROY - 04/17/2017 3:31 PM EDT Patient presents as a bit less irritable than previous day but continues to exhibit lability throughout shift. Patient is delusional and continues to focus on her perceived injustices of the U. Shestated that she should be taking Tramadol versus Ibuprofen, and that her real medical doctor, had it prescribed for her. Patient denies SI, HI, or thoughts of self harm at this time. Denies hallucinations, however appears to be responding to internal stimuli. Patient is withdrawn to selfand spends free time pacing the hallways talking to herself. She does not attend afternoon groups. Patient stated that she has been experiencing slight discomfort with urination, relates this to dehydration. This RN will leave note for doctor. Lawyer Ronlad, may be in to see patient regarding guardianship hearing tomorrow. PRN's: Nicotine replacement throughout shift Accuchecks: 1634- 115, No coverage required 2000-150, No coverage required * Teri Morales, RN - 04/17/2017 2:46 PM EDT Patient is friendly, more organized, paranoid, pressured speech, lacks insight. States: I'm here for physical therapy. It says physiatric yuen, not psychiatric yuen. People don't know how to spell. I don't have mental problems. Attends select groups, isolative. Denies SI, or hallucinations. Patient talks less to herself or the hall. Denies depression or anxiety. BS 114 at 1130 am. Compliant with medications. No PRN. No new orders. * Amaya Álvarez Shobha - 04/17/2017 11:38 AM EDT [facility] Nolan Dietrich has been named the pt. Emergency guardian. The paperwork has been filed in the pt. Paper chart. * Perry Montoya MD - 04/17/2017 10:39 AM EDT Formatting of this note may be different from the original. Psychiatry Progress Note Patient Name: Pablo Tabares Admit Date: 8130901 MR #: [id number] : 1975 Perpetual Assessment Pablo Tabares is a 41 y.o. female presenting with worsening psychotic sx who remains psychotic and lacks insight into her illness. She is overall improving daily. Diagnosis & Plan/Recommendations Other * Schizophrenia, paranoid, chronic with acute exacerbation (HCC) Assessment & Plan Vs. Schizoaffective disorder vs. Bipolar disorder. Sx could also be exacerbated by her cocaine use. Provide support and reassurance. Social service to obtain additional information and background, coordinate care and assess supports. silver spray worker to work with patient, family and outpatient providers on follow-up appointments and resources. silver spray worker to confirm no access to guns, review safety plan and address psychosocial issues. Occupational Therapy to provide task activity to improve self esteem and to assess and support functioning. Psychotherapy to provide disease education and improve coping skills. Encouraged patient to participate in milieu and go to groups. Incorporate individual therapy, art therapy, group therapy. Encourage patient to incorporate workbooks. Hospitalist has been consulted for ongoing medical management. Emergency guardianship pending. Consider mood stabilizer versus adjunct with another antipsychotic. Patient gets very irritable with a focus on discharge when discussing medication augmentation. We may have to wait till guardianship is in place before adding medications. Meds just increased. Interval History: Nursing notes were reviewed. Patient was discussed extensively in treatment team.Emergency guardianship is pending- hearing is tomorrow. Patient has overall shown improvement in regards to her racing thoughts, flight of ideas, rapid pressured speech, paranoid delusions. Patient still very focused on going to [place]. Patient asks when she will be going in front of ic designer standard cells Anastasiia let her know that the hearing is scheduled for tentatively tomorrow. Patient with a history of chronic noncompliance as an outpatient. Patient overall lacks insight into her illness. Patient unableto understand the relevant information, appreciate situation and its consequences, and reason about treatment options. Patient denies suicidal ideation, plan or intent at this time. Patient denies homicidal ideation, homicidal plan or intent at this time. Patient denies any medication side effects.Patient states that she is sleeping well. Patient states that she did shower yesterday. Patient appears less internally stimulated overall. Review of Systems: All other systems reviewed and negative other than HPI Physical Examination: Vital Signs: BP (!) 141/98 (BP Location: Right arm, Patient Position: Sitting) Pulse 68 Temp 97.8 F (36.6 C)(Oral) Resp 14 Ht 5' 3 Wt 116.8 kg (257 lb 8 oz) LMP (LMP Unknown) SpO2 99% ? No BMI 45.61 kg/m2 Mental Status Examination: General Appearance & Behavior: minimally engaged and poor eye contact Grooming & Hygiene: hospital gown Psychomotor Activity: restless, psychomotor agitation and but improved Speech: hyperverbal and but improved Flow of Thought: flight of ideas, disorganized and but improved Thought Associations: Loose Content of Thought: auditory hallucinations, visual hallucinations, delusions, paranoia and magicalthinking Mood: fine Affect: labile Insight: poor Judgment: poor Orientation: unable to assess due to patient refusal Memory: unable to recall events leading to hospital admission Attention: distracted Concentration: reduced Language: intact Fund of Knowledge: estimated below average intelligence Laboratory and Additional Data Reviewed: Notes in care connect reviewed. Treatment options and alternatives reviewed with patient. Risks, benefits, side effects of all psychiatric medications discussed with patient and informed consent obtained. All questions were answered. Perry Montoya MD 04/17/2017 10:39 AM * Umu Ortiz RN - 04/17/2017 3:52 AM EDT Patient 15 min safety checks were performed at random intervals throughout the shift. 0105 Patient has been resting in bed with eyes closed since 2118. 0304 Patient has been resting in bed throughout the shift. Respirations are easy and unlabored. 0505 Patient has been resting in bed throughout the shift. Respirations are easy and unlabored. * Teri Morales, RN - 04/16/2017 3:38 PM EDT Patient is friendly, withdrawn, disorganized, pressured speech, paranoid, lacks insight. Attends select groups, isolative. Denies SI, or hallucinations, internally stimulated. Denies depression, low level of anxiety. Dismissive at interaction. BS 104 at 1130 am. Compliant with medications. No PRN. No new orders. * Priya Schaffer RN - 04/16/2017 3:23 PM EDT Patient attends available evening groups. She presents as irritable and labile. She is delusional, persecutory, and paranoid/suspicious. Patient is focused on discharge. Patient stated that she is doing fine but is ready to go home. Patient stated I am sick of people thinking that they can decide where I'm supposed to be. My family wants me to be with me, and they're getting upset too. They feellike I'm going farther and farther away from them by being in these facilities. Patient stated that she is not [place], but that she is [place]. She stated People talk about my dark skin, I don't have dark skin. A male named David called nurse's station, stating that patient needed to call him RONALDO and that he needs to visit her RONALDO. Patient stated that David is a friend/long lost uncle. She stated that he is going to help her get back to her country. David called nurses' station once again requesting for this RN to relay message to patient, stating that a boilermaker fitter has papers for her to sign. Again, message relayed. Patient presented to nurse's station asking for something for dehydration. This RN offered water and patient stated I don't need water, I need 7 UP but you people won't give it to me because you don't let me have any sugar. And you know what? I need sugar to break down stuff, so for that my familyis suing. You just wait. This RN attempted to provide education but patient was non-receptive. Diet [place] provided to patient. 9138 Patient stated I want something to be done about my pee test results. I might as well have something done about them while I'm in here. This RN asked patient if she was experiencing any burning, frequency, or retention issues with urination, and patient declined. Patient was reminded that doctor saw her for this abnormal Urinalysis and would like to be notified with symptoms. Patient also complaining that she sees Dr. Ventura, not Dr. Mclean. This RN informed patient that Dr. Mclean is her doctor while she is on the unit, and will not necessarily be her doctor after discharge. Patient voiced understanding. Compliant with HS medications. PRN's: Nicotine replacement throughout shift 1857 Ibuprofen 600 mg PO for 06/04 back pain. Partially effective. * Lizbeth Jalloh - 04/16/2017 2:44 PM EDT SW rec'd a message from Yasmeen at [facility]. He got all the information needed and the reports is sent on the [facility] for filing of guardianship. Pt signed AMA only after talking with her friend David. Pt wasvery approrpaite about it. Again Pt appears not to be understanding the guardian ship consist of. Dr. Troncoso is up dated on every thing. * Torie Jackson PSA - 04/16/2017 2:38 PM EDT Pt attends selective groups, but appears not to grasp the information presented and has difficulty following simple directions. When this staff greeted her in the hallway with, Hi, how are you? sheanswered You are a nosy bitch. Staff will continue to encourage and monitor her progress. * Perry Montoya MD - 04/16/2017 11:18 AM EDT Formatting of this note may be different from the original. Psychiatry Progress Note Patient Name: Pablo Tabares Admit Date: 8130901 MR #: [id number] : 1975 Perpetual Assessment Pablo Tabares is a 41 y.o. female presenting with worsening psychotic sx who remains psychotic and lacks insight into her illness. She is just a little bit more organized in comparison to yesterday. Diagnosis & Plan/Recommendations Other * Schizophrenia, paranoid, chronic with acute exacerbation (HCC) Assessment & Plan Vs. Schizoaffective disorder vs. Bipolar disorder. Sx could also be exacerbated by her cocaine use. Provide support and reassurance. Social service to obtain additional information and background, coordinate care and assess supports. silver spray worker to work with patient, family and outpatient providers on follow-up appointments and resources. silver spray worker to confirm no access to guns, review safety plan and address psychosocial issues. Occupational Therapy to provide task activity to improve self esteem and to assess and support functioning. Psychotherapy to provide disease education and improve coping skills. Encouraged patient to participate in milieu and go to groups. Incorporate individual therapy, art therapy, group therapy. Encourage patient to incorporate workbooks. Hospitalist has been consulted for ongoing medical management. Emergency guardianship pending. Consider mood stabilizer versus adjunct with another antipsychotic. Patient gets very irritable with a focus on discharge when discussing medication augmentation. We may have to wait till guardianship is in place before adding medications. Meds just increased. Interval History: Nursing notes were reviewed. Patient was discussed extensively in treatment team.Emergency guardianship is pending. Patient is a little bit more organized during interview today. Racing thoughts, flight of ideas, rapid pressured speech, paranoid delusions are still present but slightly improved since yesterday. Patient is focused on going to [place] so I can be with more colored people. There is just so much prejudice out here. Patient tolerated the increases in Haldol,BuSpar and trazodone. We did discuss in treatment team that the patient signed AMA form. Everyone is in agreement to continue to pursue guardianship. Patient with a history of chronic noncompliance as an outpatient. Patient overall lacks insight into her illness. Patient unable to understand the relevant information, appreciate situation and its consequences, and reason about treatment options. Patient denies suicidal ideation, plan or intent at this time. Patient denies homicidal ideation, homi cidal plan or intent at this time. Patient denies any medication side effects. Review of Systems: Unobtainable due to pt being disorganized Physical Examination: Vital Signs: BP (!) 159/78 (BP Location: Right arm, Patient Position: Sitting) Pulse 67 Temp 97.7 F (36.5 C)(Oral) Resp (!) 20 Ht 5' 3 Wt 112 kg (246 lb 14.6 oz) LMP (LMP Unknown) SpO2 98% ? No BMI 43.74 kg/m2 Mental Status Examination: General Appearance & Behavior: poor eye contact Grooming & Hygiene: malodorous and unkempt Psychomotor Activity: restless and psychomotor agitation Speech: hyperverbal Flow of Thought: flight of ideas and disorganized Thought Associations: Loose Content of Thought: auditory hallucinations, visual hallucinations, delusions, paranoia and magicalthinking Mood: fine Affect: labile Insight: poor Judgment: poor Orientation: unable to assess due to patient refusal Memory: unable to recall events leading to hospital admission Attention: impaired Concentration: impaired Language: intact Fund of Knowledge: estimated below average intelligence Laboratory and Additional Data Reviewed: Notes in care connect reviewed. Treatment options and alternatives reviewed with patient. Risks, benefits, side effects of all psychiatric medications discussed with patient and informed consent obtained. All questions were answered. Perry Montoya MD 04/16/2017 11:18 AM * Umu Ortiz RN - 04/16/2017 4:55 AM EDT Patient 15 min safety checks were performed at random intervals throughout the shift. 0105 Patient has been resting in bed with eyes closed since 2199. 0304 Patient has been resting in bed throughout the shift, up once. Respirations are easy and unlabored. 0505 Patient has been resting in bed throughout the shift. Respirations are easy and unlabored. * Teri Morales RN - 04/15/2017 8:41 PM EDT Patient is scattered, cooperative. Denies SI, or hallucinations. BS 133 at 8 pm. Compliant with medications. No PRN. No new orders. * Teri Morales RN - 04/15/2017 2:18 PM EDT Patient is anxious, irritable, withdrawn, disorganized, lacks insight. Attends select groups, isolative. Denies SI, or hallucinations, internally stimulated. Denies depression, anxiety 10/10. Dismissive at interaction, states she wants to go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 Subcutaneous at bedtime insulin lispro 1-30 Units Subcutaneous TID AC nicotine 1 patch Transdermal Daily traZODone 100 mg Oral Nightly . Ap .Schizoaffective/Schizophrenia:- Psych to manage DMII-- Accu checks, SS- Diabetic diet HTN- Home meds reviewed and continued/bp better Abnormal ua--no symptoms -no treatment for now-if any abdominal pain or dysuria or fevers--immediately call for abx initiattion .Will sign out for now Call if any questions or clarifications or any change in clinical picture Thank you for the consult * Perry Montoya MD - 04/11/2017 9:39 AM EDT Formatting of this note may be different from the original. Psychiatry Progress Note Patient Name: Pablo Tabares Admit Date: 8130901 MR #: [id number] : 1975 Perpetual Assessment Pablo Tabares is a 41 y.o. female presenting with worsening psychotic sx who remains psychotic and lacks insight into her illness. Diagnosis & Plan/Recommendations Other Schizophrenia, paranoid, chronic with acute exacerbation (HCC) Assessment & Plan Vs. Schizoaffective disorder vs. Bipolar disorder. Sx could also be exacerbated by her cocaine use. Provide support and reassurance. Social service to obtain additional information and background, coordinate care and assess supports. silver spray worker to work with patient, family and outpatient providers on follow-up appointments and resources. silver spray worker to confirm no access to guns, review safety plan and address psychosocial issues. Occupational Therapy to provide task activity to improve self esteem and to assess and support functioning. Psychotherapy to provide disease education and improve coping skills. Encouraged patient to participate in milieu and go to groups. Incorporate individual therapy, art therapy, group therapy. Encourage patient to incorporate workbooks. Continue current meds for now. Hospitalist has been consulted for ongoing medical management. Discussed in tx team about emergency guardianship. Everyone in agreement. Completed paperwork and given to SW. Interval History: Nursing notes were reviewed. Patient will be discussed extensively in treatment team. Records obtained from [facility] were reviewed yesterday. It seems that the patient left [facility] on February 25. Patient states that she was at [place] with a friend. Patient states that she plans to move to [place] eventually with this friend. Patient provides me with the name and phone number of this friend which will be provided to director social welfare during treatment team today. Patient also states that she has been to alf a couple of times in the last couple of months. Patient is disorganized and unable to provide a timeline at this time. Patient also states that she was at [facility] 3 days prior to admission here. Patient when asked about psychotic symptoms states people are just prejudiced in this town. I want to talk with other life forms. Patient is observed talking to herself in the hallway. Patient is internally stimulated. We also discussed in treatment team that the patient currently does not have a guardian. silver spray worker to communicate with [facility] about resources and eventual discharge planning. Patient with a history of numerous hospitalizations and chronic noncompliance. Patient lacks insight into her illness. We had a discussion in treatment team and everyone in agreement with pursuing emergency guardianship. Paperwork completed and given to SW. Review of Systems: Unobtainable due to pt being disorganized Physical Examination: Vital Signs: BP 138/83 (BP Location: Right arm, Patient Position: Sitting) Pulse 69 Temp 98.5 F (36.9 C) (Oral) Resp 16 Ht 5' 3 Wt 112 kg (246 lb 14.6 oz) LMP (LMP Unknown) SpO2 98% ? No BMI 43.74 kg/m2 Mental Status Examination: General Appearance & Behavior: poor eye contact Grooming & Hygiene: malodorous and unkempt Psychomotor Activity: restless and psychomotor agitation Speech: hyperverbal Flow of Thought: flight of ideas and disorganized Thought Associations: Loose Content of Thought: auditory hallucinations, visual hallucinations, delusions, paranoia and magicalthinking Mood: fine Affect: labile Insight: poor Judgment: poor Orientation: unable to assess due to patient refusal Memory: unable to recall events leading to hospital admission Attention: impaired Concentration: impaired Language: intact Fund of Knowledge: estimated below average intelligence Laboratory and Additional Data Reviewed: Records from [facility] reviewed. Treatment options and alternatives reviewed with patient. Risks, benefits, side effects of all psychiatric medications discussed with patient and informed consent obtained. All questions were answered. Perry Montoya MD 04/11/2017 9:39 AM * Robyn Ortiz RN - 04/11/2017 8:39 AM EDT Patient presents for medication administration after prompting. Patient appears irritable and is vocalizing all responses to internal stimuli. Patient is actively experiencing visual and auditory hallucinations. Unable to assess depression however patient appears suspicious and anxious which looks very much like paranoia.. Patient denies self harm, suicidal thought, and homicidal thoughts. Patient denies pain. Patient declines nicotine patch because RN requested she choose an alternate site as skin tissue appears excoriated where patch last places. Patient denies pain. 1404 Patient provided with education related to nicotine products. Patient is withholding multiple pieces of nicotine gun in her mouth and refusing to throw the was of gum away. Patient educated and refused to throw it away. Patient was told only lozenge can be provided until she is able to comply with medication adherence. Patient verbalized understanding. * Umu Ortiz RN - 04/11/2017 6:26 AM EDT Patient 15 min safety checks were performed at random intervals throughout the shift. 0105 Patient has been resting in bed with eyes closed since 2117. 0304 Patient has been resting in bed throughout the shift, up once. Respirations are easy and unlabored. 0505 Patient has been resting in bed throughout the shift, up twice. Respirations are easy and unlabored. * Lizbeth Jalloh - 04/10/2017 9:10 PM EDT SW obtained [facility] notes and it appears that Pt left [facility] and is staying with a friend in [place] and has not followed up with medications or treatment since February 25. Pt remains scattered and disorganized however was able to have some conversation with Dr. Montoya today. Pt Still walks the halls talking loudly to self and having conversations to no one that is there. ITZEL called [facility] and left a message with Nolberto to see what happened with [facility] and what may or may notbe what the plan is. ITZEL will also contact Ian Jassokevin counter caser and see what he knows. * Priya Schaffer RN - 04/10/2017 4:47 PM EDT Patient presents as anxious with a full affect. She is calm, cooperative, and bright during interaction with this RN. Patient is delusional and suspicious. She attends available evening groups and ismore interactive with peers in common areas during free time. She is observed smiling and singing in the hallways. Pleasant with this RN, stating I'm glad to see you, I'm doing really good! Patientdoes continue to be guarded, and doesn't elaborate much on her thoughts or feelings. Patient denieshallucinations but appears to be responding to internal stimuli. Denies SI, HI, or thoughts of selfharm at this time. When patient was up for medication, she stated They say it will cost me $100 per letter to get my name changed from Pablo to what it should be, Lulu. I don't even know where they got that name. If I were to return to my country, they wouldn't have any idea who that is. Patient stated that she is from [facility]. Patient was compliant with HS medications. PRN's: Nicotine replacement throughout shift Accucheck's: 1600: 127, No coverage required. 2000: 158, no coverage required * Robyn Ortiz RN - 04/10/2017 1:58 PM EDT Abnormal UA results noted and shared with Dr. Aleshia Leal. Assessed patient for urinary symptoms including frequency, hesitancy, and burning which patient denies. Patient denies all urinary symptoms. Patient reports not having a water source in her home and issues with remaining hydrated outside of hospital. Encouraged fluids. * Perry Montoya MD - 04/10/2017 12:41 PM EDT Formatting of this note may be different from the original. Psychiatry Progress Note Patient Name: Pablo Tabares Admit Date: 8130901 MR #: [id number] : 1975 Perpetual Assessment Pablo Tabares is a 41 y.o. female presenting with worsening psychotic sx which are slowly improving. Diagnosis & Plan/Recommendations Other Schizophrenia, paranoid, chronic with acute exacerbation (HCC) Assessment & Plan Vs. Schizoaffective disorder vs. Bipolar disorder. Sx could also be exacerbated by her cocaine use. Provide support and reassurance. Social service to obtain additional information and background, coordinate care and assess supports. silver spray worker to work with patient, family and outpatient providers on follow-up appointments and resources. silver spray worker to confirm no access to guns, review safety plan and address psychosocial issues. Occupational Therapy to provide task activity to improve self esteem and to assess and support functioning. Psychotherapy to provide disease education and improve coping skills. Encouraged patient to participate in milieu and go to groups. Incorporate individual therapy, art therapy, group therapy. Encourage patient to incorporate workbooks. Continue current meds for now. Hospitalist has been consulted for ongoing medical management. Interval History: Nursing notes were reviewed. Patient was discussed extensively in treatment team.Records obtained from [facility] were reviewed. It seems that the patient left [facility] on February 25. Patient states that she was at [place] with a friend. Patient states thatshe plans to move to [place] eventually with this friend. Patient also states that she has beento alf a couple of times in the last couple of months. Patient is disorganized and unable to provide a timeline at this time. Treatment team knows this patient from numerous admissions. Patient alsostates that she was at [facility] 3 days prior to admission here. Patient when asked about psychotic symptoms states people are just prejudiced. Just the satellite. Patient is also talking about microchips in her body. We also discussed in treatment team that the patient currently does not have aguardian. silver spray worker to communicate with [facility] about resources and eventual discharge planning. Patient with a history of numerous hospitalizations and chronic noncompliance. Review of Systems: Unobtainable due to pt being disorganized Physical Examination: Vital Signs: BP (!) 164/108 Pulse 84 Temp 99.7 F (37.6 C) (Oral) Resp 14 Ht 5' 3 Wt 112 kg (246 lb 14.6 oz) LMP (LMP Unknown) SpO2 100% ? No BMI 43.74 kg/m2 Mental Status Examination: General Appearance & Behavior: poor eye contact Grooming & Hygiene: malodorous and unkempt Psychomotor Activity: restless and psychomotor agitation Speech: hyperverbal Flow of Thought: flight of ideas and disorganized Thought Associations: Loose Content of Thought: auditory hallucinations, visual hallucinations, delusions, paranoia and magicalthinking Mood: fine Affect: labile Insight: poor Judgment: poor Orientation: unable to assess due to patient refusal Memory: unable to recall events leading to hospital admission Attention: impaired Concentration: impaired Language: intact Fund of Knowledge: estimated below average intelligence Laboratory and Additional Data Reviewed: Records from [facility] reviewed. Treatment options and alternatives reviewed with patient. Risks, benefits, side effects of all psychiatric medications discussed with patient and informed consent obtained. All questions were answered. Perry Montoya MD 04/10/2017 12:41 PM * Robyn Ortiz RN - 04/10/2017 8:56 AM EDT Morning nursing assessment began will pursue throughout morning as to not overwhelm patient. Patient presents for medication when prompted. Patient is actively responding to internal stimuli but responsive to nurse directives and questions. Patient reports depression is 4/10 and denies anxiety. Patient appears to be experiencing both auditory and visual hallucinations as well as openly discussinghallucinations. Patient denies suicidal and homicidal ideation. Patient is cooperative. Patient denies pain. Thoughts are loose with a flight of ideas. Thinking is disorganized. Patient has been pacing throughout morning, hyperverbal, and pressured speech. * Eduardo Pierre RN - 04/10/2017 1:15 AM EDT 15-minute checks performed at alternating intervals for patient safety. 0100 Patient is resting in bed with eyes closed. Respirations easy and unlabored. No distress noted. Patient retired to bed at 2315. 0320 Patient given Tylenol 650 mg PO for c/o 9/10 lower back pain. 0500 Patient is resting in bed with eyes closed. No needs at this time. Patient has rested approximately 5.5 hours thus far. (up x1.) * Debbie Leos RN - 04/09/2017 7:44 PM EDT Patient has been walking around the unit most of the shift. Attended Recovery group and Goals groupthis evening. Did not watch evening Rec movie. Noted talking to herself as she walks about the unit. When approached states she wants to go home. You are not my people. We are making her mad. When asked where her home was she refers to another planet. Thanks this nurse for calling her by her name Lulu . States That's not my registered name though. That's not the name on my registration. Used the phone later this evening.Compliant with HS meds. States she didn't get the chance to get hermedication filled after she was discharged the last time. PRN - NRT * Rory Adams, MOBILE SECURITY ARCHITECT - 04/09/2017 11:29 AM EDT Patient is a new admission, though familiar to the unit routine from previous admits. Pt. Will be assessed today by AT staff and encouraged group participation where appropriate and be monitored for progress. * Deloris Aldana RN - 04/09/2017 8:52 AM EDT Patient's thought process is disorganized, tangential, and delusional. Patient reports that the reason that she was admitted to unit was because [facility] declared war on Natalee. You should watch the news and you would know . All attempts to reality orient patient was met with resistance. Patient becomes almost challenging when this nurse would not agree with her delusions. Patient is noted hailee walking around unit responding to unknown stimuli. Patient denies any suicidal ideation. Takes medication with prompting. During morning hours, patient became increasingly more agitated talking toself. Patient took PRN PO Zyprexa without resistance. PRN- Zyprexa 5mg PO for increased agitation New orders- Buspar 5mg PO TID Hemoglobin A1C Trazadone 100mg PO QHS Haldol 5mg TID Cogentin 0.5mg PO TID * Eduardo Pierre RN - 04/09/2017 2:14 AM EDT 15-minute checks performed at alternating intervals for patient safety. 0100 Patient is resting in bed with eyes closed. Respirations easy and unlabored. No distress noted. Patient retired to bed at 0030. 0500 Patient is resting in bed with eyes closed. No needs at this time. Patient has rested approximately 4.5 hours thus far. * Eduardo Pierre RN - 04/08/2017 11:39 PM EDT Patient is a 41 year old -[place] female voluntarily admitted under the care of Dr. Field [facility] with a diagnosis of paranoid schizophrenia. Patient was brought to our ER by Daylin VILLEGAS after she was causing disturbances in places of business. Pt has been having audio/visual hallucinations; having conversation with and aliens by satellite. Also is seeing shape shifters. Patient last on this unit February 16, 2017 and was supposed to follow up with [facility]. Per reports, patient has not been to [facility] because the belief they are trying to inject their DNA into her. Apparently,patient has not been on any scheduled medications since her last admission here either. Patient is a poor historian and unable to answer most admission questions. Patient told this nurse she has no allergies, even though admissions in the past state she has many. Pt also states she is single thensays she is . Patient appears unkempt like she is not showering or taking care of ADLs. Clothes/body very dirty. Patient presented with loose associations, flight of ideas, and rambling during our 1:1 conversation. She states you all think I am on drugs..I got a cocoa leaf..It's from my kake people..I'm tired of [place]er's..[place] is going to declare war on [place]e..I am an and my family is pissed at you all for putting me in here.. When asking patient if she hearsvoices she says of course she does but they are real. She believes she is telekinetic and no one believes her. She has microchips in her head and can hear everyone talking.. but I won't tell you what about, it's none of your business. Patient denies any current suicidal/homicidal ideation. Patient has a medical history of HTN, diabetes, degenerative disk disease, and asthma. Surgical history includes breast biopsy and EGD. This information was taken from the chart as patient could not state any med/surgical history. Patient denies any alcohol or drug use. Said the cocaine in her system is a legal cocoa plant in my culture. Pt smokes 1 ppd. Patient brought on unit by security. She was given a snack and something to drink. Patient able to answer some questions, however having difficulty answering all as she would go off on tangents and switch to other topics. Patient only able to sign voluntary admission form at this time; pt unable to focus long enough to sign all papers. Pt took a shower and took all night medications with ease, saying I suppose I will have to take the meds anyway. Pt placed on unpredictable and suicide precautions. 2332 Zyprexa 5 mg PO given with HS medications for patient agitation. * ShubhamLizbeth Seng - 04/08/2017 11:02 PM EDT SW notes that Pt is active with [facility] within the past year as this SW had her on her last admission.SW to talk with Nikia at [facility] to requested records. SW will follow up with psychosocial assessment. SW left her card with Pt. And also gave the Pt a safety plan to think about and work on. * Natasha Ring RN - 04/08/2017 7:13 PM EDT DISCHARGE PLAN PROGRESS NOTE Date: 04/08/2017 Time: 7:13 PM Patient Name: Pablo Tabares Date of : 1975 Sex: Female CALLED AND SPOKE WITH TORIE FROM [facility] TO COME IN TO DO PINK SLIP . in this encounter Assessments Diagnosis Schizophrenia, paranoid, chr onic ([facility]) - Primary Paranoid schizophrenia, chronic condition Schizophrenia, unspecified t ype ([facility]) Acute UTI Urinary tract infection, site not specified Diagnosis Schizophrenia, paranoid, chr onic with acute exacerbation (HCC) - Primary Paranoid schizophrenia, chronic condition with acute exacerbation Paranoid schizophrenia (HCC) Paranoid schizophrenia, unspecified condition Chief Complaint HFrefHFrefHeart failure with improved ejection fractionHeart failure with reduced ejection fractionHeart failure with reduced ejection fraction Reason for Referral * arthritisarthritisarthritis Additional Source Comments INFORMATION SOURCE (unrecogn ized section and content) DATE CREATED AUTHOR 02/18/2018 [facility] DATE CREATED AUTHOR AUTHOR'S ORGANIZ ATION 02/19/2018 [facility] DATE CREATED AUTHOR AUTHOR'S ORGANIZ ATION 02/19/2018 [facility] DATE CREATED AUTHOR AUTHOR'S ORGANIZ ATION 02/01/2019 [facility] DATE CREATED AUTHOR AUTHOR'S ORGANIZ ATION 01/07/[address] [facility] DATE CREATED AUTHOR AUTHOR'S ORGANIZ ATION 05/08/2022 [facility] DATE CREATED AUTHOR AUTHOR'S ORGANIZ ATION 11/09/2022 [facility] DATE CREATED AUTHOR AUTHOR'S ORGANIZ ATION 04/19/2023 [facility] DATE CREATED AUTHOR AUTHOR'S ORGANIZ ATION 2023 [facility] DATE CREATED AUTHOR AUTHOR'S ORGANIZ ATION 05/22/2024 [facility] DATE CREATED AUTHOR AUTHOR'S ORGANIZ ATION 05/26/2024 [facility] DATE CREATED AUTHOR AUTHOR'S ORGANIZ ATION 06/13/2024 [facility] DATE CREATED AUTHOR AUTHOR'S ORGANIZ ATION 06/24/2024 [facility] Reason for Visit (unrecogniz ed section and content) Reason Comments Psychiatric Evaluation Reason Comments Follow-up 1 year Perry Montoya MD - 05/27/2017 12:46 PM EDT H&P Notes (unrecognized sect ion and content) Formatting of this note may be different from the original. Psychiatry History and Physical Patient Name: Pablo Tabares MR #: [id number] : 1975 Admit Date: [id number] Primary Care Provider: Physician No Assessment Pablo Tabares is a 41 y.o. female presenting with worsening psychotic sx who was just dc on 05/02/17. Diagnosis & Plan/Recommendations Carlock I: Schizophrenia chronic paranoid type Carlock II: Deferred Carlock III: see medical hx Carlock IV: Problems with primary support group, Problems related to social environment, Housing problems and Other psychosocial and environmental problems Carlock V: 1-10: Persistent dangerousness to self and others present OR persistent inability to maintain minimal personal hygiene OR serious suicidal act with clear expectation of Other * Schizophrenia, paranoid, chronic (HCC) Assessment & Plan Provide support and reassurance. Social service to obtain additional information and background, coordinate care and assess supports. silver spray worker to work with patient, family and outpatient providers on follow-up appointments and resources. silver spray worker to confirm no access to guns, review safety plan and address psychosocial issues. Occupational Therapy to provide task activity to improve self esteem and to assess and support functioning. Psychotherapy to provide disease education and improve coping skills. Encouraged patient to participate in milieu and go to groups. Incorporate individual therapy, art therapy, group therapy. Encourage patient to incorporate workbooks. I reviewed all labs. Will order appropriate labs during hospitalization. Adjust medication to address symptoms. Encouraged medication compliance. Hospitalist has been consulted for ongoing medical management. Medication changes were discussed with patient including: restart her dc med regimen. Patient has a guardian. SW to work with guardian and [facility] and placement. Ordered A1C due to high glucose. Chief Complaint: I need to go [place] to be with my family. History of Present Illness: Pablo Tabares is a 41 y.o. female with a history of schizophrenia who was admitted by Dr. Greer due to worsening psychotic sx. Patient was hospitalized from April 08, 2017 to May 02, 2017 under my care. Patient with a very similar presentation. Patient with numerous past psychiatric hospitalizations. During her last hospitalization, her Haldol dose was increased to 5 mg in the morning, 5 mg in the afternoon, 10 mg at bedtime. Patient was also given Atarax 50 mg 3 times a day schedules. Patient was also given BuSpar and trazodone as needed for sleep. Her psychotic symptoms, mood and agitation symptoms improved with this medication regimen. Guardianship was pursued and granted. It seems that placement in a supervised setting such as snf were not options for the patient. Patient did really well in a supervised hospital setting. Due to lack of finances, the patient had to be [facility]. Patient was discharged with case management and med drops. Patient unable to provide hx since dc. Most likely, patient with noncompliance with meds since dc. I reviewed notes in care connect. Patient states I need to go [place] to be with my family. Patient is disorganized, psychotic, internally stimulated during the interview. Patient with racing thoughts, rapid speech. Patient is overall paranoiad. Patient is very agitated during the interview. silver spray worker did talk to [facility] probate court and [facility] since pt needs placement once stabilized. PSYCHIATRIC HISTORY: Prior diagnosis: schizophrenia Current psychiatrist: thru [facility] Current therapist: [facility] Previous hospitalizations: numerous History of suicide attempts: unable to obtain Access to firearms currently: unable to obtain Past medication trials: unable to obtain from pt SOCIAL HISTORY: Patient has a guardian. SUBSTANCE ABUSE HISTORY: Patient denies alcohol use or illicit drug use. Her tox is negative. Medical History: I have reviewed the patient's other history as below: Past Medical History: Diagnosis Date Asthma Bipolar disorder (HCC) Cocaine abuse Diabetes mellitus (HCC) Gestational hypertension History of depression Hypertension Obesity Obesity Schizo affective schizophrenia (HCC) Schizophrenia (HCC) Past Surgical History: Procedure Laterality Date BREAST BIOPSY 2000 EGD N/A 08/09/2015 Procedure: EGD; Surgeon: Shon Sheehan MD; Location: [facility]; Service: Family History: Family History Problem Relation Age of Onset Hypertension Father Diabetes Other Grandfather Stomach cancer Other Grandfather Glaucoma Other Grandmother Mental illness Mother Allergy Information: I have reviewed the patient's allergies as below: Kameron inhibitors; Amoxicillin; Ciprofloxacin; and Penicillins Home Medications: Outpatient Prescriptions as of 05/27/2017 Medication Sig amLODIPine (NORVASC) 10 MG tablet Take 1 (one) tablet (10 mg total) by mouth daily. busPIRone (BUSPAR) 7.5 MG tablet Take 1 (one) tablet (7.5 mg total) by mouth 3 (three) times a day. haloperidol (HALDOL) 10 MG tablet Take 1 (one) tablet (10 mg total) by mouth nightly. haloperidol (HALDOL) 5 MG tablet Take 1 (one) tablet (5 mg total) by mouth 2 (two) times a day Take in am and 1400. metFORMIN (GLUCOPHAGE) 500 MG tablet Take 1 (one) tablet (500 mg total) by mouth daily with breakfast. Review of Systems: Patient disorganized and agitated- therefore unable to obtain. Physical Examination: Vital Signs: BP (!) 160/112 (BP Location: Right arm, Patient Position: Sitting) Pulse 80 Temp 97.8 F (36.6 C) Resp 18 Ht 5' 3 Wt 119.7 kg (263 lb 14.3 oz) LMP (LMP Unknown) Comment: currently menstruating SpO2 99% ? No BMI 46.75 kg/m2 Mental Status Evaluation: General Appearance & Behavior: uncooperative and poor eye contact Grooming & Hygiene: hospital gown Psychomotor Activity: restless Speech: profane language and rambling Flow of Thought: flight of ideas and disorganized Thought Associations: Loose Content of Thought: auditory hallucinations, visual hallucinations, delusions, paranoia and magical thinking Mood: frustrated Affect: labile Insight: poor Judgment: poor Orientation: unable to assess due to patient refusal Memory: unable to assess due to patient refusal Attention: impaired Concentration: impaired Language: unable to assess due to patient refusal Fund of Knowledge: estimated below average intelligence Laboratory and Additional Data Reviewed: Notes in care connect reviewed. Discussed in tx team. Treatment options and alternatives reviewed with patient and Guardian. Risks, benefits, side effects of all psychiatric medications discussed with patient and Guardian and informed consent obtained. All questions were answered. SW and nursing staff to communicate with guardian. Perry Montoya MD 05/27/2017 12:46 PM in this encounter Celsa Saravia, RETAIL LOSS PREVENTION INVESTIGATOR - 05/27/2017 2:55 PM EDT Consult Notes (unrecognized section and content) Associated Order(s): IP CONSULT TO HOSPITALIST Formatting of this note may be different from the original. . . HOSPITALIST CONSULT NOTE Patient Name: Pablo Tabares : 1975 MR #: [id number] Admit Date: [id number] Physicians: Physician No (Family); No ref. provider found (Referring) Chief Complaint: Hospitalists consulted by Perry Montoya MD for medical management History of Present Illness: Pablo Tabaresadmitted to the behavioral health unit for Chronic paranoid schizophrenia. Medical management sought by the psychiatrists Past Medical History: Past Medical History: Diagnosis Date Asthma Bipolar disorder (HCC) Cocaine abuse Diabetes mellitus (HCC) Gestational hypertension History of depression Hypertension Obesity Obesity Schizo affective schizophrenia (HCC) Schizophrenia (HCC) Past Surgical Hisory: Past Surgical History: Procedure Laterality Date BREAST BIOPSY 2000 EGD N/A 08/09/2015 Procedure: EGD; Surgeon: Shon Sheehan MD; Location: [facility]; Service: Family History: Family History Problem Relation Age of Onset Hypertension Father Diabetes Other Grandfather Stomach cancer Other Grandfather Glaucoma Other Grandmother Mental illness Mother Social History: History Smoking Status Current Every Day Smoker Packs/day: 1.00 Smokeless Tobacco Never Used History Alcohol Use No Comment: pt denies History Drug Use Yes Special: Cocaine Comment: denies but tests positive for cocaine Allergy Information: I have reviewed the patient's allergies. Kameron inhibitors; Amoxicillin; Ciprofloxacin; and Penicillins Home Medications: Prior to Admission medications Medication Sig Start Date End Date Taking? Authorizing Provider amLODIPine (NORVASC) 10 MG tablet Take 1 (one) tablet (10 mg total) by mouth daily. 05/02/17 06/01/17 Perry Montoya MD busPIRone (BUSPAR) 7.5 MG tablet Take 1 (one) tablet (7.5 mg total) by mouth 3 (three) times a day. 05/02/17 06/01/17 Perry Montoya MD haloperidol (HALDOL) 10 MG tablet Take 1 (one) tablet (10 mg total) by mouth nightly. 05/02/17 06/01/17 Perry Montoya MD haloperidol (HALDOL) 5 MG tablet Take 1 (one) tablet (5 mg total) by mouth 2 (two) times a day Take in am and 1400. 05/02/17 06/01/17 Perry Montoya MD metFORMIN (GLUCOPHAGE) 500 MG tablet Take 1 (one) tablet (500 mg total) by mouth daily with breakfast. 05/02/17 06/01/17 Smooth Sahu MD hydrOXYzine (ATARAX) 50 MG tablet Take 1 (one) tablet (50 mg total) by mouth 3 (three) times a day. 05/02/17 05/27/17 Perry Montoya MD nicotine (NICODERM CQ) 21 mg/[address] 1 (one) patch on the skin daily. 05/02/17 05/27/17 Perry Montoya MD traZODone (DESYREL) 150 MG tablet Take 1 (one) tablet (150 mg total) by mouth nightly. 05/02/17 05/27/17 Perry Montoya MD ROS: All the systems were reviewed and all of them were negative except for the ones mentioned earlier PHYSICAL EXAMINATION: Vital Signs: BP (!) 160/112 (BP Location: Right arm, Patient Position: Sitting) Pulse 80 Temp 97.8 F (36.6 C) Resp 18 Ht 5' 3 Wt 119.7 kg (263 lb 14.3 oz) LMP (LMP Unknown) Comment: currently menstruating SpO2 99% ? No BMI 46.75 kg/m2 This patient is quite sedated at my assessment. She will open eyes, but returns to sleep. Urine tox neg. She has snoring respirations, but no noted apnea. She was medicated prior to my assessment with a PRN dose of Zyprexa and her scheduled haldol. Security was called on pt this am due to paranoid ranting. I was unable to perform a full neuro assessment. Staff states Pt was ambulatory, moving all ext earlier in the shift. HT aud, No Murmur Lungs snorous No edema is appreciated Laboratory and Additional Data Reviewed: Results/Medications Reviewed 05/27/17 2:56 PM: Results from last 7 days Lab Units 05/27/17 0615 05/27/17 0329 SODIUM mmol/L 140 141 POTASSIUM mmol/L 3.5 3.2* CHLORIDE mmol/L 106 106 BUN mg/dL 9 10 CREATININE mg/dL 0.76 0.90 GLUCOSE mg/dL 127* 137* CALCIUM mg/dL 9.0 8.9 Results from last 7 days Lab Units 05/27/17 0329 WBC K/mcL 11.53* HGB g/dL 13.1 HCT % 39.7 PLT K/mcL 189 Invalid input(s): CKMBINDEX Results from last 7 days Lab Units 05/27/17 0615 ALK PHOS U/L 102 BILIRUBIN TOTAL mg/dL 0.4 TOTAL PROTEIN g/dL 8.3* ALTR U/L 21 AST U/L 13 Results from last 7 days Lab Units 05/27/17 0418 CLARITY, UR Hazy* SPEC GRAV 1.025 PH, UR 6.0 BILIRUBIN, UR Negative UROBILINOGEN, UR mg/dL <2.0 BLOOD, UR Small* NITRITE, UR Negative WBC, UR /hpf 20* BACTERIA, UR /hpf None Seen Ap ## chronic paranoid schizophrenia -psych team managing ## Suspected UTI- Pt was started on Macrobid ## Hypertension- continue patient on amlodipine ## Diabetes- continue patient on metformin- last Hga1c was 7.0, ss added ## Ashtma, will add prn Ventolin inhaler Will sign out for now --call if any questions or any change in clinical picture Thank you for the consult Associated attestation - Smooth Sahu MD - 05/30/2017 5:25 PM EDT .Independently evaluated the pt dw poly packer and heat sealer dw nursing staff See poly packer and heat sealer's note for detailsin this encounter Quick Note - Smooth Sahu MD - 06/12/2017 1:23 PM EDTPlan of Deloris Julian, RN - 06/11/2017 11:48 AM EDTPlan of Deloris Julian RN - 06/11/2017 11:48 AM EDT Miscellaneous Notes (unrecog nized section and content) Metformin bid for home 500 Sent to pharmacy Problem: Health Maintenance - Impaired Goal: Improved sleep pattern Outcome: Met Voices an improvement in sleep Problem: Cognitive-Perceptual Pattern - Impaired Goal: Improved thought processes Outcome: Partially Met Thoughts are more organized and clear Problem: Health Maintenance - Impaired Goal: Improved sleep pattern Outcome: Met Denies any sleep difficulties Problem: Cognitive-Perceptual Pattern - Impaired Goal: Improved thought processes Outcome: Partially Met No overt delusional material voiced Formatting of this note may be different from the original. Behavioral Health Treatment Plan Update Date: 06/10/2017 Time: 9:08 AM Patient Name: Pablo Lopez Alleman Date of : 1975 Sex: Female Patient Active Problem List Diagnosis SNOMED CT(R) Date Noted Schizophrenia, paranoid, chronic (HCC) CHRONIC PARANOID SCHIZOPHRENIA 05/27/2017 Cocaine abuse COCAINE ABUSE 05/16/2017 Hypertensive urgency HYPERTENSIVE URGENCY 08/01/2015 Abdominal pain r/o cholelithiasis ABDOMINAL PAIN 08/01/2015 DDD (degenerative disc disease), lumbar DEGENERATION OF LUMBAR INTERVERTEBRAL DISC 07/11/2015 Anaphylaxis ANAPHYLAXIS 06/03/2015 Schizophrenia, paranoid, chronic with acute exacerbation (HCC) ACUTE EXACERBATION OF CHRONIC PARANOID SCHIZOPHRENIA 05/28/2015 Hypokalemia HYPOKALEMIA 05/28/2015 Schizophrenia (HCC) SCHIZOPHRENIA 05/28/2015 Chronic hypertension HYPERTENSIVE DISORDER 01/21/2015 Non morbid obesity OBESITY 01/21/2015 Tobacco use TOBACCO USE AND EXPOSURE - FINDING 01/21/2015 Medical non-compliance PATIENT NONCOMPLIANCE - GENERAL 01/21/2015 Diabetes mellitus type 2 in obese (HCC) TYPE 2 DIABETES MELLITUS IN OBESE 03/23/2005 Diagnosis Carlock I: unchanged Carlock II: unchanged Carlock III: Patient Active Problem List Diagnosis SNOMED CT(R) Date Noted Schizophrenia, paranoid, chronic (HCC) CHRONIC PARANOID SCHIZOPHRENIA 05/27/2017 Cocaine abuse COCAINE ABUSE 05/16/2017 Hypertensive urgency HYPERTENSIVE URGENCY 08/01/2015 Abdominal pain r/o cholelithiasis ABDOMINAL PAIN 08/01/2015 DDD (degenerative disc disease), lumbar DEGENERATION OF LUMBAR INTERVERTEBRAL DISC 07/11/2015 Anaphylaxis ANAPHYLAXIS 06/03/2015 Schizophrenia, paranoid, chronic with acute exacerbation (HCC) ACUTE EXACERBATION OF CHRONIC PARANOID SCHIZOPHRENIA 05/28/2015 Hypokalemia HYPOKALEMIA 05/28/2015 Schizophrenia (HCC) SCHIZOPHRENIA 05/28/2015 Chronic hypertension HYPERTENSIVE DISORDER 01/21/2015 Non morbid obesity OBESITY 01/21/2015 Tobacco use TOBACCO USE AND EXPOSURE - FINDING 01/21/2015 Medical non-compliance PATIENT NONCOMPLIANCE - GENERAL 01/21/2015 Diabetes mellitus type 2 in obese (HCC) TYPE 2 DIABETES MELLITUS IN OBESE 03/23/2005 Carlock IV: unchanged Carlock V: unchanged Expected Discharge Date: 06/11/2017 ELOS: 15-20 days Precautions Precautions: Unpredictable Patient Presenting Issues: Patient's Primary Presenting Issue Patient's Primary Presenting Issue: Psychosis Psychosis Symptoms: Disorganized Psychosis Treatment Goals: (minimization of psychosis) Days To Improvement Of Goal: (10-20 days) Psychosis Interventions: Medication management/evaluation, Group psychoeducation, Medication education, Develop personal safety plan, Individual psychoeducation, Aftercare arrangements Status Of Goal: Improved Precautions Precautions: Unpredictable Seclusion/Restraint Date: N/A Interventions to reduce Seclusion/Restraint: N/A Patient Strengths Patient Strengths: Mental health services Patient Limitations Patient Limitations: Lack of financial means, Lack of stable employment, Low self esteem, Lack of stable housing Discharge Needs Anticipated Facility Type: Psychiatric aftercare, Community mental health, nursing home Criteria For Discharge Criteria For Discharge: Maximum benefit obtained, Goals met Additional Comments: The patient continues to consume PRN Zyprexa, which is curious given she went so long without PRN's. She will persist on her present, psychotropic regimen. Group psychotherapy will continue. Nursing will closely monitor her toleration and response to the course of clinical care. student services dean shall assist with both treatment and discharge planning. [facility] approved the patient's ECF placement, as a 7 day emergency admission . A gentlemen from [facility] left me a voicemail, indicating they do not think she meets criteria for long-term ECF placement. A voicemail has been left with [facility], asking for feedback. If they are not able to justify permanent ECF placement, [facility] will have to produce an alternative. Discharge planning remains unfortunately incomplete. Physician, Registered Nurse, Aluminum Pourer, Adjunct Therapist included in treatment team discussion. Treatment team members present: Vinay ULLOA, Rigoberto JAEGER, Rhonda RN, Terri RN, Nasra MITCHELL-S, Lizbeth GALVAN, aKti MITCHELL, Alex MARTIN Patient Signature Date Patient's Response To Treatment Plan: CLOTH MERCERIZER OPERATOR-S Signature Date Problem: Cognitive-Perceptual Pattern - Impaired Goal: Improved thought processes Outcome: Partially Met Thoughts are reality based and organized. The pt verbalizes she has auditory hallucinations. Problem: Health Maintenance - Impaired Goal: Improved sleep pattern Outcome: Met It is recorded that the pt slept 6 hours. Formatting of this note may be different from the original. Behavioral Health Treatment Plan Update Date: 06/07/2017 Time: 11:13 AM Patient Name: Pablo Tabares Date of : 1975 Sex: Female Patient Active Problem List Diagnosis SNOMED CT(R) Date Noted Schizophrenia, paranoid, chronic (HCC) CHRONIC PARANOID SCHIZOPHRENIA 05/27/2017 Cocaine abuse COCAINE ABUSE 05/16/2017 Hypertensive urgency HYPERTENSIVE URGENCY 08/01/2015 Abdominal pain r/o cholelithiasis ABDOMINAL PAIN 08/01/2015 DDD (degenerative disc disease), lumbar DEGENERATION OF LUMBAR INTERVERTEBRAL DISC 07/11/2015 Anaphylaxis ANAPHYLAXIS 06/03/2015 Schizophrenia, paranoid, chronic with acute exacerbation (HCC) ACUTE EXACERBATION OF CHRONIC PARANOID SCHIZOPHRENIA 05/28/2015 Hypokalemia HYPOKALEMIA 05/28/2015 Schizophrenia (HCC) SCHIZOPHRENIA 05/28/2015 Chronic hypertension HYPERTENSIVE DISORDER 01/21/2015 Non morbid obesity OBESITY 01/21/2015 Tobacco use TOBACCO USE AND EXPOSURE - FINDING 01/21/2015 Medical non-compliance PATIENT NONCOMPLIANCE - GENERAL 01/21/2015 Diabetes mellitus type 2 in obese (HCC) TYPE 2 DIABETES MELLITUS IN OBESE 03/23/2005 Diagnosis Carlock I: unchanged Carlock II: unchanged Carlock III: Patient Active Problem List Diagnosis SNOMED CT(R) Date Noted Schizophrenia, paranoid, chronic (HCC) CHRONIC PARANOID SCHIZOPHRENIA 05/27/2017 Cocaine abuse COCAINE ABUSE 05/16/2017 Hypertensive urgency HYPERTENSIVE URGENCY 08/01/2015 Abdominal pain r/o cholelithiasis ABDOMINAL PAIN 08/01/2015 DDD (degenerative disc disease), lumbar DEGENERATION OF LUMBAR INTERVERTEBRAL DISC 07/11/2015 Anaphylaxis ANAPHYLAXIS 06/03/2015 Schizophrenia, paranoid, chronic with acute exacerbation (HCC) ACUTE EXACERBATION OF CHRONIC PARANOID SCHIZOPHRENIA 05/28/2015 Hypokalemia HYPOKALEMIA 05/28/2015 Schizophrenia (HCC) SCHIZOPHRENIA 05/28/2015 Chronic hypertension HYPERTENSIVE DISORDER 01/21/2015 Non morbid obesity OBESITY 01/21/2015 Tobacco use TOBACCO USE AND EXPOSURE - FINDING 01/21/2015 Medical non-compliance PATIENT NONCOMPLIANCE - GENERAL 01/21/2015 Diabetes mellitus type 2 in obese (HCC) TYPE 2 DIABETES MELLITUS IN OBESE 03/23/2005 Carlock IV: unchanged Carlock V: unchanged Expected Discharge Date: 06/11/2017 ELOS: 15-20 days Precautions Precautions: Unpredictable Patient Presenting Issues: Patient's Primary Presenting Issue Patient's Primary Presenting Issue: Psychosis Psychosis Symptoms: Disorganized Psychosis Treatment Goals: (minimization of psychosis) Days To Improvement Of Goal: (10-20 days) Psychosis Interventions: Medication management/evaluation, Group psychoeducation, Medication education, Develop personal safety plan, Individual psychoeducation, Aftercare arrangements Status Of Goal: Improved Precautions Precautions: Unpredictable Seclusion/Restraint Date: N/A Interventions to reduce Seclusion/Restraint: N/A Patient Strengths Patient Strengths: Mental health services Patient Limitations Patient Limitations: Lack of financial means, Lack of stable employment, Low self esteem, Lack of stable housing Discharge Needs Anticipated Facility Type: Psychiatric aftercare, Community mental health, nursing home Criteria For Discharge Criteria For Discharge: Maximum benefit obtained, Goals met Additional Comments: The patient has merited PRN Zyprexa, due to break-through psychiatric symptoms. She will persist on her present, psychotropic regimen. Group psychotherapy will continue. Nursing will closely monitor her toleration and response to the course of care. student services dean shall assist with both treatment and discharge planning. The PASSR/LOC has been completed. Reyes was here this morning, and met with the patient regarding ECF placement. Coordination of care has been completed with the guardian and counter caser. Should the state approve the ECF admission, the counter caser will transport the patient to the facility Saturday morning. Physician, Registered Nurse, Aluminum Pourer, Adjunct Therapist included in treatment team discussion. Treatment team members present: Vinay ULLOA, Rigoberto JAEGER, Rhonda RN, Terri RN, Lizbeth GARCIAW, Kati MITCHELL, Alex SMITHS Patient Signature Date Patient's Response To Treatment Plan: CLOTH MERCERIZER OPERATOR-S Signature Date Problem: Health Maintenance - Impaired Goal: Improved sleep pattern Outcome: Not Met Patient is now sleeping half of day and all nighttime Formatting of this note may be different from the original. Behavioral Health Treatment Plan Update Date: 06/06/2017 Time: 10:03 AM Patient Name: Pablo Lopez Alleman Date of : 1975 Sex: Female Patient Active Problem List Diagnosis SNOMED CT(R) Date Noted Schizophrenia, paranoid, chronic (HCC) CHRONIC PARANOID SCHIZOPHRENIA 05/27/2017 Cocaine abuse COCAINE ABUSE 05/16/2017 Hypertensive urgency HYPERTENSIVE URGENCY 08/01/2015 Abdominal pain r/o cholelithiasis ABDOMINAL PAIN 08/01/2015 DDD (degenerative disc disease), lumbar DEGENERATION OF LUMBAR INTERVERTEBRAL DISC 07/11/2015 Anaphylaxis ANAPHYLAXIS 06/03/2015 Schizophrenia, paranoid, chronic with acute exacerbation (HCC) ACUTE EXACERBATION OF CHRONIC PARANOID SCHIZOPHRENIA 05/28/2015 Hypokalemia HYPOKALEMIA 05/28/2015 Schizophrenia (HCC) SCHIZOPHRENIA 05/28/2015 Chronic hypertension HYPERTENSIVE DISORDER 01/21/2015 Non morbid obesity OBESITY 01/21/2015 Tobacco use TOBACCO USE AND EXPOSURE - FINDING 01/21/2015 Medical non-compliance PATIENT NONCOMPLIANCE - GENERAL 01/21/2015 Diabetes mellitus type 2 in obese (HCC) TYPE 2 DIABETES MELLITUS IN OBESE 03/23/2005 Diagnosis Carlock I: unchanged Carlock II: unchanged Carlock III: Patient Active Problem List Diagnosis SNOMED CT(R) Date Noted Schizophrenia, paranoid, chronic (HCC) CHRONIC PARANOID SCHIZOPHRENIA 05/27/2017 Cocaine abuse COCAINE ABUSE 05/16/2017 Hypertensive urgency HYPERTENSIVE URGENCY 08/01/2015 Abdominal pain r/o cholelithiasis ABDOMINAL PAIN 08/01/2015 DDD (degenerative disc disease), lumbar DEGENERATION OF LUMBAR INTERVERTEBRAL DISC 07/11/2015 Anaphylaxis ANAPHYLAXIS 06/03/2015 Schizophrenia, paranoid, chronic with acute exacerbation (HCC) ACUTE EXACERBATION OF CHRONIC PARANOID SCHIZOPHRENIA 05/28/2015 Hypokalemia HYPOKALEMIA 05/28/2015 Schizophrenia (HCC) SCHIZOPHRENIA 05/28/2015 Chronic hypertension HYPERTENSIVE DISORDER 01/21/2015 Non morbid obesity OBESITY 01/21/2015 Tobacco use TOBACCO USE AND EXPOSURE - FINDING 01/21/2015 Medical non-compliance PATIENT NONCOMPLIANCE - GENERAL 01/21/2015 Diabetes mellitus type 2 in obese (HCC) TYPE 2 DIABETES MELLITUS IN OBESE 03/23/2005 Carlock IV: unchanged Carlock V: unchanged Expected Discharge Date: 06/11/2017 ELOS: 10-15 days Precautions Precautions: Unpredictable Patient Presenting Issues: Patient's Primary Presenting Issue Patient's Primary Presenting Issue: Psychosis Psychosis Symptoms: Disorganized Psychosis Treatment Goals: (minimization of psychosis) Days To Improvement Of Goal: (10-20 days) Psychosis Interventions: Medication management/evaluation, Group psychoeducation, Medication education, Develop personal safety plan, Individual psychoeducation, Aftercare arrangements Status Of Goal: Improved Precautions Precautions: Unpredictable Seclusion/Restraint Date: N/A Interventions to reduce Seclusion/Restraint: N/A Patient Strengths Patient Strengths: Mental health services Patient Limitations Patient Limitations: Lack of financial means, Lack of stable employment, Low self esteem, Lack of stable housing Discharge Needs Anticipated Facility Type: Psychiatric aftercare, Community mental health, nursing home Criteria For Discharge Criteria For Discharge: Maximum benefit obtained, Goals met Additional Comments: The patient has been initiated on a psychotropic regimen, which shall persist. Group psychotherapy will continue. Nursing will closely monitor her toleration and response to the course of clinical care. student services dean shall assist with both treatment and discharge planning. The patient will discharge to a psychiatric nursing unit, once placement is secured, the guardian provides consent, and the LOC screening is approved by [facility]'s contract provider. Discharge will tentatively be early next week, if accepted into [facility]. They are reviewing the potential admission this morning, in their care conference. Physician, Registered Nurse, Aluminum Pourer, Adjunct Therapist included in treatment team discussion. Treatment team members present: Ben ULLOA, Deloris RN, Terri RN, Lizbeth GALVAN, Kati MITCHELL, Alex MARTIN Patient Signature Date Patient's Response To Treatment Plan: CLOTH MERCERIZER OPERATOR-S Signature Date Problem: Cognitive-Perceptual Pattern - Impaired Goal: Improved thought processes Outcome: Partially Met The pt denies hallucinations. Problem: Health Maintenance - Impaired Goal: Improved sleep pattern Outcome: Met The pt reports sleeping well; recorded 6 1/2 hours of sleep. Problem: Cognitive-Perceptual Pattern - Impaired Goal: Improved thought processes Outcome: Partially Met The pt is going by her name of Pablo this shift. Formatting of this note may be different from the original. Behavioral Health Treatment Plan Update Date: 06/03/2017 Time: 10:42 AM Patient Name: Pablo Tabares Date of : 1975 Sex: Female Patient Active Problem List Diagnosis SNOMED CT(R) Date Noted Schizophrenia, paranoid, chronic (HCC) CHRONIC PARANOID SCHIZOPHRENIA 05/27/2017 Cocaine abuse COCAINE ABUSE 05/16/2017 Hypertensive urgency HYPERTENSIVE URGENCY 08/01/2015 Abdominal pain r/o cholelithiasis ABDOMINAL PAIN 08/01/2015 DDD (degenerative disc disease), lumbar DEGENERATION OF LUMBAR INTERVERTEBRAL DISC 07/11/2015 Anaphylaxis ANAPHYLAXIS 06/03/2015 Schizophrenia, paranoid, chronic with acute exacerbation (HCC) ACUTE EXACERBATION OF CHRONIC PARANOID SCHIZOPHRENIA 05/28/2015 Hypokalemia HYPOKALEMIA 05/28/2015 Schizophrenia (HCC) SCHIZOPHRENIA 05/28/2015 Chronic hypertension HYPERTENSIVE DISORDER 01/21/2015 Non morbid obesity OBESITY 01/21/2015 Tobacco use TOBACCO USE AND EXPOSURE - FINDING 01/21/2015 Medical non-compliance PATIENT NONCOMPLIANCE - GENERAL 01/21/2015 Diabetes mellitus type 2 in obese (HCC) TYPE 2 DIABETES MELLITUS IN OBESE 03/23/2005 Diagnosis Carlock I: unchanged Carlock II: unchanged Carlock III: Patient Active Problem List Diagnosis SNOMED CT(R) Date Noted Schizophrenia, paranoid, chronic (HCC) CHRONIC PARANOID SCHIZOPHRENIA 05/27/2017 Cocaine abuse COCAINE ABUSE 05/16/2017 Hypertensive urgency HYPERTENSIVE URGENCY 08/01/2015 Abdominal pain r/o cholelithiasis ABDOMINAL PAIN 08/01/2015 DDD (degenerative disc disease), lumbar DEGENERATION OF LUMBAR INTERVERTEBRAL DISC 07/11/2015 Anaphylaxis ANAPHYLAXIS 06/03/2015 Schizophrenia, paranoid, chronic with acute exacerbation (HCC) ACUTE EXACERBATION OF CHRONIC PARANOID SCHIZOPHRENIA 05/28/2015 Hypokalemia HYPOKALEMIA 05/28/2015 Schizophrenia (HCC) SCHIZOPHRENIA 05/28/2015 Chronic hypertension HYPERTENSIVE DISORDER 01/21/2015 Non morbid obesity OBESITY 01/21/2015 Tobacco use TOBACCO USE AND EXPOSURE - FINDING 01/21/2015 Medical non-compliance PATIENT NONCOMPLIANCE - GENERAL 01/21/2015 Diabetes mellitus type 2 in obese (HCC) TYPE 2 DIABETES MELLITUS IN OBESE 03/23/2005 Carlock IV: unchanged Carlock V: unchanged Expected Discharge Date: 06/06/2017 ELOS: 7-10 days Precautions Precautions: Unpredictable Patient Presenting Issues: Patient's Primary Presenting Issue Patient's Primary Presenting Issue: Psychosis Psychosis Symptoms: Disorganized Psychosis Treatment Goals: (minimization of psychosis) Days To Improvement Of Goal: (10-20 days) Psychosis Interventions: Medication management/evaluation, Group psychoeducation, Medication education, Develop personal safety plan, Individual psychoeducation, Aftercare arrangements Status Of Goal: Improved Precautions Precautions: Unpredictable Seclusion/Restraint Date: N/A Interventions to reduce Seclusion/Restraint: N/A Patient Strengths Patient Strengths: Mental health services Patient Limitations Patient Limitations: Lack of financial means, Lack of stable employment, Low self esteem, Lack of stable housing Discharge Needs Anticipated Facility Type: Psychiatric aftercare, Community mental health, nursing home Criteria For Discharge Criteria For Discharge: Maximum benefit obtained, Goals met Additional Comments: The patient shall persist on her present, psychotropic regimen. Group psychotherapy will continue. Nursing will closely monitor her toleration and response to the course of clinical care. student services dean shall assist with both treatment and discharge planning. Feedback from [facility], regarding snf placement is pending. Discharge will be arranged, once placement has been secured. Physician, Registered Nurse, Aluminum Pourer, Adjunct Therapist included in treatment team discussion. Treatment team members present Ben ULLOA, Deloris RN, Terri RN, Lizbeth GALVAN, Kati MITCHELL, Alex MARTIN Patient Signature Date Patient's Response To Treatment Plan: CLOTH MERCERIZER OPERATOR-S Signature Date Problem: Health Maintenance - Impaired Goal: Improved sleep pattern Outcome: Not Met Pt reports her medications are making her drag. Pt resting in bed majority of morning. Problem: Cognitive-Perceptual Pattern - Impaired Goal: Improved thought processes Outcome: Partially Met Patient continues to be paranoid but her thought process continues to improve. Problem: Health Maintenance - Impaired Goal: Improved sleep pattern Outcome: Met Patient states she slept good last night. Problem: Cognitive-Perceptual Pattern - Impaired Goal: Improved thought processes Outcome: Partially Met Patient's thought process is more organized. Problem: Health Maintenance - Impaired Goal: Improved sleep pattern Outcome: Met Patient states she slept good last night. Formatting of this note may be different from the original. Behavioral Health Treatment Plan Update Date: 05/31/2017 Time: 9:15 AM Patient Name: Pablo Tabares Date of : 1975 Sex: Female Patient Active Problem List Diagnosis SNOMED CT(R) Date Noted Schizophrenia, paranoid, chronic (HCC) CHRONIC PARANOID SCHIZOPHRENIA 05/27/2017 Cocaine abuse COCAINE ABUSE 05/16/2017 Hypertensive urgency HYPERTENSIVE URGENCY 08/01/2015 Abdominal pain r/o cholelithiasis ABDOMINAL PAIN 08/01/2015 DDD (degenerative disc disease), lumbar DEGENERATION OF LUMBAR INTERVERTEBRAL DISC 07/11/2015 Anaphylaxis ANAPHYLAXIS 06/03/2015 Schizophrenia, paranoid, chronic with acute exacerbation (HCC) ACUTE EXACERBATION OF CHRONIC PARANOID SCHIZOPHRENIA 05/28/2015 Hypokalemia HYPOKALEMIA 05/28/2015 Schizophrenia (HCC) SCHIZOPHRENIA 05/28/2015 Chronic hypertension HYPERTENSIVE DISORDER 01/21/2015 Non morbid obesity OBESITY 01/21/2015 Tobacco use TOBACCO USER 01/21/2015 Medical non-compliance PATIENT NONCOMPLIANCE - GENERAL 01/21/2015 Diabetes mellitus type 2 in obese (HCC) TYPE 2 DIABETES MELLITUS IN OBESE 03/23/2005 Diagnosis Carlock I: unchanged Carlock II: unchanged Carlock III: Patient Active Problem List Diagnosis SNOMED CT(R) Date Noted Schizophrenia, paranoid, chronic (HCC) CHRONIC PARANOID SCHIZOPHRENIA 05/27/2017 Cocaine abuse COCAINE ABUSE 05/16/2017 Hypertensive urgency HYPERTENSIVE URGENCY 08/01/2015 Abdominal pain r/o cholelithiasis ABDOMINAL PAIN 08/01/2015 DDD (degenerative disc disease), lumbar DEGENERATION OF LUMBAR INTERVERTEBRAL DISC 07/11/2015 Anaphylaxis ANAPHYLAXIS 06/03/2015 Schizophrenia, paranoid, chronic with acute exacerbation (HCC) ACUTE EXACERBATION OF CHRONIC PARANOID SCHIZOPHRENIA 05/28/2015 Hypokalemia HYPOKALEMIA 05/28/2015 Schizophrenia (HCC) SCHIZOPHRENIA 05/28/2015 Chronic hypertension HYPERTENSIVE DISORDER 01/21/2015 Non morbid obesity OBESITY 01/21/2015 Tobacco use TOBACCO USER 01/21/2015 Medical non-compliance PATIENT NONCOMPLIANCE - GENERAL 01/21/2015 Diabetes mellitus type 2 in obese (HCC) TYPE 2 DIABETES MELLITUS IN OBESE 03/23/2005 Carlock IV: unchanged Carlock V: unchanged Expected Discharge Date: 06/06/2017 ELOS: 10-20 days Precautions Precautions: Unpredictable, Elopement, Suicide Patient Presenting Issues: Patient's Primary Presenting Issue Patient's Primary Presenting Issue: Psychosis Psychosis Symptoms: Disorganized Psychosis Treatment Goals: (minimization of psychosis) Days To Improvement Of Goal: (10-20 days) Psychosis Interventions: Medication management/evaluation, Group psychoeducation, Medication education, Develop personal safety plan, Individual psychoeducation, Aftercare arrangements Status Of Goal: Improved Precautions Precautions: Unpredictable, Elopement, Suicide Seclusion/Restraint Date: N/A Interventions to reduce Seclusion/Restraint: N/A Patient Strengths Patient Strengths: Mental health services Patient Limitations Patient Limitations: Lack of financial means, Lack of stable employment, Low self esteem, Lack of stable housing Discharge Needs Anticipated Facility Type: Psychiatric aftercare, Community mental health, nursing home Criteria For Discharge Criteria For Discharge: Maximum benefit obtained, Goals met Additional Comments: The patient shall persist on her present, psychotropic regimen. Group psychotherapy will continue. Nursing will closely monitor her toleration and response to the course of clinical care. student services dean shall assist with both treatment and discharge planning. [facility] is in the process of orchestrating snf placement. The patient remains floridly psychotic, if one looks below the surface, but has increasing external control. She will discharge once maximum hospital benefit has been obtained, and living arrangements have been completed by [facility]. The guardian and patient alike are on board with this plan of care. Physician, Registered Nurse, Aluminum Pourer, Adjunct Therapist included in treatment team discussion. Treatment team members present: Ben ULLOA, Radha RN, Terri RN, Nasra MARTIN, Kati MITCHELL, Alex MARTIN Patient Signature Date Patient's Response To Treatment Plan: CLOTH MERCERIZER OPERATOR-S Signature Date Problem: Health Maintenance - Impaired Goal: Improved sleep pattern Outcome: Met States she slept well last night Formatting of this note may be different from the original. Behavioral Health Treatment Plan Update Date: 05/30/2017 Time: 8:45 AM Patient Name: Pablo Tabares Date of : 1975 Sex: Female Patient Active Problem List Diagnosis SNOMED CT(R) Date Noted Schizophrenia, paranoid, chronic (HCC) CHRONIC PARANOID SCHIZOPHRENIA 05/27/2017 Cocaine abuse COCAINE ABUSE 05/16/2017 Hypertensive urgency HYPERTENSIVE URGENCY 08/01/2015 Abdominal pain r/o cholelithiasis ABDOMINAL PAIN 08/01/2015 DDD (degenerative disc disease), lumbar DEGENERATION OF LUMBAR INTERVERTEBRAL DISC 07/11/2015 Anaphylaxis ANAPHYLAXIS 06/03/2015 Schizophrenia, paranoid, chronic with acute exacerbation (HCC) ACUTE EXACERBATION OF CHRONIC PARANOID SCHIZOPHRENIA 05/28/2015 Hypokalemia HYPOKALEMIA 05/28/2015 Schizophrenia (HCC) SCHIZOPHRENIA 05/28/2015 Chronic hypertension HYPERTENSIVE DISORDER 01/21/2015 Non morbid obesity OBESITY 01/21/2015 Tobacco use TOBACCO USER 01/21/2015 Medical non-compliance PATIENT NONCOMPLIANCE - GENERAL 01/21/2015 Diabetes mellitus type 2 in obese (HCC) TYPE 2 DIABETES MELLITUS IN OBESE 03/23/2005 Diagnosis Carlock I: unchanged Carlock II: unchanged Carlock III: Patient Active Problem List Diagnosis SNOMED CT(R) Date Noted Schizophrenia, paranoid, chronic (HCC) CHRONIC PARANOID SCHIZOPHRENIA 05/27/2017 Cocaine abuse COCAINE ABUSE 05/16/2017 Hypertensive urgency HYPERTENSIVE URGENCY 08/01/2015 Abdominal pain r/o cholelithiasis ABDOMINAL PAIN 08/01/2015 DDD (degenerative disc disease), lumbar DEGENERATION OF LUMBAR INTERVERTEBRAL DISC 07/11/2015 Anaphylaxis ANAPHYLAXIS 06/03/2015 Schizophrenia, paranoid, chronic with acute exacerbation (HCC) ACUTE EXACERBATION OF CHRONIC PARANOID SCHIZOPHRENIA 05/28/2015 Hypokalemia HYPOKALEMIA 05/28/2015 Schizophrenia (HCC) SCHIZOPHRENIA 05/28/2015 Chronic hypertension HYPERTENSIVE DISORDER 01/21/2015 Non morbid obesity OBESITY 01/21/2015 Tobacco use TOBACCO USER 01/21/2015 Medical non-compliance PATIENT NONCOMPLIANCE - GENERAL 01/21/2015 Diabetes mellitus type 2 in obese (HCC) TYPE 2 DIABETES MELLITUS IN OBESE 03/23/2005 Carlock IV: unchanged Carlock V: unchanged Expected Discharge Date: 06/06/2017 ELOS: 10-20 days Precautions Precautions: Unpredictable Patient Presenting Issues: Patient's Primary Presenting Issue Patient's Primary Presenting Issue: Psychosis Psychosis Symptoms: Disorganized Psychosis Treatment Goals: (minimization of psychosis) Days To Improvement Of Goal: (10-20 days) Psychosis Interventions: Medication management/evaluation, Group psychoeducation, Medication education, Develop personal safety plan, Individual psychoeducation, Aftercare arrangements Status Of Goal: Improved Precautions Precautions: Unpredictable Seclusion/Restraint Date: N/A Interventions to reduce Seclusion/Restraint: N/A Patient Strengths Patient Strengths: Mental health services Patient Limitations Patient Limitations: Lack of financial means, Lack of stable employment, Low self esteem, Lack of stable housing Discharge Needs Anticipated Facility Type: Psychiatric aftercare, Community mental health, nursing home Criteria For Discharge Criteria For Discharge: Maximum benefit obtained, Goals met Additional Comments: The patient shall persist on her present psychotropics. Further engagement into the therapeutic milieu shall be attempted, as her mental status improves. Nursing will closely monitor her toleration and response to the course of care. student services dean shall assist with treatment and discharge planning. The patient will discharge to a snf, with [facility] aftercare in place, at the treatment team's recommendation. Physician, Registered Nurse, Aluminum Pourer, Adjunct Therapist included in treatment team discussion. Treatment team members present: Ben ULLOA, Radha RN, Terri RN, Nasra MARTIN, Kati MITCHELL, Alex MARTIN Patient Signature Date Patient's Response To Treatment Plan: VERONICA Signature Date Problem: Cognitive-Perceptual Pattern - Impaired Goal: Improved thought processes Outcome: Partially Met Pt presents calm with more organized thoughts Notes in care connect were reviewed. Patient was discussed in treatment team. She has been compliant with her oral medications. No irritability shown. Patient says, no when discussing auditory hallucinations. She denies command hallucinations. Patient denies suicidal ideation, homicidal ideation, or visual hallucinations. It seems that placement is not an option for this patient. Patient has done well in a supervised setting. The plan is for the patient to go to [facility] tomorrow. We discussed in tx team about the insulin regimen needing to be reconciled prior to discharge. Formatting of this note may be different from the original. Behavioral Health Initial Treatment Plan Date: 05/27/2017 Time: 1:00 PM Patient Name: Pablo Tabares Date of : 1975 Sex: Female Admit Date/Time: 05/27/2017 2:22 AM Patient Active Problem List Diagnosis SNOMED CT(R) Date Noted Schizophrenia, paranoid, chronic (HCC) CHRONIC PARANOID SCHIZOPHRENIA 05/27/2017 Cocaine abuse COCAINE ABUSE 05/16/2017 Hypertensive urgency HYPERTENSIVE URGENCY 08/01/2015 Abdominal pain r/o cholelithiasis ABDOMINAL PAIN 08/01/2015 DDD (degenerative disc disease), lumbar DEGENERATION OF LUMBAR INTERVERTEBRAL DISC 07/11/2015 Anaphylaxis ANAPHYLAXIS 06/03/2015 Schizophrenia, paranoid, chronic with acute exacerbation (HCC) ACUTE EXACERBATION OF CHRONIC PARANOID SCHIZOPHRENIA 05/28/2015 Hypokalemia HYPOKALEMIA 05/28/2015 Schizophrenia (HCC) SCHIZOPHRENIA 05/28/2015 Chronic hypertension HYPERTENSIVE DISORDER 01/21/2015 Non morbid obesity OBESITY 01/21/2015 Tobacco use TOBACCO USER 01/21/2015 Medical non-compliance PATIENT NONCOMPLIANCE - GENERAL 01/21/2015 Diabetes mellitus type 2 in obese (HCC) TYPE 2 DIABETES MELLITUS IN OBESE 03/23/2005 Diagnosis Carlock I: Schizophrenia chronic paranoid type Carlock II: Deferred Carlock III: see medical hx Carlock IV: Problems with primary support group, Problems related to social environment, Housing problems and Other psychosocial and environmental problems Carlock V: 1-10: Persistent dangerousness to self and others present OR persistent inability to maintain minimal personal hygiene OR serious suicidal act with clear expectation of Reason for Hospitalization Reason for Hospitalization: Psychosis Expected Discharge Date: ELOS: 2-3 weeks Precautions Precautions: Unpredictable Patient Presenting Issues: Patient's Primary Presenting Issue Patient's Primary Presenting Issue: Psychosis Psychosis Symptoms: Disorganized Psychosis Interventions: Medication management/evaluation, Group psychoeducation, Medication education, Develop personal safety plan, Individual psychoeducation, Aftercare arrangements Precautions Precautions: Unpredictable Seclusion/Restraint Date none Interventions to reduce Seclusion/Restraint none Patient Strengths Patient Strengths: Mental health services Patient Limitations Patient Limitations: Lack of financial means, Lack of stable employment, Low self esteem, Lack of stable housing Discharge Needs Anticipated Facility Type: Psychiatric aftercare, Community mental health, nursing home Criteria For Discharge Criteria For Discharge: Maximum benefit obtained, Goals met Additional Comments: none Physician, Registered Nurse, Aluminum Pourer, Adjunct Therapist included in treatment team discussion. Patient Signature Date Patient's Response To Treatment Plan: Physician Signature Date Associated Problem(s): Schizophrenia, paranoid, chronic (HCC) Provide support and reassurance. Social service to obtain additional information and background, coordinate care and assess supports. silver spray worker to work with patient, family and outpatient providers on follow-up appointments and resources. silver spray worker to confirm no access to guns, review safety plan and address psychosocial issues. Occupational Therapy to provide task activity to improve self esteem and to assess and support functioning. Psychotherapy to provide disease education and improve coping skills. Encouraged patient to participate in milieu and go to groups. Incorporate individual therapy, art therapy, group therapy. Encourage patient to incorporate workbooks. No medication changes. Hospitalist to reconcile insulin discharge regimen. Behavioral Health Inpatient Social Work Psychosocial Assessment Date: 05/27/2017 Time: 8:58 AM Patient Name: Pablo Lopez Alleman Date of : 1975 Sex: Female Admit Date/Time: 05/27/2017 2:22 AM CURRENT HOSPITALIZATION: Current Hospitalization Roof Truss Builder Needs: Not needed Chief Complaint: (psychosis) History of Current Hospitalization : (multiple admissions - recurrent) MARITAL STATUS: Marital Status Marital Status : SEXUAL ORIENTATION: Sexual Orientation Sexual Orientation: Heterosexual FAMILY INFORMATION: Family Information Number of Pregnancies: (n/a) Children: Yes How many children?: (four) Ages of Children: (unknown) Pertinent Family Information : (none noted) LIVING ARRANGEMENTS: Living Arrangements Current Living Arrangements: (homeless) EDUCATION: Education Highest Level of Education : Some high school Learning Difficulties/Known Educational Disabilities: (none noted) EMPLOYMENT: Employment Current Employment: Disabled Employer: (n/a) Usual Occupation: (n/a) Source Of Income: Social security Are There Any Financial Concerns?: No Desire For Vocational or Eduational Training?: No SERVICE: Service Service: No LEGAL HISTORY: Legal History Legal History: Arrest YARSANI/SPIRITUAL BELIEFS: Mosque/Spiritual Beliefs Mosque/Spiritual Beliefs: Yes Yes: (Yazidism) ETHNIC/RACE: Ethnic/Race Ethnic/Race: FAMILY HISTORY: Family History Family Psychiatric History: (unknown) Family History Of Substance Abuse: (unknown) PATIENT HISTORY: Patient History Patient Psychiatric History: (persistent psychotic illness noted) Patient Psychiatric Treatment: (active with [facility]) Patient Substance Abuse History: (hx of polysubstance abuse) Brief Intervention Done: Yes Components of Intervention: Gave patient feedback concerning the quantity and frequency of alcohol he/she consumes in comparison with national norms, Engaged in a discussion of the negative physical, emotional, and occupational consequences, Engaged in a discusion of the ovedrall severity of the problem Patient Substance Abuse Treatment History: (none noted) Significant Childhood Events (Positive and Negative Events): (none noted) ABUSE: Abuse Child/Adult/Neglect Issues: (none noted) CURRENT STRESSORS: Current Stressors Current Stressors: Homelessness STRENGTHS AND LIMITATIONS: Strengths and Limitations Patient Strengths: Basic self-care skills Patient Limitations: Lack of stable housing SUPPORT SYSTEMS: Support Systems Support Systems: (NIALL/Guardian) Collateral Contacts: (NIALL/Guardian) Name and Contact of Collateral Provider: ([facility]) PATIENT GOALS FOR TREATMENT: Patient stated goals for treatment are: minimization of psychosis CLINICAL SUMMARY: This is a 41 y/o, -dutch female that was re-admitted to the psychiatric service due to escalating psychosis. Remarkably, she got herself to the ER and self-requested admission. She has brief moments of lucidity, and otherwise is floridly psychotic. She apparently ran out of her prescription psychotropics a week ago, and did not follow-up with [facility]. When she was discharged last month, she was [facility] until other arrangements could be organized. She is too disorganized at this time to provide any contextual history, regarding the past month. I will call [facility], and see what happened from their perspective. She does have a legal guardian. The patient merits permanent placement, as functioning in the community has consistently failed for decades now. She is recurrently in the hospital, recurrently traveling the country, recurrently putting herself in risky circumstances, and recurrently noncompliant with treatment for various reasons. We will see what [facility] recommends, and proceed accordingly. nursing home or ECF placement seems the most appropriate to me. Electronically signed by: Alex MARTIN [facility] Report given to LEROY Vera. Behavioral Health Pre Admission Screening Tool Date: 05/27/2017 Time: 5:17 AM Patient Name: Pablo Tabares Date of : 1975 Sex: Female Prescreener Caller Information: Hugo Referral Source: [facility] ED Diagnosis: Schizophrenia, Paranoid, Chronic Presenting Problem/Chief Complaint: hallucinations, delusional statements Medical Status: Stable Functional Status: Independent Medication Compliant: No (non compliant outside the unit, compliant when here) Reason Not Medication Compliant: Refusing (outside of unit) Insurance Information/Precertification Completed: No (pt has Medicare/Medicaid, no precert needed) Case Reveiwed With: Other Other Physician: Dr Greer Accepted for Admission: Yes Pt will be voluntarily admitted. Approved by Dr Greer, will be in the service of Dr Montoya. Counselor exits room. Counselor at bedside. Rests in cot, no changes in condition. Sitter at bedside. Prescriptions placed in tamper proof bad #[id number]. Formatting of this note may be different from the original. ED PROVIDER NOTE [facility] NAME: Pablo Tabares AGE: 41 y.o. : 1975 VISIT DATE: 05/27/2017 CSN: [id number] PCP: Physician No Chief Complaint Patient presents with Psychiatric Evaluation HPI This is a 41-year-old female with a history of schizophrenia and substance abuse presenting to the emergency department complaining of 3 days of difficulty focusing. She ran out of all of her medications about a week ago. She has also had difficulty sleeping. She denies suicidal ideation or homicidal ideation. She does report visual and auditory hallucinations, but she is unable to elaborate about her hallucinations. Past Medical History: Diagnosis Date Asthma Bipolar disorder (HCC) Cocaine abuse Diabetes mellitus (HCC) Gestational hypertension History of depression Hypertension Obesity Obesity Schizo affective schizophrenia (HCC) Schizophrenia (HCC) Past Surgical History: Procedure Laterality Date BREAST BIOPSY 2000 EGD N/A 08/09/2015 Procedure: EGD; Surgeon: Shon Sheehan MD; Location: [facility]; Service: Family History Problem Relation Age of Onset Hypertension Father Diabetes Other Grandfather Stomach cancer Other Grandfather Glaucoma Other Grandmother Mental illness Mother Social History Social History Marital status: Single Spouse name: N/A Number of children: N/A Years of education: N/A Occupational History Not on file. Social History Main Topics Smoking status: Current Every Day Smoker Packs/day: 1.00 Smokeless tobacco: Never Used Alcohol use No Comment: pt denies Drug use: Yes Comment: denies but tests positive for cocaine Sexual activity: Yes Partners: Male Other Topics Concern Not on file Social History Narrative Current Discharge Medication List CONTINUE these medications which have NOT CHANGED Details amLODIPine (NORVASC) 10 MG tablet Take 1 (one) tablet (10 mg total) by mouth daily. Qty: 30 tablet, Refills: 0 busPIRone (BUSPAR) 7.5 MG tablet Take 1 (one) tablet (7.5 mg total) by mouth 3 (three) times a day. Qty: 90 tablet, Refills: 0 !! haloperidol (HALDOL) 10 MG tablet Take 1 (one) tablet (10 mg total) by mouth nightly. Qty: 30 tablet, Refills: 0 !! haloperidol (HALDOL) 5 MG tablet Take 1 (one) tablet (5 mg total) by mouth 2 (two) times a day Take in am and 1400. Qty: 60 tablet, Refills: 0 metFORMIN (GLUCOPHAGE) 500 MG tablet Take 1 (one) tablet (500 mg total) by mouth daily with breakfast. Qty: 30 tablet, Refills: 0 !! - Potential duplicate medications found. Please discuss with provider. Allergies Allergen Reactions Kameron Inhibitors Swelling Amoxicillin Ciprofloxacin Swelling Penicillins Review of Systems Constitutional: Negative for chills, fever and unexpected weight change. HENT: Negative for ear pain, rhinorrhea and sore throat. Eyes: Negative for pain, redness and visual disturbance. Respiratory: Negative for cough, shortness of breath and wheezing. Cardiovascular: Negative for chest pain, palpitations and leg swelling. Gastrointestinal: Negative for abdominal pain, constipation, diarrhea, nausea and vomiting. Genitourinary: Negative for dysuria, hematuria and urgency. Musculoskeletal: Negative for arthralgias and joint swelling. Skin: Negative for rash. Neurological: Negative for dizziness, seizures and headaches. Psychiatric/Behavioral: Positive for hallucinations and sleep disturbance. Negative for self-injury and suicidal ideas. All other systems reviewed and are negative. Positives and pertinent negatives as per HPI. All other systems were reviewed and are negative. Patient Vitals for the past 24 hrs: BP Temp Pulse Resp SpO2 Height Weight 05/27/17 0213 (!) 160/112 97.8 F (36.6 C) 80 18 99 % - - 05/27/17 0208 - - - - - 5' 3 119.7 kg (264 lb) Physical Exam Constitutional: She is oriented to person, place, and time. She appears well-developed and well-nourished. No distress. HENT: Head: Normocephalic and atraumatic. Right Ear: Tympanic membrane normal. Left Ear: Tympanic membrane normal. Nose: Nose normal. Mouth/Throat: Uvula is midline, oropharynx is clear and moist and mucous membranes are normal. Eyes: EOM are normal. Pupils are equal, round, and reactive to light. No scleral icterus. Right eye exhibits normal extraocular motion. Left eye exhibits normal extraocular motion. Fundoscopic exam: The right eye shows no papilledema. The left eye shows no papilledema. Neck: Neck supple. No rigidity. No Brudzinski's sign and no Kernig's sign noted. Cardiovascular: Normal rate, regular rhythm, normal heart sounds and intact distal pulses. Pulmonary/Chest: Effort normal and breath sounds normal. Abdominal: Soft. Normal appearance and bowel sounds are normal. She exhibits no pulsatile midline mass. There is no tenderness. There is no rigidity, no rebound and no guarding. Musculoskeletal: She exhibits no edema or tenderness. Neurological: She is alert and oriented to person, place, and time. She has normal strength and normal reflexes. No cranial nerve deficit or sensory deficit. Coordination and gait normal. Skin: Skin is warm and dry. Capillary refill takes less than 3 seconds. Psychiatric: Her affect is blunt. Her speech is delayed. She is slowed and actively hallucinating. She expresses no homicidal and no suicidal ideation. Vitals reviewed. Laboratory & Radiographic Imaging (if done): Results for orders placed or performed during the hospital encounter of 05/27/17 Drugs of Abuse Screen, Urine Result Value Ref Range Amphetamine Screen, Urine None Detected None Detected Barbiturate Screen, Urine None Detected None Detected Benzodiazepine Screen, Urine None Detected None Detected Cannabinoid Screen, Urine None Detected None Detected Cocaine, Screen Urine None Detected None Detected Methadone Screen, Urine None Detected None Detected Opiate Screen, Urine None Detected None Detected Oxycodone Screen, Urine None Detected None Detected Alcohol, Medical Result Value Ref Range Alcohol (Medical) <3.00 <3.00 mg/dL Urinalysis Result Value Ref Range Color, Urine Yellow Colorless, Yellow Clarity, Urine Hazy (A) Clear Specific [place] 1.025 1.005 - 1.025 pH, Urine 6.0 5.0 - 7.0 Protein, Urine Negative Negative mg/dL Glucose, Urine Negative Negative mg/dL Ketones, Urine Negative Negative mg/dL Bilirubin, Urine Negative Negative Urobilinogen, Urine <2.0 <2.0 mg/dL Blood, Urine Small (A) Negative Nitrite, Urine Negative Negative Leukocyte Esterase, Urine Moderate (A) Negative WBCs, Urine 20 (H) 0 - 5 /hpf RBCs, Urine 5 (H) 0 - 3 /hpf Bacteria, Urine None Seen None Seen /hpf Squamous Epithelial 2 0 - 4 /hpf Urine Result Value Ref Range Beta-hCG, Ur, Qual Negative Negative TSH with Reflex Free T4 Result Value Ref Range TSH 0.87 0.32 - 5.00 mcIU/mL CMP Result Value Ref Range Sodium 141 135 - 145 mmol/L Potassium 3.2 (L) 3.5 - 5.1 mmol/L Chloride 106 98 - 108 mmol/L Bicarbonate 27 21 - 32 mmol/L Anion Gap 11 10 - 20 mmol/L Glucose 137 (H) 65 - 99 mg/dL BUN 10 8 - 25 mg/dL Creatinine 0.90 0.40 - 1.10 mg/dL eGFR 91 >=60 mL/min/1.73 m2 BUN/Creatinine Ratio 11.1 10.0 - 20.0 Total Protein 8.1 (H) 6.0 - 8.0 g/dL Albumin 3.7 3.2 - 5.2 g/dL Calcium 8.9 8.4 - 10.2 mg/dL Alkaline Phosphatase 97 40 - 150 U/L AST 14 0 - 45 U/L Total Bilirubin 0.2 0.0 - 1.3 mg/dL ALT 21 14 - 65 U/L Magnesium Result Value Ref Range Magnesium 2.4 1.6 - 2.4 mg/dL Lipid Panel Result Value Ref Range Cholesterol 127 100 - 199 mg/dL Triglycerides 79 30 - 150 mg/dL HDL 54 40 - 59 mg/dL Chol/HDL Ratio 2.4 ratio LDL Calculated 57 10 - 150 mg/dL Non HDL Cholesterol 73 mg/dL CBC Auto Differential Result Value Ref Range WBC 11.53 (H) 4.50 - 11.00 K/mcL RBC 4.52 4.00 - 5.20 M/mcL Hemoglobin 13.1 12.0 - 16.0 g/dL Hematocrit 39.7 36.0 - 46.0 % MCV 87.8 80.0 - 100.0 fL MCH 29.0 26.0 - 34.0 pg MCHC 33.0 31.0 - 37.0 g/dL Platelets 189 150 - 400 K/mcL RDW - CV 15.6 (H) 11.6 - 14.8 % MPV 11.0 9.0 - 15.5 fL Neutrophils 67.4 % Lymphocytes 25.7 % Monocytes 5.2 % Eosinophils 1.2 % Basophils 0.2 % IG Percent 0.30 % Neutrophils Abs 7.77 (H) 1.70 - 7.00 K/mcL Lymphocytes Abs 2.96 0.90 - 4.00 K/mcL Monocytes Abs 0.60 0.30 - 0.90 K/mcL Eosinophils Abs 0.14 0.00 - 0.50 K/mcL Basophils Abs 0.02 0.00 - 0.30 K/mcL IG Absolute 0.04 0.00 - 0.30 K/mcL Nucleated RBC 0.0 % Nucleated RBC Abs 0.00 0.00 - 0.00 K/mcL No orders to display Procedures MDM ED Course Urine drug screen is negative. Blood alcohol level is negative. Urinalysis demonstrates possible infection. Urine test is negative. TSH is normal. CMP demonstrates slightly low potassium at 3.2 and slightly elevated glucose at 137. Magnesium is normal. White blood cell count is slightly elevated at 11.53. She was seen and evaluated by the [facility] counselor accepted to the behavioral health unit. Clinical Impression: SNOMED CT(R) 1. Schizophrenia, unspecified type (HCC) SCHIZOPHRENIA 2. Acute UTI ACUTE URINARY TRACT INFECTION ADMIT TO [facility] Current Discharge Medication List (Please note that portions of this note may have been completed with a voice recognition software. Efforts were made to correct any errors, but occasionally words are mis-transcribed.) Jami Juarez MD 05/27/17623 Jami Juarez MD 05/27/17625 Unsuccessful IV attempt, left forearm with ultrasound, Dressing placed. Patient continues to nod off, no change in respiratory effort noted. No distress. Dr. Juarez aware. Patient aware of need for urine, denies being able to void at this time. Patient states that she is having a hard time hearing and focusing. Reports that she IS NOT having hallucinations to Dr. Juarez. Patient provided with paper underwear and a pad D/T currently menstruating. Patient dozes off during assessment. Pt stating I am supposed to me going to [facility] to see my . I missed the bus and he's going to be mad. You people don't believe I'm . [place]. I am late. My was packing up the boats to bring them over but they are going to yell at me . I need to be put in the mental health unit. I haven't had any of my meds and I need them adjusted . Pt denies any suicidal ideation. Pt states that she can't think straight and that she is having hallucinations.in this encounter <item><item><item> Privacy Markings (unrecogniz ed section and content) Section Author: Jackie Medina PROHIBITION ON REDISCLOSURE OF CONFIDENTIAL INFORMATION This notice accompanies a disclosure of information concerning a client made to you with the consent of such client. Section Author: Jackie Medina PROHIBITION ON REDISCLOSURE OF CONFIDENTIAL INFORMATION This notice accompanies a disclosure of information concerning a client made to you with the consent of such client. Section Author: Jackie Medina PROHIBITION ON REDISCLOSURE OF CONFIDENTIAL INFORMATION This notice accompanies a disclosure of information concerning a client made to you with the consent of such client. Care Teams (unrecognized sec tion and content) Mortar Maker Relationship Specialty Start Date End Date Generic Provider, [place] [address] PCP - General Slots Manager 05/21/24 FOR RECORDS PERTAINING TO PATIENTS WHO ARE OR HAVE BEEN ENROLLED IN A CHEMICAL DEPENDENCY/SUBSTANCEABUSE PROGRAM, SOME INFORMATION MAY BE OMITTED. This clinical summary was aggregated from multiple sources. Caution should be exercised in using it in the provision of clinical care. This summary normalizes information from multiple sources, and as a consequence, information in this document may materially change the coding, format and clinical context of patient data. In addition, data may be omitted in some cases. CLINICAL DECISIONS SHOULD BE BASED ON THE PRIMARY CLINICAL RECORDS. [facility]. provides no warranty or guarantee of the accuracy or completeness of information in this document.
== END | disposition home or self-care (01) ==
LOC: OPUS 12:41
PROVIDERS: PCP Nurse Practitioner Family; Referring Provider Nurse Practitioner Family; Visit Provider Nurse Practitioner Family
DX: N60.02 Solitary cyst of left breast (principal); R92.8 Other abnormal and inconclusive findings on diagnostic imaging of breast
CPT/HCPCS: 76642; 77062; 77066; G0279

== ENCOUNTER → 2024-09-30 | Outpatient (CLI) | payer MEDICARE, MEDICAID, SELFPAY ==
[2024-09-30 12:52] LABS: Absolute Lymphocyte Count 3.33 X10^3/uL (0.83-4.51); Absolute Neutrophil Count 8.1 X10^3/uL (2.0-7.7); Basophil# 0.02 X10^3/uL; Basophil% 0.2 % (0-1); Eosinophil# 0.15 X10^3/uL; Eosinophils% 1.2 % (0-5); Hematocrit 42.3 % (37-47); Hemoglobin 13.5 g/dL (12.0-15.0); Lymphocyte # 3.33 X10^3/ul (0.83-4.51); Lymphocyte % 27.3 % (19-41); Mean Corp Hgb Conc 31.9 g/dL (32-36); Mean Corpuscular Hgb 30.4 pg (27.0-32.0); Mean Corpuscular Volume 95.3 fL (81-99); Monocyte# 0.59 X10^3/uL; Monocyte% 4.8 % (0-10); NRBC Flagged by Analyzer 0 % (0-5); Neutrophil # 8.09 X10^3/uL (2.7-7.7); Neutrophil % 66.2 % (47-70); Platelet Count 173 K/mm3 (150-450); RBC Distribution Width CV 14.6 % (11.6-14.6); RBC Distribution Width SD 50.5 fl (35.1-43.9); Red Blood Count 4.44 M/mm3 (4.2-5.4); White Blood Count 12.2 K/mm3 (4.4-11.0)
[2024-09-30 13:25] LABS: ALB/GLOB Ratio 0.8 RATIO (0.9-2.4); AST(SGOT) 17 U/L (15-37); Alanine Aminotransfer ALT/SGPT 20 U/L (13-56); Albumin, Serum 3.4 g/dL (3.2-5.0); Alkaline Phosphatase 105 U/L (45-117); Anion Gap 7 (5-15); BUN 10 mg/dL (7-18); BUN/Creat Ratio 9.1 RATIO (10-20); Calcium,Total 9.2 mg/dL (8.5-10.1); Chloride 107 mmol/L (98-107); Cholesterol 119 mg/dL (200); EST Glomerular Filtration Rate 56 mL/min (>60); Est Glom Filt Rate - Afr Amer 67 mL/min (>60); Glucose 110 mg/dL (74-106); High Density Lipoprotein 49 mg/dL; Protein, Total 7.4 g/dL (6.4-8.2); Sodium Level 138 mmol/L (136-145); Thyroid Stim Hormone (TSH) 0.869 uIU/mL (0.358-3.740); Triglycerides 178 mg/dL; Very Low Density Lipoprotein 36 mg/dL (5-40)
[2024-09-30 13:34] LABS: Microalbumin,Random Urine < 5.0 mg/L (NO RANGE EST.)
== END | disposition home or self-care (01) ==
LOC: VSLAB 10:49
PROVIDERS: PCP Nurse Practitioner Family; Visit Provider Nurse Practitioner Family
DX: E11.69 Type 2 diabetes mellitus with other specified complication (principal); E78.5 Hyperlipidemia, unspecified; I10 Essential (primary) hypertension
CPT/HCPCS: 36415; 80053; 80061; 82043; 84443; 85025